=== PATIENT | female | born 1940 | race Caucasian/White ===

== ENCOUNTER 2016-08-09 14:59 | Emergency (ER) | payer BC, MEDICARE ==
[~2016-08-09 14:59] MED LIST: ASPIRIN 81 MG TABLET, CHEWABLE ONE; CLOPIDOGREL BISULFATE 300 MG TABLET ONE; ENOXAPARIN SODIUM INJ 30 MG/0.3 ML DISP.SYRIN ONE; NITROGLYCERIN 0.4 MG/TAB 25 TAB/BOTTLE ONE; TENECTEPLASE INJ 50 MG KIT IV ONE
--- NOTE | 2016-08-09 15:40 | ER Document Report ---
ED Cardiac - General Chief Complaint: Chest Pain > 30 Stated Complaint: CHEST PAIN Notes: The patient is a 75-year-old female, past medical history hypertension, breast cancer with metastases to the bones, diabetes, hypercholesterolemia, presents with 4 hours of left-sided chest pressure that started at rest. She has never had this before. She denies any radiation of pain, shortness of breath, fevers , leg swelling, nausea, vomiting, headache, recent surgery, brain surgery, dark or bloody stools or hematuria. TRAVEL OUTSIDE OF THE [place] IN LAST 30 DAYS: No - Related Data Allergies/Adverse Reactions: Sulfa (Sulfonamide Antibiotics) Allergy (Severe, Verified 05/10/14 16:29) Face swells ciprofloxacin [From Cipro] Allergy (Mild, Verified 09/25/15 20:08) Urticaria ciprofloxacin HCl [From Cipro] Allergy (Mild, Verified 09/25/15 20:08) Urticaria Home Medications: Current Home Medications Krill/Brackney-3/Dha/Epa/Lipids [Krill Oil 300 mg Softgel] 300 cap PO DAILY [History] Letrozole 2.5 tab PO DAILY 08/09/16 [History] Magnesium Oxide [Mag-Ox 400 mg Tablet] 400 tab PO BID 08/09/16 [History] Metoprolol Succinate/Hctz [Metoprolol ER-Hctz 25-12.5 mg] 12.5 tab PO BID [History] Multivits-Min/Iron/FA/Lutein [Centrum Silver Women Tablet] 1 each PO DAILY 08/09 [History] Omeprazole 40 cap PO DAILY 08/09/16 [History] Oxycodone HCl [Oxycodone HCl 10 MG Tablet] 10 tab PO Q6 PRN 08/09/16 [History] Palbociclib [Ibrance] 125 mg PO DAILY 08/09/16 [History] Potassium Chloride 20 meq PO TID 08/09/16 [History] Sitagliptin Phosphate [Januvia 25 mg Tablet] 25 mg PO DAILY 08/09/16 [History] Past Medical History - General Information source: Patient - Social History Smoking Status: Never Smoker Family History: Reviewed & Not Pertinent - Past Medical History Cardiac Medical History: Reports: Hx Hypercholesterolemia, Hx Hypertension, Hx Heart Murmur Denies: Hx Atrial Fibrillation, Hx Congestive Heart Failure, Hx Coronary Artery Disease, Hx Heart Attack, Hx Peripheral Vascular Disease Pulmonary Medical History: Denies: Hx Asthma, Hx Bronchitis, Hx COPD, Hx Pneumonia Neurological Medical History: Denies: Hx Cerebrovascular Accident, Hx Seizures Endocrine Medical History: Reports: Hx Diabetes Mellitus Type 2, Hx Hypothyroidism. Denies: Hx Graves' Disease, Hx Hyperthyroidism Renal/ Medical History: Reports: Hx Kidney Stones. Denies: Hx End Stage Renal Disease, Hx Ovarian Cysts, Hx Peritoneal Dialysis, Hx Pelvic Inflammatory Disease Malignancy Medical History: Reports: Hx Breast Cancer - Bilateral. Denies: Hx Cervical Cancer, Hx Leukemia, Hx Ovarian Cancer GI Medical History: Reports: Hx Crohn's Disease. Denies: Hx Gastroesophageal Reflux Disease, Hx Hiatal Hernia, Hx Irritable Bowel, Hx Liver Failure, Hx Ulcer Musculoskeltal Medical History: Reports Hx Arthritis, Denies Hx Fibromyalgia, Reports Hx Gout, Denies Hx Multiple Sclerosis, Denies Hx Muscular Dystrophy Psychiatric Medical History: Denies: Hx Bipolar Disorder, Hx Dementia, Hx Depression, Hx Post Traumatic Stress Disorder, Hx Schizophrenia Traumatic Medical History: Denies: Hx Fractures Infectious Medical History: Denies: Hx HIV Past Surgical History: Reports: Hx Appendectomy, Hx Mastectomy, Hx Neurologic Surgery. Denies: Hx Bowel Surgery, Hx Section, Hx Cholecystectomy, Hx Colostomy, Hx Coronary Artery Bypass Graft, Hx Gastric Bypass Surgery, Hx Herniorrhaphy, Hx Hysterectomy, Hx Pacemaker, Hx Tonsillectomy, Hx Tubal Ligation - Immunizations Hx Diphtheria, Pertussis, Tetanus Vaccination: No Hx Pneumococcal Vaccination: 04/27/14 Review of Systems - Review of Systems Notes: REVIEW OF SYSTEMS: CONSTITUTIONAL: -fevers, -chills EENT: -eye pain, -difficulty swallowing, -nasal congestion CARDIOVASCULAR: +chest pain, -syncope. RESPIRATORY: -cough, -SOB GASTROINTESTINAL: -abdominal pain, -nausea, -vomiting, -diarrhea GENITOURINARY: -dysuria, -hematuria MUSCULOSKELETAL: -back pain, -neck pain SKIN: -rash or skin lesions. HEMATOLOGIC: -easy bruising or bleeding. LYMPHATIC: -swollen, enlarged glands. NEUROLOGICAL: -altered mental status or loss of consciousness, -headache, - neurologic symptoms PSYCHIATRIC: -anxiety, -depression. ALL OTHER SYSTEMS REVIEWED AND NEGATIVE. Physical Exam - Vital signs Vitals: Resp Pulse Ox 16 97 08/09/16 15:29 08/09/16 15:29 108/67, HR 82, RR 15, Pulse Ox 97%, Temp 98.2 - Notes Notes: PHYSICAL EXAMINATION: GENERAL: Well-appearing, well-nourished and in no acute distress. HEAD: Atraumatic, normocephalic. EYES: Pupils equal round and reactive to light, extraocular movements intact, sclera anicteric, conjunctiva are normal. ENT: nares patent, oropharynx clear without exudates. Moist mucous membranes. NECK: Normal range of motion, supple without lymphadenopathy LUNGS: Breath sounds clear to auscultation bilaterally and equal. No wheezes rales or rhonchi. HEART: Regular rate and rhythm without murmurs ABDOMEN: Soft, nontender, normoactive bowel sounds. No guarding, no rebound. No masses appreciated. EXTREMITIES: Normal range of motion, no pitting or edema. No cyanosis. NEUROLOGICAL: Cranial nerves grossly intact. Normal speech, normal gait. Normal sensory, motor, and reflex exams. PSYCH: Normal mood, normal affect. SKIN: Warm, Dry, normal turgor, no rashes or lesions noted. Course - Re-evaluation Re-evalutation: Patient's EKG concerning for STEMI with [address] elevation in V3 and 3 mm elevation in V2 with old LBBB. Spoke to Dr. Irwin (waste disposal attendant on-call to read EKGs at [place]) and recommends making patient a STEMI alert. Went through contraindications of tPA and she does not have any contraindications. Chest x- ray does not show an enlarged mediastinum. PT/PTT machine is not working at this time. Nitroglycerin helped relieve her chest pressure. Spoke to Dr. Bagley at [facility] and he has accepted patient. He does not think that patient has all criteria met for STEMI, using [place] criteria. Recommends to hold TPA at this time, but has accepted patient at 15:50. TPA already given in order to meet time metrics. Patient remains chest pain-free. First troponin 0.64. Awaiting bed assignment at [facility]. - Vital Signs Vital signs: Temp Pulse Resp BP Pulse Ox 18 108/65 98 08/09/16 18:01 08/09/16 18:01 08/09/16 18:01 - Laboratory Result Diagrams: 08/09/16 15:26 08/09/16 15:26 Laboratory results interpreted by me: 08/09/16 08/09/16 15:26 15:26 RBC 2.85 L Hgb 11.1 L Hct 33.1 L MCV 116 H MCH 38.8 H RDW 16.0 H Sodium 133.8 L Chloride 95 L BUN 27 H Est GFR ( Amer) 55 L Est GFR (Non-Af Amer) 46 L Glucose 193 H Calcium 8.2 L - Diagnostic Test Radiology reviewed: Image reviewed, Reports reviewed Radiology results interpreted by me: CXR: NAD - EKG Interpretation by Me Rhythm: NSR [place]/QRS: LBBB When compared to previous EKG there are: Changes noted Additional EKG results interpreted by me: 5 mm DAVID in V3, 3 mm DAVID in V2, LBBB; ST elevations more prominent compared to EKG Discharge - Discharge Clinical Impression: NSTEMI (non-ST elevated myocardial infarction) Chest pain Qualifiers: Chest pain type: other chest pain Qualified Code(s): R07.89 - Other chest pain Condition: Stable Disposition: [facility] Admitting Provider: Dr. Bagley
[2016-08-09] MEDS ORDERED: ENOXAPARIN SODIUM INJ 30 MG/0.3 ML DISP.SYRIN IV ONE (15:46)
[2016-08-09] MEDS: ENOXAPARIN SODIUM INJ 100 MG/1 ML DISP.SYRIN SUBCUT SCH (15:54)
[2016-08-09] MEDS ORDERED: NORMAL SALINE 1000 ML 1,000 ML IV PRN (16:03)
[2016-08-09] MEDS ORDERED: TENECTEPLASE INJ 50 MG KIT IV ONE (16:03)
[2016-08-09] MEDS ORDERED: NITROGLYCERIN 0.4 MG/TAB 25 TAB/BOTTLE SL PRN (16:03)
[2016-08-09] MEDS ORDERED: CLOPIDOGREL BISULFATE 300 MG TABLET PO ONE (16:03)
[2016-08-09] MEDS ORDERED: ASPIRIN 81 MG TABLET, CHEWABLE PO ONE (16:03)
[2016-08-09 16:27] LABS: HEMATOCRIT 33.1 % (36.0-47.0); HEMOGLOBIN 11.1 g/dL (12.0-15.5); HGB HCT DIFFERENCE 0.2; MEAN CORPUSCULAR HEMOGLOBIN 38.8 pg (27.0-33.4); MEAN CORPUSCULAR HGB CONC 33.4 g/dL (32.0-36.0); RED BLOOD COUNT 2.85 10^6/uL (3.72-5.28); WHITE BLOOD COUNT 5.7 10^3/uL (4.0-10.5)
[2016-08-09 16:37] LABS: ANION GAP 14 (5-19); BLOOD UREA NITROGEN 27 mg/dL (7-20); CALCIUM 8.2 mg/dL (8.4-10.2); CARBON DIOXIDE 25 mmol/L (22-30); CHLORIDE 95 mmol/L (98-107); CREATINE KINASE 79 U/L (30-135); CREATININE RESULT 1.16 mg/dL (0.52-1.25); GLUCOSE 193 mg/dL (75-110); POTASSIUM 4.3 mmol/L (3.6-5.0); SODIUM 133.8 mmol/L (137-145)
[2016-08-09 16:44] LABS: MEAN CORPUSCULAR VOLUME 116 fl (80-97)
--- NOTE | 2016-08-09 16:47 | EKG REPORT ---
SEVERITY:- ABNORMAL ECG - SINUS RHYTHM LEFT BUNDLE BRANCH BLOCK : Confirmed by: Perri Mcgrath MD 09-Aug-2016 16:47:25
--- NOTE | 2016-08-09 16:47 | EKG REPORT ---
SEVERITY:- ABNORMAL ECG - SINUS RHYTHM LEFT ATRIAL ABNORMALITY LVH WITH IVCD, LAD AND SECONDARY REPOL ABNRM PROBABLE INFERIOR INFARCT, AGE INDETERMINATE : Confirmed by: Perri Mcgrath MD 09-Aug-2016 16:47:39
[2016-08-09 16:49] LABS: CREATINE KINASE MB 3.52 ng/mL (<4.55)
[2016-08-09 16:52] LABS: TROPONIN I 0.625 ng/mL
[2016-08-09 19:40] LABS: PROTHROMBIN TIME 15.3 SEC (11.4-15.4)
--- NOTE | 2016-08-09 23:44 | ER Document Report ---
Doctor's Note Notes: 08/09/16 23:43 Patient resting comfortably, no complaints at present time, no chest pain or shortness of breath, stable vital signs, repeat troponin has gone up significantly, patient is pending transfer to [facility] where her catalogue illustrator is and where she has been treated in the past, she will remain in the emergency room until a bed becomes available or her status changes
[2016-08-10] MEDS: ENOXAPARIN SODIUM INJ 100 MG/1 ML DISP.SYRIN SUBCUT SCH (00:05)
--- NOTE | 2016-08-10 01:54 | ER Document Report ---
Doctor's Note Notes: 08/10/16 01:53 pt is stable at this time, awaiting transfer 08/10/16 03:30 pt reevlauted, still pain free, troponin had elevated again, repeat ekg by Dr Perdomo notes similar ekg changes [id number] were not considered to be a stemi by cardiology. Pt should be transported in the next few minutes
[2016-08-10 03:34] VITALS: BP 97/60
--- NOTE | 2016-08-10 09:24 | EKG REPORT ---
SEVERITY:- ABNORMAL ECG - SINUS RHYTHM LEFT BUNDLE BRANCH BLOCK : Confirmed by: Perri Mcgrath MD 10-Aug-2016 09:23:47
[2016-08-12 14:30] LABS: PATH REVIEW PATHOLOGIST REVIEWED
== END 2016-08-10 03:07 | disposition short-term general hospital (02) ==
LOC: ER 14:59
DX: I21.4 Non-ST elevation (NSTEMI) myocardial infarction (principal); R07.89 Other chest pain; I10 Essential (primary) hypertension; E11.9 Type 2 diabetes mellitus without complications; E78.00 Pure hypercholesterolemia, unspecified; Z79.899 Other long term (current) drug therapy
CPT/HCPCS: 93005 ×2; 36591; 99291; 96372; 96361; 96374; 96375; 36415; 82553; 82550; 85027; 85610; 85730; 80048; 84484; 71010; 93010 ×2; J3101; J3490; J1650 ×3; J7030

== ENCOUNTER → 2016-09-01 | Outpatient (CLI) | payer BC, MEDICARE | LOC: RAD 19:57 | PROVIDERS: ATTEND Internal Medicine | DX: C50.411 Malignant neoplasm of upper-outer quadrant of right female breast (principal); C79.51 Secondary malignant neoplasm of bone | CPT/HCPCS: 78815; A9552 ==

== ENCOUNTER 2016-10-03 14:02 | Emergency (ER) | payer BC ==
--- NOTE | 2016-10-03 14:25 | ER Document Report ---
ED Medical Screen (RME) - General Stated Complaint: BLOOD PRESSURE PROBLEM Notes: Patient p/w syncopal episode states diarrhea without BRBPR or dark stool, all last evening, syncope this AM. admits to head injury with LOC prior to fall lasting <1 min Denies chest pain, SOB, headache, dizzyness PMH: ME with stents x2, heart failure, DM, HTN, HLD, breast cancer stage IV with met to her left hip -CVA, TIA, seizures, COPD, CKD I have greeted and performed a rapid initial assessment of this patient. A comprehensive ED assessment and evaluation of the patient, analysis of test results and completion of the medical decision making process will be conducted by additional ED providers. TRAVEL OUTSIDE OF THE [place] IN LAST 30 DAYS: No - Related Data Allergies/Adverse Reactions: Sulfa (Sulfonamide Antibiotics) Allergy (Severe, Verified 10/03/16 14:21) Face swells ciprofloxacin [From Cipro] Allergy (Mild, Verified 10/03/16 14:21) Urticaria ciprofloxacin HCl [From Cipro] Allergy (Mild, Verified 10/03/16 14:21) Urticaria Past Medical History - Past Medical History Cardiac Medical History: Reports: Hx Hypercholesterolemia, Hx Hypertension, Hx Heart Murmur Denies: Hx Atrial Fibrillation, Hx Congestive Heart Failure, Hx Coronary Artery Disease, Hx Heart Attack, Hx Peripheral Vascular Disease Pulmonary Medical History: Denies: Hx Asthma, Hx Bronchitis, Hx COPD, Hx Pneumonia Neurological Medical History: Denies: Hx Cerebrovascular Accident, Hx Seizures Endocrine Medical History: Reports: Hx Diabetes Mellitus Type 2, Hx Hypothyroidism. Denies: Hx Graves' Disease, Hx Hyperthyroidism Renal/ Medical History: Reports: Hx Kidney Stones. Denies: Hx End Stage Renal Disease, Hx Ovarian Cysts, Hx Peritoneal Dialysis, Hx Pelvic Inflammatory Disease Malignancy Medical History: Reports: Hx Breast Cancer - Bilateral. Denies: Hx Cervical Cancer, Hx Leukemia, Hx Ovarian Cancer GI Medical History: Reports: Hx Crohn's Disease. Denies: Hx Gastroesophageal Reflux Disease, Hx Hiatal Hernia, Hx Irritable Bowel, Hx Liver Failure, Hx Ulcer Musculoskeltal Medical History: Reports Hx Arthritis, Denies Hx Fibromyalgia, Reports Hx Gout, Denies Hx Multiple Sclerosis, Denies Hx Muscular Dystrophy Psychiatric Medical History: Denies: Hx Bipolar Disorder, Hx Dementia, Hx Depression, Hx Post Traumatic Stress Disorder, Hx Schizophrenia Traumatic Medical History: Denies: Hx Fractures Infectious Medical History: Denies: Hx HIV Past Surgical History: Reports: Hx Appendectomy, Hx Mastectomy, Hx Neurologic Surgery. Denies: Hx Bowel Surgery, Hx Section, Hx Cholecystectomy, Hx Colostomy, Hx Coronary Artery Bypass Graft, Hx Gastric Bypass Surgery, Hx Herniorrhaphy, Hx Hysterectomy, Hx Pacemaker, Hx Tonsillectomy, Hx Tubal Ligation - Immunizations Hx Diphtheria, Pertussis, Tetanus Vaccination: No Physical Exam - Vital signs Vitals: Temp Pulse Resp BP Pulse Ox 97.6 F 71 15 115/43 L 96 10/03/16 14:18 10/03/16 14:18 10/03/16 14:18 10/03/16 14:18 10/03/16 14:18 Course - Vital Signs Vital signs: Temp Pulse Resp BP Pulse Ox 97.6 F 71 15 115/43 L 96 10/03/16 14:18 10/03/16 14:18 10/03/16 14:18 10/03/16 14:18 10/03/16 14:18
--- NOTE | 2016-10-03 15:09 | ER Document Report ---
ED General - General Mode of Arrival: Medic Information source: Patient TRAVEL OUTSIDE OF THE [place] IN LAST 30 DAYS: No - HPI Onset: Other - see narrative Recently seen / treated by doctor: Yes <LUCIAN SPENCE - Last Filed: 10/03/16 18:41> <PRETTYEDIN - Last Filed: 10/09/16 22:47> - General Chief Complaint: Blood Pressure Problem Stated Complaint: BLOOD PRESSURE PROBLEM Notes: Patient is a 75-year-old female with past medical history significant for stage IV breast cancer with metastasis to the left hip that presents to the emergency department today with complaints of a syncopal episode that occurred prior to arrival in the bathroom at home. Family members at bedside state the patient was in the bathroom for "quite some time" so they asked if she was okay, patient said yes. Shortly after the patient was attempting to stand up when she passed out. Patient states she did not hit her head during the fall. Patient is on Plavix. Patient states she had no symptoms prior to the fall. ( LUCIAN SPENCE) - Related Data Allergies/Adverse Reactions: Sulfa (Sulfonamide Antibiotics) Allergy (Severe, Verified 10/03/16 14:21) Face swells ciprofloxacin [From Cipro] Allergy (Mild, Verified 10/03/16 14:21) Urticaria ciprofloxacin HCl [From Cipro] Allergy (Mild, Verified 10/03/16 14:21) Urticaria Past Medical History - General Information source: Patient, [facility] Records - Social History Smoking Status: Never Smoker Cigarette use (# per day): No Chew tobacco use (# tins/day): No Frequency of alcohol use: None Drug Abuse: None Lives with: Family Family History: Reviewed & Not Pertinent Patient has suicidal ideation: No Patient has homicidal ideation: No - Past Medical History Cardiac Medical History: Reports: Hx Hypercholesterolemia, Hx Hypertension, Hx Heart Murmur Endocrine Medical History: Reports: Hx Diabetes Mellitus Type 2, Hx Hypothyroidism Renal/ Medical History: Reports: Hx Kidney Stones Malignancy Medical History: Reports: Hx Breast Cancer - Bilateral, Stage IV GI Medical History: Reports: Hx Crohn's Disease Musculoskeltal Medical History: Reports Hx Arthritis, Reports Hx Gout Past Surgical History: Reports: Hx Appendectomy, Hx Mastectomy, Hx Neurologic Surgery - Immunizations Hx Diphtheria, Pertussis, Tetanus Vaccination: No Hx Pneumococcal Vaccination: 04/27/14 <LUCIAN SPENCE - Last Filed: 10/03/16 18:41> Review of Systems - Review of Systems Constitutional: No symptoms reported EENT: No symptoms reported Cardiovascular: See HPI, Syncope Respiratory: No symptoms reported Gastrointestinal: See HPI, Diarrhea Genitourinary: No symptoms reported Female Genitourinary: No symptoms reported Musculoskeletal: See HPI, Back pain Skin: No symptoms reported Hematologic/Lymphatic: No symptoms reported Neurological/Psychological: No symptoms reported -: Yes All other systems reviewed and negative <LUCIAN SPENCE - Last Filed: 10/03/16 18:41> Physical Exam - General General appearance: Alert In distress: None - HEENT Head: Normocephalic, Atraumatic Eyes: Normal Conjunctiva: Normal Extraocular movements intact: Yes - Respiratory Respiratory status: No respiratory distress Chest status: Nontender Breath sounds: Normal Chest palpation: Normal - Cardiovascular Rhythm: Regular Heart sounds: Normal auscultation Murmur: No - Abdominal Inspection: Normal Distension: No distension Bowel sounds: Normal Tenderness: Nontender - Extremities General upper extremity: Normal inspection, Normal ROM. No: Edema General lower extremity: Other - see skin - Neurological Neuro grossly intact: Yes Cognition: Normal Orientation: AAOx4 Speech: Normal - Psychological Associated symptoms: Normal affect, Normal mood <LUCIAN SPENCE - Last Filed: 10/03/16 18:41> <EDIN OLSEN - Last Filed: 10/09/16 22:47> - Vital signs Vitals: Temp Pulse Resp BP Pulse Ox 97.6 F 71 15 115/43 L 96 10/03/16 14:18 10/03/16 14:18 10/03/16 14:18 10/03/16 14:18 10/03/16 14:18 - Skin Notes: Erythematous anterior shins bilaterally, not cellulitic. Superficial lesions to bilateral lower extremities, not open or draining. (LUCIAN SPENCE) Course - Laboratory Result Diagrams: 10/03/16 16:05 10/03/16 16:05 <LUCIAN SPENCE - Last Filed: 10/03/16 18:41> - Laboratory Result Diagrams: 10/03/16 16:05 10/03/16 16:05 <EDIN OLSEN - Last Filed: 10/09/16 22:47> - Re-evaluation Re-evalutation: 10/03/16 21:28 10/04/16 00:39 I personally performed the services described in the documentation, reviewed and edited the documentation which was dictated to my scribe in my presence, and it accurately records my words and actions. Patient presents emergency Department with a vasovagal syncope and diarrhea. Patient has stage IV breast cancer along with multiple medical problems. She had diarrhea all night long couldn't get any rest went into the bathroom side of the toilet for prolonged period of time when she went to stand up off the toilet she passed out. She thinks she may have struck her head she was seen and evaluated had a CT the head CT a cervical spine which is negative on examination she is awake alert not hypotensive or tachycardic. Clinically dehydrated unable to give a diarrheal specimen for multiple hours as she said it subsided that's what she was trying to do when she was on the toilet. No chest pain shortness breath negative acute EKG changes labs and troponin. Observed given fluids for a period of time no dizziness no chest pain no shortness of breath stable wants to go home at this point oral hydration one to 2 day PCP follow-up and discuss reasons for ED return sooner no acute clinical concerns for OR PE or dissection. (EDIN OLSEN) - Vital Signs Vital signs: Temp Pulse Resp BP Pulse Ox 98.1 F 92 21 H 134/62 H 96 10/03/16 21:17 10/03/16 21:22 10/03/16 21:17 10/03/16 21:17 10/03/16 21:17 - Laboratory Laboratory results interpreted by me: 10/03/16 10/03/16 10/03/16 15:50 16:05 16:05 WBC 2.4 L RBC 2.67 L Hgb 10.3 L Hct 30.2 L MCV 113 H MCH 38.6 H RDW 19.0 H Plt Count 133 L Seg Neutrophils % 80.4 H Lymphocytes % 10.4 L Absolute Lymphocytes 0.3 L BUN 33 H Glucose 111 H NT-Pro-B Natriuret Pep Ur Leukocyte Esterase TRACE H 10/03/16 16:05 WBC RBC Hgb Hct MCV MCH RDW Plt Count Seg Neutrophils % Lymphocytes % Absolute Lymphocytes BUN Glucose NT-Pro-B Natriuret Pep 5100 H Ur Leukocyte Esterase Discharge <LUCIAN SPENCE - Last Filed: 10/03/16 18:41> <EDIN OLSEN - Last Filed: 10/09/16 22:47> - Discharge Clinical Impression: Vasovagal near syncope Diarrhea Qualifiers: Diarrhea type: unspecified type Qualified Code(s): R19.7 - Diarrhea, unspecified Condition: Stable Disposition: HOME, SELF-CARE Additional Instructions: Diarrhea Diarrhea means frequent, watery stools. There are many causes. Any problem that keeps the intestinal tract from absorbing water from the stool can lead to diarrhea. A sudden new diarrhea problem is usually caused by a virus, food sensitivity, toxic bacteria, or drugs. In this case, we expect the problem to go away soon. Testing is done only if you seem seriously ill from the diarrhea. If you have chronic diarrhea, or diarrhea that keeps coming back, we need to find out why. Chronic diarrhea can be due to inflammation of the bowels such as Crohn's disease or ulcerative colitis, food sensitivity such as intolerance to lactose or wheat protein, irritable bowel syndrome, and other problems. If your diarrhea is a significant problem but it's not clear why you have it, we' ll refer you to a specialist for further testing. During an episode of diarrhea, drink small amounts (two to six ounces) of clear liquids (soft drinks, sport drinks, herb teas, broth, etc). Take fluids frequently to prevent dehydration. It's usually not a problem to take mild anti- diarrhea medication such as Kaopectate or Pepto-Bismol. As the diarrhea eases, advance to small amounts of bland food (mashed potato, toast) for 24 hours. Call the physician if blood appears in your vomit or stool, if vomiting lasts longer than 24 hours, if the abdominal pain worsens or becomes localized to one area, if you develop high fever, or if you become lightheaded and weak. Dehydration Dehydration can result from vomiting or diarrhea, fever, or decreased intake of fluids. If severe, hospitalization and intravenous fluids may be required. Most cases are treated at home with fluids by mouth. For the next 24 hours, drink lots of clear fluids. In mild cases, this can be soda pop or sports drinks. For more severe dehydration, the doctor may recommend special fluids such as Pedialyte or Lytren. Try to get three liters ( 3 quarts) of fluid per day. If vomiting occurs, continue to drink the fluids frequently (every 15 to 20 minutes), but in small amounts (one or two ounces). Depending on the type of dehydration, the doctor may prescribe antinausea medicine or potassium replacements. Call the doctor or return for re-examination if you become progressively weak, vomit repeatedly, or have other new symptoms. Vasovagal Symptoms Your symptoms seem to be due to a fall in blood pressure, caused by the interaction of your nervous system with your circulatory system. This can result in abnormally slow pulse rate, faintness, abnormal sensations, low blood pressure, difficulty with vision, or fainting (syncope). Vasovagal symptoms may be brought on by emotional distress, pain, dehydration, bleeding, or medication effects. Often, no cause can be identified. Your exam has revealed no signs of a serious problem. Usually, no further tests are required. However, if further workup has been recommended it's important that you follow up as instructed. Should you feel lightheaded or "about to faint," you should sit or lie down as quickly as possible. The episode will usually pass. Recurring symptoms will require further evaluation to determine the cause. Call the physician if you develop severe prolonged dizziness, headache, chest pain, shortness of breath, or other new symptoms. Referrals: AVRIL HARRIS MD [Primary Care Provider] - Follow up tomorrow (follow up with primary care physician to 3 days return for increasing worsening or new symptoms ) Scribe Documentation - Scribe Written by Efrem:: Efrem Major, 10/03/2016 1840 acting as scribe for :: Pretty <LUCIAN SPENCE - Last Filed: 10/03/16 18:41>
[2016-10-03] MEDS ORDERED: NORMAL SALINE 1000 ML 1,000 ML IV ONE (15:35)
[2016-10-03 16:26] LABS: ABSOLUTE LYMPHOCYTES (AUTO) 0.3 10^3/uL (0.5-4.7); ABSOLUTE MONOCYTES (AUTO) 0.2 10^3/uL (0.1-1.4); ABSOLUTE NEUT (AUTO) 1.9 10^3/uL (1.7-8.2); EOSINOPHILS % (AUTO) 0.9 % (0-6); HEMATOCRIT 30.2 % (36.0-47.0); HEMOGLOBIN 10.3 g/dL (12.0-15.5); HGB HCT DIFFERENCE 0.7; LYMPHOCYTES % (AUTO) 10.4 % (13-45); MEAN CORPUSCULAR HEMOGLOBIN 38.6 pg (27.0-33.4); MEAN CORPUSCULAR HGB CONC 34.1 g/dL (32.0-36.0); MONOCYTES % (AUTO) 7.3 % (3-13); RED BLOOD COUNT 2.67 10^6/uL (3.72-5.28); SEGMENTED NEUTROPHILS % (AUTO) 80.4 % (42-78); WHITE BLOOD COUNT 2.4 10^3/uL (4.0-10.5)
[2016-10-03 16:51] LABS: ANISOCYTOSIS 2+; OVALOCYTES 1+; POIKILOCYTOSIS 1+; POLYCHROMASIA 1+; TEAR DROP CELLS SLIGHT
[2016-10-03 16:52] LABS: MEAN CORPUSCULAR VOLUME 113 fl (80-97); PLATELET CLUMPS PRESENT
[2016-10-03 16:53] LABS: BLOOD UREA NITROGEN 33 mg/dL (7-20); CALCIUM 9.7 mg/dL (8.4-10.2); CREATININE RESULT 0.84 mg/dL (0.52-1.25); GLUCOSE 111 mg/dL (75-110)
[2016-10-03 16:54] LABS: ALANINE AMINOTRANSFERASE 29 U/L (9-52); ALBUMIN 3.9 g/dL (3.5-5.0); ALKALINE PHOSPHATASE 113 U/L (38-126); ANION GAP 15 (5-19); ASPARTATE AMINO TRANSFERASE 25 U/L (14-36); CARBON DIOXIDE 23 mmol/L (22-30); CHLORIDE 101 mmol/L (98-107); CREATINE KINASE 30 U/L (30-135); LIPASE 37.6 U/L (23-300); POTASSIUM 4.6 mmol/L (3.6-5.0); SODIUM 138.5 mmol/L (137-145); TOTAL PROTEIN 7.2 g/dL (6.3-8.2)
[2016-10-03 17:05] LABS: CREATINE KINASE MB 0.94 ng/mL (<4.55); TROPONIN I 0.015 ng/mL
[2016-10-03 17:10] LABS: APPEARANCE,URINE CLEAR; BILIRUBIN,URINE NEGATIVE (NEGATIVE); GLUCOSE, URINE NEGATIVE (NEGATIVE); KETONES,URINE NEGATIVE (NEGATIVE); LEUKOCYTE ESTERASE,URINE TRACE (NEGATIVE); NITRITE,URINE NEGATIVE (NEGATIVE); PROTEIN,URINE NEGATIVE (NEGATIVE); URINE SPECIFIC GRAVITY 1.008; UROBILINOGEN,URINE NEGATIVE mg/dL (<2.0)
--- NOTE | 2016-10-03 20:04 | EKG REPORT ---
SEVERITY:- ABNORMAL ECG - SINUS RHYTHM PROBABLE LEFT ATRIAL ABNORMALITY LEFT BUNDLE BRANCH BLOCK : Confirmed by: Megan Irwin 03-Oct-2016 20:02:50
[2016-10-03 21:35] VITALS: BP 134/62
[2016-10-04 09:27] LABS: PATH REVIEW PATHOLOGIST REVIEWED
== END 2016-10-03 21:49 | disposition home or self-care (01) ==
LOC: ER 14:02
DX: R55 Syncope and collapse (principal); R19.7 Diarrhea, unspecified; E86.0 Dehydration; M54.9 Dorsalgia, unspecified; L98.9 Disorder of the skin and subcutaneous tissue, unspecified; L53.9 Erythematous condition, unspecified; I10 Essential (primary) hypertension; E11.9 Type 2 diabetes mellitus without complications; C50.912 Malignant neoplasm of unspecified site of left female breast; C50.911 Malignant neoplasm of unspecified site of right female breast; C79.89 Secondary malignant neoplasm of other specified sites; Z79.02 Long term (current) use of antithrombotics/antiplatelets; Z88.2 Allergy status to sulfonamides; Z88.1 Allergy status to other antibiotic agents
CPT/HCPCS: 36415; 70450; 71020; 72125; 80053; 81001; 82550; 82553; 83690; 83880; 84484; 85025; 93005; 93010; 96360; 96361; 99285

== ENCOUNTER 2016-10-31 12:54 | Inpatient (IN) | payer MEDICARE, BC ==
[2016-10-31] MEDS ORDERED: ASPIRIN 81 MG TABLET, CHEWABLE PO ONE (14:13)
--- NOTE | 2016-10-31 14:27 | ER Document Report ---
ED Cardiac - General Mode of Arrival: Ambulatory Information source: Patient TRAVEL OUTSIDE OF THE [place] IN LAST 30 DAYS: No - HPI Patient complains to provider of: Chest tightness - left, Shortness of breath Associated symptoms: Other - see notes above <ROVERTO ZAPATA - Last Filed: 10/31/16 17:57> <MAYRAFELI TOSHIA - Last Filed: 10/31/16 20:26> - General Chief Complaint: Chest Tightness Stated Complaint: CHEST TIGHTNESS Notes: 76 year old female with history of stents x2 ("couple of months ago"), hypertension, hyperlipidemia, and breast cancer (metastasized to hip) presents to the ED complaining of left chest tightness and shortness of breath that started this morning. Patient reports that the symptoms that she is having now are different than those that she was having when she received the stents. Patient has not taken nitroglycerin today. Patient denies any sort of bleeding. Patient was sent to the ED by her primary care provider, Dr. Zapata. (ROVERTO ZAPATA) - Related Data Allergies/Adverse Reactions: Sulfa (Sulfonamide Antibiotics) Allergy (Severe, Verified 10/31/16 13:04) Face swells ciprofloxacin [From Cipro] Allergy (Mild, Verified 10/31/16 13:04) Urticaria ciprofloxacin HCl [From Cipro] Allergy (Mild, Verified 10/31/16 13:04) Urticaria Home Medications: Current Home Medications Aspirin [Aspirin 81 mg Chewable Tablet] 81 mg PO DAILY 10/31/16 [History] Atorvastatin Calcium [Lipitor 20 mg Tablet] 20 mg PO QHS 10/31/16 [History] Clopidogrel Bisulfate [Plavix 75 mg Tablet] 75 mg PO DAILY 10/31/16 [History] Furosemide [Lasix] 80 mg PO QAM 10/31/16 [History] Letrozole [Femara 2.5 Mg Tablet] 2.5 mg PO DAILY 10/31/16 [History] Levothyroxine Sodium [Synthroid 0.15 mg Tablet] 0.15 mg PO DAILY 10/31/16 [ History] Magnesium Oxide [Mag-Ox 400 mg Tablet] 400 mg PO BID 10/31/16 [History] Multivits-Min/Iron/FA/Lutein [Centrum Silver Women Tablet] 1 tab PO DAILY [History] Nitroglycerin [Nitrostat 0.4 mg (1/150 Gr) Tabs 25/Bottle] 1 tab SL Q5MP PRN 01/11 [History] Palbociclib [Ibrance] 125 mg PO DAILY 10/31/16 [History] Pantoprazole Sodium [Protonix] 40 mg PO QPM 10/31/16 [History] Potassium Chloride [Klor-Con 10 Meq Tablet.sa] 10 meq PO BID 10/31/16 [History] Sitagliptin Phosphate [Januvia 25 mg Tablet] 25 mg PO DAILY 10/31/16 [History] Spironolactone [Aldactone 25 mg Tablet] 25 mg PO Q2DAYS 10/31/16 [History] Past Medical History - General Information source: Patient - Social History Smoking Status: Unknown if Ever Smoked Family History: Reviewed & Not Pertinent Patient has suicidal ideation: No Patient has homicidal ideation: No - Past Medical History Cardiac Medical History: Reports: Hx Hypercholesterolemia, Hx Hypertension, Hx Heart Murmur Endocrine Medical History: Reports: Hx Diabetes Mellitus Type 2, Hx Hypothyroidism Renal/ Medical History: Reports: Hx Kidney Stones Malignancy Medical History: Reports: Hx Breast Cancer - Bilateral, Stage IV GI Medical History: Reports: Hx Crohn's Disease Musculoskeltal Medical History: Reports Hx Arthritis, Reports Hx Gout Past Surgical History: Reports: Hx Appendectomy, Hx Coronary Stent - x2, Hx Mastectomy, Hx Neurologic Surgery - Immunizations Hx Diphtheria, Pertussis, Tetanus Vaccination: No Hx Pneumococcal Vaccination: 04/27/14 <ROVERTO ZAPATA - Last Filed: 10/31/16 17:57> Review of Systems - Review of Systems Constitutional: No symptoms reported EENT: No symptoms reported Cardiovascular: See HPI, Chest pain - "tightness" to left chest Respiratory: See HPI, Short of breath Gastrointestinal: No symptoms reported Genitourinary: No symptoms reported Female Genitourinary: No symptoms reported Musculoskeletal: No symptoms reported Skin: No symptoms reported Hematologic/Lymphatic: No symptoms reported Neurological/Psychological: No symptoms reported -: Yes All other systems reviewed and negative <ROVERTO ZAPATA - Last Filed: 10/31/16 17:57> Physical Exam - Vital signs Interpretation: Hypoxic, Tachypneic - General General appearance: Alert, Other - chronically ill appearing In distress: Mild - HEENT Head: Normocephalic, Atraumatic Eyes: Normal Extraocular movements intact: Yes Pupils: PERRL - Respiratory Respiratory status: Respiratory distress - mild respiratory distress; Hypoxic; On room air., Tachypnea Breath sounds: Normal - Cardiovascular Rhythm: Regular Heart sounds: Normal auscultation - Abdominal Inspection: Normal Distension: No distension Tenderness: Nontender - Back Back: Normal - Extremities General upper extremity: Normal inspection, Normal ROM General lower extremity: Normal inspection, Normal ROM - Neurological Neuro grossly intact: Yes Cognition: Normal Orientation: AAOx4 [place] Coma Scale Eye Opening: Spontaneous [place] Coma Scale Verbal: Oriented [place] Coma Scale Motor: Obeys Commands Irene Coma Scale Total: 15 Speech: Normal - Psychological Associated symptoms: Normal affect, Normal mood - Skin Skin Temperature: Warm Skin Moisture: Dry Skin Color: Normal <ROVERTO ZAPATA - Last Filed: 10/31/16 17:57> Course - Laboratory Result Diagrams: 10/31/16 15:05 10/31/16 15:05 - Consults Dr. Zapata Time consulted: 16:33 <ROVERTO ZAPATA - Last Filed: 10/31/16 17:57> - Laboratory Result Diagrams: 10/31/16 15:05 10/31/16 15:05 <FELI NUNEZ - Last Filed: 10/31/16 20:26> - Re-evaluation Re-evalutation: 10/31/16 20:25 Patient feels better at this time. Has been discussed with Dr. Zapata who was put in admission orders for the patient. Troponin negative 2. No evidence for PE. Patient does have a elevated BNP and Dr. Irwin has been consulted. Stable at time of admission. Patient and family agree with this plan. (FELI NUNEZ) - Vital Signs Vital signs: Temp Pulse Resp BP Pulse Ox 98.0 F 88 15 109/47 L 100 10/31/16 13:09 10/31/16 13:09 10/31/16 18:01 10/31/16 18:01 10/31/16 18:01 - Laboratory Laboratory results interpreted by me: 10/31/16 10/31/16 10/31/16 15:05 15:05 15:05 RBC 2.36 L Hgb 9.3 L Hct 26.9 L MCV 114 H MCH 39.3 H RDW 18.7 H Plt Count 104 L Seg Neuts % (Manual) 88 H Lymphocytes % (Manual) 3 L Abs Lymphs (Manual) 0.3 L APTT 21.2 L Chloride 97 L BUN 34 H Est GFR ( Amer) 56 L Est GFR (Non-Af Amer) 46 L Glucose 124 H Direct Bilirubin 0.7 H - Consults Dr. Zapata Reason for consultation: 10/31/16 16:33 Patient was discussed with Dr. Zapata and states to repeat the troponin. (ROVERTO ZAPATA) Critical Care Note - Critical Care Note Total time excluding time spent on procedures (mins): 45 - evaluation and management of respiratory distress, chest pain, multiple re-evaluations, coordination of admission, consultation with specialist <FELI NUNEZ - Last Filed: 10/31/16 20:26> Discharge <ROVERTO ZAPATA - Last Filed: 10/31/16 17:57> - Discharge Admitting Provider: [facility] Admitted: [facility] <FELI NUNEZ - Last Filed: 10/31/16 20:26> - Discharge Clinical Impression: Hypoxemia Chest pain Qualifiers: Chest pain type: unspecified Qualified Code(s): R07.9 - Chest pain, unspecified Condition: Stable Disposition: ADMITTED INPATIENT Scribe Attestation: 10/31/16 20:26 I personally performed the services described in the documentation, reviewed and edited the documentation which was dictated to the scribe in my presence, and it accurately records my words and actions. (FELI NUNEZ) Scribe Documentation - Scribe Written by Efrem:: Efrem Holm, 10/31/2016 1544 acting as scribe for :: Mayra <ROVERTO ZAPATA - Last Filed: 10/31/16 17:57>
[2016-10-31] MEDS ORDERED: NITROGLYCERIN 2% OINTMENT 1 GM PACKET TP ONE (14:42)
[2016-10-31 15:28] LABS: VENOUS BLOOD BASE EXCESS 2.5 mmol/L; VENOUS BLOOD HCO3 27.5 mmol/L (20-32); VENOUS BLOOD PCO2 44.7 mmHg (35-63); VENOUS BLOOD PH 7.41 (7.30-7.42)
[2016-10-31 15:34] LABS: HEMATOCRIT 26.9 % (36.0-47.0); HEMOGLOBIN 9.3 g/dL (12.0-15.5); MEAN CORPUSCULAR HEMOGLOBIN 39.3 pg (27.0-33.4); MEAN CORPUSCULAR HGB CONC 34.6 g/dL (32.0-36.0); MEAN CORPUSCULAR VOLUME 114 fl (80-97); RED BLOOD COUNT 2.36 10^6/uL (3.72-5.28); RED CELL DISTRIBUTION WIDTH 18.7 % (11.5-14.0); WHITE BLOOD COUNT 5.6 10^3/uL (4.0-10.5)
[2016-10-31 15:37] LABS: PROTHROMBIN TIME 14.5 SEC (11.4-15.4)
[2016-10-31 15:38] LABS: PARTIAL THROMBOPLASTIN TIME 21.2 SEC (23.5-35.8)
--- NOTE | 2016-10-31 15:38 | EKG REPORT ---
SEVERITY:- ABNORMAL ECG - SINUS RHYTHM LEFT BUNDLE BRANCH BLOCK : Confirmed by: Perri Mcgrath MD 31-Oct-2016 15:36:46
[2016-10-31 15:46] LABS: ALANINE AMINOTRANSFERASE 26 U/L (9-52); ALBUMIN 3.9 g/dL (3.5-5.0); ALKALINE PHOSPHATASE 99 U/L (38-126); ANION GAP 14 (5-19); ASPARTATE AMINO TRANSFERASE 35 U/L (14-36); BILIRUBIN,DIRECT 0.7 mg/dL (0.0-0.4); BILIRUBIN,TOTAL 1.3 mg/dL (0.2-1.3); BLOOD UREA NITROGEN 34 mg/dL (7-20); CALCIUM 9.6 mg/dL (8.4-10.2); CARBON DIOXIDE 26 mmol/L (22-30); CHLORIDE 97 mmol/L (98-107); CREATINE KINASE 78 U/L (30-135); CREATININE RESULT 1.15 mg/dL (0.52-1.25); GLUCOSE 124 mg/dL (75-110); POTASSIUM 4.6 mmol/L (3.6-5.0); SODIUM 137.2 mmol/L (137-145); TOTAL PROTEIN 7.2 g/dL (6.3-8.2)
[2016-10-31 16:07] LABS: CREATINE KINASE MB 0.61 ng/mL (<4.55); TROPONIN I 0.018 ng/mL
[2016-10-31 16:11] LABS: BASOPHILS % (MANUAL) 1 % (0-2); EOSINOPHILS % (MANUAL) 1 % (0-6); LYMPHOCYTES % (MANUAL) 3 % (13-45); TOTAL CELLS COUNTED 100
[2016-10-31 16:14] LABS: ANISOCYTOSIS 2+; OVALOCYTES SLIGHT; PLATELET CLUMPS PRESENT; POIKILOCYTOSIS SLIGHT; POLYCHROMASIA 1+; TEAR DROP CELLS SLIGHT
[2016-10-31] MEDS ORDERED: NORMAL SALINE 1000 ML 250 ML IV ONE (16:42)
[2016-10-31] MEDS ORDERED: IPRATROPIUM/ALBUTEROL 0.5-2.5 MG/3 ML AMPUL NEB PRN (17:02)
[2016-10-31] MEDS ORDERED: ACETAMINOPHEN 325 MG TABLET PO PRN (17:02)
[2016-10-31] MEDS ORDERED: ONDANSETRON HCL INJ/PF 4 MG/2 ML SDV IV PRN (17:02)
[2016-10-31] MEDS ORDERED: DEXTROSE 50%-WATER 25 GM/50 ML DISP.SYRIN IV PRN ×2 (19:46)
[2016-10-31] MEDS ORDERED: GLUCAGON,HUMAN RECOMB 1 MG INJ IM PRN (19:46)
[2016-10-31] MEDS ORDERED: INSULIN LISPRO 100 UNIT/ML 3 ML VIAL SUBCUT PRN (19:46)
[2016-10-31] MEDS ORDERED: DEXTROSE 40% GEL 15 GM TUBE PO PRN ×2 (19:46)
--- NOTE | 2016-10-31 20:20 | PDOC H&P ---
History of Present Illness Admission Date/PCP: AVRIL HARRIS MD Patient complains of: chest pain History of Present Illness: PRINCESS DE LEON is a 76 year old female this is the 76-year-old female 76-year-old femalecame to my office with the complaining of a chest pain started this morning and patient was not feeling welland the patients have a significant history of the seas with that is simply a cardiac get them done in the stent placements and a ladat the [facility] and the patient also have a stage 4 for breast cancer and currently taking the chemotherapyand multiple other comorbidity and decided send to the emergency department for further evluate and the treatmentand initial work up was negative for any acute coronary syndrome. 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 order the angiogram was performed and negative for any embolism alsoat this point patient was admitedof the hospitals and cardiology was consult itcontinues to monitor her overnight and the patient and family agree about that Past Medical History Cardiac Medical History: Reports: Congestive Heart Failure, Coronary Artery Disease, Myocardial Infarction, Hyperlipidema, Hypertension, Heart Murmur Denies: Atrial Fibrillation, Peripheral Vascular Disease Pulmonary Medical History: Reports: Chronic Obstructive Pulmonary Disease (COPD) Denies: Asthma, Bronchitis, Pneumonia Neurological Medical History: Denies: Seizures Endocrine Medical History: Reports: Diabetes Mellitus Type 2, Hypothyroidism Denies: Hyperthyroidism Renal/ Medical History: Reports: Chronic Kidney Disease Denies: End Stage Renal Disease Malignancy Medical History: Reports: Breast Cancer - Bilateral, Stage IV Denies: Cervical Cancer, Leukemia, Ovarian Cancer GI Medical History: Denies: Gastroesophageal Reflux Disease, Hiatal Hernia Musculoskeltal Medical History: Reports: Arthritis, Gout Denies: Fibromyalgia Psychiatric Medical History: Reports: Depression Denies: Bipolar Disorder, Dementia, Post Traumatic Stress Disorder Hematology: Reports: Anemia - With Denies: Hemophilia, Sickle Cell Disease Infectious Medical History: Denies: HIV Past Surgical History Past Surgical History: Reports: Appendectomy, Cardiac Catheterization, Coronary Stent - x2, Mastectomy Denies: Amputation, Section, Cholecystectomy, Colostomy, Coronary Artery Bypass Graft, Gastric Bypass Surgery, Herniorrhaphy, Hysterectomy, Pacemaker, Tonsillectomy, Tubal Ligation Social History Smoking Status: Unknown if Ever Smoked Hx Recreational Drug Use: No Hx Prescription Drug Abuse: No Family History Family History: Reviewed & Not Pertinent Parental Family History Reviewed: Yes Children Family History Reviewed: Yes Sibling(s) Family History Reviewed.: Yes Medication/Allergy Home Medications: Aspirin [Aspirin 81 mg Chewable Tablet] 81 mg PO DAILY 10/31/16 Atorvastatin Calcium [Lipitor 20 mg Tablet] 20 mg PO QHS 10/31/16 Clopidogrel Bisulfate [Plavix 75 mg Tablet] 75 mg PO DAILY 10/31/16 Furosemide [Lasix] 80 mg PO QAM 10/31/16 Letrozole [Femara 2.5 Mg Tablet] 2.5 mg PO DAILY 10/31/16 Levothyroxine Sodium [Synthroid 0.15 mg Tablet] 0.15 mg PO DAILY 10/31/16 Magnesium Oxide [Mag-Ox 400 mg Tablet] 400 mg PO BID 10/31/16 Multivits-Min/Iron/FA/Lutein [Centrum Silver Women Tablet] 1 tab PO DAILY Nitroglycerin [Nitrostat 0.4 mg (1/150 Gr) Tabs 25/Bottle] 1 tab SL Q5MP PRN 01/11 Palbociclib [Ibrance] 125 mg PO DAILY 10/31/16 Pantoprazole Sodium [Protonix] 40 mg PO QPM 10/31/16 Potassium Chloride [Klor-Con 10 Meq Tablet.sa] 10 meq PO BID 10/31/16 Sitagliptin Phosphate [Januvia 25 mg Tablet] 25 mg PO DAILY 10/31/16 Spironolactone [Aldactone 25 mg Tablet] 25 mg PO Q2DAYS 10/31/16 Allergies/Adverse Reactions: Sulfa (Sulfonamide Antibiotics) Allergy (Severe, Verified 10/31/16 13:04) Face swells ciprofloxacin [From Cipro] Allergy (Mild, Verified 10/31/16 13:04) Urticaria ciprofloxacin HCl [From Cipro] Allergy (Mild, Verified 10/31/16 13:04) Urticaria Review of Systems Constitutional: PRESENT: weakness. ABSENT: chills, fever(s), headache(s), weight gain, weight loss Eyes: ABSENT: visual disturbances Ears: ABSENT: hearing changes Cardiovascular: PRESENT: chest pain. ABSENT: dyspnea on exertion, edema, orthropnea, palpitations Respiratory: ABSENT: cough, hemoptysis Gastrointestinal: ABSENT: abdominal pain, constipation, diarrhea, hematemesis, hematochezia, nausea, vomiting Genitourinary: ABSENT: dysuria, hematuria Musculoskeletal: ABSENT: joint swelling Integumentary: ABSENT: rash, wounds Neurological: ABSENT: abnormal gait, abnormal speech, confusion, dizziness, focal weakness, syncope Psychiatric: ABSENT: anxiety, depression, homidical ideation, suicidal ideation Endocrine: ABSENT: cold intolerance, heat intolerance, menstrual abnormalities, polydipsia, polyuria Hematologic/Lymphatic: ABSENT: easy bleeding, easy bruising, lymphadenopathy Physical Exam Vital Signs: Temp Pulse Resp BP Pulse Ox 98.0 F 88 16 114/55 L 100 10/31/16 13:09 10/31/16 13:09 10/31/16 13:09 10/31/16 13:09 10/31/16 14:13 Intake & Output 10/30/16 10/31/16 11/01/16 06:59 06:59 06:59 Weight 76.6 kg General appearance: PRESENT: no acute distress, well-developed, well-nourished Head exam: PRESENT: atraumatic, normocephalic Eye exam: PRESENT: conjunctiva pink, EOMI, PERRLA. ABSENT: scleral icterus Ear exam: PRESENT: normal external ear exam Mouth exam: PRESENT: moist, tongue midline Neck exam: PRESENT: full ROM. ABSENT: carotid bruit, JVD, lymphadenopathy, thyromegaly Respiratory exam: PRESENT: clear to auscultation chad Cardiovascular exam: PRESENT: RRR. ABSENT: diastolic murmur, rubs, systolic murmur Pulses: PRESENT: normal dorsalis pedis pul, +2 pedal pulses bilateral Vascular exam: PRESENT: normal capillary refill GI/Abdominal exam: PRESENT: normal bowel sounds, soft. ABSENT: distended, guarding, mass, organolmegaly, rebound, tenderness Rectal exam: PRESENT: deferred Neurological exam: PRESENT: alert, awake, oriented to person, oriented to place , oriented to time, oriented to situation, CN II-XII grossly intact. ABSENT: motor sensory deficit Psychiatric exam: PRESENT: appropriate affect, normal mood. ABSENT: homicidal ideation, suicidal ideation Skin exam: PRESENT: dry, intact, warm. ABSENT: cyanosis, rash Results Laboratory Results: 10/31/16 15:05 10/31/16 15:05 10/31/16 10/31/16 10/31/16 15:05 15:05 15:05 WBC 5.6 RBC 2.36 L Hgb 9.3 L Hct 26.9 L MCV 114 H MCH 39.3 H MCHC 34.6 RDW 18.7 H Plt Count 104 L Seg Neutrophils % Not Reportable Lymphocytes % Not Reportable Monocytes % Not Reportable Eosinophils % Not Reportable Basophils % Not Reportable Absolute Neutrophils Not Reportable Absolute Lymphocytes Not Reportable Absolute Monocytes Not Reportable Absolute Eosinophils Not Reportable Absolute Basophils Not Reportable VBG pH VBG pCO2 VBG HCO3 VBG Base Excess Sodium 137.2 Potassium 4.6 Chloride 97 L Carbon Dioxide 26 Anion Gap 14 BUN 34 H Creatinine 1.15 Est GFR ( Amer) 56 L Est GFR (Non-Af Amer) 46 L Glucose 124 H Lactic Acid 1.9 Calcium 9.6 Total Bilirubin 1.3 AST 35 ALT 26 Alkaline Phosphatase 99 Total Protein 7.2 Albumin 3.9 10/31/16 15:05 WBC RBC Hgb Hct MCV MCH MCHC RDW Plt Count Seg Neutrophils % Lymphocytes % Monocytes % Eosinophils % Basophils % Absolute Neutrophils Absolute Lymphocytes Absolute Monocytes Absolute Eosinophils Absolute Basophils VBG pH 7.41 VBG pCO2 44.7 VBG HCO3 27.5 VBG Base Excess 2.5 Sodium Potassium Chloride Carbon Dioxide Anion Gap BUN Creatinine Est GFR ( Amer) Est GFR (Non-Af Amer) Glucose Lactic Acid Calcium Total Bilirubin AST ALT Alkaline Phosphatase Total Protein Albumin 10/31/16 10/31/16 15:05 15:05 Creatine Kinase 78 CK-MB (CK-2) 0.61 Troponin I 0.018 Impressions: Chest X-Ray 10/31/16 14:13 IMPRESSION: No significant interval change. No acute findings. Other findings as noted above Assessment & Plan - Diagnosis (1) Chest pain Qualifiers: Chest pain type: unspecified Qualified Code(s): R07.9 - Chest pain, unspecified Is this a current diagnosis for this admission?: YesPlan: admit in im[facility] consult cardilogy (2) CAD (coronary artery disease) Qualifiers: Coronary Disease-Associated Artery/Lesion type: unspecified vessel or lesion type Is this a current diagnosis for this admission?: YesPlan: pt recnt cardic cath done in aug at [facility] and stent on lad (3) Congestive heart failure (CHF) Qualifiers: Congestive heart failure type: combined Is this a current diagnosis for this admission?: YesPlan: cont curr medication (4) Anemia Qualifiers: Anemia type: unspecified type Qualified Code(s): D64.9 - Anemia, unspecified Is this a current diagnosis for this admission?: YesPlan: f/u with hematolgist (5) Breast cancer Qualifiers: Breast location: unspecified site of breast Is this a current diagnosis for this admission?: YesPlan: stage 4 and curr on chemorx (6) Hypertension Qualifiers: Hypertension type: essential hypertension Qualified Code(s): I10 - Essential (primary) hypertension Is this a current diagnosis for this admission?: YesPlan: stable (7) Depression Qualifiers: Depression Type: unspecified Qualified Code(s): F32.9 - Major depressive disorder, single episode, unspecified Is this a current diagnosis for this admission?: YesPlan: cont curr med - Time Time Spent: 30 to 50 Minutes Medications reviewed and adjusted accordingly: Yes Anticipated discharge: Home Within: Other - Inpatient Certification Medical Necessity: Significant Comorbidiites Make Outpatient Treatment Too Risky , Need Close Monitoring Due to Risk of Patient Decompensation Post Hospital Care: D/C Outpatient Psychiatrist Documentation - Plan Summary Plan Summary: admit in [facility] consult cardilogy
[2016-10-31] MEDS ORDERED: FUROSEMIDE INJ/PF 40 MG/4 ML SDV IV ONE (21:00)
[2016-11-01 00:20] LABS: CREATINE KINASE MB 0.53 ng/mL (<4.55); TROPONIN I 0.02 ng/mL
[2016-11-01] MEDS: RANOLAZINE 500 MG TAB.SR.12H PO SCH ×2 (03:43→10:13)
[2016-11-01 05:55] LABS: HEMATOCRIT 25.2 % (36.0-47.0); HEMOGLOBIN 8.6 g/dL (12.0-15.5); HGB HCT DIFFERENCE 0.6; MEAN CORPUSCULAR HEMOGLOBIN 38.7 pg (27.0-33.4); MEAN CORPUSCULAR HGB CONC 34.2 g/dL (32.0-36.0); MEAN CORPUSCULAR VOLUME 113 fl (80-97); RED BLOOD COUNT 2.23 10^6/uL (3.72-5.28); RED CELL DISTRIBUTION WIDTH 18.8 % (11.5-14.0)
[2016-11-01] MEDS ORDERED: LANSOPRAZOLE 15 MG TAB.RAP.DR PO SCH (06:00)
[2016-11-01 06:02] LABS: ANION GAP 9 (5-19); BLOOD UREA NITROGEN 33 mg/dL (7-20); CALCIUM 9.3 mg/dL (8.4-10.2); CARBON DIOXIDE 29 mmol/L (22-30); CHLORIDE 99 mmol/L (98-107); CREATINE KINASE 50 U/L (30-135); CREATININE RESULT 1.12 mg/dL (0.52-1.25); GLUCOSE 106 mg/dL (75-110); MAGNESIUM 2.2 mg/dL (1.6-2.3); POTASSIUM 3.9 mmol/L (3.6-5.0); SODIUM 136.9 mmol/L (137-145)
[2016-11-01 06:11] LABS: CREATINE KINASE MB 0.48 ng/mL (<4.55); TROPONIN I 0.027 ng/mL
[2016-11-01 06:36] LABS: WHITE BLOOD COUNT 2.8 10^3/uL (4.0-10.5)
[2016-11-01 06:55] LABS: ANISOCYTOSIS 1+
[2016-11-01 06:56] LABS: OVALOCYTES SLIGHT; TEAR DROP CELLS SLIGHT
[2016-11-01] MEDS ORDERED: FUROSEMIDE 40 MG TABLET PO SCH (08:00)
[2016-11-01] MEDS ORDERED: ENOXAPARIN SODIUM INJ 40 MG/0.4 ML DISP.SYRIN SUBCUT SCH (08:00)
--- NOTE | 2016-11-01 09:57 | PDOC CONSULTATION ---
Consultation Consult Date: 10/31/16 Attending physician:: AVRIL HARRIS Consult reason:: Shortness of breath and chest pain History of Present Illness Admission Date/PCP: 10/31/16 17:02 AVRIL HARRIS MD Patient complains of: Shortness of breath and chest discomfort History of Present Illness: PRINCESS DE LEON is a 76 year old female admitted through Dr. Harris's office with complaints of chest pain started in the morning and patient was not feeling well and the patients have a significant history of coronary artery disease with stent placements in the left anterior descending artery at the [facility]. Patient also have a stage 4 for breast cancer and currently taking the chemotherapyand multiple other comorbidity. Patient was therefore sent to the emergency room for further evaluation and admission as needed. Her initial troponin I came back negative and by the time I saw her, patient was chest pain-free. Patient was also noted to be hypoxic in the office so also concerned about the pulmonary embolism. A CTA therefore was performed and negative for any embolism. I saw the patient in the emergency room in consultation. She was noted to be short of breath therefore given IV Lasix 40 mg. We discussed pursuing nuclear stress testing but patient is not very keen on having it. Patient has stage IV cancer of the breast therefore prognosis is of some concern. Patient's at bedside. He agrees with the plan. Past Medical History Cardiac Medical History: Reports: Congestive Heart Failure, Coronary Artery Disease, Myocardial Infarction, Hyperlipidema, Hypertension, Heart Murmur Denies: Atrial Fibrillation, Peripheral Vascular Disease Pulmonary Medical History: Reports: Chronic Obstructive Pulmonary Disease (COPD) Denies: Asthma, Bronchitis, Pneumonia Neurological Medical History: Denies: Seizures Endocrine Medical History: Reports: Diabetes Mellitus Type 2, Hypothyroidism Denies: Hyperthyroidism Renal/ Medical History: Reports: Chronic Kidney Disease Denies: End Stage Renal Disease Malignancy Medical History: Reports: Breast Cancer - Bilateral, Stage IV Denies: Cervical Cancer, Leukemia, Ovarian Cancer GI Medical History: Reports: Crohn's Disease Denies: Gastroesophageal Reflux Disease, Hiatal Hernia Musculoskeltal Medical History: Reports: Arthritis, Gout Denies: Fibromyalgia Psychiatric Medical History: Reports: Depression Denies: Bipolar Disorder, Dementia, Post Traumatic Stress Disorder Hematology: Reports: Anemia - With Denies: Hemophilia, Sickle Cell Disease Infectious Medical History: Denies: HIV Past Surgical History Past Surgical History: Reports: Appendectomy, Cardiac Catheterization, Coronary Stent - x2, Mastectomy Denies: Amputation, Section, Cholecystectomy, Colostomy, Coronary Artery Bypass Graft, Gastric Bypass Surgery, Herniorrhaphy, Hysterectomy, Pacemaker, Tonsillectomy, Tubal Ligation Social History Information Source: Patient Smoking Status: Unknown if Ever Smoked Hx Recreational Drug Use: No Hx Prescription Drug Abuse: No - Advance Directive Resuscitation Status: Full Code Surrogate healthcare decision maker:: Patient's is the surrogate decision maker Family History Family History: Reviewed & Not Pertinent Parental Family History Reviewed: Yes Children Family History Reviewed: Yes Sibling(s) Family History Reviewed.: Yes - Negative for premature coronary artery disease or sudden cardiac in the family amongst first degree relatives. Medication/Allergy Home Medications: Aspirin [Aspirin 81 mg Chewable Tablet] 81 mg PO DAILY 10/31/16 Atorvastatin Calcium [Lipitor 20 mg Tablet] 20 mg PO QHS 10/31/16 Clopidogrel Bisulfate [Plavix 75 mg Tablet] 75 mg PO DAILY 10/31/16 Furosemide [Lasix] 80 mg PO QAM 10/31/16 Letrozole [Femara 2.5 mg Tablet] 2.5 mg PO DAILY 10/31/16 Magnesium Oxide [Mag-Ox 400 mg Tablet] 400 mg PO BID 10/31/16 Multivits-Min/Iron/FA/Lutein [Centrum Silver Women Tablet] 1 tab PO DAILY Nitroglycerin [Nitrostat 0.4 mg (1/150 Gr) Tabs 25/Bottle] 1 tab SL Q5MP PRN 01/11 Oxycodone HCl 1 tab PO Q6 10/31/16 Palbociclib [Ibrance] 125 mg PO DAILY 10/31/16 Pantoprazole Sodium [Protonix] 40 mg PO QPM 10/31/16 Potassium Chloride [Klor-Con 10 Meq Tablet.sa] 10 meq PO BID 10/31/16 Sitagliptin Phosphate [Januvia 25 mg Tablet] 25 mg PO DAILY 10/31/16 Spironolactone [Aldactone 25 mg Tablet] 25 mg PO Q2DAYS 10/31/16 Allergies/Adverse Reactions: Sulfa (Sulfonamide Antibiotics) Allergy (Severe, Verified 10/31/16 13:04) Face swells ciprofloxacin [From Cipro] Allergy (Mild, Verified 10/31/16 13:04) Urticaria ciprofloxacin HCl [From Cipro] Allergy (Mild, Verified 10/31/16 13:04) Urticaria Review of Systems Review of Systems: Please see history of present illness and past medical history as wall. Constitutional: No fever or chills reported. Currently feels very fatigued and tired but she is getting chemotherapy. Head : No recent chronic headaches, recent head injury. Eyes: No recent eye pain, diplopia, redness, discharge, acute visual changes. Ears: No recent chronic ear pain, acute hearing loss, ear discharge. Oral cavity: No recent ulcerations, bleeding, oral cavity discomfort. Neck: No recent acute neck pain reported. Hematologic: No recent easy bruising or bleeding or hematologic malignancy reported. Lymphatic: No recent lymphatic malignancy, chronic lymphadenopathy reported yet Cardiovascular system review: See history of present illness. Respiratory system review: No recent chronic cough, hemoptysis, blood clots in the lungs reported. Mild Shortness of breath on exertion Gastrointestinal system review: Negative for any recent acute or chronic abdominal pain, hematemesis, melena, recent change in bowel habits. Genitourinary system review: No recent acute or chronic hematuria, flank pain, UTI etc. reported. Skin system review: Negative for any recent abnormal bruising, no rash, no pruritus reported. Neurologic: No prior history of strokes, mini strokes, seizure disorder. Psychologic: No history of major psychosis or major depression reported. Musculoskeletal: Minor aches and pains reported. No acute joint swelling reported. Endocrine: No recent polyuria, polydipsia, recent heat or cold intolerance. Physical Exam Vital Signs: Temp Pulse Resp BP Pulse Ox 98.0 F 88 15 109/47 L 100 10/31/16 13:09 10/31/16 13:09 10/31/16 18:01 10/31/16 18:01 10/31/16 18:01 Exam: GENERAL: well-nourished and in no acute distress. Alert and oriented x3 HEAD: Atraumatic, normocephalic. EYES: Pupils equal round and reactive to light, extraocular movements intact, sclera anicteric, conjunctiva are normal. ENT: TMs normal, nares patent, oropharynx clear without exudates. Moist mucous membranes. No oral ulcerations or bleeding gums noted NECK: supple without lymphadenopathy. Trachea is central. No cervical or axillary lymphadenopathy noted. Carotids are 2+, JVD WNL LUNGS: Respiration seems nonlabored, no significant accessory muscle action noted. Bibasal a fine crackles are noted. No significant dullness noted on percussion. CHEST: Palpation of the chest wall shows no significant chest wall tenderness. No other significant abnormalities noted. Port-A-Cath noted on the left side. Patient also has mastectomy. HEART: [place] [employer], No PSH, 1/6 CAROL aortic area, 1/6 lennon systolic murmur mitral area, no rubs, no gallops. ABDOMEN: Soft, no significant tenderness appreciated, normoactive bowel sounds. No guarding, no rebound. No rigidity noted . No masses appreciated. EXTREMITIES: Pedal pulses are 1-2+, no calf tenderness noted. No clubbing or cyanosis.trace to 1+ pedal edema noted NEUROLOGICAL: Focused neurological exam showed no significant neurologic deficit. Normal speech, no focal weakness appreciated. PSYCH: Normal mood, normal affect. Judgment and insight within normal limits. SKIN: No significant ecchymosis, rash, ulcerations or signs of pruritus noted. MUSCULOSKELETAL EXAM: No significant joint swelling noted. Results Laboratory Results: 10/31/16 10/31/16 17:55 17:55 Troponin I Cancelled NT-Pro-B Natriuret Pep 5660 H EKG Comments: Sinus rhythm, left bundle branch block pattern with secondary ST-T wave changes. Impressions: Chest X-Ray 10/31/16 14:13 IMPRESSION: No significant interval change. No acute findings. Other findings as noted above Chest/Abdomen CTA 10/31/16 17:44 IMPRESSION: Chronic appearing changes as noted above. There is some minimal increased density in the right upper lobe which I cannot exclude as an acute process superimposed on chronic underlying changes. No consolidations or pleural effusions are identified. No evidence for pulmonary embolic disease. Findings suspicious for bony metastatic disease as noted above. Other findings as noted above Assessment & Plan - Diagnosis (1) CAD (coronary artery disease) Qualifiers: Coronary Disease-Associated Artery/Lesion type: unspecified vessel or lesion type Is this a current diagnosis for this admission?: Yes (2) Chest pain Qualifiers: Chest pain type: unspecified Qualified Code(s): R07.9 - Chest pain, unspecified Is this a current diagnosis for this admission?: Yes (3) Congestive heart failure (CHF) Qualifiers: Congestive heart failure type: combined Is this a current diagnosis for this admission?: Yes (4) Hypertension Qualifiers: Hypertension type: essential hypertension Qualified Code(s): I10 - Essential (primary) hypertension Is this a current diagnosis for this admission?: Yes (5) Hypoxemia Is this a current diagnosis for this admission?: Yes - Notes Notes: CAD: Patient has history of stents. Continue statins, antiplatelet therapy, beta ann therapy, KURT inhibitor therapy. Added Ranexa. Chest pain: Most likely acute coronary syndrome. However could BE other causes such as anxiety panic disorder, gastroesophageal reflux, musculoskeletal pain. Agree with DE rule out protocol. If patient's troponin comes back positive consider transfer to tertiary care for heart catheterization. Discussed pursuing stress test but patient not keen on doing it. Congestive heart failure: Patient has symptoms indicative of it. BNP also elevated. Recommend diuretic therapy. A 2-D echo has been ordered. Hypertension: Reasonably well controlled. Blood pressure goal in this patient is 135/85 or less. This was discussed with the patient. Currently blood pressure under reasonable control. Better medication for this patient are KURT inhibitor/ARB/beta ann etc. discussed side effects of uncontrolled hypertension and also severe hypotension. Hypoxemia: Cause not clear, pulmonary embolism ruled out. We will be happy to qualify patient for oxygen therapy as an outpatient if needed. Will continue to follow patient. As usual I thank Dr. Harris very much for the kind referral. Copy to Dr. Harris. - Time Time Spent: 30 to 50 Minutes - CODE STATUS was discussed, patient remains full code. Surrogate decision-maker unchanged. Multiple medical problems were addressed.More than 50% of the time spent coordinating care, discussing management plans with involved caregivers. Management plans discussed with involved personnels. Medical decision making was of moderate to high complexity , patient's has multiple severe comorbidities.
[2016-11-01] MEDS ORDERED: SITAGLIPTIN PHOSPHATE 25 MG TABLET PO SCH (10:00)
[2016-11-01] MEDS ORDERED: PRENATAL VITAMIN W-O CA NO5/FE FUMARATE/FA CAPSULE PO SCH (10:00)
[2016-11-01] MEDS ORDERED: ASPIRIN 81 MG TABLET, CHEWABLE PO SCH (10:00)
[2016-11-01] MEDS ORDERED: POTASSIUM CHLORIDE 10 MEQ TABLET.SA PO SCH (10:00)
[2016-11-01] MEDS ORDERED: PALBOCICLIB 125 MG PO SCH (10:00)
[2016-11-01] MEDS ORDERED: MAGNESIUM OXIDE 400 MG TABLET PO SCH (10:00)
[2016-11-01] MEDS ORDERED: (PENDING PHARMACY ID) (Multivits-Min/Iron/Fa/Lutein [Centrum Silver Women Tablet] 1 TAB) PO SCH (10:00)
--- NOTE | 2016-11-01 10:05 | PDOC PROGRESS REPORT ---
Subjective Progress Note for:: 11/01/16 Subjective:: Patient seems to be doing better with gradual improvement. Pt is denying any chest arm or neck discomfort. Patient denying any PND, orthopnea. Patient denied any sustained palpitations, dizziness, syncope, near syncope. Patient denying any fever chills. Patient denying any other significant discomfort. Patient is maintaining sinus rhythm. So far cardiac enzymes have been negative. Patient feels better. Review of systems: Rest review of systems negative. Medications: Medications have been reviewed. Physical Exam Vital Signs: Temp Pulse Resp BP Pulse Ox 98.0 F 83 18 114/54 L 97 11/01/16 07:55 11/01/16 07:55 11/01/16 07:55 11/01/16 07:55 11/01/16 07:55 Intake & Output 10/31/16 11/01/16 11/02/16 06:59 06:59 06:59 Intake Total 50 Output Total 0 Balance 50 Weight 79.8 kg Exam: GENERAL: well-nourished and in no acute distress. Alert and oriented x3 HEAD: Atraumatic, normocephalic. EYES: Pupils equal round and reactive to light, extraocular movements intact, sclera anicteric, conjunctiva are normal. ENT: TMs normal, nares patent, oropharynx clear without exudates. Moist mucous membranes. No oral ulcerations or bleeding gums noted NECK: supple without lymphadenopathy. Trachea is central. No cervical or axillary lymphadenopathy noted. Carotids are 2+, JVD WNL LUNGS: Respiration seems nonlabored, no significant accessory muscle action noted. Breath sounds clear to auscultation bilaterally and equal noted. No wheezes rales or rhonchi noted. No significant dullness noted on percussion. CHEST: Palpation of the chest wall shows no significant chest wall tenderness. No other significant abnormalities noted. Port-A-Cath noted on the left side. Mastectomy noted HEART: [place] [employer], No PSH, 1/6 CAROL aortic area, 1/6 lennon systolic murmur mitral area, no rubs, no gallops. ABDOMEN: Soft, no significant tenderness appreciated, normoactive bowel sounds. No guarding, no rebound. No rigidity noted . No masses appreciated. EXTREMITIES: Pedal pulses are 1-2+, no calf tenderness noted. No clubbing or cyanosis.trace to 1+ pedal edema noted NEUROLOGICAL: Focused neurological exam showed no significant neurologic deficit. Normal speech, no focal weakness appreciated. PSYCH: Normal mood, normal affect. Judgment and insight within normal limits. SKIN: No significant ecchymosis, rash, ulcerations or signs of pruritus noted. MUSCULOSKELETAL EXAM: No significant joint swelling noted. Results Laboratory Results: 11/01/16 05:18 11/01/16 05:18 11/01/16 11/01/16 11/01/16 05:18 05:18 05:18 WBC 2.8 L D RBC 2.23 L Hgb 8.6 L Hct 25.2 L MCV 113 H MCH 38.7 H MCHC 34.2 RDW 18.8 H Plt Count 93 L Seg Neutrophils % Not Reportable Lymphocytes % Not Reportable Monocytes % Not Reportable Eosinophils % Not Reportable Basophils % Not Reportable Absolute Neutrophils Not Reportable Absolute Lymphocytes Not Reportable Absolute Monocytes Not Reportable Absolute Eosinophils Not Reportable Absolute Basophils Not Reportable Sodium 136.9 L Potassium 3.9 Chloride 99 Carbon Dioxide 29 Anion Gap 9 BUN 33 H Creatinine 1.12 Est GFR ( Amer) 58 L Est GFR (Non-Af Amer) 48 L Glucose 106 Calcium 9.3 Magnesium 2.2 TSH 0.02 L 10/31/16 10/31/16 10/31/16 17:55 17:55 23:33 Creatine Kinase 57 CK-MB (CK-2) Troponin I Cancelled NT-Pro-B Natriuret Pep 5660 H 10/31/16 11/01/16 11/01/16 23:33 05:18 05:18 Creatine Kinase 50 CK-MB (CK-2) 0.53 0.48 Troponin I 0.020 0.027 NT-Pro-B Natriuret Pep 8220 H Impressions: Chest X-Ray 10/31/16 14:13 IMPRESSION: No significant interval change. No acute findings. Other findings as noted above Chest/Abdomen CTA 10/31/16 17:44 IMPRESSION: Chronic appearing changes as noted above. There is some minimal increased density in the right upper lobe which I cannot exclude as an acute process superimposed on chronic underlying changes. No consolidations or pleural effusions are identified. No evidence for pulmonary embolic disease. Findings suspicious for bony metastatic disease as noted above. Other findings as noted above Assessment & Plan - Diagnosis (1) CAD (coronary artery disease) Qualifiers: Coronary Disease-Associated Artery/Lesion type: unspecified vessel or lesion type Is this a current diagnosis for this admission?: Yes (2) Chest pain Qualifiers: Chest pain type: unspecified Qualified Code(s): R07.9 - Chest pain, unspecified Is this a current diagnosis for this admission?: Yes (3) Congestive heart failure (CHF) Qualifiers: Congestive heart failure type: combined Is this a current diagnosis for this admission?: Yes (4) Hypertension Qualifiers: Hypertension type: essential hypertension Qualified Code(s): I10 - Essential (primary) hypertension Is this a current diagnosis for this admission?: Yes (5) Hypoxemia Is this a current diagnosis for this admission?: Yes - Notes Notes: CAD: Patient has history of stents. Continue statins, antiplatelet therapy, beta ann therapy, KURT inhibitor therapy. Added Ranexa yesterday which she seems to be tolerating well. Chest pain: Most likely acute coronary syndrome. However could BE other causes such as anxiety panic disorder, gastroesophageal reflux, musculoskeletal pain. [place] has been ruled out. 2-D echo is pending. Discussed pursuing stress test but patient not keen on doing it. Congestive heart failure: Patient has symptoms indicative of it. BNP also elevated. Recommend diuretic therapy. A 2-D echo has been ordered. 2-D echo is pending. Hypertension: Reasonably well controlled. Blood pressure goal in this patient is 135/85 or less. This was discussed with the patient. Currently blood pressure under reasonable control. Better medication for this patient are KURT inhibitor/ARB/beta ann etc. discussed side effects of uncontrolled hypertension and also severe hypotension. Hypoxemia: Cause not clear, pulmonary embolism ruled out. We will be happy to qualify patient for oxygen therapy as an outpatient if needed. Will continue to follow patient. Patient has a sleep study is scheduled later this month.. - Time Time with patient: Greater than 35 minutes - CODE STATUS was discussed, patient remains full code. Surrogate decision-maker unchanged patient's coordinating care, discussing management plans with involved caregivers. Management plans discussed with involved personnels. Medical decision making was of moderate to high complexity, patient's has multiple severe comorbidities. Medications reviewed and adjusted accordingly: Yes
[2016-11-01] MEDS ORDERED: OXYCODONE HCL IR 5 MG TABLET PO SCH (12:00)
[2016-11-01] MEDS ORDERED: (PENDING PHARMACY ID) (Oxycodone Hcl [Oxycodone Hcl] 1 TAB) PO SCH (12:00)
--- NOTE | 2016-11-01 13:55 | PDOC DISCHARGE SUMMARY ---
General - Admit/Disc Date/PCP Admission Date/Primary Care Provider: 10/31/16 17:02 AVRIL HARRIS MD Discharge Date: 11/01/16 - Discharge Diagnosis (1) Chest pain Is this a current diagnosis for this admission?: YesSummary: With the negative cardiac workup and negative CT angiogram for any acute pulmonary embolism most likely a cancer related pain (2) CAD (coronary artery disease) Is this a current diagnosis for this admission?: YesSummary: Patient is currently stable's discussed with the Dr. Irwin stable enough to discharge the patient's and follow as outpatients (3) Congestive heart failure (CHF) Is this a current diagnosis for this admission?: YesSummary: Continues to current medications (4) Anemia Is this a current diagnosis for this admission?: YesSummary: Follow-up with the upstream biomanufacturing technician (5) Breast cancer Is this a current diagnosis for this admission?: YesSummary: Currently on chemotherapy and follow-up with the oncologist (6) Hypertension Is this a current diagnosis for this admission?: YesSummary: Currently stable (7) Depression Is this a current diagnosis for this admission?: YesSummary: Stable - Additional Information Resuscitation Status: Full Code Discharge Activity: Activity As Tolerated, Balance Activity w/Rest, Weigh Daily Home Medications: Aspirin [Aspirin 81 mg Chewable Tablet] 81 mg PO DAILY 10/31/16 Atorvastatin Calcium [Lipitor 20 mg Tablet] 20 mg PO QHS 10/31/16 Clopidogrel Bisulfate [Plavix 75 mg Tablet] 75 mg PO DAILY 10/31/16 Furosemide [Lasix] 80 mg PO QAM 10/31/16 Letrozole [Femara 2.5 mg Tablet] 2.5 mg PO DAILY 10/31/16 Magnesium Oxide [Mag-Ox 400 mg Tablet] 400 mg PO BID 10/31/16 Multivits-Min/Iron/FA/Lutein [Centrum Silver Women Tablet] 1 tab PO DAILY Nitroglycerin [Nitrostat 0.4 mg (1/150 Gr) Tabs 25/Bottle] 1 tab SL Q5MP PRN 01/11 Oxycodone HCl 1 tab PO Q6 10/31/16 Palbociclib [Ibrance] 125 mg PO DAILY 10/31/16 Pantoprazole Sodium [Protonix] 40 mg PO QPM 10/31/16 Potassium Chloride [Klor-Con 10 Meq Tablet.sa] 10 meq PO BID 10/31/16 Sitagliptin Phosphate [Januvia 25 mg Tablet] 25 mg PO DAILY 10/31/16 Spironolactone [Aldactone 25 mg Tablet] 25 mg PO Q2DAYS 10/31/16 History of Present Illness History of Present Illness: PRINCESS DE LEON is a 76 year old female this is the 76-year-old female 76-year-old femalecame to my office with the complaining of a chest pain started this morning and patient was not feeling welland the patients have a significant history of the seas with that is simply a cardiac get them done in the stent placements and a ladat the [facility] and the patient also have a stage 4 for breast cancer and currently taking the chemotherapyand multiple other comorbidity and decided send to the emergency department for further evluate and the treatmentand initial work up was negative for any acute coronary syndrome. Patient was hypoxic in the office so also concerned about the pulmonary embolism with fabrication and layout craftsman order the angiogram was performed and negative for any embolism alsoat this point patient was admitedof the hospitals and cardiology was consult itcontinues to monitor her overnight and the patient and family agree about that Hospital Course Hospital Course: This is a 76-year-old female came to the emergency department with the complaining of chest pain and patient have a significant history of the coronary artery disease and breast cancer is an initial workup was all stable. Patient's CT angiogram was negative for any acute finding and patient's cardiac enzyme was also negative to. Patient seen by Dr. Irwin emergency room clinician and echocardiogram was done and everything was stable. Patient's ambulatory by herself in the hallway without any problems. Patient's denied any chest pain denied any shortness of the breathAnd patient is currently doing fair in patients wants to go home's. Discussed with the about the patient's current condition and all the test results and patient's discharge home with the stable condition and follow as outpatients Physical Exam Vital Signs: Temp Pulse Resp BP Pulse Ox 98.0 F 77 19 111/37 L 100 11/01/16 12:12 11/01/16 12:12 11/01/16 12:12 11/01/16 12:12 11/01/16 12:12 Intake & Output 0411/01/16 11/02/16 06:59 06:59 06:59 Intake Total 50 710 Output Total 0 1 Balance 50 709 Weight 79.8 kg General appearance: PRESENT: no acute distress, well-developed, well-nourished Head exam: PRESENT: atraumatic, normocephalic Eye exam: PRESENT: conjunctiva pink, EOMI, PERRLA. ABSENT: scleral icterus Ear exam: PRESENT: normal external ear exam Mouth exam: PRESENT: moist, tongue midline Neck exam: PRESENT: full ROM. ABSENT: carotid bruit, JVD, lymphadenopathy, thyromegaly Respiratory exam: PRESENT: clear to auscultation chad Cardiovascular exam: PRESENT: RRR. ABSENT: diastolic murmur, rubs, systolic murmur Pulses: PRESENT: normal dorsalis pedis pul, +2 pedal pulses bilateral Vascular exam: PRESENT: normal capillary refill GI/Abdominal exam: PRESENT: normal bowel sounds, soft. ABSENT: distended, guarding, mass, organolmegaly, rebound, tenderness Rectal exam: PRESENT: deferred Neurological exam: PRESENT: alert, awake, oriented to person, oriented to place , oriented to time, oriented to situation, CN II-XII grossly intact. ABSENT: motor sensory deficit Psychiatric exam: PRESENT: appropriate affect, normal mood. ABSENT: homicidal ideation, suicidal ideation Skin exam: PRESENT: dry, intact, warm. ABSENT: cyanosis, rash Results Laboratory Results: 11/01/16 05:18 11/01/16 05:18 11/01/16 11/01/16 11/01/16 05:18 05:18 05:18 WBC 2.8 L D RBC 2.23 L Hgb 8.6 L Hct 25.2 L MCV 113 H MCH 38.7 H MCHC 34.2 RDW 18.8 H Plt Count 93 L Seg Neutrophils % Not Reportable Lymphocytes % Not Reportable Monocytes % Not Reportable Eosinophils % Not Reportable Basophils % Not Reportable Absolute Neutrophils Not Reportable Absolute Lymphocytes Not Reportable Absolute Monocytes Not Reportable Absolute Eosinophils Not Reportable Absolute Basophils Not Reportable Sodium 136.9 L Potassium 3.9 Chloride 99 Carbon Dioxide 29 Anion Gap 9 BUN 33 H Creatinine 1.12 Est GFR ( Amer) 58 L Est GFR (Non-Af Amer) 48 L Glucose 106 Calcium 9.3 Magnesium 2.2 TSH 0.02 L 10/31/16 10/31/16 10/31/16 17:55 17:55 23:33 Creatine Kinase 57 CK-MB (CK-2) Troponin I Cancelled NT-Pro-B Natriuret Pep 5660 H 10/31/16 11/01/16 11/01/16 23:33 05:18 05:18 Creatine Kinase 50 CK-MB (CK-2) 0.53 0.48 Troponin I 0.020 0.027 NT-Pro-B Natriuret Pep 8220 H Impressions: Chest X-Ray 10/31/16 14:13 IMPRESSION: No significant interval change. No acute findings. Other findings as noted above Chest/Abdomen CTA 10/31/16 17:44 IMPRESSION: Chronic appearing changes as noted above. There is some minimal increased density in the right upper lobe which I cannot exclude as an acute process superimposed on chronic underlying changes. No consolidations or pleural effusions are identified. No evidence for pulmonary embolic disease. Findings suspicious for bony metastatic disease as noted above. Other findings as noted above Plan Time Spent: Greater than 30 Minutes - Patient at this point all workup is stable except patient's TSH was low and the patient's levothyroxine was currently hold following a one-week in office and we will reevaluate the patient 's. Otherwise patient's follow with the cardiology as outpatients. If the patient have any increasing any chest pain any shortness of the breath is to follow to the ER
[2016-11-01 14:01] VITALS: BP 121/54
[2016-11-01] MEDS ORDERED: LANSOPRAZOLE 30 MG TAB.RAP.DR PO SCH (18:00)
--- NOTE | 2016-11-01 20:33 | XCELERA REPORT ---
[address] [address] Transthoracic Echocardiogram Report Name: PRINCESS DE LEON Age: 76 yrs Gender: Female : 1940 Patient Status: Inpatient Patient Location: 3W\S\320\S\A Study Date: 11/01/2016 11:14 AM Height: 63 in Weight: 168 lb BSA: 1.8 m2 Procedure: A complete two-dimensional transthoracic echocardiogram was performed (2D, M-mode, spectral and color flow Doppler). The study was technically adequate with some images being suboptimal in quality. Reason For Study: CHF Ordering Physician: MEGAN PUTNAM Performed By: Merissa Shields Interpretation Summary LV EF is 35% Left ventricular systolic function is moderately reduced. There is normal left ventricular wall thickness. The left ventricle is borderline dilated. LV diastolic function could not be adequately assessed. There is moderate global hypokinesis of the left ventricle. The right ventricular systolic function is normal. The left atrium is mildly dilated. The right atrium is normal in size There is a moderate amount of mitral regurgitation There is no mitral valve stenosis. There is a trace amount of aortic regurgitation There is no aortic valve stenosis There is a trace or physiologic amount of tricuspid regurgitation Tricuspid regurgitation jet envelope not well defined to measure RV systolic pressure accurately. The aortic root is not well visualized but is probably normal size. The inferior vena cava appeared normal and decreased < 50% with respiration (RAP 10-15 mmHg) There is no pericardial effusion. MMode/2D Measurements \T\ Calculations RVDd: 2.0 cm LVIDd: 5.6 cm FS: 19.0 % EPSS: 2.8 cm IVSd: 0.72 cm LVIDs: 4.6 cm EDV(Teich): 155.7 ml LVPWd: 0.87 cm ESV(Teich): 95.5 ml EF(Teich): 38.6 % Ao root diam: 2.2 cm LVLd ap4: 8.5 cm SV(MOD-sp4): 42.0 ml Ao root area: 3.7 cm2EDV(MOD-sp4): 147.0 ml LA dimension: 4.4 cm LVLs ap4: 8.4 cm ESV(MOD-sp4): 105.0 ml EF(MOD-sp4): 28.6 % Doppler Measurements \T\ Calculations MV E max julia: MV P1/2t max julia: Ao V2 max: LV V1 max P.1 cm/sec 122.6 cm/sec 188.2 cm/sec 7.9 mmHg MV A max julia: MV P1/2t: 52.2 msec Ao max PG: LV V1 max: 94.1 cm/sec 14.2 mmHg 140.7 cm/sec MV E/A: 1.3 MVA(P1/2t): 4.2 cm2 MV dec slope: 687.8 cm/sec2 PA V2 max: TR max julia: 119.5 cm/sec 247.7 cm/sec PA max PG: TR max P.1 mmHg 5.7 mmHg Left Ventricle The left ventricle is borderline dilated. There is normal left ventricular wall thickness. Left ventricular systolic function is moderately reduced. LV EF is 35%. LV diastolic function could not be adequately assessed. There is moderate global hypokinesis of the left ventricle. Right Ventricle The right ventricle is grossly normal size. There is normal right ventricular wall thickness. The right ventricular systolic function is normal. Atria The right atrium is normal in size. The left atrium is mildly dilated. Interarterial septum not well visualized and not well dopplered. Cannot comment on ASD/PFO presence. Mitral Valve The mitral valve is grossly normal. There is no mitral valve stenosis. There is a moderate amount of mitral regurgitation. Aortic Valve The aortic valve is sclerotic, but shows no functional abnormality. There is no aortic valve stenosis. There is a trace amount of aortic regurgitation. Tricuspid Valve The tricuspid valve is not well visualized, but is grossly normal. There is no tricuspid stenosis. There is a trace or physiologic amount of tricuspid regurgitation. Tricuspid regurgitation jet envelope not well defined to measure RV systolic pressure accurately. Pulmonic Valve The pulmonic valve is not well visualized. Great Vessels The aortic root is not well visualized but is probably normal size. The inferior vena cava appeared normal and decreased < 50% with respiration (RAP 10-15 mmHg). Effusions There is no pericardial effusion. : MEGAN PUTNAM > Megan Putnam
[2016-11-01] MEDS ORDERED: METOPROLOL SUCCINATE 25 MG TAB.SR.24H PO SCH (22:00)
== END 2016-11-01 14:14 | disposition home or self-care (01) | DRG 313 ==
LOC: ER 12:54 → EH 17:02 → 3W 11-01 00:49
PROVIDERS: ADMIT Family Medicine; ATTEND Family Medicine
DX: R07.9 Chest pain, unspecified (principal); I13.0 Hypertensive heart and chronic kidney disease with heart failure and stage 1 through stage 4 chronic kidney disease, or unspecified chronic kidney disease; I50.40 Unspecified combined systolic (congestive) and diastolic (congestive) heart failure; E11.22 Type 2 diabetes mellitus with diabetic chronic kidney disease; N18.9 Chronic kidney disease, unspecified; I25.10 Atherosclerotic heart disease of native coronary artery without angina pectoris; D64.9 Anemia, unspecified; C50.912 Malignant neoplasm of unspecified site of left female breast; C50.911 Malignant neoplasm of unspecified site of right female breast; J44.9 Chronic obstructive pulmonary disease, unspecified; E03.9 Hypothyroidism, unspecified; F32.9 Major depressive disorder, single episode, unspecified; Z79.82 Long term (current) use of aspirin; Z79.899 Other long term (current) drug therapy; Z95.5 Presence of coronary angioplasty implant and graft; Z88.1 Allergy status to other antibiotic agents
CPT/HCPCS: 36415; 71010; 71275; 80048; 80053; 82550; 82553; 82803; 82962; 83605; 83735; 83880; 84443; 84484; 85025; 85610; 85730; 93005; 93010; 93306; 99291; J1940; J7030

== ENCOUNTER → 2016-12-06 | Outpatient (CLI) | payer BC, MEDICARE | LOC: RAD 10:14 | PROVIDERS: ATTEND Internal Medicine | DX: C50.411 Malignant neoplasm of upper-outer quadrant of right female breast (principal) | CPT/HCPCS: 78815; A9552 ==

== ENCOUNTER 2017-03-12 16:16 | Inpatient (IN) | payer MEDICARE, BC ==
[2017-03-12] MEDS ORDERED: ONDANSETRON HCL INJ/PF 4 MG/2 ML SDV IV PRN (16:27)
--- NOTE | 2017-03-12 16:53 | PDOC H&P ---
History of Present Illness Admission Date/PCP: 03/12/17 16:16 AFSHIN STEPHENSON MD Patient complains of: sob/chf History of Present Illness: PRINCESS DE LEON is a 76 year old female This is a 76-year-old female with a significant history of the combined congestive heart failure with EF is less than 40%'s with the history of the hypertension history of the stage IV breast cancer with currently under chemotherapyWith a history of the coronary artery disease and recently have a stent placement at the [facility] and currently see a Dr. Irwin as outpatient the local cardiologyWent to the Dr. Stephenson office for routine chemotherapy and he noticed that patient was little bit more short of breath and patient have a gain 11 pound and a more edema and defer to my office . 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 will admit and further evaluate Patients denied any chest painDenied any nausea no vomiting no abdominal pain Past Medical History Cardiac Medical History: Reports: Congestive Heart Failure, Coronary Artery Disease, Myocardial Infarction, Hyperlipidema, Hypertension, Heart Murmur Denies: Atrial Fibrillation, Peripheral Vascular Disease Pulmonary Medical History: Reports: Chronic Obstructive Pulmonary Disease (COPD) Denies: Asthma, Bronchitis, Pneumonia Neurological Medical History: Denies: Seizures Endocrine Medical History: Reports: Diabetes Mellitus Type 2, Hypothyroidism Denies: Hyperthyroidism Renal/ Medical History: Denies: End Stage Renal Disease Malignancy Medical History: Reports: Breast Cancer - Bilateral, Stage IV Denies: Cervical Cancer, Leukemia, Ovarian Cancer GI Medical History: Reports: Crohn's Disease Denies: Gastroesophageal Reflux Disease, Hiatal Hernia Musculoskeltal Medical History: Reports: Arthritis, Gout Denies: Fibromyalgia Psychiatric Medical History: Reports: Depression Denies: Bipolar Disorder, Dementia, Post Traumatic Stress Disorder Hematology: Reports: Anemia - With Denies: Hemophilia, Sickle Cell Disease Infectious Medical History: Denies: HIV Past Surgical History Past Surgical History: Reports: Appendectomy, Cardiac Catheterization, Coronary Stent - x2, Mastectomy Denies: Amputation, Section, Cholecystectomy, Colostomy, Coronary Artery Bypass Graft, Gastric Bypass Surgery, Herniorrhaphy, Hysterectomy, Pacemaker, Tonsillectomy, Tubal Ligation Social History Information Source: Patient Smoking Status: Never Smoker Frequency of Alcohol Use: None Hx Recreational Drug Use: No Hx Prescription Drug Abuse: No Family History Family History: Reviewed & Not Pertinent Parental Family History Reviewed: Yes Children Family History Reviewed: Yes Sibling(s) Family History Reviewed.: Yes Medication/Allergy Home Medications: Aspirin [Aspirin 81 mg Chewable Tablet] 81 mg PO DAILY 10/31/16 Atorvastatin Calcium [Lipitor 20 mg Tablet] 20 mg PO QHS 10/31/16 Clopidogrel Bisulfate [Plavix 75 mg Tablet] 75 mg PO DAILY 10/31/16 Furosemide [Lasix] 80 mg PO QAM 10/31/16 Letrozole [Femara 2.5 mg Tablet] 2.5 mg PO DAILY 10/31/16 Magnesium Oxide [Mag-Ox 400 mg Tablet] 400 mg PO BID 10/31/16 Multivits-Min/Iron/FA/Lutein [Centrum Silver Women Tablet] 1 tab PO DAILY Nitroglycerin [Nitrostat 0.4 mg (1/150 Gr) Tabs 25/Bottle] 1 tab SL Q5MP PRN 01/11 Oxycodone HCl 1 tab PO Q6 10/31/16 Palbociclib [Ibrance] 125 mg PO DAILY 10/31/16 Pantoprazole Sodium [Protonix] 40 mg PO QPM 10/31/16 Potassium Chloride [Klor-Con 10 Meq Tablet.sa] 10 meq PO BID 10/31/16 Sitagliptin Phosphate [Januvia 25 mg Tablet] 25 mg PO DAILY 10/31/16 Spironolactone [Aldactone 25 mg Tablet] 25 mg PO Q2DAYS 10/31/16 Allergies/Adverse Reactions: Sulfa (Sulfonamide Antibiotics) Allergy (Severe, Verified 10/31/16 13:04) Face swells ciprofloxacin [From Cipro] Allergy (Mild, Verified 10/31/16 13:04) Urticaria ciprofloxacin HCl [From Cipro] Allergy (Mild, Verified 10/31/16 13:04) Urticaria Review of Systems Constitutional: ABSENT: chills, fever(s), headache(s), weight gain, weight loss Eyes: ABSENT: visual disturbances Ears: ABSENT: hearing changes Cardiovascular: PRESENT: dyspnea on exertion, edema. ABSENT: chest pain, orthropnea, palpitations Respiratory: PRESENT: dyspnea. ABSENT: cough, hemoptysis Gastrointestinal: ABSENT: abdominal pain, constipation, diarrhea, hematemesis, hematochezia, nausea, vomiting Genitourinary: ABSENT: dysuria, hematuria Musculoskeletal: ABSENT: joint swelling Integumentary: ABSENT: rash, wounds Neurological: ABSENT: abnormal gait, abnormal speech, confusion, dizziness, focal weakness, syncope Psychiatric: ABSENT: anxiety, depression, homidical ideation, suicidal ideation Endocrine: ABSENT: cold intolerance, heat intolerance, menstrual abnormalities, polydipsia, polyuria Hematologic/Lymphatic: ABSENT: easy bleeding, easy bruising, lymphadenopathy Physical Exam General appearance: PRESENT: no acute distress, well-developed, well-nourished Head exam: PRESENT: atraumatic, normocephalic Eye exam: PRESENT: conjunctiva pink, EOMI, PERRLA. ABSENT: scleral icterus Ear exam: PRESENT: normal external ear exam Mouth exam: PRESENT: moist, tongue midline Neck exam: PRESENT: full ROM. ABSENT: carotid bruit, JVD, lymphadenopathy, thyromegaly Respiratory exam: PRESENT: clear to auscultation chad, decreased breath sounds Cardiovascular exam: PRESENT: RRR, +S1, +S2. ABSENT: diastolic murmur, rubs, systolic murmur Pulses: PRESENT: normal dorsalis pedis pul, +2 pedal pulses bilateral Vascular exam: PRESENT: normal capillary refill GI/Abdominal exam: PRESENT: normal bowel sounds, soft. ABSENT: distended, guarding, mass, organolmegaly, rebound, tenderness Rectal exam: PRESENT: deferred Extremities exam: PRESENT: pedal edema Musculoskeletal exam: PRESENT: ambulatory Neurological exam: PRESENT: alert, awake, oriented to person, oriented to place , oriented to time, oriented to situation, CN II-XII grossly intact. ABSENT: motor sensory deficit Psychiatric exam: PRESENT: appropriate affect, normal mood. ABSENT: homicidal ideation, suicidal ideation Skin exam: PRESENT: dry, intact, warm. ABSENT: cyanosis, rash Assessment & Plan - Diagnosis (1) Congestive heart failure (CHF) Qualifiers: Congestive heart failure type: combined Congestive heart failure chronicity : acute Qualified Code(s): I50.41 - Acute combined systolic (congestive) and diastolic (congestive) heart failure Is this a current diagnosis for this admission?: Yes Plan: Start the patient on a Lasix drip consult the cardiology Dr. 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 will get the ultrasound of the abdomen and we also consult the oncology to rule out possible any underlying malignancy (3) Anemia Qualifiers: Anemia type: unspecified type Is this a current diagnosis for this admission?: Yes Plan: Currently getting iron infusion follow with the single needle tufting machine operator (4) Breast cancer metastasized to axillary lymph node Qualifiers: Laterality: unspecified laterality Qualified Code(s): C50.919 - Malignant neoplasm of unspecified site of unspecified female breast; C77.3 - Secondary and unspecified malignant neoplasm of axilla and upper limb lymph nodes Is this a current diagnosis for this admission?: Yes Plan: Currently on a chemotherapy (5) CAD (coronary artery disease) Qualifiers: Coronary Disease-Associated Artery/Lesion type: unspecified vessel or lesion type Associated angina: without angina Is this a current diagnosis for this admission?: Yes Plan: Will get the echocardiogram and consult the cardiology (6) Hypertension Qualifiers: Hypertension type: essential hypertension Is this a current diagnosis for this admission?: Yes Plan: Stable (7) Type 2 diabetes mellitus Qualifiers: Diabetes mellitus complication status: with unspecified complications Is this a current diagnosis for this admission?: Yes Plan: Continues a sliding scale (8) Hypothyroidism Qualifiers: Hypothyroidism type: unspecified Qualified Code(s): E03.9 - Hypothyroidism , unspecified Is this a current diagnosis for this admission?: Yes Plan: We will check a TSH and free T4 - Time Time Spent: 30 to 50 Minutes Medications reviewed and adjusted accordingly: Yes Anticipated discharge: Home Within: Other - Inpatient Certification Based on my medical assessment, after consideration of the patient's comorbidities, presenting symptoms, or acuity I expect that the services needed warrant INPATIENT care.: Yes I certify that my determination is in accordance with my understanding of Medicare's requirements for reasonable and necessary INPATIENT services [42 CFR 412.3e].: Yes Medical Necessity: Need Close Monitoring Due to Risk of Patient Decompensation, Need For Continuous Telemetry Monitoring Post Hospital Care: D/C [employer] Director Documentation - Plan Summary Plan Summary: Very extensive discussions with the patient and her and directly admitted in the hospital and discuss about the all plan
[2017-03-12 17:50] LABS: PROTHROMBIN TIME 17.1 SEC (11.4-15.4)
[2017-03-12] MEDS ORDERED: DEXTROSE 40% GEL 15 GM TUBE PO PRN (19:03)
[2017-03-12] MEDS ORDERED: GLUCAGON,HUMAN RECOMB 1 MG INJ IM PRN (19:03)
[2017-03-12] MEDS ORDERED: DEXTROSE 50%-WATER SYRINGE 12.5 GM/25 ML DOSE IV PRN (19:03)
[2017-03-12] MEDS ORDERED: DEXTROSE 50%-WATER SYRINGE 25 GM/50 ML DOSE IV PRN (19:03)
[2017-03-12] MEDS ORDERED: DEXTROSE 40% GEL 15 GM TUBE X 2 PO PRN (19:03)
[2017-03-12] MEDS ORDERED: INSULIN LISPRO 100 UNIT/ML 3 ML VIAL SUBCUT PRN (19:03)
[2017-03-12] MEDS ORDERED: FUROSEMIDE INJ/PF 40 MG/4 ML SDV ONE (19:45)
[2017-03-12] MEDS ORDERED: FUROSEMIDE INJ/PF 40 MG/4 ML SDV IV ONE (20:00)
[2017-03-12] MEDS ORDERED: NITROGLYCERIN 0.4 MG/TAB 25 TAB/BOTTLE SL PRN (20:04)
[2017-03-12] MEDS ORDERED: OXYCODONE HCL IR 5 MG TABLET PO PRN (20:15)
--- NOTE | 2017-03-12 20:26 | PDOC CONSULTATION ---
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 Went to the Dr. Oscar office for routine chemotherapy and he noticed that patient was little bit more short of breath and patient have a gain 11 pound and a more edema and referred to Dr. Zapata. Dr. Zapata noted patient to be short of breath and patient oxygen level is 90% and the patient have a more edemadecided to admit in the hospital for further evaluations. 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 Denied any nausea no vomiting no abdominal pain Past Medical History Cardiac Medical History: Reports: Congestive Heart Failure, Coronary Artery Disease, Myocardial Infarction, Hyperlipidema, Hypertension, Heart Murmur Denies: Atrial Fibrillation, Peripheral Vascular Disease Pulmonary Medical History: Reports: Chronic Obstructive Pulmonary Disease (COPD) Denies: Asthma, Bronchitis, Pneumonia Neurological Medical History: Denies: Seizures Endocrine Medical History: Reports: Diabetes Mellitus Type 2, Hypothyroidism Denies: Hyperthyroidism Renal/ Medical History: Denies: End Stage Renal Disease Malignancy Medical History: Reports: Breast Cancer - Bilateral, Stage IV Denies: Cervical Cancer, Leukemia, Ovarian Cancer GI Medical History: Reports: Crohn's Disease Denies: Gastroesophageal Reflux Disease, Hiatal Hernia Musculoskeltal Medical History: Reports: Arthritis, Gout Denies: Fibromyalgia Psychiatric Medical History: Denies: Bipolar Disorder, Dementia, Depression, Post Traumatic Stress Disorder Hematology: Reports: Anemia - With Denies: Hemophilia, Sickle Cell Disease Infectious Medical History: Denies: HIV Past Surgical History Past Surgical History: Reports: Appendectomy, Cardiac Catheterization, Coronary Stent - x2, Mastectomy Denies: Amputation, Section, Cholecystectomy, Colostomy, Coronary Artery Bypass Graft, Gastric Bypass Surgery, Herniorrhaphy, Hysterectomy, Pacemaker, Tonsillectomy, Tubal Ligation Social History Information Source: Patient Smoking Status: Former Smoker Number of Years Smokin Last Time Smoked: 1960 Frequency of Alcohol Use: None Hx Recreational Drug Use: No Drugs: None Hx Prescription Drug Abuse: No - Advance Directive Resuscitation Status: Full Code Surrogate healthcare decision maker:: Patient's Family History Family History: Reviewed & Not Pertinent, Hypertension Parental Family History Reviewed: Yes Children Family History Reviewed: Yes Sibling(s) Family History Reviewed.: Yes Medication/Allergy Home Medications: Aspirin [Aspirin EC] 81 mg PO DAILY 03/12/17 Atorvastatin Calcium [Lipitor 20 mg Tablet] 20 mg PO DAILY 03/12/17 Clopidogrel Bisulfate [Plavix 75 mg Tablet] 75 mg PO DAILY 03/12/17 Furosemide [Lasix 40 mg Tablet] 80 mg PO DAILY 03/12/17 Magnesium Oxide [Mag-Ox 400 mg Tablet] 400 mg PO BID 03/12/17 Multivits-Min/Iron/FA/Lutein [Centrum Silver Women Tablet] 1 tab PO DAILY Mupirocin [Bactroban 2% Ointment 22 gm] 1 applic TOP TID 03/12/17 Nitroglycerin [Nitrostat 0.4 mg (1/150 Gr) Tabs 25/Bottle] 1 tab PO Q5MP PRN Oxycodone HCl [Oxycodone HCl 10 MG Tablet] 10 mg PO Q6HP PRN 03/12/17 Palbociclib [Ibrance] 125 mg PO DAILY 03/12/17 Pantoprazole Sodium [Protonix] 40 mg PO DAILY 03/12/17 Sitagliptin Phosphate [Januvia 25 mg Tablet] 25 mg PO DAILY 03/12/17 Spironolactone [Aldactone 25 mg Tablet] 25 mg PO DAILY 03/12/17 Allergies/Adverse Reactions: Sulfa (Sulfonamide Antibiotics) Allergy (Severe, Verified 10/31/16 13:04) Face swells ciprofloxacin [From Cipro] Allergy (Mild, Verified 10/31/16 13:04) Urticaria Penicillins Allergy (Mild, Verified 03/12/17 17:46) Urticaria Review of Systems Review of Systems: Please see history of present illness and past medical history as wall. Constitutional: No fever or chills reported. Head : No recent chronic headaches, recent head injury. Eyes: No recent eye pain, diplopia, redness, discharge, acute visual changes. Ears: No recent chronic ear pain, acute hearing loss, ear discharge. Oral cavity: No recent ulcerations, bleeding, oral cavity discomfort. Neck: No recent acute neck pain reported. Hematologic: No recent easy bruising or bleeding or hematologic malignancy reported. Lymphatic: No recent lymphatic malignancy, chronic lymphadenopathy reported yet Cardiovascular system review: See history of present illness. Increasing shortness of breath and edema. No sustained palpitations, syncope, near syncope. Respiratory system review: No recent chronic cough, hemoptysis, blood clots in the lungs reported. Mild Shortness of breath on exertion Gastrointestinal system review: Negative for any recent acute or chronic abdominal pain, hematemesis, melena, recent change in bowel habits. Genitourinary system review: No recent acute or chronic hematuria, flank pain, UTI etc. reported. Skin system review: Negative for any recent abnormal bruising, no rash, no pruritus reported. Neurologic: No prior history of strokes, mini strokes, seizure disorder. Psychologic: No history of major psychosis or major depression reported. Musculoskeletal: Minor aches and pains reported. No acute joint swelling reported. Endocrine: No recent polyuria, polydipsia, recent heat or cold intolerance. Physical Exam Vital Signs: Temp Pulse Resp BP Pulse Ox 98.5 F 90 20 111/53 L 100 03/12/17 20:02 03/12/17 20:02 03/12/17 20:02 03/12/17 20:02 03/12/17 20:02 Intake & Output 03/11/17 03/12/17 03/13/17 06:59 06:59 06:59 Intake Total 200 Balance 200 Weight 87.9 kg Exam: GENERAL: well-nourished and in no acute distress. Alert and oriented x3 HEAD: Atraumatic, normocephalic. EYES: Pupils equal round and reactive to light, extraocular movements intact, sclera anicteric, conjunctiva are normal. ENT: TMs normal, nares patent, oropharynx clear without exudates. Moist mucous membranes. No oral ulcerations or bleeding gums noted NECK: supple without lymphadenopathy. Trachea is central. No cervical or axillary lymphadenopathy noted. Carotids are 2+, JVD 12-14 cm LUNGS: Respiration seems nonlabored, no significant accessory muscle action noted. Bibasilar fine crackles noted. No wheezes rales or rhonchi noted. No significant dullness noted on percussion. CHEST: Palpation of the chest wall shows no significant chest wall tenderness. HEART: Andrews EDGE INKER UPPERS, No PSH, 1/6 CAROL aortic area, 1/6 lennon systolic murmur mitral area, no rubs, no gallops. ABDOMEN: Soft, no significant tenderness appreciated, normoactive bowel sounds. No guarding, no rebound. No rigidity noted . No masses appreciated. EXTREMITIES: Pedal pulses are 1-2+, no calf tenderness noted. No clubbing or cyanosis. 3 + pedal edema noted NEUROLOGICAL: Focused neurological exam showed no significant neurologic deficit. Normal speech, no focal weakness appreciated. PSYCH: Normal mood, normal affect. Judgment and insight within normal limits. SKIN: No significant ecchymosis, rash, ulcerations or signs of pruritus noted. MUSCULOSKELETAL EXAM: No significant joint swelling noted. Results Laboratory Results: 03/12/17 17:28 TSH 14.50 H 03/12/17 17:28 NT-Pro-B Natriuret Pep 16443 H Assessment & Plan - Diagnosis (1) Congestive heart failure (CHF) Qualifiers: Congestive heart failure type: combined Congestive heart failure chronicity : acute Qualified Code(s): I50.41 - Acute combined systolic (congestive) and diastolic (congestive) heart failure Is this a current diagnosis for this admission?: Yes (2) Mitral regurgitation Qualifiers: Cardiac valve disease etiology: nonrheumatic Qualified Code(s): I34.0 - Nonrheumatic mitral (valve) insufficiency Is this a current diagnosis for this admission?: Yes (3) Hypothyroidism Qualifiers: Hypothyroidism type: unspecified Qualified Code(s): E03.9 - Hypothyroidism , unspecified Is this a current diagnosis for this admission?: Yes (4) Type 2 diabetes mellitus Qualifiers: Diabetes mellitus complication status: with unspecified complications Is this a current diagnosis for this admission?: Yes (5) CAD (coronary artery disease) Qualifiers: Coronary Disease-Associated Artery/Lesion type: unspecified vessel or lesion type Associated angina: without angina Is this a current diagnosis for this admission?: Yes (6) Hypertension Qualifiers: Hypertension type: essential hypertension Qualified Code(s): I10 - Essential (primary) hypertension Is this a current diagnosis for this admission?: Yes (7) Abnormal LFTs Is this a current diagnosis for this admission?: Yes - Notes Notes: Congestive heart failure: Acute on chronic congestive heart failure. Start IV Lasix, continue spironolactone. Optimize therapy for underlying systolic and/ or diastolic dysfunction. Patient may benefit from oxygen supplementation and possibly a sleep study at a later date. Patient did receive recent chemotherapy. Will obtain a repeat 2D echo. Mitral regurgitation: Patient was noted to have moderate mitral regurgitation on last echocardiogram. Subsequently patient did receive chemotherapy. Will repeat a 2D echo. Hypothyroidism: This can aggravate CHF. Recommend replacement therapy. Coronary artery disease: Patient is status post stent in the past. Currently stable without any symptoms of angina. Diabetes: Recommend good control of blood sugar. However should avoid any hypoglycemia. Patient being expertly managed by primary care Tahir Hypertension: Reasonably well controlled. Blood pressure goal in this patient is 135/85 or less. This was discussed with the patient. Currently blood pressure under reasonable control. Better medication for this patient are KURT inhibitor/ARB/beta ann etc. discussed side effects of uncontrolled hypertension and also severe hypotension. Abnormal liver function test: To be followed by primary care nurse practitioner. - Time Time Spent: 50 to 70 Minutes - CODE STATUS was discussed, patient remains full code. Surrogate decision-maker patient's . Multiple medical problems were addressed. More than 50% of the time spent coordinating care, discussing management plans with involved caregivers. Management plans discussed with involved personnels. Medical decision making was of high complexity, patient' s has multiple comorbidities. Medications reviewed and adjusted accordingly: Yes
[2017-03-12] MEDS ORDERED: LEVOTHYROXINE SODIUM 0.025 MG TABLET PO ONE (21:00)
[2017-03-12] MEDS ORDERED: FUROSEMIDE INJ/PF 20 MG/2 ML SDV IV SCH (21:00)
[2017-03-12] MEDS ORDERED: ATORVASTATIN CALCIUM 20 MG TABLET PO ONE (21:30)
[2017-03-12] MEDS ORDERED: MAGNESIUM OXIDE 400 MG TABLET PO ONE (21:30)
[2017-03-12] MEDS ORDERED: SITAGLIPTIN PHOSPHATE 25 MG TABLET PO ONE (21:30)
[2017-03-12] MEDS ORDERED: LANSOPRAZOLE 30 MG TAB.RAP.DR PO ONE (21:30)
[2017-03-13] MEDS: FUROSEMIDE INJ/PF 40 MG/4 ML SDV IV SCH ×2 (06:16→19:22)
[2017-03-13 07:47] LABS: ALANINE AMINOTRANSFERASE 218 U/L (9-52); ALKALINE PHOSPHATASE 183 U/L (38-126); ASPARTATE AMINO TRANSFERASE 70 U/L (14-36); BILIRUBIN,DIRECT 1.5 mg/dL (0.0-0.4); BILIRUBIN,TOTAL 2.2 mg/dL (0.2-1.3); MAGNESIUM 1.8 mg/dL (1.6-2.3); TOTAL PROTEIN 5.7 g/dL (6.3-8.2)
[2017-03-13] MEDS ORDERED: LEVOTHYROXINE SODIUM 0.025 MG TABLET PO SCH ×2 (08:00→10:00)
--- NOTE | 2017-03-13 08:13 | EKG REPORT ---
SEVERITY:- ABNORMAL ECG - SINUS RHYTHM FIRST DEGREE AV BLOCK LEFT BUNDLE BRANCH BLOCK : Confirmed by: Cedric Marroquin MD 13-Mar-2017 08:13:06
--- NOTE | 2017-03-13 08:33 | PDOC CONSULTATION ---
Consultation Consult Date: 03/13/17 Attending physician:: AVRIL HARRIS Consult reason:: CHF exacerbation, hx of stage IV breast ca History of Present Illness Admission Date/PCP: 03/12/17 16:16 AFSHIN STEPHENSON MD Patient complains of: Inc swelling, edema, SOB History of Present Illness: 76 y/o F well known to our oncology clinic, presented yesterday for her treatment, she is currently on FASLODEX, XGEVA, IBRANCE as treatment for her ER + stage IV breast cancer will only bone mets. She has been doing well, last PET was 11/2016 indicated stable dx on currently therapy, next PET was planned for early mar. She had 10 lb wt gain, anasarca, mild jaundice, SOB w/ dec o2 sat in our office, sent her to Dr. Harris for consideration of direct admit. She has had aggressive lasix IV x 24 hours and looks better today. Her transaminases and bili both elev on admit. Past Medical History Cardiac Medical History: Reports: Congestive Heart Failure, Coronary Artery Disease, Myocardial Infarction, Hyperlipidema, Hypertension, Heart Murmur Denies: Atrial Fibrillation, Peripheral Vascular Disease Pulmonary Medical History: Reports: Chronic Obstructive Pulmonary Disease (COPD) Denies: Asthma, Bronchitis, Pneumonia Neurological Medical History: Denies: Seizures Endocrine Medical History: Reports: Diabetes Mellitus Type 2, Hypothyroidism Denies: Hyperthyroidism Renal/ Medical History: Denies: End Stage Renal Disease Malignancy Medical History: Reports: Breast Cancer - Bilateral, Stage IV Denies: Cervical Cancer, Leukemia, Ovarian Cancer GI Medical History: Reports: Crohn's Disease Denies: Gastroesophageal Reflux Disease, Hiatal Hernia Musculoskeltal Medical History: Reports: Arthritis, Gout Denies: Fibromyalgia Psychiatric Medical History: Denies: Bipolar Disorder, Dementia, Depression, Post Traumatic Stress Disorder Hematology: Reports: Anemia - With Denies: Hemophilia, Sickle Cell Disease Infectious Medical History: Denies: HIV Past Surgical History Past Surgical History: Reports: Appendectomy, Cardiac Catheterization, Coronary Stent - x2, Mastectomy Denies: Amputation, Section, Cholecystectomy, Colostomy, Coronary Artery Bypass Graft, Gastric Bypass Surgery, Herniorrhaphy, Hysterectomy, Pacemaker, Tonsillectomy, Tubal Ligation Social History Smoking Status: Former Smoker Number of Years Smokin Last Time Smoked: 1960 Frequency of Alcohol Use: None Hx Recreational Drug Use: No Drugs: None Hx Prescription Drug Abuse: No - Advance Directive Resuscitation Status: Full Code Family History Family History: Reviewed & Not Pertinent, Hypertension Parental Family History Reviewed: Yes Children Family History Reviewed: Yes Sibling(s) Family History Reviewed.: Yes Medication/Allergy Home Medications: Aspirin [Aspirin EC] 81 mg PO DAILY 03/12/17 Atorvastatin Calcium [Lipitor 20 mg Tablet] 20 mg PO DAILY 03/12/17 Clopidogrel Bisulfate [Plavix 75 mg Tablet] 75 mg PO DAILY 03/12/17 Furosemide [Lasix 40 mg Tablet] 80 mg PO DAILY 03/12/17 Magnesium Oxide [Mag-Ox 400 mg Tablet] 400 mg PO BID 03/12/17 Multivits-Min/Iron/FA/Lutein [Centrum Silver Women Tablet] 1 tab PO DAILY Mupirocin [Bactroban 2% Ointment 22 gm] 1 applic TOP TID 03/12/17 Nitroglycerin [Nitrostat 0.4 mg (1/150 Gr) Tabs 25/Bottle] 1 tab PO Q5MP PRN Oxycodone HCl [Oxycodone HCl 10 MG Tablet] 10 mg PO Q6HP PRN 03/12/17 Palbociclib [Ibrance] 125 mg PO DAILY 03/12/17 Pantoprazole Sodium [Protonix] 40 mg PO DAILY 03/12/17 Sitagliptin Phosphate [Januvia 25 mg Tablet] 25 mg PO DAILY 03/12/17 Spironolactone [Aldactone 25 mg Tablet] 25 mg PO DAILY 03/12/17 Allergies/Adverse Reactions: Sulfa (Sulfonamide Antibiotics) Allergy (Severe, Verified 10/31/16 13:04) Face swells ciprofloxacin [From Cipro] Allergy (Mild, Verified 10/31/16 13:04) Urticaria ciprofloxacin HCl [From Cipro] Allergy (Mild, Verified 10/31/16 13:04) Urticaria Penicillins Allergy (Mild, Verified 03/12/17 17:46) Urticaria Review of Systems Constitutional: ABSENT: chills, fever(s), headache(s), weight gain, weight loss Eyes: ABSENT: visual disturbances Ears: ABSENT: hearing changes Cardiovascular: ABSENT: chest pain, dyspnea on exertion, edema, orthropnea, palpitations Respiratory: ABSENT: cough, hemoptysis Gastrointestinal: ABSENT: abdominal pain, constipation, diarrhea, hematemesis, hematochezia, nausea, vomiting Genitourinary: ABSENT: dysuria, hematuria Musculoskeletal: ABSENT: joint swelling Integumentary: ABSENT: rash, wounds Neurological: ABSENT: abnormal gait, abnormal speech, confusion, dizziness, focal weakness, syncope Psychiatric: ABSENT: anxiety, depression, homidical ideation, suicidal ideation Endocrine: ABSENT: cold intolerance, heat intolerance, polydipsia, polyuria Hematologic/Lymphatic: ABSENT: easy bleeding, easy bruising Physical Exam Vital Signs: Temp Pulse Resp BP Pulse Ox 98.3 F 95 20 111/53 L 98 03/13/17 03:57 03/13/17 03:57 03/13/17 03:57 03/13/17 03:57 03/13/17 03:57 Intake & Output 03/12/17 03/13/17 03/14/17 06:59 06:59 06:59 Intake Total 602 Balance 602 Weight 87.1 kg General appearance: PRESENT: no acute distress, well-developed, well-nourished Head exam: PRESENT: atraumatic, normocephalic Eye exam: PRESENT: conjunctiva pink, EOMI, PERRLA. ABSENT: scleral icterus Ear exam: PRESENT: normal external ear exam Mouth exam: PRESENT: moist, tongue midline Neck exam: ABSENT: carotid bruit, JVD, lymphadenopathy, thyromegaly Respiratory exam: PRESENT: clear to auscultation chad. ABSENT: rales, rhonchi, wheezes Cardiovascular exam: PRESENT: RRR. ABSENT: diastolic murmur, rubs, systolic murmur Pulses: PRESENT: normal dorsalis pedis pul Vascular exam: PRESENT: normal capillary refill GI/Abdominal exam: PRESENT: normal bowel sounds, soft. ABSENT: distended, guarding, mass, organolmegaly, rebound, tenderness Rectal exam: PRESENT: deferred Extremities exam: PRESENT: full ROM. ABSENT: calf tenderness, clubbing, pedal edema Neurological exam: PRESENT: alert, awake, oriented to person, oriented to place , oriented to time, oriented to situation, CN II-XII grossly intact. ABSENT: motor sensory deficit Psychiatric exam: PRESENT: appropriate affect, normal mood. ABSENT: homicidal ideation, suicidal ideation Skin exam: PRESENT: dry, intact, warm. ABSENT: cyanosis, rash Results Laboratory Results: 03/13/17 06:53 03/12/17 03/13/17 03/13/17 17:28 06:53 06:53 WBC Cancelled RBC Cancelled Hgb Cancelled Hct Cancelled MCV Cancelled MCH Cancelled MCHC Cancelled RDW Cancelled Plt Count Cancelled Seg Neutrophils % Cancelled Lymphocytes % Cancelled Monocytes % Cancelled Eosinophils % Cancelled Basophils % Cancelled Absolute Neutrophils Cancelled Absolute Lymphocytes Cancelled Absolute Monocytes Cancelled Absolute Eosinophils Cancelled Absolute Basophils Cancelled Magnesium 1.8 Total Bilirubin 2.2 H AST 70 H ALT 218 H Alkaline Phosphatase 183 H Total Protein 5.7 L Albumin 3.0 L TSH 14.50 H 03/12/17 17:28 NT-Pro-B Natriuret Pep 20158 H Assessment & Plan - Diagnosis (1) Congestive heart failure (CHF) Qualifiers: Congestive heart failure type: combined Congestive heart failure chronicity : acute Qualified Code(s): I50.41 - Acute combined systolic (congestive) and diastolic (congestive) heart failure Is this a current diagnosis for this admission?: Yes Plan: being managed by medical and cardiology team. 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 (4) Hypoxemia Is this a current diagnosis for this admission?: Yes Plan: 2nd to CHF exacerbation, con't per team - Time Time Spent: Greater than 70 Minutes Critical Time spent with patient: 35 or more minutes
[2017-03-13] MEDS: PALBOCICLIB 125 MG PO SCH (08:37)
[2017-03-13] MEDS: MAGNESIUM OXIDE 400 MG TABLET PO SCH ×2 (08:38→19:25)
[2017-03-13] MEDS ORDERED: (PENDING PHARMACY ID) (Multivits-Min/Iron/Fa/Lutein [Centrum Silver Women Tablet] 1 TAB) PO SCH (10:00)
[2017-03-13] MEDS ORDERED: SPIRONOLACTONE 25 MG TABLET PO SCH (10:00)
[2017-03-13] MEDS ORDERED: PALBOCICLIB 125 MG PO SCH (10:00)
[2017-03-13] MEDS: ASPIRIN 81 MG TABLET, ENT COATED PO SCH (10:13)
[2017-03-13] MEDS: MULTIVIT-STRESS FORMULA/ZINC TABLET PO SCH (10:13)
[2017-03-13] MEDS: CLOPIDOGREL BISULFATE 75 MG TABLET PO SCH (10:14)
[2017-03-13] MEDS: DOCUSATE SODIUM 100 MG CAPSULE PO SCH (10:16)
[2017-03-13] MEDS: MUPIROCIN 2% OINTMENT 22 GM TOP SCH ×3 (10:16→17:09)
[2017-03-13 11:01] LABS: HEMATOCRIT 27.6 % (36.0-47.0); HGB HCT DIFFERENCE -0.6; MEAN CORPUSCULAR HEMOGLOBIN 41.8 pg (27.0-33.4); MEAN CORPUSCULAR HGB CONC 32.6 g/dL (32.0-36.0); MEAN CORPUSCULAR VOLUME 128 fl (80-97); RED BLOOD COUNT 2.15 10^6/uL (3.72-5.28); RED CELL DISTRIBUTION WIDTH 26.5 % (11.5-14.0); WHITE BLOOD COUNT 2.7 10^3/uL (4.0-10.5)
[2017-03-13 11:38] LABS: BAND NEUTROPHILS % (MANUAL) 2 % (3-5); BASOPHILS % (MANUAL) 0 % (0-2); EOSINOPHILS % (MANUAL) 0 % (0-6); LYMPHOCYTES % (MANUAL) 7 % (13-45); NUCLEATED RED BLOOD CELLS 2 /100 WBC (0); TOTAL CELLS COUNTED 100
[2017-03-13 11:39] LABS: POLYCHROMASIA 1+
[2017-03-13 11:40] LABS: ANISOCYTOSIS 3+
[2017-03-13 11:41] LABS: POIKILOCYTOSIS SLIGHT
--- NOTE | 2017-03-13 13:15 | PDOC PROGRESS REPORT ---
Subjective Progress Note for:: 03/13/17 Subjective:: Patient is currently doing fair denied any chest pain the breathing is much better. Patient still feeling weak Physical Exam Vital Signs: Temp Pulse Resp BP Pulse Ox 98.3 F 95 20 111/53 L 98 03/13/17 03:57 03/13/17 03:57 03/13/17 03:57 03/13/17 03:57 03/13/17 03:57 Intake & Output 03/12/17 03/13/17 03/14/17 06:59 06:59 06:59 Intake Total 602 Balance 602 Weight 87.1 kg General appearance: PRESENT: no acute distress, well-developed, well-nourished Head exam: PRESENT: atraumatic, normocephalic Eye exam: PRESENT: conjunctiva pink, EOMI, PERRLA. ABSENT: scleral icterus Ear exam: PRESENT: normal external ear exam Mouth exam: PRESENT: moist, tongue midline Neck exam: PRESENT: full ROM. ABSENT: carotid bruit, JVD, lymphadenopathy, thyromegaly Respiratory exam: PRESENT: clear to auscultation chad Cardiovascular exam: PRESENT: RRR. ABSENT: diastolic murmur, rubs, systolic murmur Pulses: PRESENT: normal dorsalis pedis pul, +2 pedal pulses bilateral Vascular exam: PRESENT: normal capillary refill GI/Abdominal exam: PRESENT: normal bowel sounds, soft. ABSENT: distended, guarding, mass, organolmegaly, rebound, tenderness Rectal exam: PRESENT: deferred Extremities exam: PRESENT: pedal edema Neurological exam: PRESENT: alert, awake, oriented to person, oriented to place , oriented to time, oriented to situation, CN II-XII grossly intact. ABSENT: motor sensory deficit Psychiatric exam: PRESENT: appropriate affect, normal mood. ABSENT: homicidal ideation, suicidal ideation Skin exam: PRESENT: dry, intact, warm. ABSENT: cyanosis, rash Results Laboratory Results: 03/13/17 10:20 03/12/17 03/13/17 03/13/17 17:28 06:53 06:53 WBC Cancelled RBC Cancelled Hgb Cancelled Hct Cancelled MCV Cancelled MCH Cancelled MCHC Cancelled RDW Cancelled Plt Count Cancelled Seg Neutrophils % Cancelled Lymphocytes % Cancelled Monocytes % Cancelled Eosinophils % Cancelled Basophils % Cancelled Absolute Neutrophils Cancelled Absolute Lymphocytes Cancelled Absolute Monocytes Cancelled Absolute Eosinophils Cancelled Absolute Basophils Cancelled Magnesium 1.8 Total Bilirubin 2.2 H AST 70 H ALT 218 H Alkaline Phosphatase 183 H Total Protein 5.7 L Albumin 3.0 L TSH 14.50 H 03/13/17 10:20 WBC 2.7 L RBC 2.15 L Hgb 9.0 L Hct 27.6 L MCV 128 H MCH 41.8 H MCHC 32.6 RDW 26.5 H Plt Count 78 L Seg Neutrophils % Not Reportable Lymphocytes % Not Reportable Monocytes % Not Reportable Eosinophils % Not Reportable Basophils % Not Reportable Absolute Neutrophils Not Reportable Absolute Lymphocytes Not Reportable Absolute Monocytes Not Reportable Absolute Eosinophils Not Reportable Absolute Basophils Not Reportable Magnesium Total Bilirubin AST ALT Alkaline Phosphatase Total Protein Albumin TSH 03/12/17 17:28 NT-Pro-B Natriuret Pep 83035 H 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 will get the ultrasound of the abdomen and we also consult the oncology to rule out possible any underlying malignancy (3) Anemia Qualifiers: Anemia type: unspecified type Is this a current diagnosis for this admission?: Yes Plan: Currently getting iron infusion follow with the patch driller (4) Breast cancer metastasized to axillary lymph node Qualifiers: Laterality: unspecified laterality Qualified Code(s): C50.919 - Malignant neoplasm of unspecified site of unspecified female breast; C77.3 - Secondary and unspecified malignant neoplasm of axilla and upper limb lymph nodes Is this a current diagnosis for this admission?: Yes Plan: Currently on a chemotherapy (5) CAD (coronary artery disease) Qualifiers: Coronary Disease-Associated Artery/Lesion type: unspecified vessel or lesion type Associated angina: without angina Is this a current diagnosis for this admission?: Yes Plan: Will get the echocardiogram and consult the cardiology (6) Hypertension Qualifiers: Hypertension type: essential hypertension Is this a current diagnosis for this admission?: Yes Plan: Stable (7) Type 2 diabetes mellitus Qualifiers: Diabetes mellitus complication status: with unspecified complications Is this a current diagnosis for this admission?: Yes Plan: Continues a sliding scale (8) Hypothyroidism Qualifiers: Hypothyroidism type: unspecified Qualified Code(s): E03.9 - Hypothyroidism , unspecified Is this a current diagnosis for this admission?: Yes Plan: We will check a TSH and free T4 - Time Time Spent with patient: 15-24 minutes Medications reviewed and adjusted accordingly: Yes Anticipated discharge: Home Within: Other - Inpatient Certification Medical Necessity: Need Close Monitoring Due to Risk of Patient Decompensation Post Hospital Care: D/C Parts Chaser Documentation - Plan Summary Plan Summary: Continues current medication
[2017-03-13 13:57] LABS: ANION GAP 11 (5-19); BLOOD UREA NITROGEN 37 mg/dL (7-20); CALCIUM 9.7 mg/dL (8.4-10.2); CARBON DIOXIDE 28 mmol/L (22-30); CHLORIDE 100 mmol/L (98-107); CREATININE RESULT 1.68 mg/dL (0.52-1.25); GLUCOSE 151 mg/dL (75-110); POTASSIUM 3.3 mmol/L (3.6-5.0)
[2017-03-13] MEDS ORDERED: ONDANSETRON HCL INJ/PF 4 MG/2 ML SDV IV PRN (15:00)
[2017-03-13] MEDS: SITAGLIPTIN PHOSPHATE 25 MG TABLET PO SCH (19:25)
[2017-03-13] MEDS: ATORVASTATIN CALCIUM 20 MG TABLET PO SCH (19:25)
[2017-03-13] MEDS: LANSOPRAZOLE 30 MG TAB.RAP.DR PO SCH (19:25)
[2017-03-13] MEDS ORDERED: POTASSIUM CHLORIDE 10 MEQ TABLET.SA PO ONE (20:00)
--- NOTE | 2017-03-13 21:28 | XCELERA REPORT ---
[address] [address] Transthoracic Echocardiogram Report Name: PRINCESS DE LEON Age: 76 yrs Gender: Female : 1940 Patient Status: Inpatient Patient Location: [address] [place] [address] Study Date: 03/13/2017 08:20 AM Height: 63 in Weight: 193 lb BSA: 1.9 m2 Procedure: A complete two-dimensional transthoracic echocardiogram was performed (2D, M-mode, spectral and color flow Doppler). The study was technically adequate with some images being suboptimal in quality. Reason For Study: Worsening CHF and mitral regurgitation Ordering Physician: MEGAN PUTNAM Performed By: Jany Merlos Interpretation Summary The Ejection Fraction estimate is 30-35% Left ventricular systolic function is severely reduced. LV diastolic function could not be adequately assessed due to significant valve regurgitation and/or stenosis. The left ventricle is mildly dilated. There is normal left ventricular wall thickness. There is severe global hypokinesis of the left ventricle. The right ventricular systolic function is mildly reduced. The right ventricle is mildly dilated. The left atrium is mildly dilated. The right atrium is mildly dilated. There is a moderate to severe amount of mitral regurgitation There is no mitral valve stenosis. There is a mild amount of aortic regurgitation There is no aortic valve stenosis There is a moderate amount of tricuspid regurgitation There is moderate pulmonary hypertension by echo Right ventricular systolic pressure is estimated to be elevated at 40- 50mmHg. The aortic root is not well visualized but is probably normal size. The inferior vena cava appeared normal and decreased > 50% with respiration (RAP 5-10 mmHg) There is no pericardial effusion. MMode/2D Measurements & Calculations RVDd: 4.0 cm LVIDd: 5.8 cm FS: 14.3 % Ao root diam: IVSd: 0.68 cm LVIDs: 5.0 cm EDV(Teich): 2.4 cm LVPWd: 0.66 cm 168.4 ml Ao root area: ESV(Teich): 118.1 ml 4.5 cm2 EF(Teich): 29.9 % LA dimension: 4.2 cm LVOT diam: LVLd ap4: 9.0 cm SV(MOD-sp4): 1.7 cm EDV(MOD-sp4): 31.0 ml LVOT area: 141.0 ml LVLs ap4: 8.8 cm 2.2 cm2 ESV(MOD-sp4): 110.0 ml EF(MOD-sp4): 22.0 % Doppler Measurements & Calculations MV E max julia: MV P1/2t max julia: Ao V2 max: LV V1 max P.8 cm/sec 128.8 cm/sec 138.1 cm/sec 4.2 mmHg MV P1/2t: 78.2 msec Ao max PG: LV V1 max: MVA(P1/2t): 2.8 cm2 7.6 mmHg 102.2 cm/sec MV dec slope: ANANDA(V,D): 1.6 cm2 482.2 cm/sec2 PA V2 max: TR max julia: 103.7 cm/sec 321.7 cm/sec PA max PG: TR max P.4 mmHg 4.3 mmHg Left Ventricle The left ventricle is mildly dilated. There is normal left ventricular wall thickness. Left ventricular systolic function is severely reduced. The Ejection Fraction estimate is 30-35%. LV diastolic function could not be adequately assessed due to significant valve regurgitation and/or stenosis. There is severe global hypokinesis of the left ventricle. Right Ventricle The right ventricle is mildly dilated. There is normal right ventricular wall thickness. The right ventricular systolic function is mildly reduced. Atria The right atrium is mildly dilated. The left atrium is mildly dilated. Interarterial septum not well visualized and not well dopplered. Cannot comment on ASD/PFO presence. Mitral Valve The mitral valve is grossly normal. There is no mitral valve stenosis. There is a moderate to severe amount of mitral regurgitation. Aortic Valve The aortic valve is grossly normal. There is no aortic valve stenosis. There is a mild amount of aortic regurgitation. Tricuspid Valve The tricuspid valve is not well visualized, but is grossly normal. There is no tricuspid stenosis. There is a moderate amount of tricuspid regurgitation. There is moderate pulmonary hypertension by echo. Right ventricular systolic pressure is estimated to be elevated at 40-50mmHg. Pulmonic Valve The pulmonic valve is not well visualized. Great Vessels The aortic root is not well visualized but is probably normal size. The inferior vena cava appeared normal and decreased > 50% with respiration (RAP 5-10 mmHg). Effusions There is no pericardial effusion. : MEGAN PUNTAM > Megan Putnam
[2017-03-14] MEDS: LEVOTHYROXINE SODIUM 0.025 MG TABLET PO SCH (05:10)
[2017-03-14 06:24] LABS: HEMATOCRIT 24.4 % (36.0-47.0); HEMOGLOBIN 8.3 g/dL (12.0-15.5); HGB HCT DIFFERENCE 0.5; MEAN CORPUSCULAR HEMOGLOBIN 42.9 pg (27.0-33.4); MEAN CORPUSCULAR HGB CONC 33.9 g/dL (32.0-36.0); MEAN CORPUSCULAR VOLUME 126 fl (80-97); RED BLOOD COUNT 1.93 10^6/uL (3.72-5.28); RED CELL DISTRIBUTION WIDTH 24.9 % (11.5-14.0); WHITE BLOOD COUNT 2.4 10^3/uL (4.0-10.5)
[2017-03-14] MEDS: FUROSEMIDE INJ/PF 40 MG/4 ML SDV IV SCH (06:27)
[2017-03-14 06:44] LABS: ALANINE AMINOTRANSFERASE 170 U/L (9-52); ALBUMIN 2.8 g/dL (3.5-5.0); ALKALINE PHOSPHATASE 162 U/L (38-126); ANION GAP 7 (5-19); ASPARTATE AMINO TRANSFERASE 57 U/L (14-36); BILIRUBIN,DIRECT 1.3 mg/dL (0.0-0.4); BILIRUBIN,TOTAL 1.9 mg/dL (0.2-1.3); BLOOD UREA NITROGEN 34 mg/dL (7-20); CALCIUM 9.3 mg/dL (8.4-10.2); CARBON DIOXIDE 28 mmol/L (22-30); CHLORIDE 100 mmol/L (98-107); CREATININE RESULT 1.54 mg/dL (0.52-1.25); GLUCOSE 108 mg/dL (75-110); POTASSIUM 3.4 mmol/L (3.6-5.0); SODIUM 135.4 mmol/L (137-145); TOTAL PROTEIN 5.4 g/dL (6.3-8.2)
[2017-03-14 07:03] LABS: BASOPHILS % (MANUAL) 0 % (0-2); EOSINOPHILS % (MANUAL) 1 % (0-6); LYMPHOCYTES % (MANUAL) 13 % (13-45); NUCLEATED RED BLOOD CELLS 1 /100 WBC (0); TOTAL CELLS COUNTED 100
[2017-03-14 07:06] LABS: POLYCHROMASIA SLIGHT; TOXIC GRANULATION SLIGHT
[2017-03-14 07:07] LABS: ANISOCYTOSIS 3+; BURR CELLS SLIGHT; OVALOCYTES SLIGHT; POIKILOCYTOSIS SLIGHT; TEAR DROP CELLS SLIGHT
[2017-03-14] MEDS ORDERED: POTASSIUM CHLORIDE 10 MEQ TABLET.SA PO ONE ×2 (08:30→08:55)
--- NOTE | 2017-03-14 08:50 | PDOC PROGRESS REPORT ---
Subjective Progress Note for:: 03/14/17 Subjective:: Doing better, seems less edematous Physical Exam Vital Signs: Temp Pulse Resp BP Pulse Ox 97.9 F 95 16 92/54 L 96 03/14/17 07:40 03/14/17 07:40 03/14/17 07:40 03/14/17 07:40 03/14/17 07:40 Intake & Output 03/13/17 03/14/17 03/15/17 06:59 06:59 06:59 Intake Total 602 900 Balance 602 900 Weight 87.1 kg 84.7 kg Results Laboratory Results: 03/14/17 06:04 03/14/17 06:04 03/13/17 03/13/17 03/14/17 10:20 10:20 06:04 WBC 2.7 L 2.4 L RBC 2.15 L 1.93 L Hgb 9.0 L 8.3 L Hct 27.6 L 24.4 L MCV 128 H 126 H MCH 41.8 H 42.9 H MCHC 32.6 33.9 RDW 26.5 H 24.9 H Plt Count 78 L 71 L Seg Neutrophils % Not Reportable Not Reportable Lymphocytes % Not Reportable Not Reportable Monocytes % Not Reportable Not Reportable Eosinophils % Not Reportable Not Reportable Basophils % Not Reportable Not Reportable Absolute Neutrophils Not Reportable Not Reportable Absolute Lymphocytes Not Reportable Not Reportable Absolute Monocytes Not Reportable Not Reportable Absolute Eosinophils Not Reportable Not Reportable Absolute Basophils Not Reportable Not Reportable Sodium 139.0 Potassium 3.3 L Chloride 100 Carbon Dioxide 28 Anion Gap 11 BUN 37 H Creatinine 1.68 H Est GFR ( Amer) 36 L Est GFR (Non-Af Amer) 30 L Glucose 151 H Calcium 9.7 Total Bilirubin AST ALT Alkaline Phosphatase Total Protein Albumin 03/14/17 06:04 WBC RBC Hgb Hct MCV MCH MCHC RDW Plt Count Seg Neutrophils % Lymphocytes % Monocytes % Eosinophils % Basophils % Absolute Neutrophils Absolute Lymphocytes Absolute Monocytes Absolute Eosinophils Absolute Basophils Sodium 135.4 L Potassium 3.4 L Chloride 100 Carbon Dioxide 28 Anion Gap 7 BUN 34 H Creatinine 1.54 H Est GFR ( Amer) 40 L Est GFR (Non-Af Amer) 33 L Glucose 108 Calcium 9.3 Total Bilirubin 1.9 H AST 57 H ALT 170 H Alkaline Phosphatase 162 H Total Protein 5.4 L Albumin 2.8 L 03/12/17 17:28 NT-Pro-B Natriuret Pep 93722 H Assessment & Plan - Diagnosis (1) Congestive heart failure (CHF) Qualifiers: Congestive heart failure type: combined Congestive heart failure chronicity : acute Qualified Code(s): I50.41 - Acute combined systolic (congestive) and diastolic (congestive) heart failure Is this a current diagnosis for this admission?: Yes Plan: Improving (2) Breast cancer metastasized to bone Qualifiers: Laterality: right Qualified Code(s): C50.911 - Malignant neoplasm of unspecified site of right female breast; C79.51 - Secondary malignant neoplasm of bone Is this a current diagnosis for this admission?: Yes Plan: Overall better (3) Hypoxemia Is this a current diagnosis for this admission?: Yes Plan: Improved
[2017-03-14] MEDS: MAGNESIUM OXIDE 400 MG TABLET PO SCH ×2 (08:54→19:53)
[2017-03-14] MEDS: PALBOCICLIB 125 MG PO SCH (08:56)
[2017-03-14] MEDS: SPIRONOLACTONE 25 MG TABLET PO SCH (09:01)
[2017-03-14] MEDS: DOCUSATE SODIUM 100 MG CAPSULE PO SCH (10:30)
[2017-03-14] MEDS: MULTIVIT-STRESS FORMULA/ZINC TABLET PO SCH (10:31)
[2017-03-14] MEDS: MUPIROCIN 2% OINTMENT 22 GM TOP SCH ×3 (10:31→17:47)
[2017-03-14] MEDS: ASPIRIN 81 MG TABLET, ENT COATED PO SCH (10:31)
[2017-03-14] MEDS: CLOPIDOGREL BISULFATE 75 MG TABLET PO SCH (10:31)
--- NOTE | 2017-03-14 13:45 | PDOC PROGRESS REPORT ---
Subjective Progress Note for:: 03/13/17 Subjective:: Patient seems to be doing better with gradual improvement. Pt is denying any chest arm or neck discomfort. Patient denying any PND, orthopnea. Patient denied any sustained palpitations, dizziness, syncope, near syncope. Patient denying any fever chills. Patient denying any other significant discomfort. Patient is maintaining sinus rhythm. Edema is much improved. Review of systems: Rest review of systems negative. Medications: Medications have been reviewed. Physical Exam Vital Signs: Temp Pulse Resp BP Pulse Ox 97.9 F 87 20 125/109 H 100 03/13/17 15:42 03/13/17 20:12 03/13/17 15:42 03/13/17 15:42 03/13/17 15:42 Intake & Output 03/12/17 03/13/17 03/14/17 06:59 06:59 06:59 Intake Total 602 845 Balance 602 845 Weight 87.1 kg 87.1 kg Exam: GENERAL: well-nourished and in no acute distress. Alert and oriented x3 HEAD: Atraumatic, normocephalic. EYES: Pupils equal round and reactive to light, extraocular movements intact, sclera anicteric, conjunctiva are normal. ENT: TMs normal, nares patent, oropharynx clear without exudates. Moist mucous membranes. No oral ulcerations or bleeding gums noted NECK: supple without lymphadenopathy. Trachea is central. No cervical or axillary lymphadenopathy noted. Carotids are 2+, JVD 8-10 cm LUNGS: Respiration seems nonlabored, no significant accessory muscle action noted. Breath sounds clear to auscultation bilaterally and equal noted. No wheezes rales or rhonchi noted. No significant dullness noted on percussion. CHEST: Palpation of the chest wall shows no significant chest wall tenderness. HEART: Bells SAP BASIS ARCHITECT, No PSH, 1/6 CAROL aortic area, 1/6 lennon systolic murmur mitral area, no rubs, no gallops. ABDOMEN: Soft, no significant tenderness appreciated, normoactive bowel sounds. No guarding, no rebound. No rigidity noted . No masses appreciated. EXTREMITIES: Pedal pulses are 1-2+, no calf tenderness noted. No clubbing or cyanosis. 1-2+ pedal edema noted NEUROLOGICAL: Focused neurological exam showed no significant neurologic deficit. Normal speech, no focal weakness appreciated. PSYCH: Normal mood, normal affect. Judgment and insight within normal limits. SKIN: No significant ecchymosis, rash, ulcerations or signs of pruritus noted. MUSCULOSKELETAL EXAM: No significant joint swelling noted. Results Laboratory Results: 03/13/17 10:20 03/13/17 10:20 03/13/17 03/13/17 03/13/17 06:53 06:53 10:20 WBC Cancelled 2.7 L RBC Cancelled 2.15 L Hgb Cancelled 9.0 L Hct Cancelled 27.6 L MCV Cancelled 128 H MCH Cancelled 41.8 H MCHC Cancelled 32.6 RDW Cancelled 26.5 H Plt Count Cancelled 78 L Seg Neutrophils % Cancelled Not Reportable Lymphocytes % Cancelled Not Reportable Monocytes % Cancelled Not Reportable Eosinophils % Cancelled Not Reportable Basophils % Cancelled Not Reportable Absolute Neutrophils Cancelled Not Reportable Absolute Lymphocytes Cancelled Not Reportable Absolute Monocytes Cancelled Not Reportable Absolute Eosinophils Cancelled Not Reportable Absolute Basophils Cancelled Not Reportable Sodium Potassium Chloride Carbon Dioxide Anion Gap BUN Creatinine Est GFR ( Amer) Est GFR (Non-Af Amer) Glucose Calcium Magnesium 1.8 Total Bilirubin 2.2 H AST 70 H ALT 218 H Alkaline Phosphatase 183 H Total Protein 5.7 L Albumin 3.0 L 03/13/17 10:20 WBC RBC Hgb Hct MCV MCH MCHC RDW Plt Count Seg Neutrophils % Lymphocytes % Monocytes % Eosinophils % Basophils % Absolute Neutrophils Absolute Lymphocytes Absolute Monocytes Absolute Eosinophils Absolute Basophils Sodium 139.0 Potassium 3.3 L Chloride 100 Carbon Dioxide 28 Anion Gap 11 BUN 37 H Creatinine 1.68 H Est GFR ( Amer) 36 L Est GFR (Non-Af Amer) 30 L Glucose 151 H Calcium 9.7 Magnesium Total Bilirubin AST ALT Alkaline Phosphatase Total Protein Albumin 03/12/17 17:28 NT-Pro-B Natriuret Pep 86756 H Assessment & Plan - Diagnosis (1) Congestive heart failure (CHF) Qualifiers: Congestive heart failure type: combined Congestive heart failure chronicity : acute Qualified Code(s): I50.41 - Acute combined systolic (congestive) and diastolic (congestive) heart failure Is this a current diagnosis for this admission?: Yes (2) Mitral regurgitation Qualifiers: Cardiac valve disease etiology: nonrheumatic Qualified Code(s): I34.0 - Nonrheumatic mitral (valve) insufficiency Is this a current diagnosis for this admission?: Yes (3) Hypothyroidism Qualifiers: Hypothyroidism type: unspecified Qualified Code(s): E03.9 - Hypothyroidism , unspecified Is this a current diagnosis for this admission?: Yes (4) Type 2 diabetes mellitus Qualifiers: Diabetes mellitus complication status: with unspecified complications Is this a current diagnosis for this admission?: Yes (5) CAD (coronary artery disease) Qualifiers: Coronary Disease-Associated Artery/Lesion type: unspecified vessel or lesion type Associated angina: without angina Is this a current diagnosis for this admission?: Yes (6) Hypertension Qualifiers: Hypertension type: essential hypertension Qualified Code(s): I10 - Essential (primary) hypertension Is this a current diagnosis for this admission?: Yes (7) Abnormal LFTs Is this a current diagnosis for this admission?: Yes - Notes Notes: Congestive heart failure: Acute on chronic congestive heart failure. Currently improved. Optimize therapy for underlying systolic and/or diastolic dysfunction. Patient may benefit from oxygen supplementation and possibly a sleep study at a later date. Patient did receive recent chemotherapy. 2D echo results reviewed with the patient. Will consider entresto therapy. Mitral regurgitation: Patient was noted to have moderate mitral regurgitation on last echocardiogram. Subsequently patient did receive chemotherapy. 2D echo shows moderate to severe mitral regurgitation. Hypothyroidism: This can aggravate CHF. Recommend replacement therapy. Coronary artery disease: Patient is status post stent in the past. Currently stable without any symptoms of angina. Diabetes: Recommend good control of blood sugar. However should avoid any hypoglycemia. Patient being expertly managed by primary care Tahir Hypertension: Reasonably well controlled. Blood pressure goal in this patient is 135/85 or less. This was discussed with the patient. Currently blood pressure under reasonable control. Better medication for this patient are KURT inhibitor/ARB/beta ann etc. discussed side effects of uncontrolled hypertension and also severe hypotension. Abnormal liver function test: To be followed by skill training program coordinator. - Time Time with patient: Greater than 35 minutes - CODE STATUS was discussed, patient remains full code. Surrogate decision-maker unchanged. Multiple medical problems were addressed. More than 50% of the time spent coordinating care, discussing management plans with involved caregivers. Management plans discussed with involved personnels. Medical decision making was of moderate to high complexity, patient's has multiple comorbidities. Medications reviewed and adjusted accordingly: Yes
--- NOTE | 2017-03-14 14:17 | RADIOLOGY REPORT (SQ) ---
EXAM DESCRIPTION: CHEST PA/LAT COMPLETED DATE/TIME: 03/12/2017 4:53 pm REASON FOR STUDY: chf COMPARISON: 10/03/2016 EXAM PARAMETERS: NUMBER OF VIEWS: two views TECHNIQUE: Digital Frontal and Lateral radiographic views of the chest acquired. RADIATION DOSE: NA LIMITATIONS: none FINDINGS: LUNGS AND PLEURA: Chronic changes in the right lung. No acute opacities. No effusions. MEDIASTINUM AND HILAR STRUCTURES: No masses or contour abnormalities. HEART AND VASCULAR STRUCTURES: Heart enlarged. No overt failure. BONES: Chronic compression deformities. HARDWARE: Venous access catheter tip is unchanged. Tip in the central left subclavian vein. OTHER: No other significant finding. IMPRESSION: Cardiac enlargement without failure. Chronic parenchymal changes. Chronic bony changes . TECHNICAL DOCUMENTATION: JOB ID: [id number] [employer]- All Rights Reserved
--- NOTE | 2017-03-14 14:26 | PDOC PROGRESS REPORT ---
Subjective Progress Note for:: 03/14/17 Subjective:: Patient is currently doing fair much better denied any chest pain denied any shortness of the breath. Patient echocardiogram so some mitral valve disease and Dr. Irwin is going to talk to the patient's for further evaluate Physical Exam Vital Signs: Temp Pulse Resp BP Pulse Ox 97.9 F 95 16 92/54 L 96 03/14/17 07:40 03/14/17 07:40 03/14/17 07:40 03/14/17 07:40 03/14/17 07:40 Intake & Output 03/13/17 03/14/17 03/15/17 06:59 06:59 06:59 Intake Total 602 900 Balance 602 900 Weight 87.1 kg 84.7 kg General appearance: PRESENT: no acute distress, well-developed, well-nourished Head exam: PRESENT: atraumatic, normocephalic Eye exam: PRESENT: conjunctiva pink, EOMI, PERRLA. ABSENT: scleral icterus Ear exam: PRESENT: normal external ear exam Mouth exam: PRESENT: moist, tongue midline Neck exam: PRESENT: full ROM. ABSENT: carotid bruit, JVD, lymphadenopathy, thyromegaly Respiratory exam: PRESENT: clear to auscultation chad Cardiovascular exam: PRESENT: diastolic murmur, RRR. ABSENT: rubs, systolic murmur Pulses: PRESENT: normal dorsalis pedis pul, +2 pedal pulses bilateral Vascular exam: PRESENT: normal capillary refill GI/Abdominal exam: PRESENT: normal bowel sounds, soft. ABSENT: distended, guarding, mass, organolmegaly, rebound, tenderness Rectal exam: PRESENT: deferred Neurological exam: PRESENT: alert, awake, oriented to person, oriented to place , oriented to time, oriented to situation, CN II-XII grossly intact. ABSENT: motor sensory deficit Psychiatric exam: PRESENT: appropriate affect, normal mood. ABSENT: homicidal ideation, suicidal ideation Skin exam: PRESENT: dry, intact, warm. ABSENT: cyanosis, rash Results Laboratory Results: 03/14/17 06:04 03/14/17 06:04 03/14/17 03/14/17 06:04 06:04 WBC 2.4 L RBC 1.93 L Hgb 8.3 L Hct 24.4 L MCV 126 H MCH 42.9 H MCHC 33.9 RDW 24.9 H Plt Count 71 L Seg Neutrophils % Not Reportable Lymphocytes % Not Reportable Monocytes % Not Reportable Eosinophils % Not Reportable Basophils % Not Reportable Absolute Neutrophils Not Reportable Absolute Lymphocytes Not Reportable Absolute Monocytes Not Reportable Absolute Eosinophils Not Reportable Absolute Basophils Not Reportable Sodium 135.4 L Potassium 3.4 L Chloride 100 Carbon Dioxide 28 Anion Gap 7 BUN 34 H Creatinine 1.54 H Est GFR ( Amer) 40 L Est GFR (Non-Af Amer) 33 L Glucose 108 Calcium 9.3 Total Bilirubin 1.9 H AST 57 H ALT 170 H Alkaline Phosphatase 162 H Total Protein 5.4 L Albumin 2.8 L 03/12/17 17:28 NT-Pro-B Natriuret Pep [id number] H Impressions: Chest X-Ray 03/12/17 16:30 IMPRESSION: Cardiac enlargement without failure. Chronic parenchymal changes. Chronic bony changes. 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 will get the ultrasound of the abdomen and we also consult the oncology to rule out possible any underlying malignancy (3) Anemia Qualifiers: Anemia type: unspecified type Is this a current diagnosis for this admission?: Yes Plan: Currently getting iron infusion 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 (4) Breast cancer metastasized to axillary lymph node Qualifiers: Laterality: unspecified laterality Qualified Code(s): C50.919 - Malignant neoplasm of unspecified site of unspecified female breast; C77.3 - Secondary and unspecified malignant neoplasm of axilla and upper limb lymph nodes Is this a current diagnosis for this admission?: Yes Plan: Currently on a chemotherapy (5) CAD (coronary artery disease) Qualifiers: Coronary Disease-Associated Artery/Lesion type: unspecified vessel or lesion type Associated angina: without angina Is this a current diagnosis for this admission?: Yes Plan: Will get the echocardiogram and consult the cardiology (6) Hypertension Qualifiers: Hypertension type: essential hypertension Qualified Code(s): I10 - Essential (primary) hypertension Is this a current diagnosis for this admission?: Yes Plan: Stable (7) Type 2 diabetes mellitus Qualifiers: Diabetes mellitus complication status: with unspecified complications Is this a current diagnosis for this admission?: Yes Plan: Continues a sliding scale (8) Hypothyroidism Qualifiers: Hypothyroidism type: unspecified Qualified Code(s): E03.9 - Hypothyroidism , unspecified Is this a current diagnosis for this admission?: Yes Plan: We will check a TSH and free T4 - Time Time Spent with patient: 15-24 minutes Medications reviewed and adjusted accordingly: Yes Anticipated discharge: Home Within: Other - Inpatient Certification Medical Necessity: Need Close Monitoring Due to Risk of Patient Decompensation 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
--- NOTE | 2017-03-14 15:49 | RADIOLOGY REPORT (SQ) ---
EXAM DESCRIPTION: U/S ABDOMEN COMPLETE W/O DOP COMPLETED DATE/TIME: 03/13/2017 4:53 am REASON FOR STUDY: abnormal lft COMPARISON: PET-CT 12/06/2016 Abdominal ultrasound 09/26/2015 CT chest 10/31/2016 TECHNIQUE: Dynamic and static grayscale images acquired of the abdomen and recorded on PACS. Additio nal selected color Doppler and spectral images recorded. LIMITATIONS: Midline bowel gas. Patient body habitus FINDINGS: PANCREAS: Not well seen LIVER: No gross liver masses. Echogenic liver from diffuse hepatocellular disease. LIVER VASCULATURE: Normal directional flow of the main portal vein and hepatic veins. GALLBLADDER: Sludge in the gallbladder. No shadowing stones. No definite gallbladder wall thickenin g or pericholecystic fluid. ULTRASOUND-DETECTED CARROLL'S SIGN: Negative. INTRAHEPATIC DUCTS AND COMMON DUCT: CBD and intrahepatic ducts normal caliber. No filling defects. C ommon duct at the daniel hepatis 5 mm in diameter. Distal most common duct not well seen. INFERIOR VENA CAVA: Not well seen AORTA: Not well seen. No gross aneurysm RIGHT KIDNEY: Normal size. Normal echogenicity. No solid or suspicious masses. No hydronephros is. No calcifications. LEFT KIDNEY: Normal size. Normal echogenicity. No solid or suspicious masses. No hydronephrosi s. No calcifications. SPLEEN: Normal size. No solid masses. Calcified splenic granulomas are present PERITONEAL AND PLEURAL SPACES: No ascites or effusions. OTHER: No other significant finding. IMPRESSION: No evidence of biliary ductal dilatation, gallstones, or liver metastatic lesions by ult kelle. TECHNICAL DOCUMENTATION: JOB ID: [id number] Labs- All Rights Reserved
[2017-03-14] MEDS: ATORVASTATIN CALCIUM 20 MG TABLET PO SCH (19:53)
[2017-03-14] MEDS: LANSOPRAZOLE 30 MG TAB.RAP.DR PO SCH (19:53)
--- NOTE | 2017-03-14 19:55 | PDOC PROGRESS REPORT ---
Subjective Progress Note for:: 03/14/17 Subjective:: Patient seems to be doing better with gradual improvement. Pt is denying any chest arm or neck discomfort. Patient denying any PND, orthopnea. Patient denied any sustained palpitations, dizziness, syncope, near syncope. Patient denying any fever chills. Patient denying any other significant discomfort. Patient is maintaining sinus rhythm. Edema is much improved. Patient is able to ambulate to the bathroom without much difficulty. Review of systems: Rest review of systems negative. Medications: Medications have been reviewed. Physical Exam Vital Signs: Temp Pulse Resp BP Pulse Ox 97.8 F 99 20 107/52 L 100 03/14/17 15:50 03/14/17 15:50 03/14/17 15:50 03/14/17 15:50 03/14/17 15:50 Intake & Output 03/13/17 03/14/17 03/15/17 06:59 06:59 06:59 Intake Total 602 900 595 Balance 602 900 595 Weight 87.1 kg 84.7 kg Exam: GENERAL: well-nourished and in no acute distress. Alert and oriented x3 HEAD: Atraumatic, normocephalic. EYES: Pupils equal round and reactive to light, extraocular movements intact, sclera anicteric, conjunctiva are normal. ENT: TMs normal, nares patent, oropharynx clear without exudates. Moist mucous membranes. No oral ulcerations or bleeding gums noted NECK: supple without lymphadenopathy. Trachea is central. No cervical or axillary lymphadenopathy noted. Carotids are 2+, JVD 8 cms LUNGS: Respiration seems nonlabored, no significant accessory muscle action noted. Breath sounds clear to auscultation bilaterally and equal noted. No wheezes rales or rhonchi noted. No significant dullness noted on percussion. CHEST: Palpation of the chest wall shows no significant chest wall tenderness. HEART: [place] PRIMARY CARE NURSE PRACTITIONER, No PSH, 2/6 CAROL aortic area, 2/6 lennon systolic murmur mitral area, no rubs, no gallops. ABDOMEN: Soft, no significant tenderness appreciated, normoactive bowel sounds. No guarding, no rebound. No rigidity noted . No masses appreciated. EXTREMITIES: Pedal pulses are 1-2+, no calf tenderness noted. No clubbing or cyanosis.1+ pedal edema noted NEUROLOGICAL: Focused neurological exam showed no significant neurologic deficit. Normal speech, no focal weakness appreciated. PSYCH: Normal mood, normal affect. Judgment and insight within normal limits. SKIN: No significant ecchymosis, rash, ulcerations or signs of pruritus noted. MUSCULOSKELETAL EXAM: No significant joint swelling noted. Results Laboratory Results: 03/14/17 06:04 03/14/17 06:04 03/14/17 03/14/17 06:04 06:04 WBC 2.4 L RBC 1.93 L Hgb 8.3 L Hct 24.4 L MCV 126 H MCH 42.9 H MCHC 33.9 RDW 24.9 H Plt Count 71 L Seg Neutrophils % Not Reportable Lymphocytes % Not Reportable Monocytes % Not Reportable Eosinophils % Not Reportable Basophils % Not Reportable Absolute Neutrophils Not Reportable Absolute Lymphocytes Not Reportable Absolute Monocytes Not Reportable Absolute Eosinophils Not Reportable Absolute Basophils Not Reportable Sodium 135.4 L Potassium 3.4 L Chloride 100 Carbon Dioxide 28 Anion Gap 7 BUN 34 H Creatinine 1.54 H Est GFR ( Amer) 40 L Est GFR (Non-Af Amer) 33 L Glucose 108 Calcium 9.3 Total Bilirubin 1.9 H AST 57 H ALT 170 H Alkaline Phosphatase 162 H Total Protein 5.4 L Albumin 2.8 L 03/12/17 17:28 NT-Pro-B Natriuret Pep [id number] H Impressions: Chest X-Ray 03/12/17 16:30 IMPRESSION: Cardiac enlargement without failure. Chronic parenchymal changes. Chronic bony changes. Abdomen Ultrasound 03/13/17 00:00 IMPRESSION: No evidence of biliary ductal dilatation, gallstones, or liver metastatic lesions by ultrasound. Assessment & Plan - Diagnosis (1) Congestive heart failure (CHF) Qualifiers: Congestive heart failure type: combined Congestive heart failure chronicity : acute Qualified Code(s): I50.41 - Acute combined systolic (congestive) and diastolic (congestive) heart failure Is this a current diagnosis for this admission?: Yes (2) Mitral regurgitation Qualifiers: Cardiac valve disease etiology: nonrheumatic Qualified Code(s): I34.0 - Nonrheumatic mitral (valve) insufficiency Is this a current diagnosis for this admission?: Yes (3) Hypothyroidism Qualifiers: Hypothyroidism type: unspecified Qualified Code(s): E03.9 - Hypothyroidism , unspecified Is this a current diagnosis for this admission?: Yes (4) Type 2 diabetes mellitus Qualifiers: Diabetes mellitus complication status: with unspecified complications Is this a current diagnosis for this admission?: Yes (5) CAD (coronary artery disease) Qualifiers: Coronary Disease-Associated Artery/Lesion type: unspecified vessel or lesion type Associated angina: without angina Is this a current diagnosis for this admission?: Yes (6) Hypertension Qualifiers: Hypertension type: essential hypertension Qualified Code(s): I10 - Essential (primary) hypertension Is this a current diagnosis for this admission?: Yes (7) Abnormal LFTs Is this a current diagnosis for this admission?: Yes - Notes Notes: Congestive heart failure: Acute on chronic congestive heart failure. Currently improved. Optimize therapy for underlying systolic and/or diastolic dysfunction. Patient may benefit from oxygen supplementation and possibly a sleep study at a later date. 2D echo results reviewed with the patient. Have started entresto therapy. Have switched patient to Demadex 10 mg p.o. daily. Mitral regurgitation: Patient was noted to have moderate mitral regurgitation on last echocardiogram. Subsequently patient did receive chemotherapy. 2D echo now shows moderate to severe mitral regurgitation. Patient could be a candidate for mitral clip therapy. Hypothyroidism: This can aggravate CHF. Recommend replacement therapy. Coronary artery disease: Patient is status post stent in the past. Currently stable without any symptoms of angina. Diabetes: Recommend good control of blood sugar. However should avoid any hypoglycemia. Patient being expertly managed by primary care Tahir Hypertension: Reasonably well controlled. Blood pressure goal in this patient is 135/85 or less. This was discussed with the patient. Currently blood pressure under reasonable control. Better medication for this patient are KURT inhibitor/ARB/beta ann etc. discussed side effects of uncontrolled hypertension and also severe hypotension. Abnormal liver function test: To be followed by respiratory coordinator. - Time Time with patient: Greater than 35 minutes - CODE STATUS was discussed, patient remains full code. Surrogate decision-maker unchanged. Multiple medical problems were addressed. More than 50% of the time spent coordinating care, discussing management plans with involved caregivers. Management plans discussed with involved personnels. Medical decision making was of moderate to high complexity, patient's has multiple comorbidities. Medications reviewed and adjusted accordingly: Yes
[2017-03-14] MEDS: SITAGLIPTIN PHOSPHATE 25 MG TABLET PO SCH (19:56)
[2017-03-14] MEDS: SACUBITRIL/VALSARTAN 49 MG/51 MG TABLET PO SCH (22:15)
[2017-03-15] MEDS: LEVOTHYROXINE SODIUM 0.025 MG TABLET PO SCH (05:38)
[2017-03-15 06:49] LABS: ABSOLUTE LYMPHOCYTES (AUTO) 0.2 10^3/uL (0.5-4.7); ABSOLUTE MONOCYTES (AUTO) 0.2 10^3/uL (0.1-1.4); ABSOLUTE NEUT (AUTO) 2.2 10^3/uL (1.7-8.2); BASOPHILS % (AUTO) 1.5 % (0-2); EOSINOPHILS % (AUTO) 1.1 % (0-6); HEMATOCRIT 26.2 % (36.0-47.0); HEMOGLOBIN 8.7 g/dL (12.0-15.5); HGB HCT DIFFERENCE -0.1; LYMPHOCYTES % (AUTO) 7.8 % (13-45); MEAN CORPUSCULAR HEMOGLOBIN 42.6 pg (27.0-33.4); MEAN CORPUSCULAR VOLUME 129 fl (80-97); MONOCYTES % (AUTO) 7.7 % (3-13); RED BLOOD COUNT 2.03 10^6/uL (3.72-5.28); RED CELL DISTRIBUTION WIDTH 24.7 % (11.5-14.0); SEGMENTED NEUTROPHILS % (AUTO) 81.9 % (42-78); WHITE BLOOD COUNT 2.7 10^3/uL (4.0-10.5)
[2017-03-15 07:06] LABS: ALANINE AMINOTRANSFERASE 146 U/L (9-52); ALKALINE PHOSPHATASE 165 U/L (38-126); ANION GAP 9 (5-19); ASPARTATE AMINO TRANSFERASE 54 U/L (14-36); BILIRUBIN,DIRECT 1.3 mg/dL (0.0-0.4); BLOOD UREA NITROGEN 32 mg/dL (7-20); CALCIUM 9.8 mg/dL (8.4-10.2); CARBON DIOXIDE 28 mmol/L (22-30); CHLORIDE 99 mmol/L (98-107); CREATININE RESULT 1.41 mg/dL (0.52-1.25); GLUCOSE 113 mg/dL (75-110); POTASSIUM 3.4 mmol/L (3.6-5.0); SODIUM 135.6 mmol/L (137-145); TOTAL PROTEIN 5.7 g/dL (6.3-8.2)
[2017-03-15 07:17] LABS: ANISOCYTOSIS 3+; OVALOCYTES SLIGHT; POLYCHROMASIA SLIGHT
[2017-03-15] MEDS: PALBOCICLIB 125 MG PO SCH (08:19)
[2017-03-15] MEDS: MAGNESIUM OXIDE 400 MG TABLET PO SCH ×2 (08:19→19:59)
[2017-03-15] MEDS ORDERED: POTASSIUM CHLORIDE 10 MEQ TABLET.SA PO ONE (09:45)
--- NOTE | 2017-03-15 10:21 | PDOC PROGRESS REPORT ---
Subjective Progress Note for:: 03/15/17 Subjective:: Patient is currently doing well denied any chest pain denied any shortness of the breathDiscussed with the cardiology and suggest the patient needed some mitral valve issue in need of further evaluate in the tertiary centers and patients will think about it and talk to her Physical Exam Vital Signs: Temp Pulse Resp BP Pulse Ox 97.8 F 85 18 90/45 L 97 03/15/17 07:51 03/15/17 07:51 03/15/17 07:51 03/15/17 07:51 03/15/17 07:51 Intake & Output 03/14/17 03/15/17 03/16/17 06:59 06:59 06:59 Intake Total 900 716 Balance 900 716 Weight 84.7 kg 85.1 kg General appearance: PRESENT: no acute distress, well-developed, well-nourished Head exam: PRESENT: atraumatic, normocephalic Eye exam: PRESENT: conjunctiva pink, EOMI, PERRLA. ABSENT: scleral icterus Ear exam: PRESENT: normal external ear exam Mouth exam: PRESENT: moist, tongue midline Neck exam: PRESENT: full ROM. ABSENT: carotid bruit, JVD, lymphadenopathy, thyromegaly Cardiovascular exam: PRESENT: RRR, +S1, +S2. ABSENT: rubs Pulses: PRESENT: normal dorsalis pedis pul, +2 pedal pulses bilateral Vascular exam: PRESENT: normal capillary refill GI/Abdominal exam: PRESENT: normal bowel sounds, soft. ABSENT: distended, guarding, mass, organolmegaly, rebound, tenderness Rectal exam: PRESENT: deferred Neurological exam: PRESENT: alert, awake, oriented to person, oriented to place , oriented to time, oriented to situation, CN II-XII grossly intact. ABSENT: motor sensory deficit Psychiatric exam: PRESENT: appropriate affect, normal mood. ABSENT: homicidal ideation, suicidal ideation Skin exam: PRESENT: dry, intact, warm. ABSENT: cyanosis, rash Results Laboratory Results: 03/15/17 06:32 03/15/17 06:32 03/15/17 03/15/17 06:32 06:32 WBC 2.7 L RBC 2.03 L Hgb 8.7 L Hct 26.2 L MCV 129 H MCH 42.6 H MCHC 33.0 RDW 24.7 H Plt Count 76 L Seg Neutrophils % 81.9 H Lymphocytes % 7.8 L Monocytes % 7.7 Eosinophils % 1.1 Basophils % 1.5 Absolute Neutrophils 2.2 Absolute Lymphocytes 0.2 L Absolute Monocytes 0.2 Absolute Eosinophils 0.0 Absolute Basophils 0.0 Sodium 135.6 L Potassium 3.4 L Chloride 99 Carbon Dioxide 28 Anion Gap 9 BUN 32 H Creatinine 1.41 H Est GFR ( Amer) 44 L Est GFR (Non-Af Amer) 36 L Glucose 113 H Calcium 9.8 Total Bilirubin 2.0 H AST 54 H ALT 146 H Alkaline Phosphatase 165 H Total Protein 5.7 L Albumin 3.0 L 03/12/17 17:28 NT-Pro-B Natriuret Pep [id number] H Impressions: Chest X-Ray 03/12/17 16:30 IMPRESSION: Cardiac enlargement without failure. Chronic parenchymal changes. Chronic bony changes. Abdomen Ultrasound 03/13/17 00:00 IMPRESSION: No evidence of biliary ductal dilatation, gallstones, or liver metastatic lesions by ultrasound. Assessment & Plan - Diagnosis (1) Congestive heart failure (CHF) Qualifiers: Congestive heart failure type: combined Congestive heart failure chronicity : acute Qualified Code(s): I50.41 - Acute combined systolic (congestive) and diastolic (congestive) heart failure Is this a current diagnosis for this admission?: Yes Plan: Currently on the p.o. 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 (4) Breast cancer metastasized to axillary lymph node Qualifiers: Laterality: unspecified laterality Qualified Code(s): C50.919 - Malignant neoplasm of unspecified site of unspecified female breast; C77.3 - Secondary and unspecified malignant neoplasm of axilla and upper limb lymph nodes Is this a current diagnosis for this admission?: Yes Plan: Currently on a chemotherapy (5) CAD (coronary artery disease) Qualifiers: Coronary Disease-Associated Artery/Lesion type: unspecified vessel or lesion type Associated angina: without angina Is this a current diagnosis for this admission?: Yes Plan: Will get the echocardiogram and consult the cardiology (6) Hypertension Qualifiers: Hypertension type: essential hypertension Qualified Code(s): I10 - Essential (primary) hypertension Is this a current diagnosis for this admission?: Yes Plan: Stable (7) Type 2 diabetes mellitus Qualifiers: Diabetes mellitus complication status: with unspecified complications Is this a current diagnosis for this admission?: Yes Plan: Continues a sliding scale (8) Hypothyroidism Qualifiers: Hypothyroidism type: unspecified Qualified Code(s): E03.9 - Hypothyroidism , unspecified Is this a current diagnosis for this admission?: Yes Plan: We will check a TSH and free T4 - Time Time Spent with patient: 15-24 minutes Medications reviewed and adjusted accordingly: Yes Anticipated discharge: Home Within: within 24 hours, Other - Inpatient Certification Medical Necessity: Need Close Monitoring Due to Risk of Patient Decompensation 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
[2017-03-15] MEDS: MULTIVIT-STRESS FORMULA/ZINC TABLET PO SCH (10:46)
[2017-03-15] MEDS: CLOPIDOGREL BISULFATE 75 MG TABLET PO SCH (10:46)
[2017-03-15] MEDS: MUPIROCIN 2% OINTMENT 22 GM TOP SCH ×3 (10:47→18:06)
[2017-03-15] MEDS: DOCUSATE SODIUM 100 MG CAPSULE PO SCH (10:47)
[2017-03-15] MEDS: ASPIRIN 81 MG TABLET, ENT COATED PO SCH (10:47)
[2017-03-15] MEDS: TORSEMIDE 20 MG TABLET PO SCH (12:20)
[2017-03-15] MEDS: SACUBITRIL/VALSARTAN 49 MG/51 MG TABLET PO SCH ×2 (12:20→21:32)
[2017-03-15] MEDS ORDERED: NORMAL SALINE 500 ML IV ONE (13:00)
--- NOTE | 2017-03-15 15:39 | PDOC PROGRESS REPORT ---
Subjective Progress Note for:: 03/15/17 Subjective:: Patient seems to be doing better with gradual improvement. Pt is denying any chest arm or neck discomfort. Patient denying any PND, orthopnea. Patient denied any sustained palpitations, dizziness, syncope, near syncope. Patient denying any fever chills. Patient denying any other significant discomfort. Patient was started on entresto yesterday. Which she seems to have tolerated satisfactorily. However her blood pressure has been noted to be somewhat low. Patient is maintaining sinus rhythm. Edema is much improved. Patient is able to ambulate to the bathroom without much difficulty. Review of systems: Rest review of systems negative. Medications: Medications have been reviewed. Physical Exam Vital Signs: Temp Pulse Resp BP Pulse Ox 97.5 F 81 18 80/40 L 100 03/15/17 11:55 03/15/17 14:00 03/15/17 11:55 03/15/17 12:00 03/15/17 11:55 Intake & Output 03/14/17 03/15/17 03/16/17 06:59 06:59 06:59 Intake Total 900 716 340 Balance 900 716 340 Weight 84.7 kg 85.1 kg Exam: GENERAL: well-nourished and in no acute distress. Alert and oriented x3 HEAD: Atraumatic, normocephalic. EYES: Pupils equal round and reactive to light, extraocular movements intact, sclera anicteric, conjunctiva are normal. ENT: TMs normal, nares patent, oropharynx clear without exudates. Moist mucous membranes. No oral ulcerations or bleeding gums noted NECK: supple without lymphadenopathy. Trachea is central. No cervical or axillary lymphadenopathy noted. Carotids are 2+, JVD WNL LUNGS: Respiration seems nonlabored, no significant accessory muscle action noted. Breath sounds clear to auscultation bilaterally and equal noted. No wheezes rales or rhonchi noted. No significant dullness noted on percussion. CHEST: Palpation of the chest wall shows no significant chest wall tenderness. Mastectomies noted. 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 ABDOMEN: Soft, no significant tenderness appreciated, normoactive bowel sounds. No guarding, no rebound. No rigidity noted . No masses appreciated. EXTREMITIES: Pedal pulses are 1-2+, no calf tenderness noted. No clubbing or cyanosis.trace to 1+ pedal edema noted NEUROLOGICAL: Focused neurological exam showed no significant neurologic deficit. Normal speech, no focal weakness appreciated. PSYCH: Normal mood, normal affect. Judgment and insight within normal limits. SKIN: No significant ecchymosis, rash, ulcerations or signs of pruritus noted. MUSCULOSKELETAL EXAM: No significant joint swelling noted. Results Laboratory Results: 03/15/17 06:32 03/15/17 06:32 03/15/17 03/15/17 06:32 06:32 WBC 2.7 L RBC 2.03 L Hgb 8.7 L Hct 26.2 L MCV 129 H MCH 42.6 H MCHC 33.0 RDW 24.7 H Plt Count 76 L Seg Neutrophils % 81.9 H Lymphocytes % 7.8 L Monocytes % 7.7 Eosinophils % 1.1 Basophils % 1.5 Absolute Neutrophils 2.2 Absolute Lymphocytes 0.2 L Absolute Monocytes 0.2 Absolute Eosinophils 0.0 Absolute Basophils 0.0 Sodium 135.6 L Potassium 3.4 L Chloride 99 Carbon Dioxide 28 Anion Gap 9 BUN 32 H Creatinine 1.41 H Est GFR ( Amer) 44 L Est GFR (Non-Af Amer) 36 L Glucose 113 H Calcium 9.8 Total Bilirubin 2.0 H AST 54 H ALT 146 H Alkaline Phosphatase 165 H Total Protein 5.7 L Albumin 3.0 L 03/12/17 17:28 NT-Pro-B Natriuret Pep [id number] H Impressions: Chest X-Ray 03/12/17 16:30 IMPRESSION: Cardiac enlargement without failure. Chronic parenchymal changes. Chronic bony changes. Abdomen Ultrasound 03/13/17 00:00 IMPRESSION: No evidence of biliary ductal dilatation, gallstones, or liver metastatic lesions by ultrasound. Assessment & Plan - Diagnosis (1) Congestive heart failure (CHF) Qualifiers: Congestive heart failure type: combined Congestive heart failure chronicity : acute Qualified Code(s): I50.41 - Acute combined systolic (congestive) and diastolic (congestive) heart failure Is this a current diagnosis for this admission?: Yes (2) Mitral regurgitation Qualifiers: Cardiac valve disease etiology: nonrheumatic Qualified Code(s): I34.0 - Nonrheumatic mitral (valve) insufficiency Is this a current diagnosis for this admission?: Yes (3) Hypothyroidism Qualifiers: Hypothyroidism type: unspecified Qualified Code(s): E03.9 - Hypothyroidism , unspecified Is this a current diagnosis for this admission?: Yes (4) Type 2 diabetes mellitus Qualifiers: Diabetes mellitus complication status: with unspecified complications Is this a current diagnosis for this admission?: Yes (5) CAD (coronary artery disease) Qualifiers: Coronary Disease-Associated Artery/Lesion type: unspecified vessel or lesion type Associated angina: without angina Is this a current diagnosis for this admission?: Yes (6) Hypertension Qualifiers: Hypertension type: essential hypertension Qualified Code(s): I10 - Essential (primary) hypertension Is this a current diagnosis for this admission?: Yes (7) Abnormal LFTs Is this a current diagnosis for this admission?: Yes - Notes Notes: Congestive heart failure: Acute on chronic congestive heart failure. Currently improved. Optimize therapy for underlying systolic and/or diastolic dysfunction. Patient may benefit from oxygen supplementation and possibly a sleep study at a later date. 2D echo results reviewed with the patient. Entresto and diuretics on hold today because of low blood pressure. Patient to receive IV fluid bolus small amounts. Mitral regurgitation: Patient was noted to have moderate mitral regurgitation on last echocardiogram. Subsequently patient did receive chemotherapy. 2D echo now shows moderate to severe mitral regurgitation. Patient could be a candidate for mitral clip therapy. This will be considered as an outpatient. Hypothyroidism: This can aggravate CHF. Recommend replacement therapy. Coronary artery disease: Patient is status post stent in the past. Currently stable without any symptoms of angina. Diabetes: Recommend good control of blood sugar. However should avoid any hypoglycemia. Patient being expertly managed by primary care Tahir Hypertension: Reasonably well controlled. Blood pressure goal in this patient is 135/85 or less. This was discussed with the patient. Currently blood pressure under reasonable control. Better medication for this patient are KURT inhibitor/ARB/beta ann etc. discussed side effects of uncontrolled hypertension and also severe hypotension. Abnormal liver function test: To be followed by filter pulp washer. - Time Time with patient: Greater than 35 minutes - CODE STATUS was discussed, patient remains full code. Surrogate decision-maker unchanged. Multiple medical problems were addressed. More than 50% of the time spent coordinating care, discussing management plans with involved caregivers. Management plans discussed with involved personnels. Medical decision making was of moderate to high complexity, patient's has multiple comorbidities. Medications reviewed and adjusted accordingly: Yes
[2017-03-15] MEDS: ATORVASTATIN CALCIUM 20 MG TABLET PO SCH (19:59)
[2017-03-15] MEDS: SITAGLIPTIN PHOSPHATE 25 MG TABLET PO SCH (19:59)
[2017-03-15] MEDS: LANSOPRAZOLE 30 MG TAB.RAP.DR PO SCH (20:00)
[2017-03-16] MEDS: LEVOTHYROXINE SODIUM 0.025 MG TABLET PO SCH (05:43)
--- NOTE | 2017-03-16 09:41 | PDOC PROGRESS REPORT ---
Subjective Progress Note for:: 03/16/17 Subjective:: Patient is currently doing well from episode of the patient's blood pressure was running low below 90 She is denied any chest pain denied any shortness of the breath And actually feels better Physical Exam Vital Signs: Temp Pulse Resp BP Pulse Ox 97.4 F 100 16 96/50 L 89 L 03/16/17 07:32 03/16/17 07:32 03/16/17 07:32 03/16/17 07:32 03/16/17 07:32 Intake & Output 03/15/17 03/16/17 03/17/17 06:59 06:59 06:59 Intake Total 716 1195 Balance 716 1195 Weight 85.1 kg 85.4 kg General appearance: PRESENT: no acute distress, well-developed, well-nourished Head exam: PRESENT: atraumatic, normocephalic Eye exam: PRESENT: conjunctiva pink, EOMI, PERRLA. ABSENT: scleral icterus Ear exam: PRESENT: normal external ear exam Mouth exam: PRESENT: moist, tongue midline Neck exam: PRESENT: full ROM. ABSENT: carotid bruit, JVD, lymphadenopathy, thyromegaly Respiratory exam: PRESENT: clear to auscultation chad Cardiovascular exam: PRESENT: RRR. ABSENT: diastolic murmur, rubs, systolic murmur Pulses: PRESENT: normal dorsalis pedis pul, +2 pedal pulses bilateral Vascular exam: PRESENT: normal capillary refill GI/Abdominal exam: PRESENT: normal bowel sounds, soft. ABSENT: distended, guarding, mass, organolmegaly, rebound, tenderness Rectal exam: PRESENT: deferred Neurological exam: PRESENT: alert, awake, oriented to person, oriented to place , oriented to time, oriented to situation, CN II-XII grossly intact. ABSENT: motor sensory deficit Psychiatric exam: PRESENT: appropriate affect, normal mood. ABSENT: homicidal ideation, suicidal ideation Skin exam: PRESENT: dry, intact, warm. ABSENT: cyanosis, rash Results Laboratory Results: 03/15/17 06:32 03/15/17 06:32 03/12/17 17:28 NT-Pro-B Natriuret Pep [id number] H Impressions: Chest X-Ray 03/12/17 16:30 IMPRESSION: Cardiac enlargement without failure. Chronic parenchymal changes. Chronic bony changes. Abdomen Ultrasound 03/13/17 00:00 IMPRESSION: No evidence of biliary ductal dilatation, gallstones, or liver metastatic lesions by ultrasound. Assessment & Plan - Diagnosis (1) Congestive heart failure (CHF) Qualifiers: Congestive heart failure type: combined Congestive heart failure chronicity : acute Qualified Code(s): I50.41 - Acute combined systolic (congestive) and diastolic (congestive) heart failure Is this a current diagnosis for this admission?: Yes Plan: Currently on the p.o. 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 will get the ultrasound of the abdomen and we also consult the oncology to rule out possible any underlying malignancy (3) Anemia Qualifiers: Anemia type: unspecified type Is this a current diagnosis for this admission?: Yes Plan: Currently getting iron infusion follow with the grill attendant (4) Breast cancer metastasized to axillary lymph node Qualifiers: Laterality: unspecified laterality Qualified Code(s): C50.919 - Malignant neoplasm of unspecified site of unspecified female breast; 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 - Secondary and unspecified malignant neoplasm of axilla and upper limb lymph nodes Is this a current diagnosis for this admission?: Yes Plan: Currently on a chemotherapy (5) CAD (coronary artery disease) Qualifiers: Coronary Disease-Associated Artery/Lesion type: unspecified vessel or lesion type Associated angina: without angina Is this a current diagnosis for this admission?: Yes Plan: Will get the echocardiogram and consult the cardiology (6) Hypertension Qualifiers: Hypertension type: essential hypertension Qualified Code(s): I10 - Essential (primary) hypertension Is this a current diagnosis for this admission?: Yes Plan: Stable (7) Type 2 diabetes mellitus Qualifiers: Diabetes mellitus complication status: with unspecified complications Is this a current diagnosis for this admission?: Yes Plan: Continues a sliding scale (8) Hypothyroidism Qualifiers: Hypothyroidism type: unspecified Qualified Code(s): E03.9 - Hypothyroidism , unspecified Is this a current diagnosis for this admission?: Yes Plan: We will check a TSH and free T4 - Time Time Spent with patient: 15-24 minutes Medications reviewed and adjusted accordingly: Yes Anticipated discharge: Home - Inpatient Certification Medical Necessity: Need Close Monitoring Due to Risk of Patient Decompensation Post Hospital Care: D/C Retail Account Representative Documentation - Plan Summary Plan Summary: Discussed with the patient and the were extensively will get the repeat chest x-ray reduce the dose of the blood pressure medications
--- NOTE | 2017-03-16 09:48 | RADIOLOGY REPORT (SQ) ---
EXAM DESCRIPTION: CHEST PA/LAT COMPLETED DATE/TIME: 03/16/2017 9:38 am REASON FOR STUDY: chf COMPARISON: 03/12/2017 NUMBER OF VIEWS: Two views. TECHNIQUE: Frontal and lateral radiographic views of the chest acquired. LIMITATIONS: None. FINDINGS: LUNGS AND PLEURA: Mild interstitial edema. No consolidation, masses or pneumothorax. Tra ce bilateral pleural effusions. MEDIASTINUM AND HILAR STRUCTURES: No masses or contour abnormality. HEART AND VASCULAR STRUCTURES: Cardiac enlargement. Vascular congestion. BONES: No acute findings. HARDWARE: Stable. OTHER: No other significant finding. IMPRESSION: MILD INTERSTITIAL EDEMA WITH TRACE BILATERAL PLEURAL EFFUSIONS. TECHNICAL DOCUMENTATION: JOB ID: [id number] [employer]- All Rights Reserved
[2017-03-16] MEDS ORDERED: SACUBITRIL/VALSARTAN 24 MG/26 MG TABLET PO SCH (10:00)
[2017-03-16] MEDS: SPIRONOLACTONE 25 MG TABLET PO SCH (10:14)
[2017-03-16] MEDS: CLOPIDOGREL BISULFATE 75 MG TABLET PO SCH (10:15)
[2017-03-16] MEDS: TORSEMIDE 20 MG TABLET PO SCH (10:15)
[2017-03-16] MEDS: DOCUSATE SODIUM 100 MG CAPSULE PO SCH (10:16)
[2017-03-16] MEDS: ASPIRIN 81 MG TABLET, ENT COATED PO SCH (10:16)
[2017-03-16] MEDS: MAGNESIUM OXIDE 400 MG TABLET PO SCH ×2 (10:16→19:41)
[2017-03-16] MEDS: MULTIVIT-STRESS FORMULA/ZINC TABLET PO SCH (10:17)
[2017-03-16] MEDS: PALBOCICLIB 125 MG PO SCH (10:17)
[2017-03-16] MEDS: MUPIROCIN 2% OINTMENT 22 GM TOP SCH ×3 (10:20→17:43)
[2017-03-16 10:41] LABS: ANION GAP 9 (5-19); BLOOD UREA NITROGEN 36 mg/dL (7-20); CALCIUM 9.9 mg/dL (8.4-10.2); CARBON DIOXIDE 25 mmol/L (22-30); CHLORIDE 102 mmol/L (98-107); CREATININE RESULT 1.37 mg/dL (0.52-1.25); GLUCOSE 113 mg/dL (75-110); POTASSIUM 4.3 mmol/L (3.6-5.0); SODIUM 135.5 mmol/L (137-145)
--- NOTE | 2017-03-16 13:24 | PDOC PROGRESS REPORT ---
Subjective Progress Note for:: 03/16/17 Subjective:: Patient seems to be doing better with gradual improvement. Pt is denying any chest arm or neck discomfort. Patient denying any PND, orthopnea. Patient denied any sustained palpitations, dizziness, syncope, near syncope. Patient denying any fever chills. Patient denying any other significant discomfort. Because of low blood pressure, entresto is on hold. Today to be restarted at a lower dose. Chest x-ray shows mild pulmonary venous congestion with trace bilateral pleural effusion. Patient is maintaining sinus rhythm. Edema is much improved. Patient is able to ambulate to the bathroom without much difficulty. Patient noted to be walking with the help of physical therapy in the hallway and doing reasonably well. Review of systems: Rest review of systems negative. Medications: Medications have been reviewed. Physical Exam Vital Signs: Temp Pulse Resp BP Pulse Ox 97.9 F 94 18 99/54 L 99 03/16/17 11:40 03/16/17 11:40 03/16/17 11:40 03/16/17 11:40 03/16/17 11:40 Intake & Output 03/15/17 03/16/17 03/17/17 06:59 06:59 06:59 Intake Total 716 1195 1150 Balance 716 1195 1150 Weight 85.1 kg 85.4 kg Exam: GENERAL: well-nourished and in no acute distress. Alert and oriented x3 HEAD: Atraumatic, normocephalic. EYES: Pupils equal round and reactive to light, extraocular movements intact, sclera anicteric, conjunctiva are normal. ENT: TMs normal, nares patent, oropharynx clear without exudates. Moist mucous membranes. No oral ulcerations or bleeding gums noted NECK: supple without lymphadenopathy. Trachea is central. No cervical or axillary lymphadenopathy noted. Carotids are 2+, JVD 8-10 cm LUNGS: Respiration seems nonlabored, no significant accessory muscle action noted. Breath sounds clear to auscultation bilaterally and equal noted. No wheezes rales or rhonchi noted. No significant dullness noted on percussion. CHEST: Palpation of the chest wall shows no significant chest wall tenderness. Patient has bilateral mastectomies. 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 ABDOMEN: Soft, no significant tenderness appreciated, normoactive bowel sounds. No guarding, no rebound. No rigidity noted . No masses appreciated. EXTREMITIES: Pedal pulses are 1-2+, no calf tenderness noted. No clubbing or cyanosis. 1+ pedal edema noted NEUROLOGICAL: Focused neurological exam showed no significant neurologic deficit. Normal speech, no focal weakness appreciated. PSYCH: Normal mood, normal affect. Judgment and insight within normal limits. SKIN: No significant ecchymosis, rash, ulcerations or signs of pruritus noted. MUSCULOSKELETAL EXAM: No significant joint swelling noted. Results Laboratory Results: 03/15/17 06:32 03/16/17 10:10 03/16/17 10:10 Sodium 135.5 L Potassium 4.3 Chloride 102 Carbon Dioxide 25 Anion Gap 9 BUN 36 H Creatinine 1.37 H Est GFR ( Amer) 46 L Est GFR (Non-Af Amer) 38 L Glucose 113 H Calcium 9.9 03/12/17 17:28 NT-Pro-B Natriuret Pep [id number] H EKG Comments: Telemetry strips shows sinus rhythm without any sustained tachycardia or bradycardia arrhythmias. Impressions: Abdomen Ultrasound 03/13/17 00:00 IMPRESSION: No evidence of biliary ductal dilatation, gallstones, or liver metastatic lesions by ultrasound. Chest X-Ray 03/16/17 00:00 IMPRESSION: MILD INTERSTITIAL EDEMA WITH TRACE BILATERAL PLEURAL EFFUSIONS. Assessment & Plan - Diagnosis (1) Congestive heart failure (CHF) Qualifiers: Congestive heart failure type: combined Congestive heart failure chronicity : acute Qualified Code(s): I50.41 - Acute combined systolic (congestive) and diastolic (congestive) heart failure Is this a current diagnosis for this admission?: Yes (2) Mitral regurgitation Qualifiers: Cardiac valve disease etiology: nonrheumatic Qualified Code(s): I34.0 - Nonrheumatic mitral (valve) insufficiency Is this a current diagnosis for this admission?: Yes (3) Hypothyroidism Qualifiers: Hypothyroidism type: unspecified Qualified Code(s): E03.9 - Hypothyroidism , unspecified Is this a current diagnosis for this admission?: Yes (4) Type 2 diabetes mellitus Qualifiers: Diabetes mellitus complication status: with unspecified complications Is this a current diagnosis for this admission?: Yes (5) CAD (coronary artery disease) Qualifiers: Coronary Disease-Associated Artery/Lesion type: unspecified vessel or lesion type Associated angina: without angina Is this a current diagnosis for this admission?: Yes (6) Hypertension Qualifiers: Hypertension type: essential hypertension Qualified Code(s): I10 - Essential (primary) hypertension Is this a current diagnosis for this admission?: Yes (7) Abnormal LFTs Is this a current diagnosis for this admission?: Yes - Notes Notes: Congestive heart failure: Acute on chronic congestive heart failure. Currently improved. Optimize therapy for underlying systolic and/or diastolic dysfunction , with contribution from valvular heart disease. Patient may benefit from oxygen supplementation and possibly a sleep study at a later date. 2D echo results reviewed with the patient. Entresto restarted at a lower dose. Mitral regurgitation: Patient was noted to have moderate mitral regurgitation on last echocardiogram. 2D echo now shows moderate to severe mitral regurgitation. Patient could be a candidate for mitral clip therapy. This will be considered as an outpatient. Patient clearly does not want open heart surgery. Hypothyroidism: This can aggravate CHF. Recommend replacement therapy. Recommend escalating dose as tolerated. Coronary artery disease: Patient is status post stent in the past. Currently stable without any symptoms of angina. Diabetes: Recommend good control of blood sugar. However should avoid any hypoglycemia. Patient being expertly managed by primary care Tahir Hypertension: Reasonably well controlled, is actually on the low side. Blood pressure goal in this patient is 135/85 or less. This was discussed with the patient. Currently blood pressure under reasonable control. Abnormal liver function test: To be followed by gear repairer. - Time Time with patient: 15-25 minutes - CODE STATUS was discussed, patient remains full code. Surrogate decision-maker patient's . Multiple medical problems were addressed. More than 50% of the time spent coordinating care, discussing management plans with involved caregivers. Management plans discussed with involved personnels. Medical decision making was of moderate to high complexity, patient's has multiple comorbidities.
[2017-03-16] MEDS: MIDODRINE HCL 5 MG TABLET PO SCH (17:43)
[2017-03-16] MEDS: LANSOPRAZOLE 30 MG TAB.RAP.DR PO SCH (19:41)
[2017-03-16] MEDS: SITAGLIPTIN PHOSPHATE 25 MG TABLET PO SCH (19:41)
[2017-03-16] MEDS: ATORVASTATIN CALCIUM 20 MG TABLET PO SCH (19:41)
[2017-03-17] MEDS ORDERED: ACETAMINOPHEN 325 MG TABLET PO PRN (05:00)
[2017-03-17] MEDS ORDERED: DIPHENHYDRAMINE HCL 25 MG CAPSULE PO PRN (05:00)
[2017-03-17] MEDS ORDERED: FUROSEMIDE INJ/PF 20 MG/2 ML SDV IV PRN (05:00)
[2017-03-17] MEDS: LEVOTHYROXINE SODIUM 0.025 MG TABLET PO SCH (05:19)
[2017-03-17 06:32] LABS: HEMATOCRIT 24.3 % (36.0-47.0); HEMOGLOBIN 8.3 g/dL (12.0-15.5); HGB HCT DIFFERENCE 0.6; MEAN CORPUSCULAR HEMOGLOBIN 42.8 pg (27.0-33.4); RED BLOOD COUNT 1.93 10^6/uL (3.72-5.28); RED CELL DISTRIBUTION WIDTH 24.4 % (11.5-14.0); WHITE BLOOD COUNT 3.1 10^3/uL (4.0-10.5)
[2017-03-17 06:37] LABS: ALANINE AMINOTRANSFERASE 94 U/L (9-52); ALBUMIN 2.7 g/dL (3.5-5.0); ALKALINE PHOSPHATASE 136 U/L (38-126); ANION GAP 7 (5-19); ASPARTATE AMINO TRANSFERASE 40 U/L (14-36); BILIRUBIN,DIRECT 1.2 mg/dL (0.0-0.4); BILIRUBIN,TOTAL 1.9 mg/dL (0.2-1.3); BLOOD UREA NITROGEN 34 mg/dL (7-20); CALCIUM 9.4 mg/dL (8.4-10.2); CARBON DIOXIDE 27 mmol/L (22-30); CHLORIDE 101 mmol/L (98-107); CREATININE RESULT 1.39 mg/dL (0.52-1.25); GLUCOSE 109 mg/dL (75-110); POTASSIUM 4.4 mmol/L (3.6-5.0); SODIUM 134.6 mmol/L (137-145); TOTAL PROTEIN 5.1 g/dL (6.3-8.2)
[2017-03-17 07:15] LABS: MEAN CORPUSCULAR VOLUME 126 fl (80-97)
[2017-03-17 07:20] LABS: BAND NEUTROPHILS % (MANUAL) 2 % (3-5); BASOPHILS % (MANUAL) 2 % (0-2); EOSINOPHILS % (MANUAL) 0 % (0-6); LYMPHOCYTES % (MANUAL) 5 % (13-45); TOTAL CELLS COUNTED 100
[2017-03-17 07:22] LABS: ANISOCYTOSIS 3+; OVALOCYTES 1+; POIKILOCYTOSIS 2+; TEAR DROP CELLS 1+
--- NOTE | 2017-03-17 07:59 | PDOC PROGRESS REPORT ---
Subjective Progress Note for:: 03/17/17 Subjective:: Per nursing, port hard to flush, so plan PORT STUDY today. Otherwise pt seems clinically stable, did get up w/ PT Physical Exam Vital Signs: Temp Pulse Resp BP Pulse Ox 98.5 F 91 16 91/39 L 91 L 03/17/17 04:39 03/17/17 04:39 03/17/17 04:39 03/17/17 04:39 03/17/17 04:39 Intake & Output 03/16/17 03/17/17 03/18/17 06:59 06:59 06:59 Intake Total 1195 2521 Output Total 1000 Balance 1195 1521 Weight 85.4 kg 84.9 kg General appearance: PRESENT: no acute distress, well-developed, well-nourished Head exam: PRESENT: atraumatic, normocephalic Eye exam: PRESENT: conjunctiva pink, EOMI, PERRLA. ABSENT: scleral icterus Ear exam: PRESENT: normal external ear exam Mouth exam: PRESENT: moist, tongue midline Neck exam: ABSENT: carotid bruit, JVD, lymphadenopathy, thyromegaly Respiratory exam: PRESENT: clear to auscultation chad. ABSENT: rales, rhonchi, wheezes Cardiovascular exam: PRESENT: RRR. ABSENT: diastolic murmur, rubs, systolic murmur Pulses: PRESENT: normal dorsalis pedis pul Vascular exam: PRESENT: normal capillary refill GI/Abdominal exam: PRESENT: normal bowel sounds, soft. ABSENT: distended, guarding, mass, organolmegaly, rebound, tenderness Rectal exam: PRESENT: deferred Extremities exam: PRESENT: full ROM. ABSENT: calf tenderness, clubbing, pedal edema Neurological exam: PRESENT: alert, awake, oriented to person, oriented to place , oriented to time, oriented to situation, CN II-XII grossly intact. ABSENT: motor sensory deficit Psychiatric exam: PRESENT: appropriate affect, normal mood. ABSENT: homicidal ideation, suicidal ideation Skin exam: PRESENT: dry, intact, warm. ABSENT: cyanosis, rash Results Laboratory Results: 03/17/17 05:55 03/17/17 05:55 03/16/17 03/17/17 03/17/17 10:10 05:55 05:55 WBC 3.1 L RBC 1.93 L Hgb 8.3 L Hct 24.3 L MCV 126 H MCH 42.8 H MCHC 34.0 RDW 24.4 H Plt Count 67 L Seg Neutrophils % Not Reportable Lymphocytes % Not Reportable Monocytes % Not Reportable Eosinophils % Not Reportable Basophils % Not Reportable Absolute Neutrophils Not Reportable Absolute Lymphocytes Not Reportable Absolute Monocytes Not Reportable Absolute Eosinophils Not Reportable Absolute Basophils Not Reportable Sodium 135.5 L 134.6 L Potassium 4.3 4.4 Chloride 102 101 Carbon Dioxide 25 27 Anion Gap 9 7 BUN 36 H 34 H Creatinine 1.37 H 1.39 H Est GFR ( Amer) 46 L 45 L Est GFR (Non-Af Amer) 38 L 37 L Glucose 113 H 109 Calcium 9.9 9.4 Total Bilirubin 1.9 H AST 40 H ALT 94 H Alkaline Phosphatase 136 H Total Protein 5.1 L Albumin 2.7 L 03/12/17 17:28 NT-Pro-B Natriuret Pep [id number] H Impressions: Abdomen Ultrasound 03/13/17 00:00 IMPRESSION: No evidence of biliary ductal dilatation, gallstones, or liver metastatic lesions by ultrasound. Chest X-Ray 03/16/17 00:00 IMPRESSION: MILD INTERSTITIAL EDEMA WITH TRACE BILATERAL PLEURAL EFFUSIONS. Assessment & Plan - Diagnosis (1) Congestive heart failure (CHF) Qualifiers: Congestive heart failure type: combined Congestive heart failure chronicity : acute Qualified Code(s): I50.41 - Acute combined systolic (congestive) and diastolic (congestive) heart failure Is this a current diagnosis for this admission?: Yes Plan: Seems to be improving, con't per med and cards team (2) Breast cancer metastasized to bone Qualifiers: Laterality: right Qualified Code(s): C50.911 - Malignant neoplasm of unspecified site of right female breast; C79.51 - Secondary malignant neoplasm of bone Is this a current diagnosis for this admission?: Yes Plan: Will restart rx as oupt. (3) Hypoxemia Is this a current diagnosis for this admission?: Yes Plan: Improved (4) Port catheter in place Is this a current diagnosis for this admission?: Yes Plan: Will do port study today - Time Time Spent with patient: 25-34 minutes Critical Time spent with patient: 25-34 minutes
[2017-03-17 10:35] LABS: PATH REVIEW PATHOLOGIST REVIEWED
[2017-03-17] MEDS: TORSEMIDE 20 MG TABLET PO SCH ×2 (10:48→17:38)
[2017-03-17] MEDS: MULTIVIT-STRESS FORMULA/ZINC TABLET PO SCH (10:49)
[2017-03-17] MEDS: CLOPIDOGREL BISULFATE 75 MG TABLET PO SCH (10:49)
[2017-03-17] MEDS: MIDODRINE HCL 5 MG TABLET PO SCH ×2 (10:50→17:37)
[2017-03-17] MEDS: PALBOCICLIB 125 MG PO SCH (10:50)
[2017-03-17] MEDS: DOCUSATE SODIUM 100 MG CAPSULE PO SCH (10:50)
[2017-03-17] MEDS: MUPIROCIN 2% OINTMENT 22 GM TOP SCH ×3 (10:50→17:38)
[2017-03-17] MEDS: MAGNESIUM OXIDE 400 MG TABLET PO SCH ×2 (10:50→21:43)
[2017-03-17] MEDS: ASPIRIN 81 MG TABLET, ENT COATED PO SCH (10:50)
--- NOTE | 2017-03-17 12:39 | PDOC PROGRESS REPORT ---
Subjective Progress Note for:: 03/17/17 Subjective:: Patient is currently doing fair patient's blood pressure was running low and the start the patient on the midron And we DC Blood pressure medications Patient also hemoglobin is low Patients denied any chest pain denied any dizziness no shortness of the breath Physical Exam Vital Signs: Temp Pulse Resp BP Pulse Ox 98.2 F 91 18 97/50 L 93 03/17/17 07:37 03/17/17 07:37 03/17/17 07:37 03/17/17 07:37 03/17/17 07:37 Intake & Output 03/16/17 03/17/17 03/18/17 06:59 06:59 06:59 Intake Total 1195 2521 Output Total 1000 Balance 1195 1521 Weight 85.4 kg 84.9 kg General appearance: PRESENT: no acute distress, well-developed, well-nourished Head exam: PRESENT: atraumatic, normocephalic Eye exam: PRESENT: conjunctiva pink, EOMI, PERRLA. ABSENT: scleral icterus Ear exam: PRESENT: normal external ear exam Mouth exam: PRESENT: moist, tongue midline Neck exam: PRESENT: full ROM. ABSENT: carotid bruit, JVD, lymphadenopathy, thyromegaly Respiratory exam: PRESENT: clear to auscultation chad Cardiovascular exam: PRESENT: RRR. ABSENT: diastolic murmur, rubs, systolic murmur Pulses: PRESENT: normal dorsalis pedis pul, +2 pedal pulses bilateral Vascular exam: PRESENT: normal capillary refill GI/Abdominal exam: PRESENT: normal bowel sounds, soft. ABSENT: distended, guarding, mass, organolmegaly, rebound, tenderness Rectal exam: PRESENT: deferred Neurological exam: PRESENT: alert, awake, oriented to person, oriented to place , oriented to time, oriented to situation, CN II-XII grossly intact. ABSENT: motor sensory deficit Psychiatric exam: PRESENT: appropriate affect, normal mood. ABSENT: homicidal ideation, suicidal ideation Skin exam: PRESENT: dry, intact, warm. ABSENT: cyanosis, rash Results Laboratory Results: 03/17/17 05:55 03/17/17 05:55 03/17/17 03/17/17 03/17/17 05:55 05:55 09:31 WBC 3.1 L RBC 1.93 L Hgb 8.3 L Hct 24.3 L MCV 126 H MCH 42.8 H MCHC 34.0 RDW 24.4 H Plt Count 67 L Seg Neutrophils % Not Reportable Lymphocytes % Not Reportable Monocytes % Not Reportable Eosinophils % Not Reportable Basophils % Not Reportable Absolute Neutrophils Not Reportable Absolute Lymphocytes Not Reportable Absolute Monocytes Not Reportable Absolute Eosinophils Not Reportable Absolute Basophils Not Reportable Sodium 134.6 L Potassium 4.4 Chloride 101 Carbon Dioxide 27 Anion Gap 7 BUN 34 H Creatinine 1.39 H Est GFR ( Amer) 45 L Est GFR (Non-Af Amer) 37 L Glucose 109 Calcium 9.4 Total Bilirubin 1.9 H AST 40 H ALT 94 H Alkaline Phosphatase 136 H Total Protein 5.1 L Albumin 2.7 L Blood Type A NEGATIVE Antibody Screen NEGATIVE 03/12/17 17:28 NT-Pro-B Natriuret Pep 55933 H Impressions: Abdomen Ultrasound 03/13/17 00:00 IMPRESSION: No evidence of biliary ductal dilatation, gallstones, or liver metastatic lesions by ultrasound. Chest X-Ray 03/16/17 00:00 IMPRESSION: MILD INTERSTITIAL EDEMA WITH TRACE BILATERAL PLEURAL EFFUSIONS. 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 will get the ultrasound of the abdomen and we also consult the oncology to rule out possible any underlying malignancy (3) Anemia Qualifiers: Anemia type: unspecified type Is this a current diagnosis for this admission?: Yes Plan: Transfused 1 unit of blood the setting of the coronary artery disease and the low blood pressures (4) Breast cancer metastasized to axillary lymph node Qualifiers: Laterality: unspecified laterality Qualified Code(s): C50.919 - Malignant neoplasm of unspecified site of unspecified female breast; C77.3 - Secondary and unspecified malignant neoplasm of axilla and upper limb lymph nodes Is this a current diagnosis for this admission?: Yes Plan: Currently on a chemotherapy (5) CAD (coronary artery disease) Qualifiers: Coronary Disease-Associated Artery/Lesion type: unspecified vessel or lesion type Associated angina: without angina Is this a current diagnosis for this admission?: Yes Plan: Will get the echocardiogram and consult the cardiology (6) Hypertension Qualifiers: Hypertension type: essential hypertension Qualified Code(s): I10 - Essential (primary) hypertension Is this a current diagnosis for this admission?: Yes (7) Type 2 diabetes mellitus Qualifiers: Diabetes mellitus complication status: with unspecified complications Is this a current diagnosis for this admission?: Yes Plan: Continues a sliding scale (8) Hypothyroidism Qualifiers: Hypothyroidism type: unspecified Qualified Code(s): E03.9 - Hypothyroidism , unspecified Is this a current diagnosis for this admission?: Yes - Time Time Spent with patient: 15-24 minutes Medications reviewed and adjusted accordingly: Yes Anticipated discharge: Home Within: Other - Inpatient Certification Medical Necessity: Need Close Monitoring Due to Risk of Patient Decompensation Post Hospital Care: D/C Steam[employer] Documentation - Plan Summary Plan Summary: Continues current medication
--- NOTE | 2017-03-17 15:56 | RADIOLOGY REPORT (SQ) ---
EXAM DESCRIPTION: INJECT VENOUS ACCESS DEVICE COMPLETED DATE/TIME: 03/17/2017 10:37 am REASON FOR STUDY: Port study to make sure port is working. COMPARISON: AP chest 03/16/2017, 03/12/2017 FLUOROSCOPY TIME: 19 seconds 6 digital radiographic images saved to PACS. TECHNIQUE: Intra-operative images acquired during surgical procedure to evaluate progress. NUMBER OF IMAGES: 6 digital radiographic series of images LIMITATIONS: None. FINDINGS: The lateral hub of a dual-lumen permanent central line was accessed under sterile conditio ns. Gentle hand injection of 10 mL of Isovue 300 demonstrates a fibrin sheath surrounding the cathet er, with slow flow of contrast away from the catheter tip. The catheter tip is at the junction of th e left jugular vein and subclavian vein. The catheter is doubled back on itself in the left supraclavicular region, with a Kink in the neck so ft tissues. The medial port of the catheter was not injected. IMPRESSION: Fibrin sheath along the permanent central line catheter, limiting the outflow from the c atheter tip. Kink in the catheter in the left supraclavicular region. The tip of the catheter is at the junction of the left jugular and left subclavian veins. COMMENT: Quality ID [id number]: Final reports for procedures using fluoroscopy that document radiation exp osure indices, or exposure time and number of fluorographic images (if radiation exposure indices are not available) Please consult full operative report of the attending physician for description of the procedure. TECHNICAL DOCUMENTATION: JOB ID: [id number] [employer]- All Rights Reserved
--- NOTE | 2017-03-17 17:32 | CONSULTATION REPORT E ---
Consultation Report NAME: PRINCESS DE LEON : 1940 AGE: 76Y DATE: 03/17/2017 335 A TO: RUDDY GALDAMEZ M.D. FROM: AFSHIN STEPHENSON M.D. Requesting Physician REASON FOR CONSULTATION: Malfunctioning of left subclavian port. SUMMARY OF CONSULTATION: Patient is a 76-year-old white female, well known to me, with history of inflammatory breast carcinoma, status post bilateral mastectomy, port placement, status post adjuvant radiation therapy, now receiving adjuvant salvage chemotherapy for advanced metastatic disease. She [facility] for weakness and congestive heart failure. Port catheter last used in the remote past. Catheter has been used for non-chemotherapeutic applications, including IV fluids, until recently. According to patient and , the port has had increasingly difficult degree of pressure for infusion and no evidence of aspiration. Patient underwent Port-A-Cath study today which showed negligible egress of contrast out of the distal tip of the catheter, with retrograde migration of contrast up along the catheter consistent with chronic fibrin sheath. Surgery is consulted. PAST MEDICAL AND SURGICAL HISTORY: Refer to history and physical document. REVIEW OF SYSTEMS: Refer to history and physical document. PHYSICAL EXAMINATION: Patient [facility] She is in no acute distress. She is very weak and pale. The neck and chest wall are examined. There is a left subclavian port currently accessed with a Gutiérrez needle. There is no evidence of cellulitis. Chest wall significant for bilateral mastectomies. There is scattered bruising. LABORATORY PROFILE: Shows a hemoglobin of 8.3, white blood cell count of 3100, platelets of 67,000. Patient is on Plavix. IMPRESSION: 1. Chronic Infusaport catheter with malfunction due to fibrin sheath. 2. Metastatic breast carcinoma. PLAN: 1. I explained to the patient and her the Port-A-Cath's useful life has been exhausted. There is no minimally invasive salvage plan for this [id number]. 2. I have suggested we remove the catheter and the patient and would like this performed in our office, which is certainly reasonable. 3. Upon patient's discharge from the hospital and setup, the procedure will be performed on an outpatient basis. DICTATING PHYSICIAN: RUDDY GALDAMEZ M.D. [id number] PHY#: [id number] ID: [id number] JOB#: [id number] ACCT: [id number] cc:RUDDY GALDAMEZ M.D. >
--- NOTE | 2017-03-17 20:46 | RADIOLOGY REPORT (SQ) ---
EXAM DESCRIPTION: CHEST PA/LAT COMPLETED DATE/TIME: 03/17/2017 8:29 pm REASON FOR STUDY: chf COMPARISON: 03/16/2017 NUMBER OF VIEWS: Two views. TECHNIQUE: Frontal and lateral radiographic views of the chest acquired. LIMITATIONS: None. FINDINGS: LUNGS AND PLEURA: No opacities, masses or pneumothorax. No pleural effusion. MEDIASTINUM AND HILAR STRUCTURES: No masses or contour abnormality. HEART AND VASCULAR STRUCTURES: Cardiac enlargement. Vascular congestion. BONES: No acute findings. HARDWARE: Axillary clips. Venous access catheter tip in the left subclavian vein. Stable. OTHER: No other significant finding. IMPRESSION: CARDIAC ENLARGEMENT. VASCULAR CONGESTION. Improved. TECHNICAL DOCUMENTATION: JOB ID: [id number] [employer]- All Rights Reserved
[2017-03-17] MEDS: ATORVASTATIN CALCIUM 20 MG TABLET PO SCH (21:53)
[2017-03-17] MEDS: LANSOPRAZOLE 30 MG TAB.RAP.DR PO SCH (21:54)
[2017-03-17] MEDS: SITAGLIPTIN PHOSPHATE 25 MG TABLET PO SCH (21:54)
[2017-03-18] MEDS: LEVOTHYROXINE SODIUM 0.025 MG TABLET PO SCH (05:35)
[2017-03-18 06:43] LABS: ANION GAP 9 (5-19); BLOOD UREA NITROGEN 40 mg/dL (7-20); CALCIUM 9.4 mg/dL (8.4-10.2); CARBON DIOXIDE 24 mmol/L (22-30); CHLORIDE 101 mmol/L (98-107); CREATININE RESULT 1.61 mg/dL (0.52-1.25); GLUCOSE 97 mg/dL (75-110); POTASSIUM 4.1 mmol/L (3.6-5.0)
[2017-03-18 06:48] LABS: HEMATOCRIT 27.4 % (36.0-47.0); HEMOGLOBIN 9.5 g/dL (12.0-15.5); HGB HCT DIFFERENCE 1.1; MEAN CORPUSCULAR HEMOGLOBIN 40.7 pg (27.0-33.4); MEAN CORPUSCULAR HGB CONC 34.6 g/dL (32.0-36.0); RED BLOOD COUNT 2.32 10^6/uL (3.72-5.28); RED CELL DISTRIBUTION WIDTH 30.2 % (11.5-14.0); WHITE BLOOD COUNT 3.6 10^3/uL (4.0-10.5)
[2017-03-18 07:08] LABS: BAND NEUTROPHILS % (MANUAL) 1 % (3-5); BASOPHILS % (MANUAL) 0 % (0-2); EOSINOPHILS % (MANUAL) 1 % (0-6); LYMPHOCYTES % (MANUAL) 10 % (13-45); POIKILOCYTOSIS 2+; ROULEAUX 1+; TOTAL CELLS COUNTED 100
[2017-03-18 07:09] LABS: OVALOCYTES 2+; POLYCHROMASIA 1+; SCHISTOCYTES 1+
[2017-03-18 07:11] LABS: MEAN CORPUSCULAR VOLUME 118 fl (80-97)
--- NOTE | 2017-03-18 08:04 | PDOC PROGRESS REPORT ---
Subjective Progress Note for:: 03/18/17 Subjective:: Port study done yesterday, pt has fibrin sheath blocking port, needs removal but would like that done as outpt Physical Exam Vital Signs: Temp Pulse Resp BP Pulse Ox 97.3 F 91 18 99/57 L 96 03/18/17 07:24 03/18/17 07:24 03/18/17 07:24 03/18/17 07:24 03/18/17 07:24 Intake & Output 03/17/17 03/18/17 03/19/17 06:59 06:59 06:59 Intake Total 2521 1977 Output Total 1000 750 Balance 1521 1227 Weight 84.9 kg 86.5 kg General appearance: PRESENT: no acute distress, well-developed, well-nourished Head exam: PRESENT: atraumatic, normocephalic Eye exam: PRESENT: conjunctiva pink, EOMI, PERRLA. ABSENT: scleral icterus Ear exam: PRESENT: normal external ear exam Mouth exam: PRESENT: moist, tongue midline Neck exam: ABSENT: carotid bruit, JVD, lymphadenopathy, thyromegaly Respiratory exam: PRESENT: clear to auscultation chad. ABSENT: rales, rhonchi, wheezes Cardiovascular exam: PRESENT: RRR. ABSENT: diastolic murmur, rubs, systolic murmur Pulses: PRESENT: normal dorsalis pedis pul Vascular exam: PRESENT: normal capillary refill GI/Abdominal exam: PRESENT: normal bowel sounds, soft. ABSENT: distended, guarding, mass, organolmegaly, rebound, tenderness Rectal exam: PRESENT: deferred Extremities exam: PRESENT: full ROM. ABSENT: calf tenderness, clubbing, pedal edema Neurological exam: PRESENT: alert, awake, oriented to person, oriented to place , oriented to time, oriented to situation, CN II-XII grossly intact. ABSENT: motor sensory deficit Psychiatric exam: PRESENT: appropriate affect, normal mood. ABSENT: homicidal ideation, suicidal ideation Skin exam: PRESENT: dry, intact, warm. ABSENT: cyanosis, rash Results Laboratory Results: 03/18/17 06:08 03/18/17 06:08 03/17/17 03/18/17 03/18/17 09:31 06:08 06:08 WBC 3.6 L RBC 2.32 L Hgb 9.5 L Hct 27.4 L MCV 118 H D MCH 40.7 H MCHC 34.6 RDW 30.2 H Plt Count 64 L Seg Neutrophils % Not Reportable Lymphocytes % Not Reportable Monocytes % Not Reportable Eosinophils % Not Reportable Basophils % Not Reportable Absolute Neutrophils Not Reportable Absolute Lymphocytes Not Reportable Absolute Monocytes Not Reportable Absolute Eosinophils Not Reportable Absolute Basophils Not Reportable Sodium 134.0 L Potassium 4.1 Chloride 101 Carbon Dioxide 24 Anion Gap 9 BUN 40 H Creatinine 1.61 H Est GFR ( Amer) 38 L Est GFR (Non-Af Amer) 31 L Glucose 97 Calcium 9.4 Blood Type A NEGATIVE Antibody Screen NEGATIVE 03/12/17 17:28 NT-Pro-B Natriuret Pep [id number] H Impressions: Abdomen Ultrasound 03/13/17 00:00 IMPRESSION: No evidence of biliary ductal dilatation, gallstones, or liver metastatic lesions by ultrasound. Chest X-Ray 03/17/17 00:00 IMPRESSION: CARDIAC ENLARGEMENT. VASCULAR CONGESTION. Improved. Venous Access Device Injection 03/17/17 00:00 IMPRESSION: Fibrin sheath along the permanent central line catheter, limiting the outflow from the catheter tip. Kink in the catheter in the left supraclavicular region. The tip of the catheter is at the junction of the left jugular and left subclavian veins. Assessment & Plan - Diagnosis (1) Congestive heart failure (CHF) Qualifiers: Congestive heart failure type: combined Congestive heart failure chronicity : acute Qualified Code(s): I50.41 - Acute combined systolic (congestive) and diastolic (congestive) heart failure Is this a current diagnosis for this admission?: Yes Plan: Cont per medical team (2) Breast cancer metastasized to bone Qualifiers: Laterality: right Qualified Code(s): C50.911 - Malignant neoplasm of unspecified site of right female breast; C79.51 - Secondary malignant neoplasm of bone Is this a current diagnosis for this admission?: Yes Plan: Will plan further rx at outpt (3) Hypoxemia Is this a current diagnosis for this admission?: Yes (4) Port catheter in place Is this a current diagnosis for this admission?: Yes Plan: Will need port removal as outpt. - Time Time Spent with patient: 25-34 minutes Critical Time spent with patient: 25-34 minutes
[2017-03-18] MEDS: MAGNESIUM OXIDE 400 MG TABLET PO SCH (08:18)
[2017-03-18] MEDS: PALBOCICLIB 125 MG PO SCH (08:18)
[2017-03-18 08:57] VITALS: BP 90/48
[2017-03-18] MEDS: SPIRONOLACTONE 25 MG TABLET PO SCH (09:55)
[2017-03-18] MEDS: MIDODRINE HCL 5 MG TABLET PO SCH (10:03)
[2017-03-18] MEDS: MULTIVIT-STRESS FORMULA/ZINC TABLET PO SCH (10:03)
[2017-03-18] MEDS: CLOPIDOGREL BISULFATE 75 MG TABLET PO SCH (10:03)
[2017-03-18] MEDS: DOCUSATE SODIUM 100 MG CAPSULE PO SCH (10:03)
[2017-03-18] MEDS: TORSEMIDE 20 MG TABLET PO SCH (10:03)
[2017-03-18] MEDS: ASPIRIN 81 MG TABLET, ENT COATED PO SCH (10:03)
[2017-03-18] MEDS: MUPIROCIN 2% OINTMENT 22 GM TOP SCH (10:04)
--- NOTE | 2017-03-18 13:38 | PDOC DISCHARGE SUMMARY ---
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 Repeat the LFT and all 1 week (3) Anemia Is this a current diagnosis for this admission?: Yes Summary: Follow with the oncology (4) Breast cancer metastasized to axillary lymph node Is this a current diagnosis for this admission?: Yes Summary: Stage IV breast cancer (5) CAD (coronary artery disease) Is this a current diagnosis for this admission?: Yes Summary: With the recently a coronary stenting in July currently on a dual therapy as per discussed with the cardiology and suggest the may be a consider stop the 1 medications if is more than 6 monthAnd the patient have a platelet count is low so is reasonable to stop the Plavix (6) Hypertension Is this a current diagnosis for this admission?: Yes Summary: Continues to current medicationsBut patients running always low blood pressures and the patient's blood pressures running 96/60 but patient is completely asymptomatic as per very extensive discussions with the Dr. Irwin and patients patient was put in the Midiron and he suggest the patient is asymptomatic still continues to try that and the enresto Which help the patient's heart conditions (7) Type 2 diabetes mellitus Is this a current diagnosis for this admission?: Yes Summary: Continues to current medications (8) Hypothyroidism Is this a current diagnosis for this admission?: Yes Summary: Will recheck the TSH and free t4 4 weeks (9) Thrombocytopenia Is this a current diagnosis for this admission?: Yes Summary: Currently due to the chemo currently follow with the oncology very extensive discussed with the cardiology and oncology may be a consider to stop the Plavix and continues to aspirin due to the high risk for the GI bleed while the patient 's stenting was done in July - Additional Information Resuscitation Status: Full Code Discharge Diet: Cardiac, Diabetic Discharge Activity: Activity As Tolerated, Balance Activity w/Rest, Weigh Daily Home Medications: Aspirin [Aspirin EC] 81 mg PO DAILY 03/12/17 Atorvastatin Calcium [Lipitor 20 mg Tablet] 20 mg PO DAILY 03/12/17 Clopidogrel Bisulfate [Plavix 75 mg Tablet] 75 mg PO DAILY 03/12/17 Magnesium Oxide [Mag-Ox 400 mg Tablet] 400 mg PO BID 03/12/17 Multivits-Min/Iron/FA/Lutein [Centrum Silver Women Tablet] 1 tab PO DAILY Mupirocin [Bactroban 2% Ointment 22 gm] 1 applic TOP TID 03/12/17 Nitroglycerin [Nitrostat 0.4 mg (1/150 Gr) Tabs 25/Bottle] 1 tab PO Q5MP PRN Oxycodone HCl [Oxycodone HCl 10 MG Tablet] 10 mg PO Q6HP PRN 03/12/17 Palbociclib [Ibrance] 125 mg PO DAILY 03/12/17 Pantoprazole Sodium [Protonix] 40 mg PO DAILY 03/12/17 Sitagliptin Phosphate [Januvia 25 mg Tablet] 25 mg PO DAILY 03/12/17 Midodrine HCl [Proamatine 5 mg Tablet] 5 mg PO BID #60 tablet 03/18/17 Sacubitril/Valsartan [Entresto 24 mg/26 mg Tablet] 1 tab PO Q12 #60 tablet 03/18 Spironolactone [Aldactone 25 mg Tablet] 25 mg PO Q2D@0800 #30 tablet 03/18/17 Torsemide [Demadex 20 mg Tablet] 10 mg PO DAILY #30 tablet 03/18/17 History of Present Illness History of Present Illness: PRINCESS DE LEON is a 76 year old female This is a 76-year-old female with a significant history of the combined congestive heart failure with EF is less than 40%'s with the history of the hypertension history of the stage IV breast cancer with currently under chemotherapyWith a history of the coronary artery disease and recently have a stent placement at the [facility] and currently see a Dr. Irwin as outpatient the local cardiologyWent to the Dr. Stephenson office for routine chemotherapy and he noticed that patient was little bit more short of breath and patient have a gain 11 pound and a more edema and defer to my office . 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 Irwin and have echocardiogram done with EF is less than 35%'s Patient have a biventricular congestive heart failure with a cardiac cirrhosis and ultrasound of the abdomen was done with no sign of any metastatic lesion Patients switch back to torsemide p.o. and patient was tried the in the enresto And Aldactone but patient's blood pressures are always running low but patient was completely asymptomatic Since need of physical therapy and denied any dizziness no short of breath no chest pain and patient was monitored for almost last 48 hours and doing well even with this low blood pressures Very extensive discussion with the patient and her regarding the patient 's current conditions with the multiple comorbidity including the cardiomyopathy and biventricular heart failure and cardiac cirrhosis and a stage IV breast cancersWith a not a very good prognosis for the long time Patients is going to seen by the cardiology Dr. Irwin and that he was talking about to refer the patient is awake made for further evaluations And already scheduled to see the oncology next week Discussed with the patient about the fall precautions and use the walker Discussed with the patient and her check the blood pressures daily at home Physical Exam Vital Signs: Temp Pulse Resp BP Pulse Ox 97.3 F 91 18 90/48 L 96 03/18/17 08:48 03/18/17 08:48 03/18/17 08:48 03/18/17 08:48 03/18/17 08:48 Intake & Output 03/17/17 03/18/17 03/19/17 06:59 06:59 06:59 Intake Total 2521 1977 Output Total 1000 750 Balance 1521 1227 Weight 84.9 kg 86.5 kg General appearance: PRESENT: no acute distress, well-developed, well-nourished Head exam: PRESENT: atraumatic, normocephalic Eye exam: PRESENT: conjunctiva pink, EOMI, PERRLA. ABSENT: scleral icterus Ear exam: PRESENT: normal external ear exam Mouth exam: PRESENT: moist, tongue midline Neck exam: PRESENT: full ROM. ABSENT: carotid bruit, JVD, lymphadenopathy, thyromegaly Respiratory exam: PRESENT: clear to auscultation chad Cardiovascular exam: PRESENT: RRR. ABSENT: diastolic murmur, rubs, systolic murmur Pulses: PRESENT: normal dorsalis pedis pul, +2 pedal pulses bilateral Vascular exam: PRESENT: normal capillary refill GI/Abdominal exam: PRESENT: normal bowel sounds, soft. ABSENT: distended, guarding, mass, organolmegaly, rebound, tenderness Rectal exam: PRESENT: deferred Neurological exam: PRESENT: alert, awake, oriented to person, oriented to place , oriented to time, oriented to situation, CN II-XII grossly intact. ABSENT: motor sensory deficit Psychiatric exam: PRESENT: appropriate affect, normal mood. ABSENT: homicidal ideation, suicidal ideation Skin exam: PRESENT: dry, intact, warm. ABSENT: cyanosis, rash Results Laboratory Results: 03/18/17 06:08 03/18/17 06:08 03/17/17 03/18/17 03/18/17 09:31 06:08 06:08 WBC 3.6 L RBC 2.32 L Hgb 9.5 L Hct 27.4 L MCV 118 H D MCH 40.7 H MCHC 34.6 RDW 30.2 H Plt Count 64 L Seg Neutrophils % Not Reportable Lymphocytes % Not Reportable Monocytes % Not Reportable Eosinophils % Not Reportable Basophils % Not Reportable Absolute Neutrophils Not Reportable Absolute Lymphocytes Not Reportable Absolute Monocytes Not Reportable Absolute Eosinophils Not Reportable Absolute Basophils Not Reportable Sodium 134.0 L Potassium 4.1 Chloride 101 Carbon Dioxide 24 Anion Gap 9 BUN 40 H Creatinine 1.61 H Est GFR ( Amer) 38 L Est GFR (Non-Af Amer) 31 L Glucose 97 Calcium 9.4 Blood Type A NEGATIVE Antibody Screen NEGATIVE 03/12/17 17:28 NT-Pro-B Natriuret Pep [id number] H Impressions: Abdomen Ultrasound 03/13/17 00:00 IMPRESSION: No evidence of biliary ductal dilatation, gallstones, or liver metastatic lesions by ultrasound. Chest X-Ray 03/17/17 00:00 IMPRESSION: CARDIAC ENLARGEMENT. VASCULAR CONGESTION. Improved. Venous Access Device Injection 03/17/17 00:00 IMPRESSION: Fibrin sheath along the permanent central line catheter, limiting the outflow from the catheter tip. Kink in the catheter in the left supraclavicular region. The tip of the catheter is at the junction of the left jugular and left subclavian veins. Plan Time Spent: Greater than 30 Minutes - Following office in 1 week and repeat the Chem-7 Follow with the cardiology in 1 week and follow with the oncology in 1 week
== END 2017-03-18 10:49 | disposition home or self-care (01) | DRG 292 ==
LOC: 3S 16:16
PROVIDERS: ADMIT Family Medicine; ATTEND Family Medicine
DX: I50.41 Acute combined systolic (congestive) and diastolic (congestive) heart failure (principal); C77.3 Secondary and unspecified malignant neoplasm of axilla and upper limb lymph nodes; C79.51 Secondary malignant neoplasm of bone; T82.514A Breakdown (mechanical) of infusion catheter, initial encounter; I42.9 Cardiomyopathy, unspecified; C50.911 Malignant neoplasm of unspecified site of right female breast; D64.9 Anemia, unspecified; I25.10 Atherosclerotic heart disease of native coronary artery without angina pectoris; I10 Essential (primary) hypertension; E03.9 Hypothyroidism, unspecified; D69.6 Thrombocytopenia, unspecified; E78.5 Hyperlipidemia, unspecified; J44.9 Chronic obstructive pulmonary disease, unspecified; E11.9 Type 2 diabetes mellitus without complications; I34.0 Nonrheumatic mitral (valve) insufficiency; M19.90 Unspecified osteoarthritis, unspecified site; M10.9 Gout, unspecified; Z79.899 Other long term (current) drug therapy; Z79.82 Long term (current) use of aspirin; Z79.02 Long term (current) use of antithrombotics/antiplatelets; Z87.19 Personal history of other diseases of the digestive system; Z95.5 Presence of coronary angioplasty implant and graft; Z87.891 Personal history of nicotine dependence; Z88.2 Allergy status to sulfonamides; Z88.0 Allergy status to penicillin; Z88.1 Allergy status to other antibiotic agents
CPT/HCPCS: 36415; 36430; 36598; 71020; 76700; 80048; 80076; 82962; 83735; 83880; 84443; 85025; 85610; 86850; 86900; 86901; 86920; 93005; 93010; 93306; G8978-GP; G8979-GP; J1940; J3490; J7050; P9016

== ENCOUNTER 2017-04-03 11:15 | Emergency (ER) | payer BC ==
--- NOTE | 2017-04-03 11:31 | ER Document Report ---
ED Fall - General Information source: Patient, Relative - spouse TRAVEL OUTSIDE OF THE [place] 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 Patients states patient was walking slowly with her walker when the episode happened. Patient hit her face on her walker during the fall causing a contusion and bruising to her right eye and forehead area. Patient is on aspirin daily. Patient has a history of CHF and had cath done in July and 2 stents were placed at that time. Patients blood pressure has been low and she was started on a medication to be given only when her pressure is below 90 systolic. Patient recently had a loom technician on due to having some weakness. She returned the monitor on Friday. Patient denies any difficulty with vision. PCP: Dr. Zapata Capsule Filler: Dr. Irwin (KASI PARSONS) - Related data Allergies/Adverse Reactions: Sulfa (Sulfonamide Antibiotics) Allergy (Severe, Verified 04/03/17 11:35) Face swells ciprofloxacin [From Cipro] Allergy (Mild, Verified 04/03/17 11:35) Urticaria Penicillins Allergy (Mild, Verified 04/03/17 11:35) Urticaria Past Medical History - General Information source: Patient, Relative - spouse - Social History Smoking Status: Unknown if Ever Smoked Family History: Reviewed & Not Pertinent, Hypertension - Past Medical History Cardiac Medical History: Reports: Hx Congestive Heart Failure, Hx Coronary Artery Disease, Hx Hypercholesterolemia, Hx Hypertension, Hx Heart Murmur Pulmonary Medical History: Reports: Hx COPD Endocrine Medical History: Reports: Hx Diabetes Mellitus Type 2, Hx Hypothyroidism Renal/ Medical History: Reports: Hx Kidney Stones Malignancy Medical History: Reports: Hx Bone Cancer, Hx Breast Cancer - Bilateral, Stage IV GI Medical History: Reports: Hx Crohn's Disease Musculoskeltal Medical History: Reports Hx Arthritis, Reports Hx Gout Traumatic Medical History: Denies: Hx Fractures Infectious Medical History: Denies: Hx HIV Past Surgical History: Reports: Hx Appendectomy, Hx Cardiac Catheterization, Hx Coronary Stent - x2, Hx Mastectomy, Hx Neurologic Surgery - Immunizations Hx Diphtheria, Pertussis, Tetanus Vaccination: No Hx Pneumococcal Vaccination: 04/27/14 <KASI PARSONS - Last Filed: 04/03/17 15:16> Review of Systems - Review of Systems Constitutional: No symptoms reported EENT: See HPI, Other - contusion to right forehead area and eye. denies: Blurred vision, Double vision Cardiovascular: See HPI, Syncope Respiratory: No symptoms reported Gastrointestinal: No symptoms reported Genitourinary: No symptoms reported Female Genitourinary: No symptoms reported Musculoskeletal: No symptoms reported Skin: See HPI, Other - bruising and abrasion to right eye Hematologic/Lymphatic: No symptoms reported Neurological/Psychological: No symptoms reported <KASI PARSONS - Last Filed: 04/03/17 15:16> Physical Exam - General General appearance: Alert - HEENT Eyes: Other - ecchymosis to right upper eye lid with hematoma over right parietal temporal area Extraocular movements intact: Yes Pupils: PERRL - at 3mm Tympanic membrane: Normal, Other - no blood bilaterally Neck: Normal - Respiratory Respiratory status: No respiratory distress Chest status: Other - contusion to left chest wall with minor abrasion and bruising Breath sounds: Normal - Cardiovascular Rhythm: Bradycardia Heart sounds: Normal auscultation Murmur: No - Abdominal Inspection: Normal Distension: No distension Tenderness: Nontender - Extremities General upper extremity: Normal inspection, Normal ROM General lower extremity: Other - plevis is stable, chronic edema with induration of skin to bilateral lower extremities - Neurological Neuro grossly intact: Yes - Psychological Associated symptoms: Normal affect, Normal mood - Skin Skin Temperature: Warm Skin Moisture: Dry Skin Color: Normal Skin irregularity: other - contusion to left chest wall with minor abrasion and bruising, ecchymosis to right upper eye lid with hematoma over right parietal temporal area <KASI PARSONS - Last Filed: 04/03/17 15:16> - Vital signs Vitals: Temp Pulse Resp BP Pulse Ox 98.0 F 41 L 18 113/47 L 100 04/03/17 11:33 04/03/17 11:33 04/03/17 11:33 04/03/17 11:33 04/03/17 11:33 Course - Laboratory Result Diagrams: 04/03/17 14:22 04/03/17 14:22 - Consults Dr. Zapata Time consulted: 15:01 [facility] Transfer line Time consulted: 15:16 <KASI PARSONS - Last Filed: 04/03/17 15:16> - Laboratory Result Diagrams: 04/03/17 14:22 04/03/17 14:22 <ROYAL CANELA - Last Filed: 04/03/17 16:15> - Re-evaluation Re-evalutation: 04/03/17 12:20 76-year-old female with a collapse and fall today. She has been feeling weak and dizzy at times lately with low blood pressure. She has a history of low blood pressure. Today, upon arrival, it is noted that she is in complete heart block with a rate of 41. This is a change from her prior EKG of March 13, 2017. At that time she had a sinus rhythm with a first-degree block at a rate of 88. CT scan of head face and cervical spine pending. Labs pending. We have the patient on a loom technician. We will seek cardiology input and likely admission for this patient in complete heart block. 04/03/17 14:[address] scans shows subacute subdural hematomas on either side. I discussed this with the radiologist myself. These do not appear to be acute. There are also lytic lesions in the cervical spine. There are no facial fractures or other acute changes. On reexamination at 1435, the patient had a heart rate of 38. She is alert and mentating. She remains on the monitor with pacer pads in place but is not being paced currently. The patient has a port in her left chest which we have accessed, but we have not been able to get blood drawn off easily. Labs are still pending. 04/03/17 15:32 I reviewed the patient's laboratory results. Her BUN and creatinine are notably elevated above prior values in October. Previously she was 33 and 1.12, now she is 53 and 2.2. I spoke with Dr. Zapata earlier. He has advised me to transfer the patient to [place] where the patient has a office system analyst who can further care for the third-degree heart block the patient is currently in. 04/03/17 15:[address] Beebe at [facility]. He reports that he can provide the cardiology care that the patient needs, including placement of a pacemaker tomorrow, but the patient should be admitted to internal medicine due to her complicated comorbidities. Callback from internal medicine pending. 04/03/17 16:[address] man at [facility]. They are excepting the patient for ongoing care under Dr. Mandujano. Transfer to PCU pending. (ROYAL CANELA) - Vital Signs Vital signs: Temp Pulse Resp BP Pulse Ox 98.3 F 37 L 13 102/46 L 100 04/03/17 14:56 04/03/17 14:56 04/03/17 14:56 04/03/17 14:56 04/03/17 14:56 - Laboratory Laboratory results interpreted by me: 04/03/17 04/03/17 14:22 14:22 WBC 2.8 L RBC 2.24 L Hgb 9.2 L Hct 28.2 L MCV 126 H D MCH 41.0 H RDW 28.0 H Plt Count 44 L Seg Neuts % (Manual) 84 H Lymphocytes % (Manual) 7 L Abs Lymphs (Manual) 0.2 L Sodium 132.6 L Potassium 5.4 H Carbon Dioxide 21 L BUN 54 H Creatinine 2.57 H Est GFR ( Amer) 22 L Est GFR (Non-Af Amer) 18 L Total Bilirubin 3.2 H Direct Bilirubin 2.2 H AST 187 H ALT 155 H Alkaline Phosphatase 138 H Total Protein 5.9 L Albumin 3.4 L - Consults Dr. Zapata Reason for consultation: 04/03/17 15:[address] Zapata. He advises transfer to [place]. Patients Capsule Filler is in [place]. (KASI PARSONS) [facility] Transfer line Reason for consultation: 04/03/17 15:16 Discussed patient. They will have Dr. Otto or his architectural representative call back. ( KASI PARSONS) Discharge <KASI PARSONS - Last Filed: 04/03/17 15:16> <ROYAL CANELA - Last Filed: 04/03/17 16:15> - Discharge Clinical Impression: Heart block AV third degree, Syncope and collapse, Facial contusion, Subdural hematoma, chronic, Breast cancer metastasized to bone Condition: Stable Disposition: [facility] Referrals: SANJAY ZAPATA MD [Primary Care Provider] - Follow up as needed Scribe Attestation: 04/03/17 16:15 I personally performed the services described in the documentation, reviewed and edited the documentation which was dictated to the scribe in my presence, and it accurately records my words and actions. (ROYAL CANELA) Scribe Documentation - Scribe Written by Pk:: pk Sinha, 04/03/2017, 1152 acting as scribe for :: Stalin <KASI PARSONS - Last Filed: 04/03/17 15:16>
--- NOTE | 2017-04-03 12:38 | RADIOLOGY REPORT (SQ) ---
EXAM DESCRIPTION: CT HEAD WITHOUT COMPLETED DATE/TIME: 04/03/2017 12:22 pm REASON FOR STUDY: fall, head injury - Right COMPARISON: 10/03/2016 TECHNIQUE: Axial images acquired through the brain without intravenous contrast. Images reviewed wi th bone, brain and subdural windows. Images stored on PACS. All CT scanners at this facility use dose modulation, iterative reconstruction, and/or weight based d osing when appropriate to reduce radiation dose to as low as reasonably achievable (ALARA). [facility]: Dose Right [facility]: CareDose [facility]: Dose Right [facility]: Teradose 4D [facility]: Smart [employer] RADIATION DOSE: Up-to-date CT equipment and radiation dose reduction techniques were employed. CTDIv ol: 64.6 mGy. DLP: 1421 mGy-cm. mGy. LIMITATIONS: None. FINDINGS: VENTRICLES: Normal size and contour. CEREBRUM: No masses. No hemorrhage. No midline shift. No evidence for acute infarction. Normal gra y/white matter differentiation. No areas of low density in the white matter. Bilateral subdural flui d collections, left greater than right. CEREBELLUM: No masses. No hemorrhage. No alteration of density. No evidence for acute infarction. EXTRAAXIAL SPACES: Bilateral subdural fluid collections are seen, left more than right. These side a ppear to be subacute. The density is slightly greater than CSF. ORBITS AND GLOBE: No intra- or extraconal masses. Normal contour of globe without masses. CALVARIUM: No fracture. PARANASAL SINUSES: No fluid or mucosal thickening. SOFT TISSUES: No mass or hematoma. OTHER: No other significant finding. IMPRESSION: Bilateral subacute subdural fluid collections, left greater than right. COMMENT: Quality ID # [id number]: Final reports with documentation of one or more dose reduction techniques (e.g., Automated exposure control, adjustment of the mA and/or kV according to patient size, use of iterative reconstruction technique) TECHNICAL DOCUMENTATION: JOB ID: [id number] [employer]- All Rights Reserved
--- NOTE | 2017-04-03 12:47 | RADIOLOGY REPORT (SQ) ---
EXAM DESCRIPTION: CT CERVICAL SPINE WITHOUT COMPLETED DATE/TIME: 04/03/2017 12:22 pm REASON FOR STUDY: fall - head and facial injury - eval for cervical COMPARISON: 10/03/2016 TECHNIQUE: Axial images acquired through the cervical spine without intravenous contrast. Images re viewed with lung, soft tissue and bone windows. Reconstructed coronal and sagittal MPR images review ed. Images stored on PACS. All CT scanners at this facility use dose modulation, iterative reconstruction, and/or weight based d osing when appropriate to reduce radiation dose to as low as reasonably achievable (ALARA). [facility]: Dose Right [facility]: CareDose [facility]: Dose Right [facility]: Teradose 4D [facility]: Smart [email or web address] RADIATION DOSE: Up-to-date CT equipment and radiation dose reduction techniques were employed. CTDIv ol: 18.9 mGy. DLP: 387 mGy-cm. mGy. LIMITATIONS: None. FINDINGS: ALIGNMENT: There is grade 1 anterolisthesis of C3 on C4. MINERALIZATION: Normal. VERTEBRAL BODIES: No fractures or dislocation. There are lytic lesions in the left occipital condyle , the left side of the body of C2, the body of C3, the body of C5. DISCS: There is narrowing of the C5-6 and C6-7 disc spaces. There is minimal narrowing at C4-5. Ant erior osteophytes are present from C5-C7 FACETS, LATERAL MASSES, POSTERIOR ELEMENTS: No fracture dislocation. Hypertrophic facet changes are present in the mid cervical spine. HARDWARE: None in the spine. VISUALIZED RIBS: Lytic lesion in the left 1st rib. LUNG APICES AND SOFT TISSUES: No significant or acute findings. OTHER: No other significant finding. IMPRESSION: 1. There are multiple lytic lesions suggesting metastatic disease to bone. 2. There is anterolisthesis of C3 on C4. 3. Degenerative disc disease, spondylosis, and facet arthropathy. TECHNICAL DOCUMENTATION: JOB ID: [id number] Quality ID # [id number]: Final reports with documentation of one or more dose reduction techniques (e.g., Au tomated exposure control, adjustment of the mA and/or kV according to patient size, use of iterative reconstruction technique) 2010 [employer] All Rights Reserved
--- NOTE | 2017-04-03 12:55 | RADIOLOGY REPORT (SQ) ---
EXAM DESCRIPTION: CT FACIAL AREA WITHOUT COMPLETED DATE/TIME: 04/03/2017 12:22 pm REASON FOR STUDY: fall, head injury - Right COMPARISON: None. TECHNIQUE: Noncontrasted images through the facial bones and orbits windowed for bone and soft tissu e. Additional coronal and sagittal reconstructed images reviewed. All images stored on PACS. All CT scanners at this facility use dose modulation, iterative reconstruction, and/or weight based d osing when appropriate to reduce radiation dose to as low as reasonably achievable (ALARA). [facility]: Dose Right [facility]: CareDose [facility]: Dose Right [facility]: Teradose 4D [facility]: [employer] RADIATION DOSE: Up-to-date CT equipment and radiation dose reduction techniques were employed. CTDIv ol: 30.4 mGy. DLP: 583 mGy-cm. mGy. LIMITATIONS: None. FINDINGS: FACIAL BONES: No fracture. Lytic lesions are seen. See report for the CT C-spine. ORBITS: No fracture. Intact globes. There is swelling of the right eyelid. PARANASAL SINUSES: Clear. No significant mucosal thickening, mass or fluid. No nasal polyps. Maxill jo ann sinus outlets are patent. SOFT TISSUES: No mass or edema. INFERIOR BRAIN: See report for CT of the head. OTHER: No other significant finding. IMPRESSION: Soft tissue swelling with no acute abnormality in the facial bones. Metastatic lesions are once again seen in the upper cervical spine and left occipital condyle. COMMENT: Findings were discussed with the ordering physician, including the presence of bilateral hatfield bdural fluid collections, at 1247 hours on this date. TECHNICAL DOCUMENTATION: JOB ID: [id number] Quality ID # [id number]: Final reports with documentation of one or more dose reduction techniques (e.g., Au tomated exposure control, adjustment of the mA and/or kV according to patient size, use of iterative reconstruction technique) 2010 [employer]- All Rights Reserved
--- NOTE | 2017-04-03 13:52 | EKG REPORT ---
SEVERITY:- ABNORMAL ECG - COMPLETE AV BLOCK WITH WIDE QRS COMPLEX : Confirmed by: Cedric Marroquin MD 03-Apr-2017 13:52:04
[2017-04-03 14:35] LABS: HEMATOCRIT 28.2 % (36.0-47.0)
[2017-04-03 14:53] LABS: ALANINE AMINOTRANSFERASE 155 U/L (9-52); ALBUMIN 3.4 g/dL (3.5-5.0); ALKALINE PHOSPHATASE 138 U/L (38-126); ANION GAP 13 (5-19); ASPARTATE AMINO TRANSFERASE 187 U/L (14-36); BILIRUBIN,DIRECT 2.2 mg/dL (0.0-0.4); BILIRUBIN,TOTAL 3.2 mg/dL (0.2-1.3); BLOOD UREA NITROGEN 54 mg/dL (7-20); CALCIUM 8.9 mg/dL (8.4-10.2); CARBON DIOXIDE 21 mmol/L (22-30); CHLORIDE 99 mmol/L (98-107); CREATINE KINASE 54 U/L (30-135); CREATININE RESULT 2.57 mg/dL (0.52-1.25); GLUCOSE 90 mg/dL (75-110); POTASSIUM 5.4 mmol/L (3.6-5.0); SODIUM 132.6 mmol/L (137-145); TOTAL PROTEIN 5.9 g/dL (6.3-8.2)
[2017-04-03 15:05] LABS: CREATINE KINASE MB 2.45 ng/mL (<4.55)
[2017-04-03 15:07] LABS: HEMOGLOBIN 9.2 g/dL (12.0-15.5); HGB HCT DIFFERENCE -0.6; MEAN CORPUSCULAR HGB CONC 32.5 g/dL (32.0-36.0); RED BLOOD COUNT 2.24 10^6/uL (3.72-5.28); WHITE BLOOD COUNT 2.8 10^3/uL (4.0-10.5)
[2017-04-03 15:09] LABS: MEAN CORPUSCULAR VOLUME 126 fl (80-97)
[2017-04-03 15:14] LABS: ANISOCYTOSIS 3+; BASOPHILS % (MANUAL) 1 % (0-2); EOSINOPHILS % (MANUAL) 0 % (0-6); LYMPHOCYTES % (MANUAL) 7 % (13-45); NUCLEATED RED BLOOD CELLS 2 /100 WBC (0); OVALOCYTES 2+; POIKILOCYTOSIS 2+; POLYCHROMASIA 1+; TEAR DROP CELLS SLIGHT; TOTAL CELLS COUNTED 100
[2017-04-03 15:15] LABS: HYPOCHROMASIA SLIGHT
[2017-04-03 15:21] LABS: TROPONIN I 0.049 ng/mL
[2017-04-03] MEDS ORDERED: NORMAL SALINE 1000 ML 500 ML IV ONE (19:31)
[2017-04-03 22:12] VITALS: BP 107/54
--- NOTE | 2017-04-03 22:13 | ER Document Report ---
Doctor's Note Notes: 04/03/17 22:11 Patient has remained stable throughout her stay. Transport is here to transfer her to [facility]. Heart rate has remained in the low 40s. Blood pressure has remained stable. Bed assignment at [facility] has been changed to an ICU bed, in the event that the patient needs a pacemaker. Patient appears to be stable medically for transfer. Sarah Quezada MD
== END 2017-04-03 22:29 | disposition short-term general hospital (02) ==
LOC: ER 11:15
DX: I44.2 Atrioventricular block, complete (principal); S00.83XA Contusion of other part of head, initial encounter; S09.90XA Unspecified injury of head, initial encounter; R55 Syncope and collapse; C50.919 Malignant neoplasm of unspecified site of unspecified female breast; C79.51 Secondary malignant neoplasm of bone; W19.XXXA Unspecified fall, initial encounter
CPT/HCPCS: 93005; 36591; 99285; 96360; 36415; 82553; 82962; 82550; 83735; 85025; 85610; 80053; 84484; 70450; 70486; 72125; 93010; J7030

== ENCOUNTER → 2017-04-29 | Outpatient (CLI) | payer BC, MEDICARE ==
--- NOTE | 2017-04-29 14:49 | RADIOLOGY REPORT (SQ) ---
EXAM DESCRIPTION: CT HEAD WITHOUT COMPLETED DATE/TIME: 04/29/2017 1:53 pm REASON FOR STUDY: NONTRAUMATIC SUBDURAL HEMORRHAGE, UNSPECIFIED I62.00 NONTRAUMATIC SUBDURAL HEMORR GREER, UNSPECIFIED COMPARISON: CT brain 04/03/2017, 10/03/2016 TECHNIQUE: Axial images acquired through the brain without intravenous contrast. Images reviewed wi th bone, brain and subdural windows. Images stored on PACS. All CT scanners at this facility use dose modulation, iterative reconstruction, and/or weight based d osing when appropriate to reduce radiation dose to as low as reasonably achievable (ALARA). [facility]: Dose Right [facility]: CareDose [facility]: Dose Right [facility]: Teradose 4D [facility]: [employer] RADIATION DOSE: Up-to-date CT equipment and radiation dose reduction techniques were employed. CTDIv ol: 49.0 mGy. DLP: 783 mGy-cm. mGy. LIMITATIONS: None. FINDINGS: Bilateral isodense subdural hemorrhages are present over the right frontal convexity and l eft frontoparietal convexity. These are similar compared to 04/03/2017 CT exam, on the right about 7 m m in thickness, on the left about 10 mm in thickness. No midline shift. No superimposed acute hemorrhage. Brain parenchyma, ventricles unremarkable. No CT evidence of acute large territory ischemic change. Calvarium, paranasal sinuses, mastoid air cells unremarkable. Orbits unremarkable. Report called to Dr. Zapata 1340 hours, 04/03/2017. IMPRESSION: Stable bilateral isodense subdural hemorrhages over the right frontal and left frontopar ietal regions. EVIDENCE OF ACUTE STROKE: NO. COMMENT: Quality ID # 436: Final reports with documentation of one or more dose reduction techniques (e.g., Automated exposure control, adjustment of the mA and/or kV according to patient size, use of iterative reconstruction technique) TECHNICAL DOCUMENTATION: JOB ID: [id number] [employer]- All Rights Reserved
--- NOTE | 2017-04-29 15:27 | RADIOLOGY REPORT (SQ) ---
EXAM DESCRIPTION: SHOULDER RIGHT 2 OR MORE VIEWS COMPLETED DATE/TIME: 04/29/2017 1:48 pm REASON FOR STUDY: ACUTE PAIN OF RIGHT SHOULDER I62.00 NONTRAUMATIC SUBDURAL HEMORRHAGE, UNSPECIFIED COMPARISON: None. NUMBER OF VIEWS: Three views. TECHNIQUE: Internal rotation, external rotation, and Y view images acquired of the right shoulder. LIMITATIONS: None. FINDINGS: MINERALIZATION: Osteoporotic BONES: No acute fracture or dislocation. No worrisome bone lesions. JOINTS: No glenohumeral malalignment. No widening of the acromioclavicular joint. VISUALIZED LUNGS AND RIBS: No right upper lobe infiltrate or right apical pneumothorax. Old healed p osterior right 5th 6th and 7th rib fractures with callus. SOFT TISSUES: No radiopaque foreign body. OTHER: Pacemaker over the right upper chest IMPRESSION: No acute fracture or malalignment TECHNICAL DOCUMENTATION: JOB ID: [id number] [employer]- All Rights Reserved
== END ==
LOC: RAD 13:15
PROVIDERS: ATTEND Family Medicine
DX: I62.00 Nontraumatic subdural hemorrhage, unspecified (principal); M25.511 Pain in right shoulder
CPT/HCPCS: 70450

== ENCOUNTER 2017-05-14 03:22 | Emergency (ER) | payer BC ==
--- NOTE | 2017-05-14 03:52 | ER Document Report ---
ED General - General TRAVEL OUTSIDE OF THE [place] IN LAST 30 DAYS: No - General Chief Complaint: Chest Pain Stated Complaint: RIP PAIN,CHEST PAIN Time Seen by Provider: 05/14/17 03:36 - HPI Notes: Pt w. a h/o DM, CAD (stent ), stage 4 breast CA, CHF (EF 35%), HTN who presents to the ED via EMS c/o since resolved rt lower rib pain that woke her up from sleep about 2 hours ago. The pain does not radiate and was constant for <1 hr. Pt states that she did have one episode of n/v prior to arrival. EMS gave her toradol, zofran, and aspirin. Pt states that she is feeling well with no concerns or complaints now. states that they did go out for dinner for the first time in a long time and she had prime rib and au jus. Pt denies having any recent illness otherwise. Pt never had any XAVIER, sob, palpitations. No other concerns or complaints at this time. Denies any calf/ leg pain. Pt urinating normally and having normal BM's. Denies any headache, fever, head injury, neck pain, changes in vision/speech/mentation/hearing, URI, sore throat, chest pain, palpitations, syncope, cough, shortness of breath, wheeze, dyspnea, abdominal pain, nausea/vomiting/diarrhea, urinary retention, dysuria, hematuria, loss of control of bowel or bladder, numbness/tingling, saddle anesthesia, muscle paralysis/weakness, or rash. (KELECHI HAYWOOD) - Related Data Allergies/Adverse Reactions: Sulfa (Sulfonamide Antibiotics) Allergy (Severe, Verified 04/03/17 11:35) Face swells ciprofloxacin [From Cipro] Allergy (Mild, Verified 04/03/17 11:35) Urticaria Penicillins Allergy (Mild, Verified 04/03/17 11:35) Urticaria Past Medical History - Social History Smoking Status: Unknown if Ever Smoked Family History: Reviewed & Not Pertinent, Hypertension - Past Medical History Cardiac Medical History: Reports: Hx Congestive Heart Failure, Hx Coronary Artery Disease, Hx Heart Attack, Hx Hypercholesterolemia, Hx Hypertension, Hx Heart Murmur Denies: Hx Atrial Fibrillation, Hx Peripheral Vascular Disease Pulmonary Medical History: Reports: Hx COPD Denies: Hx Asthma, Hx Bronchitis, Hx Pneumonia Neurological Medical History: Denies: Hx Cerebrovascular Accident, Hx Seizures Endocrine Medical History: Reports: Hx Diabetes Mellitus Type 2, Hx Hypothyroidism. Denies: Hx Graves' Disease, Hx Hyperthyroidism Renal/ Medical History: Reports: Hx Kidney Stones. Denies: Hx End Stage Renal Disease, Hx Ovarian Cysts, Hx Peritoneal Dialysis, Hx Pelvic Inflammatory Disease Malignancy Medical History: Reports: Hx Bone Cancer, Hx Breast Cancer - Bilateral, Stage IV. Denies: Hx Cervical Cancer, Hx Leukemia, Hx Ovarian Cancer GI Medical History: Reports: Hx Crohn's Disease. Denies: Hx Gastroesophageal Reflux Disease, Hx Hiatal Hernia, Hx Irritable Bowel, Hx Liver Failure, Hx Pancreatitis, Hx Ulcer Musculoskeltal Medical History: Reports Hx Arthritis, Denies Hx Fibromyalgia, Reports Hx Gout, Denies Hx Multiple Sclerosis, Denies Hx Muscular Dystrophy Psychiatric Medical History: Denies: Hx Bipolar Disorder, Hx Dementia, Hx Depression, Hx Post Traumatic Stress Disorder, Hx Schizophrenia Traumatic Medical History: Denies: Hx Fractures Infectious Medical History: Denies: Hx HIV Past Surgical History: Reports: Hx Appendectomy, Hx Cardiac Catheterization, Hx Coronary Stent - x2, Hx Mastectomy, Hx Neurologic Surgery. Denies: Hx Bowel Surgery, Hx Section, Hx Cholecystectomy, Hx Colostomy, Hx Coronary Artery Bypass Graft, Hx Gastric Bypass Surgery, Hx Herniorrhaphy, Hx Hysterectomy, Hx Pacemaker, Hx Tonsillectomy, Hx Tubal Ligation - Immunizations Hx Diphtheria, Pertussis, Tetanus Vaccination: No Hx Pneumococcal Vaccination: 04/27/14 Review of Systems - Review of Systems Notes: REVIEW OF SYSTEMS: CONSTITUTIONAL : Denies fever, chills, or sweats. Denies recent illness. EENT: Denies eye, ear, throat, or mouth pain or symptoms. Denies nasal or sinus congestion or discharge. Denies throat, tongue, or mouth swelling or difficulty swallowing. CARDIOVASCULAR: see hpi. Denies current chest pain. Denies palpitations or racing or irregular heart beat. Denies ankle edema. RESPIRATORY: Denies cough, cold, or chest congestion. Denies shortness of breath, difficulty breathing, or wheezing. GASTROINTESTINAL: Denies abdominal pain or distention. Denies nausea, vomiting , or diarrhea. Denies blood in vomitus, stools, or per rectum. Denies black, tarry stools. Denies constipation. GENITOURINARY: Denies difficulty urinating, painful urination, burning, frequency, blood in urine, or discharge. MUSCULOSKELETAL: Denies back or neck pain or stiffness. Denies joint pain or swelling. SKIN: Denies rash, lesions or sores. NEUROLOGICAL: Denies confusion or altered mental status. Denies passing out or loss of consciousness. Denies dizziness or lightheadedness. Denies headache. Denies weakness or paralysis or loss of use of either side. Denies problems with gait or speech. Denies sensory loss, numbness, or tingling. Denies seizures. PSYCHIATRIC: Denies anxiety or stress. Denies depression, suicidal ideation, or homicidal ideation. ALL OTHER SYSTEMS REVIEWED AND NEGATIVE. Dictation was performed using [employer] voice recognition software (KELECHI HAYWOOD) Physical Exam - Vital signs Vitals: Resp Pulse Ox 24 H 94 05/14/17 03:39 05/14/17 03:39 Notes: PHYSICAL EXAMINATION: GENERAL: Well-appearing, well-nourished and in no acute distress. A&Ox4. Pt appears to be comfortable and answering questions w/o difficulty. HEAD: Atraumatic, normocephalic. EYES: Pupils equal round and reactive to light, extraocular movements intact, sclera anicteric, conjunctiva are normal. ENT: Nares patent and without discharge. oropharynx clear without exudates. No tonsilar hypertrophy or erythema. Moist mucous membranes. No sinus tenderness. NECK: Normal range of motion, supple without lymphadenopathy Chest: no flail chest. No obvious step-offs. Non-tender to palp of chest or ribs. No accessory muscle use. LUNGS: Breath sounds clear to auscultation bilaterally and equal. No wheezes rales or rhonchi. HEART: Regular rate and rhythm without murmurs, rubs, gallops. ABDOMEN: Soft, nontender, nondistended abdomen. No guarding, no rebound. No masses appreciated. Normal bowel sounds present. No CVA tenderness bilaterally. Musculoskeletal: FROM to passive/active. Strength 5+/5. Isabella neg b/l. Extremities: + trace pitting edema LE's b/l. Peripheral pulses 2+. Capillary refill less than 3 seconds. NEUROLOGICAL: Cranial nerves grossly intact. Normal speech, normal gait. Normal sensory, motor exams PSYCH: Normal mood, normal affect. SKIN: Warm, Dry, normal turgor, no rashes or lesions noted. (KELECHI HAYWOOD) Course - Laboratory Result Diagrams: 05/14/17 04:30 05/14/17 04:30 - Re-evaluation Re-evalutation: 05/14/17 04:39 Patient was initially seen by the PA. Patient 76-year-old female who had a episode of pain underneath her right rib after eating. Pain is since resolved and she feels well without any complaints. She does have history of coronary disease as well as a history of stage IV breast cancer. She does have a port in the chest however the port was kinked and it is not able to be drawn from. They were unable to get blood on her peripherally and therefore tried a femoral stick. I was able to obtain blood from femoral stick over a clotted immediately and syringe and was not usable. We then had a crown assembly machine set up mechanic draw the blood. They have drawn the blood now and is sent for further evaluation. Vital signs are stable she otherwise looks well. She has no further complaints at this time. She is asymptomatic. If her laboratory evaluation is unremarkable and shows no evidence of significant leukocytosis or evidence of liver enzyme elevation I feel that she will be safe to be discharged home. I think coronary disease is unlikely because of her brief pain underneath the right rib. She may have had some spasm of her gallbladder or irritation from gallbladder. If she has no leukocytosis no elevated liver enzymes she remains pain-free I do not think she would need ultrasound at this time. However, if she develops recurrent pain or has any concerning lab abnormality then we will go forward with an ultrasound. Dictation of this chart was performed using voice recognition software; therefore, there may be some unintended grammatical errors. 05/14/17 04:41 (MANNY BETH) 05/14/17 05:[address] Beth, Pt cleared for discharge with close monitoring of symptoms. Pt to return with any worsening/concerning symptoms as reviewed in discharge. Pt/spouse in agreement. Reviewed with Dr. Oscar pt visit and lab results. They are scheduled for a recheck with him on Friday (2 days). (KELECHI HAYWOOD) - Vital Signs Vital signs: Temp Pulse Resp BP Pulse Ox 97.7 F 96 11 L 101/74 96 05/14/17 04:00 05/14/17 04:00 05/14/17 05:00 05/14/17 04:00 05/14/17 05:00 - Laboratory Laboratory results interpreted by me: 05/14/17 05/14/17 05/14/17 04:30 04:30 04:30 RBC 2.09 L Hgb 7.9 L Hct 23.4 L MCV 112 H MCH 38.0 H RDW 25.5 H Plt Count 119 L Seg Neuts % (Manual) 80 H Lymphocytes % (Manual) 10 L PT 15.5 H Glucose 118 H Direct Bilirubin 0.8 H AST 41 H Alkaline Phosphatase 206 H Creatine Kinase 21 L Total Protein 5.1 L Albumin 2.6 L Discharge - Discharge Clinical Impression: RUQ pain Anemia Qualifiers: Anemia type: unspecified type Qualified Code(s): D64.9 - Anemia, unspecified Condition: Stable Disposition: HOME, SELF-CARE Instructions: Low-Fat Diet ([facility]) Additional Instructions: Maintain adequate fluid and food intake [place] diet (B.R.A.T.) Bananas, rice, apples, toast, etc avoid fatty/greasy foods tylenol if needed Monitor for any worsening symptoms Make sure you are staying hydrated enough to urinate and have normal BM's Recheck with your PCM in 2-3 days Keep consult with Dr. Oscar on Friday. I did call him and reviewed your lab work and visit with us today. Return to the ED with any worsening symptoms and/or development of fever, headache, chest pain, palpitations, syncope, shortness of breath, trouble breathing, abdominal pain, n/v/d, blood in stool/urine, weakness, or other worsening symptoms that are concerning to you. Referrals: AVRIL HARRIS MD [Primary Care Provider] - 05/16/17 AFSHIN OSCAR MD [ACTIVE STAFF] - 05/16/17
--- NOTE | 2017-05-14 04:25 | RADIOLOGY REPORT (SQ) ---
EXAM DESCRIPTION: CHEST SINGLE VIEW COMPLETED DATE/TIME: 05/14/2017 4:07 am REASON FOR STUDY: chest pain COMPARISON: Chest x-ray 03/17/2017. PET/CT 12/06/2016. CT chest 10/31/2016. EXAM PARAMETERS: NUMBER OF VIEWS: One view. TECHNIQUE: Single frontal radiographic view of the chest acquired. RADIATION DOSE: NA LIMITATIONS: None. FINDINGS: LUNGS AND PLEURA: Small right pleural effusion with mild right basilar atelectasis. The l eft lung is clear. MEDIASTINUM AND HILAR STRUCTURES: No masses. Contour normal. HEART AND VASCULAR STRUCTURES: Heart normal in size. Normal vasculature. BONES: There are healed left-sided rib fractures. HARDWARE: There is a right-sided pacemaker. Left IJ Port-A-Cath with the tip overlying the region of the left subclavian vein. Surgical clips at the bilateral axillary regions. IMPRESSION: Small right pleural effusion and mild right basilar atelectasis. TECHNICAL DOCUMENTATION: JOB ID: [id number]
[2017-05-14 04:55] LABS: ALANINE AMINOTRANSFERASE 41 U/L (9-52); ALBUMIN 2.6 g/dL (3.5-5.0); ALKALINE PHOSPHATASE 206 U/L (38-126); ANION GAP 8 (5-19); ASPARTATE AMINO TRANSFERASE 41 U/L (14-36); BILIRUBIN,DIRECT 0.8 mg/dL (0.0-0.4); BILIRUBIN,TOTAL 1.1 mg/dL (0.2-1.3); BLOOD UREA NITROGEN 18 mg/dL (7-20); CALCIUM 9.4 mg/dL (8.4-10.2); CARBON DIOXIDE 24 mmol/L (22-30); CHLORIDE 106 mmol/L (98-107); CREATINE KINASE 21 U/L (30-135); CREATININE RESULT 0.69 mg/dL (0.52-1.25); GLUCOSE 118 mg/dL (75-110); POTASSIUM 4.6 mmol/L (3.6-5.0); SODIUM 138.2 mmol/L (137-145); TOTAL PROTEIN 5.1 g/dL (6.3-8.2)
[2017-05-14 05:00] LABS: HEMATOCRIT 23.4 % (36.0-47.0); HGB HCT DIFFERENCE 0.3; MEAN CORPUSCULAR HGB CONC 33.8 g/dL (32.0-36.0); RED BLOOD COUNT 2.09 10^6/uL (3.72-5.28); RED CELL DISTRIBUTION WIDTH 25.5 % (11.5-14.0); WHITE BLOOD COUNT 9.1 10^3/uL (4.0-10.5)
[2017-05-14 05:06] LABS: CREATINE KINASE MB 2.48 ng/mL (<4.55); TROPONIN I 0.027 ng/mL
[2017-05-14 05:07] LABS: PROTHROMBIN TIME 15.5 SEC (11.4-15.4)
[2017-05-14 05:08] LABS: PARTIAL THROMBOPLASTIN TIME 33.3 SEC (23.5-35.8)
[2017-05-14 05:20] LABS: BAND NEUTROPHILS % (MANUAL) 4 % (3-5); BASOPHILS % (MANUAL) 0 % (0-2); EOSINOPHILS % (MANUAL) 0 % (0-6); LYMPHOCYTES % (MANUAL) 10 % (13-45); NUCLEATED RED BLOOD CELLS 3 /100 WBC (0); TOTAL CELLS COUNTED 100
[2017-05-14 05:25] LABS: ANISOCYTOSIS 3+; OVALOCYTES SLIGHT; POIKILOCYTOSIS SLIGHT; POLYCHROMASIA 1+; TEAR DROP CELLS SLIGHT; TOXIC GRANULATION 1+
[2017-05-14 05:29] LABS: HEMOGLOBIN 7.9 g/dL (12.0-15.5)
[2017-05-14 05:31] LABS: MEAN CORPUSCULAR VOLUME 112 fl (80-97)
[2017-05-14 05:35] LABS: ADD ON TESTING BLD IN LAB ACKNOWLEDGE
[2017-05-14 05:42] LABS: LIPASE 185.4 U/L (23-300)
[2017-05-14 06:44] VITALS: BP 128/74
--- NOTE | 2017-05-14 17:36 | EKG REPORT ---
SEVERITY:- ABNORMAL ECG - ATRIAL-SENSED VENTRICULAR-PACED COMPLEXES PROBABLE LEFT ATRIAL ABNORMALITY INCOMPLETE RIGHT BUNDLE BRANCH BLOCK LOW VOLTAGE IN FRONTAL LEADS LEFT VENTRICULAR HYPERTROPHY : Confirmed by: Perri Mcgrath MD 14-May-2017 17:35:31
[2017-05-14 17:55] LABS: PATH REVIEW PATHOLOGIST REVIEWED
== END 2017-05-14 06:44 | disposition home or self-care (01) ==
LOC: ER 03:22
DX: R10.11 Right upper quadrant pain (principal); D64.9 Anemia, unspecified; R07.9 Chest pain, unspecified; E11.9 Type 2 diabetes mellitus without complications; I25.10 Atherosclerotic heart disease of native coronary artery without angina pectoris; Z85.3 Personal history of malignant neoplasm of breast; I50.9 Heart failure, unspecified
CPT/HCPCS: 36415; 71010; 80053; 82550; 82553; 83690; 84484; 85025; 85610; 85730; 93005; 93010; 99285

== ENCOUNTER → 2017-05-20 | Outpatient (CLI) | payer BC ==
--- NOTE | 2017-05-20 17:31 | RADIOLOGY REPORT (SQ) ---
EXAM DESCRIPTION: CHEST PA/LAT COMPLETED DATE/TIME: 05/20/2017 4:28 pm REASON FOR STUDY: CHRONIC SYSTOLIC(CONGESTIVE) HEART FAILURE (I50.22) COUGH (R05) COMPARISON: CT chest 10/31/2016 Two-view chest 03/12/2017, 03/16/2017, 03/17/2017, 05/14/2017 EXAM PARAMETERS: NUMBER OF VIEWS: two views TECHNIQUE: Digital Frontal and Lateral radiographic views of the chest acquired. RADIATION DOSE: NA LIMITATIONS: none FINDINGS: LUNGS AND PLEURA: No opacities, masses or pneumothorax. No pleural effusion. MEDIASTINUM AND HILAR STRUCTURES: No masses or contour abnormalities. HEART AND VASCULAR STRUCTURES: Stable moderate cardiomegaly BONES: Old healed left lateral and right posterior rib fractures HARDWARE: Surgical clips both axilla, bilateral mastectomies. Right-sided pacemaker/defibrillator. Left jugular central line with the tip in the left brachiocephalic vein. OTHER: No other significant finding. IMPRESSION: No acute infiltrates TECHNICAL DOCUMENTATION: JOB ID: [id number] [employer]- All Rights Reserved
== END ==
LOC: RAD 16:02
PROVIDERS: ATTEND Family Medicine
DX: I50.22 Chronic systolic (congestive) heart failure (principal); R05 Cough
CPT/HCPCS: 71020

== ENCOUNTER → 2017-05-25 | Outpatient (CLI) | payer BC ==
--- NOTE | 2017-05-26 10:28 | RADIOLOGY REPORT (SQ) ---
EXAM DESCRIPTION: PET CT SKULL/THIGH COMPLETED DATE/TIME: 05/25/2017 8:09 pm REASON FOR STUDY: BREAST/BONE CANCER C50.411 MALIG NEOPLM OF UPPER-OUTER QUADRANT OF RIGHT FEMALE C 79.51 SECONDARY MALIGNANT NEOPLASM OF BONE COMPARISON: 12/06/2016 RADIONUCLIDE AND DOSE: 11.8 mCi F18 FDG The route of agent administration: Intravenous FASTING BLOOD SUGAR: 88 Mg/dl CONTRAST TYPE AND DOSE: No CT contrast given. TECHNIQUE: Blood glucose level was verified. Above dose of FDG was injected intravenously. 2-D seg mented attenuation correction images were obtained from the base of the skull to the midthighs. Nonc ontrast CT images were obtained for attenuation correction and fusion with emission images. CT image s were performed without oral or intravenous contrast and are not sensitive for parenchymal lesions. A series of overlapping emission PET images were obtained. Images reviewed and manipulated at [facility] work station by the radiologist. Images stored on PACS. LIMITATIONS: None. FINDINGS: HEAD AND NECK: No areas of abnormal metabolic activity in the soft tissues of the head and neck. CHEST: No areas of abnormal metabolic activity in the chest. ABDOMEN AND PELVIS: No areas of abnormal metabolic activity in the abdomen or pelvis. Expected physi ologic activity is present in the genitourinary system and bowel. PROXIMAL LOWER EXTREMITIES: No areas of abnormal metabolic activity in the soft tissues of the lower extremities. BONES: Increased metabolic activity associated with multiple lytic lesions. No noticeable progressio n. ADDITIONAL CT FINDINGS: Bilateral pleural effusions, right greater than left, with volume on the righ t estimated just under 1 L. left-sided port tip in the brachycephalic vein. Pacemaker leads. OTHER: No other significant findings. IMPRESSION: Stable bone metastasis. New pleural effusions which are not hypermetabolic. TECHNICAL DOCUMENTATION: JOB ID: [id number] [employer]- All Rights Reserved
== END ==
LOC: RAD 15:50
PROVIDERS: ATTEND Internal Medicine
DX: C50.411 Malignant neoplasm of upper-outer quadrant of right female breast (principal); C79.51 Secondary malignant neoplasm of bone
CPT/HCPCS: 78815; A9552

== ENCOUNTER → 2017-06-11 | Outpatient (CLI) | payer BC ==
[2017-06-11 16:29] LABS: ANION GAP 8 (5-19); BLOOD UREA NITROGEN 20 mg/dL (7-20); CALCIUM 10.1 mg/dL (8.4-10.2); CARBON DIOXIDE 29 mmol/L (22-30); CHLORIDE 102 mmol/L (98-107); CREATININE RESULT 0.96 mg/dL (0.52-1.25); GLUCOSE 107 mg/dL (75-110); POTASSIUM 3.1 mmol/L (3.6-5.0); SODIUM 138.5 mmol/L (137-145)
[2017-06-13 14:22] LABS: ABSOLUTE LYMPHOCYTES (AUTO) 0.3 10^3/uL (0.5-4.7); ABSOLUTE MONOCYTES (AUTO) 0.1 10^3/uL (0.1-1.4); ABSOLUTE NEUT (AUTO) 0.7 10^3/uL (1.7-8.2); BASOPHILS % (AUTO) 0.7 % (0-2); EOSINOPHILS % (AUTO) 0.6 % (0-6); HEMATOCRIT 19.8 % (36.0-47.0); HGB HCT DIFFERENCE 0.3; MEAN CORPUSCULAR HEMOGLOBIN 35.2 pg (27.0-33.4); MEAN CORPUSCULAR HGB CONC 33.6 g/dL (32.0-36.0); MONOCYTES % (AUTO) 9.6 % (3-13); RED BLOOD COUNT 1.89 10^6/uL (3.72-5.28); RED CELL DISTRIBUTION WIDTH 26.6 % (11.5-14.0); SEGMENTED NEUTROPHILS % (AUTO) 62.1 % (42-78)
[2017-06-13 15:00] LABS: WHITE BLOOD COUNT 1.1 10^3/uL (4.0-10.5)
[2017-06-13 15:01] LABS: HEMOGLOBIN 6.7 g/dL (12.0-15.5); MEAN CORPUSCULAR VOLUME 105 fl (80-97)
[2017-06-13 15:03] LABS: TEAR DROP CELLS SLIGHT
[2017-06-13 15:04] LABS: ANISOCYTOSIS 3+; OVALOCYTES 1+; POIKILOCYTOSIS 2+; POLYCHROMASIA 1+; TOXIC GRANULATION SLIGHT
[2017-06-16 19:06] LABS: PATH REVIEW PATHOLOGIST REVIEWED
== END ==
LOC: OD 15:21
PROVIDERS: ATTEND Family Medicine
DX: E03.9 Hypothyroidism, unspecified (principal)
CPT/HCPCS: 36415; 80048; 85025

== ENCOUNTER 2017-06-13 17:19 | Emergency (ER) | payer BC ==
--- NOTE | 2017-06-13 19:31 | ER Document Report ---
ED General - General Chief Complaint: General Weakness Stated Complaint: WEAKNESS Time Seen by Provider: 06/13/17 18:40 Mode of Arrival: Stretcher Information source: Patient TRAVEL OUTSIDE OF THE [place] IN LAST 30 DAYS: No - HPI Patient complains to provider of: Abnormal labs Onset/Duration: Sudden Quality of pain: No pain Associated symptoms: Weakness Exacerbated by: Denies Relieved by: Denies Recently seen / treated by doctor: Yes Notes: Patient is a 76-year-old female who was sent to the emergency room by her oncologist for multiple lab abnormalities requiring blood and platelet transfusion, apparently patient saw her primary care provider, Dr. Zapata earlier in the week and had outpatient labs which showed anemia, today outpatient labs showed pancytopenia, she is a stage IV breast cancer patient who receives IM chemo injections every 21 days, she denies any fever no pain, no nausea or vomiting, no cough, cold or congestion, patient actually has no complaints at time of exam - Related Data Allergies/Adverse Reactions: Sulfa (Sulfonamide Antibiotics) Allergy (Severe, Verified 05/22/17 12:57) Face swells ciprofloxacin [From Cipro] Allergy (Mild, Verified 05/22/17 12:57) Urticaria Penicillins Allergy (Mild, Verified 05/22/17 12:57) Urticaria Past Medical History - General Information source: Patient, Relative - Social History Smoking Status: Never Smoker Chew tobacco use (# tins/day): No Frequency of alcohol use: None Drug Abuse: None Family History: Reviewed & Not Pertinent, Hypertension Patient has suicidal ideation: No Patient has homicidal ideation: No - Past Medical History Cardiac Medical History: Reports: Hx Congestive Heart Failure, Hx Coronary Artery Disease, Hx Heart Attack, Hx Hypercholesterolemia, Hx Hypertension, Hx Heart Murmur Denies: Hx Atrial Fibrillation, Hx Peripheral Vascular Disease Pulmonary Medical History: Reports: Hx COPD Denies: Hx Asthma, Hx Bronchitis, Hx Pneumonia Neurological Medical History: Denies: Hx Cerebrovascular Accident, Hx Seizures Endocrine Medical History: Reports: Hx Diabetes Mellitus Type 2, Hx Hypothyroidism. Denies: Hx Graves' Disease, Hx Hyperthyroidism Renal/ Medical History: Reports: Hx Kidney Stones. Denies: Hx End Stage Renal Disease, Hx Ovarian Cysts, Hx Peritoneal Dialysis, Hx Pelvic Inflammatory Disease Malignancy Medical History: Reports: Hx Bone Cancer, Hx Breast Cancer - Bilateral, Stage IV. Denies: Hx Cervical Cancer, Hx Leukemia, Hx Ovarian Cancer GI Medical History: Reports: Hx Crohn's Disease, Hx Gastroesophageal Reflux Disease. Denies: Hx Hiatal Hernia, Hx Irritable Bowel, Hx Liver Failure, Hx Pancreatitis, Hx Ulcer Musculoskeltal Medical History: Reports Hx Arthritis, Denies Hx Fibromyalgia, Reports Hx Gout, Denies Hx Multiple Sclerosis, Denies Hx Muscular Dystrophy Psychiatric Medical History: Denies: Hx Bipolar Disorder, Hx Dementia, Hx Depression, Hx Post Traumatic Stress Disorder, Hx Schizophrenia Traumatic Medical History: Denies: Hx Fractures Infectious Medical History: Denies: Hx HIV Past Surgical History: Reports: Hx Appendectomy, Hx Cardiac Catheterization, Hx Coronary Stent - x2, Hx Gynecologic Surgery - kidney stone removal, Hx Mastectomy - radical bilateral with lymph node removal, Hx Neurologic Surgery. Denies: Hx Bowel Surgery, Hx Section, Hx Cholecystectomy, Hx Colostomy , Hx Coronary Artery Bypass Graft, Hx Gastric Bypass Surgery, Hx Herniorrhaphy, Hx Hysterectomy, Hx Pacemaker, Hx Tonsillectomy, Hx Tubal Ligation - Immunizations Hx Diphtheria, Pertussis, Tetanus Vaccination: No Hx Pneumococcal Vaccination: 04/27/14 Review of Systems - Review of Systems Constitutional: No symptoms reported EENT: No symptoms reported Cardiovascular: No symptoms reported Respiratory: No symptoms reported Gastrointestinal: No symptoms reported Genitourinary: No symptoms reported Female Genitourinary: No symptoms reported Musculoskeletal: No symptoms reported Skin: No symptoms reported Hematologic/Lymphatic: See HPI Neurological/Psychological: No symptoms reported -: Yes All other systems reviewed and negative Physical Exam - Vital signs Vitals: Temp Pulse Resp BP Pulse Ox 98.6 F 108 H 18 107/51 L 96 06/13/17 17:36 06/13/17 17:36 06/13/17 17:36 06/13/17 17:36 06/13/17 17:36 Interpretation: Tachycardic - General General appearance: Alert In distress: None Notes: Chronically ill-appearing - HEENT Head: Normocephalic, Atraumatic Eyes: Normal Conjunctiva: Normal Extraocular movements intact: Yes Eyelashes: Normal Pupils: PERRL Mucous membranes: Dry Pharynx: Normal Neck: Normal - Respiratory Respiratory status: No respiratory distress, Other - Port is palpable in the left anterior chest wall, pacemaker is palpable in the right anterior chest wall Chest status: Nontender Breath sounds: Normal Chest palpation: Normal - Cardiovascular Rhythm: Regular, Tachycardia Heart sounds: Normal auscultation Murmur: No - Abdominal Inspection: Normal Distension: No distension Bowel sounds: Normal Tenderness: Nontender Organomegaly: No organomegaly - Back Back: Normal, Nontender - Extremities General upper extremity: Normal inspection, Nontender, Normal color, Normal ROM , Normal temperature General lower extremity: Normal inspection, Nontender, Normal color, Normal ROM , Normal temperature, Normal weight bearing. No: Isabella's sign - Neurological Neuro grossly intact: Yes Cognition: Normal Orientation: AAOx4 [place] Coma Scale Eye Opening: Spontaneous [place] Coma Scale Verbal: Oriented [place] Coma Scale Motor: Obeys Commands Irene Coma Scale Total: 15 Speech: Normal Motor strength normal: LUE, RUE, LLE, RLE Sensory: Normal - Psychological Associated symptoms: Flat affect - Skin Skin Temperature: Warm Skin Moisture: Dry Skin Color: Pale Course - Re-evaluation Re-evalutation: 06/13/17 20:03 Patient was discussed with Dr. Cage, who refuses to admit the patient to the hospital, states that there is an outpatient bed that she can go to for a transfusion and then be discharged Patient was discussed with on-call hydraulic repairer, Dr. Whitaker, who did discuss patient with Dr. Oscar earlier, requests that patient receive pretreatment with Benadryl and Tylenol, and then received Lasix in between units of blood, and reports that as long as things go well with the transfusion she does not see a reason why patient cannot be discharged afterwards - Vital Signs Vital signs: Temp Pulse Resp BP Pulse Ox 98.1 F 105 H 22 H 94/43 L 95 06/13/17 22:41 06/13/17 22:41 06/13/17 22:41 06/13/17 22:41 06/13/17 22:41 - Laboratory Result Diagrams: 06/13/17 19:45 Laboratory results interpreted by me: 06/13/17 06/13/17 06/13/17 19:45 19:45 19:45 Sodium 135.5 L BUN 25 H Est GFR (Non-Af Amer) 57 L Glucose 126 H Calcium 10.4 H Direct Bilirubin 0.7 H AST 44 H Alkaline Phosphatase 135 H Total Protein 5.2 L Albumin 2.6 L TSH 9.66 H Free T4 0.52 L Free T3 pg/mL 2.69 L Crossmatch See Detail Procedures - Additional Procedures IV insertion Time performed: 21:14 Additional Procedures: IV insertion - 20-gauge IV catheter placed in left antecubital space using ultrasound guidance Discharge - Discharge Clinical Impression: Pancytopenia Condition: Stable Disposition: HOME, SELF-CARE Instructions: Anemia ([facility]), Thrombocytopenia ([facility]) Additional Instructions: Follow up with your primary care provider and oncologist in one to 2 days. Return to the emergency room immediately if symptoms worsen or any additional concerns. Referrals: AVRIL ZAPATA MD [Primary Care Provider] - Follow up as needed
[2017-06-13] MEDS ORDERED: FUROSEMIDE INJ/PF 40 MG/4 ML SDV IV ONE (19:58)
[2017-06-13] MEDS ORDERED: ACETAMINOPHEN 325 MG TABLET PO ONE (19:58)
[2017-06-13] MEDS ORDERED: DIPHENHYDRAMINE HCL 50 MG/ML VIAL IV ONE (19:58)
[2017-06-13 20:28] LABS: ALANINE AMINOTRANSFERASE 27 U/L (9-52); ALBUMIN 2.6 g/dL (3.5-5.0); ALKALINE PHOSPHATASE 135 U/L (38-126); ANION GAP 8 (5-19); ASPARTATE AMINO TRANSFERASE 44 U/L (14-36); BILIRUBIN,DIRECT 0.7 mg/dL (0.0-0.4); BILIRUBIN,TOTAL 1.1 mg/dL (0.2-1.3); BLOOD UREA NITROGEN 25 mg/dL (7-20); CALCIUM 10.4 mg/dL (8.4-10.2); CARBON DIOXIDE 26 mmol/L (22-30); CHLORIDE 102 mmol/L (98-107); CREATININE RESULT 0.96 mg/dL (0.52-1.25); GLUCOSE 126 mg/dL (75-110); POTASSIUM 3.9 mmol/L (3.6-5.0); SODIUM 135.5 mmol/L (137-145); TOTAL PROTEIN 5.2 g/dL (6.3-8.2)
[2017-06-13 20:45] LABS: FREE T3 2.69 pg/mL (2.77-5.27)
[2017-06-13 20:58] LABS: THYROID STIMULATING HORMONE 9.66 uIU/mL (0.47-4.68)
[2017-06-13] MEDS ORDERED: NORMAL SALINE 1000 ML 1,000 ML IV PRN (21:01)
[2017-06-14] MEDS: NORMAL SALINE 250 ML IV PRN ×2 (02:05→04:21)
[2017-06-14] MEDS ORDERED: FUROSEMIDE INJ/PF 20 MG/2 ML SDV IV ONE (04:32)
--- NOTE | 2017-06-14 04:32 | ER Document Report ---
Doctor's Note Notes: 06/14/17 04:31 Patient is doing well. She is on her last unit of blood. Alert asked me whether or not she should give a full 40 mg of Lasix. I did reevaluate her. Lung bundy are completely clear she does not have significant edema in her lower extremities other than what appears to be some trace chronic edema. I will decrease Lasix dose to 20 mg. We will do this because she has had episodes where her blood pressure has been low 100s. After she is done with her infusion we will reassess her.
[2017-06-14 05:27] VITALS: BP 108/49
== END 2017-06-14 05:15 | disposition home or self-care (01) ==
LOC: ER 17:19
PROC: 05HY33Z Insertion of Infusion Device into Upper Vein, Percutaneous Approach (ICD-10-PCS; principal; 2017-06-13)
DX: D61.818 Other pancytopenia (principal); C50.919 Malignant neoplasm of unspecified site of unspecified female breast; R53.1 Weakness; Z79.899 Other long term (current) drug therapy
CPT/HCPCS: 36591; 99285; 96361; 96374; 96375; 86900; 86901; 36415; 84439; 36430; 86850; 84443; 80053; 84481; 86920; 36569; P9016; P9035; J1200; J1940; J7050

== ENCOUNTER 2017-06-25 18:16 | Inpatient (IN) | payer MEDICARE, BC ==
--- NOTE | 2017-06-25 19:50 | ER Document Report ---
ED General - General Chief Complaint: Altered Mental Status Stated Complaint: ALTERED MENTAL STATUS Time Seen by Provider: 06/25/17 19:21 Cannot obtain history due to: Altered mental status Notes: Patient is a 76-year-old female with a past medical history of stage IV breast cancer currently on chemotherapy, history of anemia of chronic disease, chronic thrombocytopenia, who presents with altered mental status. Patient is quite somnolent and unable to provide any meaningful history. at the bedside reports that for the past 24 hours patient has had increasing confusion, lack of energy, and has no longer been walking even using her walker for the past 1 week. He notes that she appears persistently weak and lethargic. She has not had a fever. He has not noted any additional symptoms. She has had some oral intake today although he notes much less than her normal. He contacted her oncologist and was instructed to come to the emergency department. TRAVEL OUTSIDE OF THE [place] IN LAST 30 DAYS: No - Related Data Allergies/Adverse Reactions: Sulfa (Sulfonamide Antibiotics) Allergy (Severe, Verified 06/13/17 23:22) Face swells ciprofloxacin [From Cipro] Allergy (Mild, Verified 06/13/17 23:22) Urticaria Penicillins Allergy (Mild, Verified 06/13/17 23:22) Urticaria Past Medical History - General Information source: Relative - Social History Smoking Status: Former Smoker Chew tobacco use (# tins/day): No Frequency of alcohol use: None Drug Abuse: None Lives with: Spouse/Significant other Family History: Reviewed & Not Pertinent, Hypertension Patient has suicidal ideation: No Patient has homicidal ideation: No - Past Medical History Cardiac Medical History: Reports: Hx Congestive Heart Failure, Hx Coronary Artery Disease, Hx Heart Attack, Hx Hypercholesterolemia, Hx Hypertension, Hx Heart Murmur Denies: Hx Atrial Fibrillation, Hx Peripheral Vascular Disease Pulmonary Medical History: Reports: Hx COPD Denies: Hx Asthma, Hx Bronchitis, Hx Pneumonia Neurological Medical History: Denies: Hx Cerebrovascular Accident, Hx Seizures Endocrine Medical History: Reports: Hx Diabetes Mellitus Type 2, Hx Hypothyroidism. Denies: Hx Graves' Disease, Hx Hyperthyroidism Renal/ Medical History: Reports: Hx Kidney Stones. Denies: Hx End Stage Renal Disease, Hx Ovarian Cysts, Hx Peritoneal Dialysis, Hx Pelvic Inflammatory Disease Malignancy Medical History: Reports: Hx Bone Cancer, Hx Breast Cancer - Bilateral, Stage IV. Denies: Hx Cervical Cancer, Hx Leukemia, Hx Ovarian Cancer GI Medical History: Reports: Hx Crohn's Disease, Hx Gastroesophageal Reflux Disease. Denies: Hx Hiatal Hernia, Hx Irritable Bowel, Hx Liver Failure, Hx Pancreatitis, Hx Ulcer Musculoskeltal Medical History: Reports Hx Arthritis, Denies Hx Fibromyalgia, Reports Hx Gout, Denies Hx Multiple Sclerosis, Denies Hx Muscular Dystrophy Psychiatric Medical History: Denies: Hx Bipolar Disorder, Hx Dementia, Hx Depression, Hx Post Traumatic Stress Disorder, Hx Schizophrenia Traumatic Medical History: Denies: Hx Fractures Infectious Medical History: Denies: Hx HIV Past Surgical History: Reports: Hx Appendectomy, Hx Cardiac Catheterization, Hx Coronary Stent - x2, Hx Gynecologic Surgery - kidney stone removal, Hx Mastectomy - radical bilateral with lymph node removal, Hx Neurologic Surgery. Denies: Hx Bowel Surgery, Hx Section, Hx Cholecystectomy, Hx Colostomy , Hx Coronary Artery Bypass Graft, Hx Gastric Bypass Surgery, Hx Herniorrhaphy, Hx Hysterectomy, Hx Pacemaker, Hx Tonsillectomy, Hx Tubal Ligation - Immunizations Hx Diphtheria, Pertussis, Tetanus Vaccination: No Hx Pneumococcal Vaccination: 04/27/14 Review of Systems - Review of Systems -: Yes ROS unobtainable due to patient's medical condition Physical Exam - Vital signs Vitals: Temp Pulse Resp BP Pulse Ox 97.9 F 92 20 114/50 L 97 06/25/17 18:19 06/25/17 18:19 06/25/17 18:19 06/25/17 18:19 06/25/17 18:19 Interpretation: Hypoxic Notes: PHYSICAL EXAMINATION: GENERAL: Ill in appearance. Pale, lying with her head against the back of the bed with her mouth open. HEAD: Atraumatic, normocephalic. EYES: Pupils equal round and reactive to light, extraocular movements intact, sclera anicteric, conjunctiva are normal. ENT: nares patent, oropharynx clear without exudates. Very dry mucous membranes. NECK: supple without lymphadenopathy LUNGS: Breat slightly diminished at the right base. No distress or retractions. HEART: Regular rate and rhythm without murmurs ABDOMEN: Soft, nontender, normoactive bowel sounds. No guarding, no rebound. No masses appreciated. EXTREMITIES: Trace edema in the bilateral lower extremities that is equal and symmetric. No cyanosis. NEUROLOGICAL: No focal neurological deficits. Moves all extremities spontaneously. PSYCH: Lethargic, will at best wake up and state her name but does not otherwise sleep. SKIN: Warm, Dry, poor skin turgor, no rashes or lesions noted. Course - Re-evaluation Re-evalutation: 06/25/17 19:47 Patient presents very ill in appearance, lethargic, struggles to even wake up to tell me her name although she is protecting her airway. She is a known stage IV metastatic breast cancer patient is currently receiving chemotherapy. She does appear very pale and has a history of anemia that has required recurrent blood transfusions in the past most recently approximately 1 week ago. Patient also appears clinically dehydrated on examination. She does not have any focal neurologic deficits, does move all extremities spontaneously. She presents with vitals that are overall within normal limits with exception of mild hypoxemia ranging between 90 and 91% which could be secondary to hypoventilation in the setting of her altered mental status versus a possible occult pneumonia. Patient also does have history of chronic subdural hematomas and there is some concern that she could have expansion of those subdurals. Alternative diagnostic considerations include dehydration as the etiology of her altered mental status or a possible occult urinary tract infection. Will obtain broad laboratories, chest x-ray, CT of the head, obtain IV access and reassess. The patient is considered critically ill at this time given her degree of altered mental status, borderline hypoxia, and need for frequent reassessments. 06/25/17 21:21 Patient remains with mild hypoxemia although improved with supplemental oxygen. Patient appears overall clinically unchanged. Chest x-ray does show a new right lower lobe pneumonia. Urinalysis also shows findings consistent with an acute urinary tract infection. CT the head does not show any change in her chronic subdurals. Will continue to reassess frequently. 06/25/17 22:40 Patient remains unchanged clinically. I discussed the case with Dr. Zapata who agrees to admit the patient. Patient is hypokalemic and I will have begun potassium and magnesium infusion. We are working on establishing a second point of IV access. I have also discussed this case with the oncologist on- call Dr. Whitaker who is in agreement with avoiding platelet transfusion and blood transfusion at this time. I have updated the patient's on the findings of today's assessment. - Vital Signs Vital signs: Temp Pulse Resp BP Pulse Ox 97.9 F 92 10 L 114/54 L 100 06/25/17 18:19 06/25/17 18:19 06/26/17 00:30 06/26/17 00:06 06/26/17 00:30 - Laboratory Result Diagrams: 06/25/17 21:20 06/25/17 21:20 Laboratory results interpreted by me: 06/25/17 06/25/17 06/25/17 20:35 21:20 21:20 WBC 1.2 L* RBC 2.08 L Hgb 7.4 L Hct 21.1 L MCV 101 H D MCH 35.6 H RDW 27.0 H Plt Count 19 L* Abs Neuts (Manual) 0.7 L Abs Lymphs (Manual) 0.4 L Potassium 2.9 L* BUN 23 H Est GFR (Non-Af Amer) 55 L Calcium 15.6 H* Total Bilirubin 1.5 H Direct Bilirubin 0.9 H AST 48 H Alkaline Phosphatase 172 H Total Protein 5.4 L Albumin 2.7 L Urine Blood SMALL H Ur Leukocyte Esterase LARGE H - Diagnostic Test Radiology reviewed: Image reviewed, Reports reviewed Radiology results interpreted by me: 06/26/17 01:49 Chest x-ray: Right lower lobe pneumonia Critical Care Note - Critical Care Note Total time excluding time spent on procedures (mins): 37 Comments: Critical care time spent obtaining history from patient or surrogate, discussions with consultants, development of treatment plan with patient or surrogate, evaluation of patient's response to treatment, examination of patient , ordering and performing treatments and interventions, ordering and review of laboratory studies, re-evaluation of patient's condition, ordering and review of radiographic studies and review of old charts Discharge - Discharge Clinical Impression: Hypoxia, Pyelonephritis, Anemia of chronic disease, Thrombocytopenia Neutropenia Qualifiers: Neutropenia type: secondary to cancer chemotherapy Qualified Code(s): D70.1 - Agranulocytosis secondary to cancer chemotherapy Right lower lobe pneumonia Qualifiers: Pneumonia type: due to unspecified organism Qualified Code(s): J18.1 - Lobar pneumonia, unspecified organism Altered mental status Qualifiers: Altered mental status type: somnolence Qualified Code(s): R40.0 - Somnolence Condition: Fair Disposition: ADMITTED INPATIENT Admitting Provider: [facility] Admitted: [facility]
[2017-06-25] MEDS ORDERED: NORMAL SALINE 1000 ML 500 ML IV ONE (20:43)
--- NOTE | 2017-06-25 21:03 | RADIOLOGY REPORT (SQ) ---
EXAM DESCRIPTION: CHEST SINGLE VIEW COMPLETED DATE/TIME: 06/25/2017 8:47 pm REASON FOR STUDY: cough, ams COMPARISON: 05/20/2017 EXAM PARAMETERS: NUMBER OF VIEWS: One view. TECHNIQUE: Single frontal radiographic view of the chest acquired. RADIATION DOSE: NA LIMITATIONS: None. FINDINGS: LUNGS AND PLEURA: New large Right basilar consolidation -effusion. No pneumothorax. The left lung appears clear. MEDIASTINUM AND HILAR STRUCTURES: Stable. HEART AND VASCULAR STRUCTURES: Stable. BONES: No acute findings. HARDWARE: Left chest port. Cardiac pacer. OTHER: No other significant finding. IMPRESSION: New large Right basilar consolidation -effusion. TECHNICAL DOCUMENTATION: JOB ID: [id number] [place]-72 2010 [employer]- All Rights Reserved
[2017-06-25 21:06] LABS: APPEARANCE,URINE CLOUDY; BILIRUBIN,URINE NEGATIVE (NEGATIVE); GLUCOSE, URINE NEGATIVE (NEGATIVE); KETONES,URINE NEGATIVE (NEGATIVE); LEUKOCYTE ESTERASE,URINE LARGE (NEGATIVE); NITRITE,URINE NEGATIVE (NEGATIVE); PROTEIN,URINE NEGATIVE (NEGATIVE); URINE SPECIFIC GRAVITY 1.005; UROBILINOGEN,URINE NEGATIVE mg/dL (<2.0)
--- NOTE | 2017-06-25 21:08 | RADIOLOGY REPORT (SQ) ---
EXAM DESCRIPTION: CT HEAD WITHOUT COMPLETED DATE/TIME: 06/25/2017 8:47 pm REASON FOR STUDY: ams, hx chronic subdurals COMPARISON: 04/29/2017 TECHNIQUE: Axial images acquired through the brain without intravenous contrast. Images reviewed wi th bone, brain and subdural windows. Images stored on PACS. All CT scanners at this facility use dose modulation, iterative reconstruction, and/or weight based d osing when appropriate to reduce radiation dose to as low as reasonably achievable (ALARA). [facility]: Dose Right [facility]: CareDose [facility]: Dose Right [facility]: Teradose 4D [facility]: [employer] RADIATION DOSE: mGy. LIMITATIONS: None. FINDINGS: VENTRICLES: Normal size and contour. CEREBRUM: Stable bilateral chronic subdural hematomas. No midline shift. No evidence for acute hemo rrhage. Stable white matter appearance. CEREBELLUM: No masses. No hemorrhage. No alteration of density. No evidence for acute infarction. EXTRAAXIAL SPACES: Stable bilateral chronic subdural hematomas. ORBITS AND GLOBE: No intra- or extraconal masses. Normal contour of globe without masses. CALVARIUM: No fracture. Increased mottled appearance of the bones. PARANASAL SINUSES: No fluid or mucosal thickening. SOFT TISSUES: No mass or hematoma. OTHER: No other significant finding. IMPRESSION: Stable bilateral chronic subdural hematomas. No midline shift. No evidence for acute h emorrhage. Increased mottled appearance of the bones. EVIDENCE OF ACUTE STROKE: NO. COMMENT: Quality ID # [id number]: Final reports with documentation of one or more dose reduction techniques (e.g., Automated exposure control, adjustment of the mA and/or kV according to patient size, use of iterative reconstruction technique) TECHNICAL DOCUMENTATION: JOB ID: [id number] [place]-72 2010 [employer]- All Rights Reserved
[2017-06-25] MEDS ORDERED: AZITHROMYCIN INJ 500 MG VIAL IV ONE (21:21)
[2017-06-25] MEDS ORDERED: CEFEPIME 2 GM/D5W RTU 2 GM/50 ML RTUPB IV ONE ×2 (21:21→23:00)
[2017-06-25 21:39] LABS: HEMATOCRIT 21.1 % (36.0-47.0); HGB HCT DIFFERENCE 1.1; MEAN CORPUSCULAR HEMOGLOBIN 35.6 pg (27.0-33.4); MEAN CORPUSCULAR HGB CONC 35.2 g/dL (32.0-36.0); RED BLOOD COUNT 2.08 10^6/uL (3.72-5.28)
[2017-06-25 21:49] LABS: MEAN CORPUSCULAR VOLUME 101 fl (80-97)
[2017-06-25 21:52] LABS: ALANINE AMINOTRANSFERASE 31 U/L (9-52); ALBUMIN 2.7 g/dL (3.5-5.0); ALKALINE PHOSPHATASE 172 U/L (38-126); ANION GAP 7 (5-19); ASPARTATE AMINO TRANSFERASE 48 U/L (14-36); BILIRUBIN,DIRECT 0.9 mg/dL (0.0-0.4); BILIRUBIN,TOTAL 1.5 mg/dL (0.2-1.3); BLOOD UREA NITROGEN 23 mg/dL (7-20); CARBON DIOXIDE 30 mmol/L (22-30); CHLORIDE 101 mmol/L (98-107); CREATININE RESULT 0.99 mg/dL (0.52-1.25); GLUCOSE 96 mg/dL (75-110); SODIUM 137.8 mmol/L (137-145); TOTAL PROTEIN 5.4 g/dL (6.3-8.2)
[2017-06-25 22:02] LABS: BASOPHILS % (MANUAL) 2 % (0-2); EOSINOPHILS % (MANUAL) 0 % (0-6); LYMPHOCYTES % (MANUAL) 30 % (13-45); NUCLEATED RED BLOOD CELLS 8 /100 WBC (0); TOTAL CELLS COUNTED 50
[2017-06-25 22:08] LABS: ANISOCYTOSIS 3+; OVALOCYTES SLIGHT; POIKILOCYTOSIS 1+; POLYCHROMASIA SLIGHT; SCHISTOCYTES SLIGHT; TEAR DROP CELLS SLIGHT; TOXIC GRANULATION 1+
[2017-06-25 22:11] LABS: CALCIUM 15.6 mg/dL (8.4-10.2)
[2017-06-25 22:12] LABS: POTASSIUM 2.9 mmol/L (3.6-5.0)
[2017-06-25 22:13] LABS: HEMOGLOBIN 7.4 g/dL (12.0-15.5)
[2017-06-25 22:16] LABS: WHITE BLOOD COUNT 1.2 10^3/uL (4.0-10.5)
[2017-06-25] MEDS ORDERED: LEVALBUTEROL HCL NEB 0.63 MG/3 ML AMPUL NEB PRN (22:33)
[2017-06-25] MEDS ORDERED: ACETAMINOPHEN 325 MG TABLET PO PRN (22:33)
[2017-06-25] MEDS ORDERED: GLUCAGON,HUMAN RECOMB 1 MG INJ IM PRN (22:41)
[2017-06-25] MEDS ORDERED: DEXTROSE 40% GEL 15 GM TUBE PO PRN ×2 (22:41)
[2017-06-25] MEDS ORDERED: INSULIN LISPRO 100 UNIT/ML 3 ML VIAL SUBCUT PRN (22:41)
[2017-06-25] MEDS ORDERED: DEXTROSE 50%-WATER 25 GM/50 ML DISP.SYRIN IV PRN ×2 (22:41)
[2017-06-25] MEDS: MAGNESIUM SULFATE/D5W 1 GM/100 ML RTUPB IV SCH (23:34)
[2017-06-25] MEDS: POTASSI CL 20 MEQ/50 ML RIDER 20 MEQ/50 ML RTUPB IV SCH (23:34)
[2017-06-26] MEDS: MAGNESIUM SULFATE/D5W 1 GM/100 ML RTUPB IV SCH (00:38)
[2017-06-26] MEDS: POTASSI CL 20 MEQ/50 ML RIDER 20 MEQ/50 ML RTUPB IV SCH (00:38)
--- NOTE | 2017-06-26 02:26 | RADIOLOGY REPORT (SQ) ---
EXAM DESCRIPTION: CT LTD RENAL STONE PROTOCOL ON COMPLETED DATE/TIME: 06/26/2017 1:59 am REASON FOR STUDY: eval renal obstruction . Diffuse abdominal pain. History of inflammatory breast cancer with bone metastases. COMPARISON: PET/ CT 05/25/2017. CTA chest 10/31/2016. TECHNIQUE: CT scan of the abdomen and pelvis performed without intravenous or oral contrast. Images reviewed with lung, soft tissue, and bone windows. Reconstructed coronal and sagittal MPR images revi ewed. All images stored on PACS. All CT scanners at this facility use dose modulation, iterative reconstruction, and/or weight based d osing when appropriate to reduce radiation dose to as low as reasonably achievable (ALARA). [facility]: Dose Right [facility]: CareDose [facility]: Dose Right [facility]: Teradose 4D [facility]: [employer] RADIATION DOSE: mGy. LIMITATIONS: None. FINDINGS: LOWER CHEST: Large right-sided pleural effusion with atelectasis at the right middle and l ower lobes. Moderate left-sided pleural effusion with atelectasis at the left lower lobe. There is cardiomegaly. Partially visualized pacemaker wires. NON-CONTRASTED LIVER, SPLEEN, ADRENALS: Evaluation limited by lack of IV contrast. No identified sign ificant masses. PANCREAS: No peripancreatic inflammatory changes. GALLBLADDER: Hyperdensity noted within the gallbladder. RIGHT KIDNEY AND URETER: Assessment for masses limited by lack of IV contrast. There is a nonobstru cting 3 mm calculus at the inferior pole of the right kidney There is severe hydronephrosis. No ur eteral calculus is identified. LEFT KIDNEY AND URETER: Assessment for masses limited by lack of IV contrast. There is severe hydro nephrosis. No obstructing ureteral calculus is identified. AORTA AND RETROPERITONEUM: Atherosclerotic calcifications within the abdominal aorta and its branches . No abdominal aortic aneurysm. No retroperitoneal hemorrhage. BOWEL AND PERITONEAL CAVITY: No dilated bowel loops. There is colonic diverticulosis with no CT evid ence for acute diverticulitis. Small amount of ascites. APPENDIX: Surgically absent. PELVIS, BLADDER, AND ABDOMINAL WALL:The urinary bladder is partially distended. The uterus is presen t. 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 Trace free pelvic f luid. Small fat containing umbilical hernia. There are small fat containing umbilical hernias. BONES: Multiple osseous sclerotic lesions, consistent with known metastasis. Pathologic fractures wi th compression deformities at T10 and L2 vertebral bodies. Multilevel degenerative disc disease with in the spine. IMPRESSION: 1. Severe bilateral hydronephrosis. No obstructing ureteral calculi are identified. 2. Nonobstructing right nephrolithiasis. 3. Small ascites. 4. Hyperdense material within the gallbladder, suggestive of cholelithiasis. 5. Colonic diverticulosis. 6. Large right-sided pleural effusion with atelectasis at the right middle and right lower lobes. 7. Moderate left-sided pleural effusion with atelectasis at the left lower lobe. 8. Cardiomegaly. 9. 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 COMMENT: Quality ID # [id number]: Final reports with documentation of one or more dose reduction techniques (e.g., Automated exposure control, adjustment of the mA and/or kV according to patient size, use of iterative reconstruction technique) TECHNICAL DOCUMENTATION: JOB ID: [id number] [place]-[id number] 2010 [employer]- All Rights Reserved
[2017-06-26 05:41] LABS: HEMATOCRIT 20.7 % (36.0-47.0); HGB HCT DIFFERENCE 0.6; MEAN CORPUSCULAR HGB CONC 34.3 g/dL (32.0-36.0); MEAN CORPUSCULAR VOLUME 99 fl (80-97); RED BLOOD COUNT 2.09 10^6/uL (3.72-5.28)
[2017-06-26 05:46] LABS: ALANINE AMINOTRANSFERASE 31 U/L (9-52); ALBUMIN 2.4 g/dL (3.5-5.0); ALKALINE PHOSPHATASE 152 U/L (38-126); ANION GAP 7 (5-19); ASPARTATE AMINO TRANSFERASE 44 U/L (14-36); BILIRUBIN,DIRECT 0.7 mg/dL (0.0-0.4); BILIRUBIN,TOTAL 1.2 mg/dL (0.2-1.3); BLOOD UREA NITROGEN 24 mg/dL (7-20); CARBON DIOXIDE 29 mmol/L (22-30); CHLORIDE 104 mmol/L (98-107); GLUCOSE 101 mg/dL (75-110); SODIUM 139.6 mmol/L (137-145); TOTAL PROTEIN 4.8 g/dL (6.3-8.2)
[2017-06-26 06:03] LABS: POTASSIUM 2.9 mmol/L (3.6-5.0)
[2017-06-26 06:45] LABS: BAND NEUTROPHILS % (MANUAL) 1 % (3-5); BASOPHILS % (MANUAL) 2 % (0-2); EOSINOPHILS % (MANUAL) 3 % (0-6); LYMPHOCYTES % (MANUAL) 32 % (13-45); NUCLEATED RED BLOOD CELLS 5 /100 WBC (0); TOTAL CELLS COUNTED 100
[2017-06-26 06:47] LABS: ANISOCYTOSIS 3+; OVALOCYTES 1+; POIKILOCYTOSIS 2+; POLYCHROMASIA SLIGHT; TOXIC GRANULATION SLIGHT
[2017-06-26 06:48] LABS: SCHISTOCYTES SLIGHT; TEAR DROP CELLS 2+
[2017-06-26 06:59] LABS: WHITE BLOOD COUNT 1.3 10^3/uL (4.0-10.5)
[2017-06-26] MEDS ORDERED: OXYCODONE HCL IR 5 MG TABLET PO PRN (07:20)
[2017-06-26] MEDS ORDERED: POTASSIUM CHLORIDE 10 MEQ TABLET.SA PO ONE (07:30)
[2017-06-26] MEDS ORDERED: FUROSEMIDE INJ/PF 20 MG/2 ML SDV IV ONE (07:45)
[2017-06-26] MEDS ORDERED: LANSOPRAZOLE 30 MG TAB.RAP.DR PO ONE (07:45)
[2017-06-26] MEDS: POTASSIUM CHLORIDE 20 MEQ/50 ML RTU IV SCH ×2 (08:12→13:01)
[2017-06-26] MEDS ORDERED: LEVOTHYROXINE SODIUM 0.025 MG TABLET PO ONE (08:45)
[2017-06-26] MEDS ORDERED: DIPHENHYDRAMINE HCL 25 MG CAPSULE PO PRN (09:00)
[2017-06-26] MEDS ORDERED: ACETAMINOPHEN 325 MG TABLET PO PRN (09:01)
[2017-06-26] MEDS ORDERED: ZOLEDRONIC ACID/MANNITOL/WATER 4 MG/100 ML INFUS..BTL IV PRN (09:06)
--- NOTE | 2017-06-26 09:24 | PDOC CONSULTATION ---
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 Past Medical History Cardiac Medical History: Reports: Congestive Heart Failure, Coronary Artery Disease, Myocardial Infarction, Hyperlipidema, Hypertension, Heart Murmur Denies: Atrial Fibrillation, Peripheral Vascular Disease Pulmonary Medical History: Reports: Chronic Obstructive Pulmonary Disease (COPD) Denies: Asthma, Bronchitis, Pneumonia Neurological Medical History: Denies: Seizures Endocrine Medical History: Reports: Diabetes Mellitus Type 2, Hypothyroidism Denies: Hyperthyroidism Renal/ Medical History: Denies: End Stage Renal Disease Malignancy Medical History: Reports: Bone Cancer, Breast Cancer - Bilateral, Stage IV Denies: Cervical Cancer, Leukemia, Ovarian Cancer GI Medical History: Reports: Crohn's Disease, Gastroesophageal Reflux Disease Denies: Hiatal Hernia Musculoskeltal Medical History: Reports: Arthritis, Gout Denies: Fibromyalgia Psychiatric Medical History: Denies: Bipolar Disorder, Dementia, Depression, Post Traumatic Stress Disorder Hematology: Reports: Anemia - With Denies: Hemophilia, Sickle Cell Disease Infectious Medical History: Denies: HIV Past Surgical History Past Surgical History: Reports: Appendectomy, Cardiac Catheterization, Coronary Stent - x2, Mastectomy - radical bilateral with lymph node removal Denies: Amputation, Section, Cholecystectomy, Colostomy, Coronary Artery Bypass Graft, Gastric Bypass Surgery, Herniorrhaphy, Hysterectomy, Pacemaker, Tonsillectomy, Tubal Ligation Social History Lives with: Spouse/Significant other Smoking Status: Former Smoker Last Time Smoked: 1963 Frequency of Alcohol Use: None Hx Recreational Drug Use: No Drugs: None Hx Prescription Drug Abuse: No - Advance Directive Resuscitation Status: Full Code Family History Family History: Reviewed & Not Pertinent, Hypertension Parental Family History Reviewed: Yes Children Family History Reviewed: Yes Sibling(s) Family History Reviewed.: Yes Medication/Allergy Home Medications: Aspirin [Aspirin EC] 81 mg PO DAILY 06/26/17 Atorvastatin Calcium 20 mg PO DAILY 06/26/17 Levothyroxine Sodium [Synthroid 0.025 mg Tablet] 0.025 mg PO [id number] 06/26/17 Magnesium Oxide [Mag-Ox 400 mg Tablet] 400 mg PO DAILY 06/26/17 Multivitamin [Daily Multiple Vitamin] 1 each PO DAILY 06/26/17 Oxycodone HCl 10 mg PO Q6 PRN 06/26/17 Palbociclib [Ibrance] 125 mg PO DAILY 06/26/17 Pantoprazole Sodium 40 mg PO QHS 06/26/17 Potassium Chloride 10 meq PO DAILY 06/26/17 Torsemide [Demadex 20 mg Tablet] 10 mg PO DAILY 06/26/17 Allergies/Adverse Reactions: Sulfa (Sulfonamide Antibiotics) Allergy (Severe, Verified 06/13/17 23:22) Face swells ciprofloxacin [From Cipro] Allergy (Mild, Verified 06/13/17 23:22) Urticaria Penicillins Allergy (Mild, Verified 06/13/17 23:22) Urticaria Review of Systems ROS unobtainable: Due to mental status Physical Exam Vital Signs: Temp Pulse Resp BP Pulse Ox 97.4 F 69 19 114/43 L 100 06/26/17 07:29 06/26/17 07:29 06/26/17 07:29 06/26/17 07:29 06/26/17 07:29 Intake & Output 06/25/17 06/26/17 06/27/17 06:59 06:59 06:59 Intake Total 10 Output Total 0 Balance 10 Weight 82.7 kg General appearance: PRESENT: no acute distress, well-developed, well-nourished Head exam: PRESENT: atraumatic, normocephalic Eye exam: PRESENT: conjunctiva pink, EOMI, PERRLA. ABSENT: scleral icterus Ear exam: PRESENT: normal external ear exam Mouth exam: PRESENT: moist, tongue midline Neck exam: ABSENT: carotid bruit, JVD, lymphadenopathy, thyromegaly Respiratory exam: PRESENT: clear to auscultation chad. ABSENT: rales, rhonchi, wheezes Cardiovascular exam: PRESENT: RRR. ABSENT: diastolic murmur, rubs, systolic murmur Pulses: PRESENT: normal dorsalis pedis pul Vascular exam: PRESENT: normal capillary refill GI/Abdominal exam: PRESENT: normal bowel sounds, soft. ABSENT: distended, guarding, mass, organolmegaly, rebound, tenderness Rectal exam: PRESENT: deferred Extremities exam: PRESENT: full ROM. ABSENT: calf tenderness, clubbing, pedal edema Neurological exam: PRESENT: alert, awake, oriented to person, oriented to place , oriented to time, oriented to situation, CN II-XII grossly intact. ABSENT: motor sensory deficit Psychiatric exam: PRESENT: appropriate affect, normal mood. ABSENT: homicidal ideation, suicidal ideation Skin exam: PRESENT: dry, intact, warm. ABSENT: cyanosis, rash Results Laboratory Results: 06/26/17 04:18 06/26/17 04:18 06/26/17 06/26/17 04:18 04:18 WBC 1.3 L* RBC 2.09 L Hgb 7.1 L Hct 20.7 L MCV 99 H MCH 34.0 H MCHC 34.3 RDW 26.0 H Plt Count 19 L* Seg Neutrophils % Not Reportable Lymphocytes % Not Reportable Monocytes % Not Reportable Eosinophils % Not Reportable Basophils % Not Reportable Absolute Neutrophils Not Reportable Absolute Lymphocytes Not Reportable Absolute Monocytes Not Reportable Absolute Eosinophils Not Reportable Absolute Basophils Not Reportable Sodium 139.6 Potassium 2.9 L* Chloride 104 Carbon Dioxide 29 Anion Gap 7 BUN 24 H Creatinine 1.00 Est GFR ( Amer) > 60 Est GFR (Non-Af Amer) 54 L Glucose 101 Calcium 15.0 H* Total Bilirubin 1.2 AST 44 H ALT 31 Alkaline Phosphatase 152 H Total Protein 4.8 L Albumin 2.4 L Impressions: Chest X-Ray 06/25/17 19:23 IMPRESSION: New large Right basilar consolidation -effusion. Head CT 06/25/17 19:47 IMPRESSION: Stable bilateral chronic subdural hematomas. No midline shift. No evidence for acute hemorrhage. Increased mottled appearance of the bones. EVIDENCE OF ACUTE STROKE: NO. Limited or Localized CT 06/26/17 00:00 IMPRESSION: 1. Severe bilateral hydronephrosis. No obstructing ureteral calculi are identified. 2. Nonobstructing right nephrolithiasis. 3. Small ascites. 4. Hyperdense material within the gallbladder, suggestive of cholelithiasis. 5. Colonic diverticulosis. 6. Large right-sided pleural effusion with atelectasis at the right middle and right lower lobes. 7. Moderate left-sided pleural effusion with atelectasis at the left lower lobe. 8. Cardiomegaly. 9. 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 Status: Image reviewed by me Assessment & Plan - Diagnosis (1) Pancytopenia due to chemotherapy Is this a current diagnosis for this admission?: Yes Plan: Pancytopenia in some part secondary to chemotherapy in some part secondary to cardiac cirrhosis, we will discontinue her IBRANCE, she will no longer be a candidate for that, we will plan to transfuse 2 units packed red blood cells as well as 2 units of platelets, but ultimately the prognosis is very poor. We will have further discussions with . (2) Breast cancer metastasized to axillary lymph node Qualifiers: Laterality: right Qualified Code(s): C50.911 - Malignant neoplasm of unspecified site of right female breast; C77.3 - Secondary and unspecified malignant neoplasm of axilla and upper limb lymph nodes; C77.3 - Secondary and unspecified malignant neoplasm of axilla and upper limb lymph nodes; C77.3 - Secondary and unspecified malignant neoplasm of axilla and upper limb lymph nodes; C77.3 - Secondary and unspecified malignant neoplasm of axilla and upper limb lymph nodes Is this a current diagnosis for this admission?: Yes Plan: Breast cancer with bone metastasis, holding all therapy, will need to have long conversation with , probably will do that this afternoon or in office if wants to come to office, ultimately I believe hospice would be the best course of action (3) Hypercalcemia Is this a current diagnosis for this admission?: Yes Plan: Likely secondary to bone metastasis, will give Zometa today - Time Time Spent: Greater than 70 Minutes - Inpatient Certification Based on my medical assessment, after consideration of the patient's comorbidities, presenting symptoms, or acuity I expect that the services needed warrant INPATIENT care.: Yes I certify that my determination is in accordance with my understanding of Medicare's requirements for reasonable and necessary INPATIENT services [42 CFR 412.3e].: Yes Medical Necessity: Failure to Improve With Outpatient Therapy, Need For Continuous Telemetry Monitoring, Need for IV Antibiotics, Risk of Complication if Not Cared For in Hospital
[2017-06-26] MEDS ORDERED: LEVOFLOXACIN 500 MG/D5W RTU 100 ML IV SCH (10:00)
[2017-06-26] MEDS ORDERED: CEFEPIME 2 GM/D5W RTU 2 GM/50 ML RTUPB IV SCH (10:00)
[2017-06-26] MEDS ORDERED: GUAIFENESIN 600 MG TABLET.SA PO SCH (10:00)
[2017-06-26 10:16] LABS: PROTHROMBIN TIME 16.2 SEC (11.4-15.4)
[2017-06-26] MEDS: MAGNESIUM OXIDE 400 MG TABLET PO SCH (12:07)
[2017-06-26] MEDS: CEFEPIME 2 GM/D5W RTU 2 GM/50 ML RTUPB IV SCH ×2 (12:22→22:45)
--- NOTE | 2017-06-26 12:44 | RADIOLOGY REPORT (SQ) ---
EXAM DESCRIPTION: PICC INSERTION; FLUORO/CV PLACEMENT; U/S GUIDE FOR VASCULAR ACCESS COMPLETED DATE/TIME: 06/26/2017 11:52 am REASON FOR STUDY: unable to obtain adequate IV access; IV ACCESS COMPARISON: AP chest 06/25/2017 FLUOROSCOPY TIME: 1 minutes 43 seconds 1 ultrasound and 1 digital chest radiograph saved to PACS. TECHNIQUE: Fluoroscopic and ultrasound guided PICC placement. LIMITATIONS: None. PROCEDURE: After written consent and assessment were obtained, the patient was brought into the fluo roscopy room and place supine on the table. Ultrasound was used on the patient's right arm for PICC access. The right arm was prepped and draped in a sterile fashion along with the ultrasound probe. Th e entry site was anesthetized with 2.5 mL of 1% lidocaine. A 21 gauge 7 cm needle was advanced throug h the skin and into the basilic vein under live ultrasound guidance. An ultrasound image was saved t o PACS confirming access site. A .018 guide wire was then inserted through the needle and into the v enous system. The needle was the removed and an 11 blade scalpel was used to make a 1cm skin incision . A 5 fr peel-away sheath was advanced over the wire and into the venous system. A measurement was t hen made using the existing wire and live fluoroscopic guidance. The wire was then removed and the tr immed. The PICC was advanced through the peel-away sheath and into the venous system. The peel-away s devin was removed and the catheter was adhered to the patients arm with a stat lock. The catheter was then aspirated and flushed and a sterile bandage was placed over the access site. A fluoroscopic sp ot image was saved to PACS confirming the catheter tip within the superior vena cava. IMPRESSION: SUCCESSFUL PLACEMENT OF A 5 FR DUAL LUMEN 35 CM PICC IN THE RIGHT BASILIC VEIN. COMMENT: Patient medication list reviewed: Yes- Quality ID# [id number]:Eligible professional attests to doc umenting in the medical record they obtained, updated, or reviewed the patient's current medications. . Quality ID 145: Final reports for procedures using fluoroscopy that document radiation exposure tyron marleen, or exposure time and number of fluorographic images (if radiation exposure indices are not avail able) Quality ID #76: The patient was prepped and draped using maximum sterile barrier technique including cap, mask, sterile gown, sterile gloves, a large sterile sheet, hand hygiene, and 2% Chlorhexidine fo r cutaneous antisepsis. When ultrasound is used, sterile ultrasound techniques are followed requiring sterile gel and sterile probes. TECHNICAL DOCUMENTATION: JOB ID: [id number] [employer]- All Rights Reserved
--- NOTE | 2017-06-26 13:17 | PDOC H&P ---
History of Present Illness Admission Date/PCP: 06/25/17 23:29 AVRIL HARRIS MD Patient complains of: Altered mental status History of Present Illness: There is a [id number] the stage for breast cancers with the metastatic diseaseAnd history of the congestive heart failure both systolic and diastolic with coronary artery disease and history of the chronic subdural hematoma and a history of the pancytopeniaCame to the emergency department by the because of the patient's not feeling well more lethargic and the patient was hypoxic In the ER patient CT of the head was stable with the chronic subdural hematoma patient's x-ray suggests the right-sided pneumoniaPatient have a bilateral pleural effusions Patient's also have a CT abdomen and pelvis was done with suggest the severe hydronephrosis without obstructing any kidney stones Patient's when I saw it up to the oxygens little bit more alert awake but still very tired and ill looking Patient's denied any chest pain denied any shortness of the breath Patient's hemoglobin is 7.4 and patient's platelet count is 19 Patient's potassium is also low and patient's calcium level is 15 Very extensive discussion with the patient and oncology regarding the patient's current conditions with him not a very good prognosis and understand very well and discuss about the CODE STATUS and patient's is going to think about itAnd talk to other family member Past Medical History Cardiac Medical History: Reports: Congestive Heart Failure, Coronary Artery Disease, Myocardial Infarction, Hyperlipidema, Hypertension, Heart Murmur Denies: Atrial Fibrillation, Peripheral Vascular Disease Pulmonary Medical History: Reports: Chronic Obstructive Pulmonary Disease (COPD) Denies: Asthma, Bronchitis, Pneumonia Neurological Medical History: Denies: Seizures Endocrine Medical History: Reports: Diabetes Mellitus Type 2, Hypothyroidism Denies: Hyperthyroidism Renal/ Medical History: Denies: End Stage Renal Disease Malignancy Medical History: Reports: Bone Cancer, Breast Cancer - Bilateral, Stage IV Denies: Cervical Cancer, Leukemia, Ovarian Cancer GI Medical History: Reports: Crohn's Disease, Gastroesophageal Reflux Disease Denies: Hiatal Hernia Musculoskeltal Medical History: Reports: Arthritis, Gout Denies: Fibromyalgia Psychiatric Medical History: Denies: Bipolar Disorder, Dementia, Depression, Post Traumatic Stress Disorder Hematology: Reports: Anemia - With Denies: Hemophilia, Sickle Cell Disease Infectious Medical History: Denies: HIV Past Surgical History Past Surgical History: Reports: Appendectomy, Cardiac Catheterization, Coronary Stent - x2, Mastectomy - radical bilateral with lymph node removal Denies: Amputation, Section, Cholecystectomy, Colostomy, Coronary Artery Bypass Graft, Gastric Bypass Surgery, Herniorrhaphy, Hysterectomy, Pacemaker, Tonsillectomy, Tubal Ligation Social History Lives with: Spouse/Significant other Smoking Status: Former Smoker Last Time Smoked: 1962 Frequency of Alcohol Use: None Hx Recreational Drug Use: No Drugs: None Hx Prescription Drug Abuse: No - Advance Directive Resuscitation Status: Full Code Family History Family History: Reviewed & Not Pertinent, Hypertension Parental Family History Reviewed: Yes Children Family History Reviewed: Yes Sibling(s) Family History Reviewed.: Yes Medication/Allergy Home Medications: Aspirin [Aspirin EC] 81 mg PO DAILY 06/26/17 Atorvastatin Calcium 20 mg PO QHS 06/26/17 Levothyroxine Sodium [Synthroid 0.025 mg Tablet] 0.025 mg PO [id number] 06/26/17 Magnesium Oxide [Mag-Ox 400 mg Tablet] 400 mg PO DAILY 06/26/17 Multivitamin/Iron/Folic Acid [Centrum Women Tablet] 1 tab PO DAILY 06/26/17 Oxycodone HCl 10 mg PO Q6HP PRN 06/26/17 Pantoprazole Sodium 40 mg PO QHS 06/26/17 Potassium Chloride 10 meq PO DAILY 06/26/17 Torsemide [Demadex 20 mg Tablet] 10 mg PO DAILY 06/26/17 Allergies/Adverse Reactions: Sulfa (Sulfonamide Antibiotics) Allergy (Severe, Verified 06/13/17 23:22) Face swells ciprofloxacin [From Cipro] Allergy (Mild, Verified 06/13/17 23:22) Urticaria Penicillins Allergy (Mild, Verified 06/13/17 23:22) Urticaria Review of Systems Constitutional: PRESENT: fatigue. ABSENT: chills, fever(s), headache(s), weight gain, weight loss Eyes: ABSENT: visual disturbances Ears: ABSENT: hearing changes Cardiovascular: PRESENT: dyspnea on exertion. ABSENT: chest pain, edema, orthropnea, palpitations Respiratory: PRESENT: cough. ABSENT: hemoptysis Gastrointestinal: ABSENT: abdominal pain, constipation, diarrhea, hematemesis, hematochezia, nausea, vomiting Genitourinary: ABSENT: dysuria, hematuria Musculoskeletal: ABSENT: joint swelling Integumentary: ABSENT: rash, wounds Neurological: ABSENT: abnormal gait, abnormal speech, confusion, dizziness, focal weakness, syncope Psychiatric: ABSENT: anxiety, depression, homidical ideation, suicidal ideation Endocrine: ABSENT: cold intolerance, heat intolerance, menstrual abnormalities, polydipsia, polyuria Hematologic/Lymphatic: ABSENT: easy bleeding, easy bruising, lymphadenopathy Physical Exam Vital Signs: Temp Pulse Resp BP Pulse Ox 97.4 F 69 19 114/43 L 100 06/26/17 07:29 06/26/17 07:29 06/26/17 07:29 06/26/17 07:29 06/26/17 07:29 Intake & Output 06/25/17 06/26/17 06/27/17 06:59 06:59 06:59 Intake Total 10 Output Total 0 Balance 10 Weight 82.7 kg General appearance: PRESENT: no acute distress Head exam: PRESENT: atraumatic, normocephalic Eye exam: PRESENT: conjunctiva pink, EOMI, PERRLA. ABSENT: scleral icterus Ear exam: PRESENT: normal external ear exam Mouth exam: PRESENT: dry mucosa, moist, tongue midline Neck exam: PRESENT: full ROM. ABSENT: carotid bruit, JVD, lymphadenopathy, thyromegaly Respiratory exam: PRESENT: decreased breath sounds Cardiovascular exam: PRESENT: RRR. ABSENT: diastolic murmur, rubs, systolic murmur Pulses: PRESENT: normal dorsalis pedis pul, +2 pedal pulses bilateral Vascular exam: PRESENT: normal capillary refill GI/Abdominal exam: PRESENT: normal bowel sounds, soft. ABSENT: distended, guarding, mass, organolmegaly, rebound, tenderness Rectal exam: PRESENT: deferred Extremities exam: PRESENT: pedal edema Neurological exam: PRESENT: alert, awake, oriented to person Psychiatric exam: PRESENT: appropriate affect, depressed, normal mood. ABSENT: homicidal ideation, suicidal ideation Skin exam: PRESENT: dry, intact, warm. ABSENT: cyanosis, rash Results Laboratory Results: 06/26/17 04:18 06/26/17 04:18 06/26/17 06/26/17 06/26/17 04:18 04:18 09:40 WBC 1.3 L* RBC 2.09 L Hgb 7.1 L Hct 20.7 L MCV 99 H MCH 34.0 H MCHC 34.3 RDW 26.0 H Plt Count 19 L* Seg Neutrophils % Not Reportable Lymphocytes % Not Reportable Monocytes % Not Reportable Eosinophils % Not Reportable Basophils % Not Reportable Absolute Neutrophils Not Reportable Absolute Lymphocytes Not Reportable Absolute Monocytes Not Reportable Absolute Eosinophils Not Reportable Absolute Basophils Not Reportable Sodium 139.6 Potassium 2.9 L* Chloride 104 Carbon Dioxide 29 Anion Gap 7 BUN 24 H Creatinine 1.00 Est GFR ( Amer) > 60 Est GFR (Non-Af Amer) 54 L Glucose 101 Calcium 15.0 H* Total Bilirubin 1.2 AST 44 H ALT 31 Alkaline Phosphatase 152 H Total Protein 4.8 L Albumin 2.4 L Blood Type A NEGATIVE Antibody Screen NEGATIVE Impressions: Chest X-Ray 06/25/17 19:23 IMPRESSION: New large Right basilar consolidation -effusion. Head CT 06/25/17 19:47 IMPRESSION: Stable bilateral chronic subdural hematomas. No midline shift. No evidence for acute hemorrhage. Increased mottled appearance of the bones. EVIDENCE OF ACUTE STROKE: NO. Guidance Fluoroscopy 06/26/17 00:00 IMPRESSION: SUCCESSFUL PLACEMENT OF A 5 FR DUAL LUMEN 35 CM PICC IN THE RIGHT BASILIC VEIN. Interventional Vascular Procedure 06/26/17 00:00 IMPRESSION: SUCCESSFUL PLACEMENT OF A 5 FR DUAL LUMEN 35 CM PICC IN THE RIGHT BASILIC VEIN. Limited or Localized CT 06/26/17 00:00 IMPRESSION: 1. Severe bilateral hydronephrosis. No obstructing ureteral calculi are identified. 2. Nonobstructing right nephrolithiasis. 3. Small ascites. 4. Hyperdense material within the gallbladder, suggestive of cholelithiasis. 5. Colonic diverticulosis. 6. Large right-sided pleural effusion with atelectasis at the right middle and right lower lobes. 7. Moderate left-sided pleural effusion with atelectasis at the left lower lobe. 8. Cardiomegaly. 9. 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 PICC Line Insertion 06/26/17 09:12 IMPRESSION: SUCCESSFUL PLACEMENT OF A 5 FR DUAL LUMEN 35 CM PICC IN THE RIGHT BASILIC VEIN. Assessment & Plan - Diagnosis (1) Altered mental status Qualifiers: Altered mental status type: somnolence Qualified Code(s): R40.0 - Somnolence Is this a current diagnosis for this admission?: Yes Plan: Most likely due to the possible underlying sepsis versus ongoing chronic conditions with a stage IV breast cancer with the pancytopenia and with the medications (2) Anemia of chronic disease Is this a current diagnosis for this admission?: Yes Plan: Most likely related to the ongoing chemotherapy (3) Hypercalcemia Is this a current diagnosis for this admission?: Yes Plan: Possible most likely a from the breast cancer with bone metastases (4) Hypoxia Is this a current diagnosis for this admission?: Yes Plan: Due to the bilateral pleural effusions most likely due to the underlying systolic and diastolic congestive heart failure with possible underlying pneumonia (5) Pancytopenia due to chemotherapy Is this a current diagnosis for this admission?: Yes Plan: From the stage for breast cancer some currently on chemotherapy (6) Right lower lobe pneumonia Qualifiers: Pneumonia type: due to unspecified organism Qualified Code(s): J18.1 - Lobar pneumonia, unspecified organism Is this a current diagnosis for this admission?: Yes Plan: Start the patient on IV cefepime (7) Abnormal LFTs Is this a current diagnosis for this admission?: Yes Plan: Due to the cirrhosis of the liver from the ongoing congestive heart failure (8) Breast cancer metastasized to axillary lymph node Qualifiers: Laterality: right Qualified Code(s): C50.911 - Malignant neoplasm of unspecified site of right female breast; C77.3 - Secondary and unspecified malignant neoplasm of axilla and upper limb lymph nodes; C77.3 - Secondary and unspecified malignant neoplasm of axilla and upper limb lymph nodes; C77.3 - Secondary and unspecified malignant neoplasm of axilla and upper limb lymph nodes; C77.3 - Secondary and unspecified malignant neoplasm of axilla and upper limb lymph nodes Is this a current diagnosis for this admission?: Yes Plan: Stage IV get his consult with the bone metastases (9) CAD (coronary artery disease) Qualifiers: Coronary Disease-Associated Artery/Lesion type: unspecified vessel or lesion type Associated angina: without angina Is this a current diagnosis for this admission?: Yes (10) Congestive heart failure (CHF) Qualifiers: Congestive heart failure type: combined Congestive heart failure chronicity : acute Qualified Code(s): I50.41 - Acute combined systolic (congestive) and diastolic (congestive) heart failure Is this a current diagnosis for this admission?: Yes Plan: Start the patient on the 40 mg IV Lasix q. 8 (11) Depression Qualifiers: Depression Type: unspecified Qualified Code(s): F32.9 - Major depressive disorder, single episode, unspecified Is this a current diagnosis for this admission?: Yes (12) Hypothyroidism Qualifiers: Hypothyroidism type: unspecified Qualified Code(s): E03.9 - Hypothyroidism , unspecified Is this a current diagnosis for this admission?: Yes (13) Type 2 diabetes mellitus Qualifiers: Diabetes mellitus complication status: with unspecified complications Is this a current diagnosis for this admission?: Yes Plan: Continues to patient's sliding scale (14) Hypokalemia Is this a current diagnosis for this admission?: Yes Plan: Replace the potassiums - Time Time Spent: 50 to 70 Minutes Medications reviewed and adjusted accordingly: Yes Anticipated discharge: Home Within: Other - Inpatient Certification Medical Necessity: Need Close Monitoring Due to Risk of Patient Decompensation, Need for IV Antibiotics 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
[2017-06-26] MEDS ORDERED: FUROSEMIDE INJ/PF 20 MG/2 ML SDV IV SCH ×2 (14:00)
[2017-06-26] MEDS ORDERED: LEVALBUTEROL HCL NEB 0.63 MG/3 ML AMPUL NEB PRN (14:00)
[2017-06-26] MEDS: FUROSEMIDE INJ/PF 40 MG/4 ML SDV IV SCH ×2 (14:19→22:44)
[2017-06-26] MEDS ORDERED: NORMAL SALINE 10 ML SDV (AFTER EACH USE) IV PRN (17:35)
[2017-06-26 21:16] LABS: HEMATOCRIT 25.5 % (36.0-47.0); HGB HCT DIFFERENCE 1.5; MEAN CORPUSCULAR HEMOGLOBIN 32.8 pg (27.0-33.4); MEAN CORPUSCULAR HGB CONC 35.2 g/dL (32.0-36.0); RED BLOOD COUNT 2.73 10^6/uL (3.72-5.28); RED CELL DISTRIBUTION WIDTH 20.9 % (11.5-14.0)
[2017-06-26 21:43] LABS: ANION GAP 6 (5-19); BLOOD UREA NITROGEN 25 mg/dL (7-20); CARBON DIOXIDE 32 mmol/L (22-30); CHLORIDE 102 mmol/L (98-107); CREATININE RESULT 1.03 mg/dL (0.52-1.25); POTASSIUM 3.5 mmol/L (3.6-5.0); SODIUM 139.7 mmol/L (137-145)
[2017-06-26 21:56] LABS: CALCIUM 15.3 mg/dL (8.4-10.2)
[2017-06-26 21:57] LABS: GLUCOSE 110 mg/dL (75-110)
[2017-06-26 22:09] LABS: BASOPHILS % (MANUAL) 0 % (0-2); EOSINOPHILS % (MANUAL) 0 % (0-6); LYMPHOCYTES % (MANUAL) 30 % (13-45); NUCLEATED RED BLOOD CELLS 6 /100 WBC (0); TOTAL CELLS COUNTED 50
[2017-06-26 22:10] LABS: TOXIC GRANULATION 1+
[2017-06-26 22:11] LABS: ANISOCYTOSIS 2+; BURR CELLS SLIGHT; OVALOCYTES SLIGHT; POIKILOCYTOSIS SLIGHT; POLYCHROMASIA SLIGHT; TEAR DROP CELLS SLIGHT
[2017-06-26 22:16] LABS: WHITE BLOOD COUNT 1.4 10^3/uL (4.0-10.5)
[2017-06-26 22:17] LABS: MEAN CORPUSCULAR VOLUME 93 fl (80-97)
[2017-06-26] MEDS: GUAIFENESIN 600 MG TABLET.SA PO SCH (22:44)
[2017-06-26] MEDS: NORMAL SALINE 10 ML SDV (SCHEDULED) IV SCH (23:56)
[2017-06-27 05:39] LABS: HEMATOCRIT 25.8 % (36.0-47.0); HEMOGLOBIN 9.3 g/dL (12.0-15.5); HGB HCT DIFFERENCE 2.1; MEAN CORPUSCULAR HEMOGLOBIN 33.6 pg (27.0-33.4); MEAN CORPUSCULAR VOLUME 93 fl (80-97); RED BLOOD COUNT 2.76 10^6/uL (3.72-5.28)
[2017-06-27 05:58] LABS: ALANINE AMINOTRANSFERASE 33 U/L (9-52); ALBUMIN 2.7 g/dL (3.5-5.0); ALKALINE PHOSPHATASE 166 U/L (38-126); ANION GAP 6 (5-19); ASPARTATE AMINO TRANSFERASE 43 U/L (14-36); BILIRUBIN,DIRECT 1.1 mg/dL (0.0-0.4); BILIRUBIN,TOTAL 1.7 mg/dL (0.2-1.3); BLOOD UREA NITROGEN 25 mg/dL (7-20); CARBON DIOXIDE 32 mmol/L (22-30); CHLORIDE 104 mmol/L (98-107); CREATININE RESULT 1.06 mg/dL (0.52-1.25); GLUCOSE 97 mg/dL (75-110); SODIUM 142.2 mmol/L (137-145); TOTAL PROTEIN 5.5 g/dL (6.3-8.2)
[2017-06-27 06:01] LABS: BAND NEUTROPHILS % (MANUAL) 10 % (3-5); BASOPHILS % (MANUAL) 0 % (0-2); EOSINOPHILS % (MANUAL) 0 % (0-6); LYMPHOCYTES % (MANUAL) 30 % (13-45); NUCLEATED RED BLOOD CELLS 6 /100 WBC (0); TOTAL CELLS COUNTED 50
[2017-06-27] MEDS: FUROSEMIDE INJ/PF 40 MG/4 ML SDV IV SCH (06:05)
[2017-06-27] MEDS: LEVOTHYROXINE SODIUM 0.025 MG TABLET PO SCH (06:05)
[2017-06-27] MEDS: LANSOPRAZOLE 30 MG TAB.RAP.DR PO SCH (06:06)
[2017-06-27 06:09] LABS: POLYCHROMASIA SLIGHT; TOXIC GRANULATION SLIGHT
[2017-06-27 06:10] LABS: ANISOCYTOSIS 2+; OVALOCYTES SLIGHT; POIKILOCYTOSIS SLIGHT; SCHISTOCYTES SLIGHT; TEAR DROP CELLS SLIGHT
[2017-06-27 06:15] LABS: WHITE BLOOD COUNT 1.3 10^3/uL (4.0-10.5)
[2017-06-27 06:18] LABS: CALCIUM 15.6 mg/dL (8.4-10.2)
[2017-06-27] MEDS: POTASSIUM CHLORIDE 20 MEQ/50 ML RTU IV SCH ×2 (07:02→09:54)
--- NOTE | 2017-06-27 08:27 | PDOC PROGRESS REPORT ---
Subjective Progress Note for:: 06/27/17 Subjective:: Patient is still currently doing same still on and off confused Patient's alert awake when he talk but then go back to the sleep No other events happened Reason For Visit: PNEUMONIA Altered mental status Physical Exam Vital Signs: Temp Pulse Resp BP Pulse Ox 97.3 F 72 18 103/46 L 98 06/27/17 07:40 06/27/17 07:40 06/27/17 07:40 06/27/17 07:40 06/27/17 07:40 Intake & Output 06/26/17 06/27/17 06/28/17 06:59 06:59 06:59 Intake Total 10 3092 Output Total 0 4100 Balance 10 -1008 Weight 82.7 kg 87.2 kg General appearance: PRESENT: no acute distress Eye exam: PRESENT: PERRLA Mouth exam: PRESENT: neck supple Respiratory exam: PRESENT: decreased breath sounds Cardiovascular exam: PRESENT: +S1, +S2 GI/Abdominal exam: PRESENT: normal bowel sounds, soft Extremities exam: PRESENT: pedal edema Neurological exam: PRESENT: alert, altered, awake Skin exam: PRESENT: dry Results Laboratory Results: 06/27/17 04:30 06/27/17 04:30 06/26/17 06/26/17 06/26/17 09:40 21:00 21:00 WBC 1.4 L* RBC 2.73 L Hgb 9.0 L Hct 25.5 L MCV 93 D MCH 32.8 MCHC 35.2 RDW 20.9 H Plt Count 95 L D Seg Neutrophils % Not Reportable Lymphocytes % Not Reportable Monocytes % Not Reportable Eosinophils % Not Reportable Basophils % Not Reportable Absolute Neutrophils Not Reportable Absolute Lymphocytes Not Reportable Absolute Monocytes Not Reportable Absolute Eosinophils Not Reportable Absolute Basophils Not Reportable Sodium 139.7 Potassium 3.5 L Chloride 102 Carbon Dioxide 32 H Anion Gap 6 BUN 25 H Creatinine 1.03 Est GFR ( Amer) > 60 Est GFR (Non-Af Amer) 52 L Glucose 110 Calcium 15.3 H* Total Bilirubin AST ALT Alkaline Phosphatase Total Protein Albumin Blood Type A NEGATIVE Antibody Screen NEGATIVE 06/27/17 06/27/17 04:30 04:30 WBC 1.3 L* RBC 2.76 L Hgb 9.3 L Hct 25.8 L MCV 93 MCH 33.6 H MCHC 36.0 RDW 21.0 H Plt Count 89 L Seg Neutrophils % Not Reportable Lymphocytes % Not Reportable Monocytes % Not Reportable Eosinophils % Not Reportable Basophils % Not Reportable Absolute Neutrophils Not Reportable Absolute Lymphocytes Not Reportable Absolute Monocytes Not Reportable Absolute Eosinophils Not Reportable Absolute Basophils Not Reportable Sodium 142.2 Potassium 3.0 L* Chloride 104 Carbon Dioxide 32 H Anion Gap 6 BUN 25 H Creatinine 1.06 Est GFR ( Amer) > 60 Est GFR (Non-Af Amer) 51 L Glucose 97 Calcium 15.6 H* Total Bilirubin 1.7 H AST 43 H ALT 33 Alkaline Phosphatase 166 H Total Protein 5.5 L Albumin 2.7 L Blood Type Antibody Screen Impressions: Chest X-Ray 06/25/17 19:23 IMPRESSION: New large Right basilar consolidation -effusion. Head CT 06/25/17 19:47 IMPRESSION: Stable bilateral chronic subdural hematomas. No midline shift. No evidence for acute hemorrhage. Increased mottled appearance of the bones. EVIDENCE OF ACUTE STROKE: NO. Guidance Fluoroscopy 06/26/17 00:00 IMPRESSION: SUCCESSFUL PLACEMENT OF A 5 FR DUAL LUMEN 35 CM PICC IN THE RIGHT BASILIC VEIN. Interventional Vascular Procedure 06/26/17 00:00 IMPRESSION: SUCCESSFUL PLACEMENT OF A 5 FR DUAL LUMEN 35 CM PICC IN THE RIGHT BASILIC VEIN. Limited or Localized CT 06/26/17 00:00 IMPRESSION: 1. Severe bilateral hydronephrosis. No obstructing ureteral calculi are identified. 2. Nonobstructing right nephrolithiasis. 3. Small ascites. 4. Hyperdense material within the gallbladder, suggestive of cholelithiasis. 5. Colonic diverticulosis. 6. Large right-sided pleural effusion with atelectasis at the right middle and right lower lobes. 7. Moderate left-sided pleural effusion with atelectasis at the left lower lobe. 8. Cardiomegaly. 9. 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 PICC Line Insertion 06/26/17 09:12 IMPRESSION: SUCCESSFUL PLACEMENT OF A 5 FR DUAL LUMEN 35 CM PICC IN THE RIGHT BASILIC VEIN. Assessment & Plan - Diagnosis (1) Altered mental status Qualifiers: Altered mental status type: somnolence Qualified Code(s): R40.0 - Somnolence Is this a current diagnosis for this admission?: Yes Plan: Due to the multifactorial including the hypercalcemia including the infection and sepsis including stage IV breast cancers with some chronic subdural hematoma (2) Anemia of chronic disease Is this a current diagnosis for this admission?: Yes Plan: Most likely related to the ongoing chemotherapy (3) Hypercalcemia Is this a current diagnosis for this admission?: Yes Plan: We will try to give him the Zometa dose (4) Hypoxia Is this a current diagnosis for this admission?: Yes Plan: Due to the bilateral pleural effusions possible malignant pleural effusionsUnable to get the thoracocentesis until the platelet counts go certain range (5) Pancytopenia due to chemotherapy Is this a current diagnosis for this admission?: Yes Plan: From the stage for breast cancer some currently on chemotherapy (6) Right lower lobe pneumonia Qualifiers: Pneumonia type: due to unspecified organism Qualified Code(s): J18.1 - Lobar pneumonia, unspecified organism Is this a current diagnosis for this admission?: Yes Plan: Start the patient on IV cefepime (7) Abnormal LFTs Is this a current diagnosis for this admission?: Yes Plan: Due to the cirrhosis of the liver from the ongoing congestive heart failure (8) Breast cancer metastasized to axillary lymph node Qualifiers: Laterality: right Qualified Code(s): C50.911 - Malignant neoplasm of unspecified site of right female breast; C77.3 - Secondary and unspecified malignant neoplasm of axilla and upper limb lymph nodes; C77.3 - Secondary and unspecified malignant neoplasm of axilla and upper limb lymph nodes; C77.3 - Secondary and unspecified malignant neoplasm of axilla and upper limb lymph nodes; C77.3 - Secondary and unspecified malignant neoplasm of axilla and upper limb lymph nodes Is this a current diagnosis for this admission?: Yes Plan: Stage IV get his consult with the bone metastases (9) CAD (coronary artery disease) Qualifiers: Coronary Disease-Associated Artery/Lesion type: unspecified vessel or lesion type Associated angina: without angina Is this a current diagnosis for this admission?: Yes (10) Congestive heart failure (CHF) Qualifiers: Congestive heart failure type: combined Congestive heart failure chronicity : acute Qualified Code(s): I50.41 - Acute combined systolic (congestive) and diastolic (congestive) heart failure Is this a current diagnosis for this admission?: Yes Plan: Continues IV Lasix and follow with the cardiology (11) Depression Qualifiers: Depression Type: unspecified Qualified Code(s): F32.9 - Major depressive disorder, single episode, unspecified Is this a current diagnosis for this admission?: Yes (12) Hypothyroidism Qualifiers: Hypothyroidism type: unspecified Qualified Code(s): E03.9 - Hypothyroidism , unspecified Is this a current diagnosis for this admission?: Yes (13) Type 2 diabetes mellitus Qualifiers: Diabetes mellitus complication status: with unspecified complications Is this a current diagnosis for this admission?: Yes Plan: Continues to patient's sliding scale (14) Hypokalemia Is this a current diagnosis for this admission?: Yes Plan: Replace the potassiums - Time Time Spent with patient: 15-24 minutes Medications reviewed and adjusted accordingly: Yes Anticipated discharge: Other Within: Other - Inpatient Certification Medical Necessity: Need Close Monitoring Due to Risk of Patient Decompensation, Need for IV Antibiotics 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
[2017-06-27] MEDS ORDERED: POTASSIUM CHLORIDE 20 MEQ/15 ML UDCUP PO ONE ×2 (09:00→16:50)
[2017-06-27 09:40] LABS: BAND NEUTROPHILS % (MANUAL) 6 % (3-5)
--- NOTE | 2017-06-27 09:40 | RADIOLOGY REPORT (SQ) ---
EXAM DESCRIPTION: CHEST SINGLE VIEW COMPLETED DATE/TIME: 06/27/2017 9:23 am REASON FOR STUDY: pleural effusion COMPARISON: 06/25/2017. EXAM PARAMETERS: NUMBER OF VIEWS: One view. TECHNIQUE: Single frontal radiographic view of the chest acquired. RADIATION DOSE: NA LIMITATIONS: None. FINDINGS: LUNGS AND PLEURA: Right pleural effusion with parenchymal opacity in the right lung unchan ged. Left lung relatively clear. Mild interstitial prominence. MEDIASTINUM AND HILAR STRUCTURES: No masses. Contour normal. HEART AND VASCULAR STRUCTURES: Heart normal in size. Normal vasculature. BONES: No acute findings. Old rib fracture. Degenerative change in the shoulders. HARDWARE: Vascular access port, pacemaker, and PICC line. Surgical clips. OTHER: No other significant finding. IMPRESSION: OVERALL NO SIGNIFICANT CHANGE IN APPEARANCE OF THE CHEST, OTHER THAN INTERVAL PLACEMENT OF A PICC LINE. TECHNICAL DOCUMENTATION: JOB ID: [id number] [employer]- All Rights Reserved
[2017-06-27] MEDS: GUAIFENESIN 600 MG TABLET.SA PO SCH (09:51)
[2017-06-27] MEDS: POTASSIUM CHLORIDE 10 MEQ TABLET.SA PO SCH ×2 (09:51→17:55)
[2017-06-27] MEDS: MAGNESIUM OXIDE 400 MG TABLET PO SCH (09:52)
[2017-06-27] MEDS: CEFEPIME 2 GM/D5W RTU 2 GM/50 ML RTUPB IV SCH (09:52)
[2017-06-27] MEDS: NORMAL SALINE 10 ML SDV (SCHEDULED) IV SCH (09:53)
[2017-06-27] MEDS ORDERED: POTASSIUM CHLORIDE 10 MEQ TABLET.SA PO SCH ×2 (10:00)
[2017-06-27] MEDS ORDERED: FUROSEMIDE INJ/PF 40 MG/4 ML SDV IV SCH (10:00)
--- NOTE | 2017-06-27 11:32 | PDOC PROGRESS REPORT ---
Subjective Progress Note for:: 06/27/17 Subjective:: Pt better this am, more alert. Had long discussion w/ , spent >45 min in discussion, recommended hospice and DNR but at present not ready. Will think about over weekend Reason For Visit: PNEUMONIA Physical Exam Vital Signs: Temp Pulse Resp BP Pulse Ox 97.3 F 72 16 103/46 L 98 06/27/17 07:40 06/27/17 10:27 06/27/17 10:27 06/27/17 07:40 06/27/17 10:27 Intake & Output 06/26/17 06/27/17 06/28/17 06:59 06:59 06:59 Intake Total 10 3092 Output Total 0 4100 Balance 10 -1008 Weight 82.7 kg 87.2 kg General appearance: PRESENT: no acute distress, well-developed, well-nourished Head exam: PRESENT: atraumatic, normocephalic Eye exam: PRESENT: conjunctiva pink, EOMI, PERRLA. ABSENT: scleral icterus Ear exam: PRESENT: normal external ear exam Mouth exam: PRESENT: moist, tongue midline Neck exam: ABSENT: carotid bruit, JVD, lymphadenopathy, thyromegaly Respiratory exam: PRESENT: clear to auscultation chad. ABSENT: rales, rhonchi, wheezes Cardiovascular exam: PRESENT: RRR. ABSENT: diastolic murmur, rubs, systolic murmur Pulses: PRESENT: normal dorsalis pedis pul Vascular exam: PRESENT: normal capillary refill GI/Abdominal exam: PRESENT: normal bowel sounds, soft. ABSENT: distended, guarding, mass, organolmegaly, rebound, tenderness Rectal exam: PRESENT: deferred Extremities exam: PRESENT: full ROM. ABSENT: calf tenderness, clubbing, pedal edema Neurological exam: PRESENT: alert, awake, oriented to person, oriented to place , oriented to time, oriented to situation, CN II-XII grossly intact. ABSENT: motor sensory deficit Psychiatric exam: PRESENT: appropriate affect, normal mood. ABSENT: homicidal ideation, suicidal ideation Skin exam: PRESENT: dry, intact, warm. ABSENT: cyanosis, rash Results Laboratory Results: 06/27/17 04:30 06/27/17 04:30 06/26/17 06/26/17 06/26/17 09:40 21:00 21:00 WBC 1.4 L* RBC 2.73 L Hgb 9.0 L Hct 25.5 L MCV 93 D MCH 32.8 MCHC 35.2 RDW 20.9 H Plt Count 95 L D Seg Neutrophils % Not Reportable Lymphocytes % Not Reportable Monocytes % Not Reportable Eosinophils % Not Reportable Basophils % Not Reportable Absolute Neutrophils Not Reportable Absolute Lymphocytes Not Reportable Absolute Monocytes Not Reportable Absolute Eosinophils Not Reportable Absolute Basophils Not Reportable Sodium 139.7 Potassium 3.5 L Chloride 102 Carbon Dioxide 32 H Anion Gap 6 BUN 25 H Creatinine 1.03 Est GFR ( Amer) > 60 Est GFR (Non-Af Amer) 52 L Glucose 110 Calcium 15.3 H* Total Bilirubin AST ALT Alkaline Phosphatase Total Protein Albumin Blood Type A NEGATIVE Antibody Screen NEGATIVE 06/27/17 06/27/17 04:30 04:30 WBC 1.3 L* RBC 2.76 L Hgb 9.3 L Hct 25.8 L MCV 93 MCH 33.6 H MCHC 36.0 RDW 21.0 H Plt Count 89 L Seg Neutrophils % Not Reportable Lymphocytes % Not Reportable Monocytes % Not Reportable Eosinophils % Not Reportable Basophils % Not Reportable Absolute Neutrophils Not Reportable Absolute Lymphocytes Not Reportable Absolute Monocytes Not Reportable Absolute Eosinophils Not Reportable Absolute Basophils Not Reportable Sodium 142.2 Potassium 3.0 L* Chloride 104 Carbon Dioxide 32 H Anion Gap 6 BUN 25 H Creatinine 1.06 Est GFR ( Amer) > 60 Est GFR (Non-Af Amer) 51 L Glucose 97 Calcium 15.6 H* Total Bilirubin 1.7 H AST 43 H ALT 33 Alkaline Phosphatase 166 H Total Protein 5.5 L Albumin 2.7 L Blood Type Antibody Screen Impressions: Head CT 06/25/17 19:47 IMPRESSION: Stable bilateral chronic subdural hematomas. No midline shift. No evidence for acute hemorrhage. Increased mottled appearance of the bones. EVIDENCE OF ACUTE STROKE: NO. Guidance Fluoroscopy 06/26/17 00:00 IMPRESSION: SUCCESSFUL PLACEMENT OF A 5 FR DUAL LUMEN 35 CM PICC IN THE RIGHT BASILIC VEIN. Interventional Vascular Procedure 06/26/17 00:00 IMPRESSION: SUCCESSFUL PLACEMENT OF A 5 FR DUAL LUMEN 35 CM PICC IN THE RIGHT BASILIC VEIN. Limited or Localized CT 06/26/17 00:00 IMPRESSION: 1. Severe bilateral hydronephrosis. No obstructing ureteral calculi are identified. 2. Nonobstructing right nephrolithiasis. 3. Small ascites. 4. Hyperdense material within the gallbladder, suggestive of cholelithiasis. 5. Colonic diverticulosis. 6. Large right-sided pleural effusion with atelectasis at the right middle and right lower lobes. 7. Moderate left-sided pleural effusion with atelectasis at the left lower lobe. 8. Cardiomegaly. 9. 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 PICC Line Insertion 06/26/17 09:12 IMPRESSION: SUCCESSFUL PLACEMENT OF A 5 FR DUAL LUMEN 35 CM PICC IN THE RIGHT BASILIC VEIN. Chest X-Ray 06/27/17 00:00 IMPRESSION: OVERALL NO SIGNIFICANT CHANGE IN APPEARANCE OF THE CHEST, OTHER THAN INTERVAL PLACEMENT OF A PICC LINE. Assessment & Plan - Diagnosis (1) Pancytopenia due to chemotherapy Is this a current diagnosis for this admission?: Yes Plan: Hb/plt stable, hold on further transfusion this weekend (2) Breast cancer metastasized to axillary lymph node Qualifiers: Laterality: right Qualified Code(s): C50.911 - Malignant neoplasm of unspecified site of right female breast; C77.3 - Secondary and unspecified malignant neoplasm of axilla and upper limb lymph nodes; C77.3 - Secondary and unspecified malignant neoplasm of axilla and upper limb lymph nodes; C77.3 - Secondary and unspecified malignant neoplasm of axilla and upper limb lymph nodes; C77.3 - Secondary and unspecified malignant neoplasm of axilla and upper limb lymph nodes Is this a current diagnosis for this admission?: Yes Plan: IBRANCE d/c'd, will likely not initiate further rx as outpt (3) Hypercalcemia Is this a current diagnosis for this admission?: Yes Plan: Zometa given. No further intervention for now - Time Time Spent with patient: 35 or more minutes
--- NOTE | 2017-06-27 12:32 | XCELERA REPORT ---
[address] [address] Transthoracic Echocardiogram Report Name: PRINCESS DE LEON Age: 76 yrs Gender: Female : 1940 Patient Status: Inpatient Patient Location: [address] [place], [place] [address] Study Date: 06/27/2017 10:11 AM Height: 63 in Weight: 182 lb BSA: 1.9 m2 Procedure: A two-dimensional transthoracic echocardiogram with color flow and Doppler was performed. The study was technically difficult with many images being suboptimal in quality. Reason For Study: Cardiomyopathy History: Cardiomyopathy. Ordering Physician: PERRI BALLESTEROS Performed By: Yadi Chambers Interpretation Summary The left ventricle is moderately dilated. There is normal left ventricular wall thickness. LV EF is 35% to 40% Left ventricular systolic function is moderately reduced. Doppler measurements suggest impaired left ventricular relaxation, which is associated with grade I/IV or mild diastolic dysfunction There is moderate global hypokinesis of the left ventricle. Apical wall motion abnormality may reflect pacemaker activation There is no thrombus. The right ventricle is normal in size and function. The left atrium is mildly dilated. There is no evidence of mitral valve prolapse. There is no vegetation seen on the mitral valve. There is no mitral valve stenosis. There is a mild amount of mitral regurgitation There is no aortic valvular vegetation. There is Aortic Sclerosis without stenosis. There is no LVOT obstruction. No aortic regurgitation is present. There is no tricuspid stenosis. There is a mild amount of tricuspid regurgitation There is mild pulmonary hypertension by echo RVSP is 35 mm of Hg ,with RA mean of 10. There is no pulmonic valvular stenosis. There is a trace amount of pulmonic regurgitation The aortic root is normal size. There is no pericardial effusion. MMode/2D Measurements & Calculations RVDd: 3.1 cm LVIDd: 5.8 cm FS: 18.5 % EPSS: 1.4 cm IVSd: 0.84 cm LVIDs: 4.7 cm EDV(Teich): MV Diam: 2.3 cm LVPWd: 0.80 cm 166.4 ml ESV(Teich): 103.5 ml EF(Teich): 37.8 % Ao root diam: LVOT diam: LVLd ap4: 9.4 cm SV(MOD-sp4): 50.0 ml 2.8 cm 1.8 cm EDV(MOD-sp4): Ao root area: LVOT area: 136.0 ml 6.1 cm2 2.6 cm2 LVLs ap4: 8.7 cm LA dimension: ESV(MOD-sp4): 4.4 cm 86.0 ml EF(MOD-sp4): 36.8 % LA A2Cs: 26.7 cm2 LA A4Cs: LA length: 6.0 cm LA Vol Index (BP): 26.3 cm2 53.9 ml/m2 LA Volume: 100.1 ml Doppler Measurements & Calculations MV E max julia: MV area (1 diam): MV P1/2t max julia: Ao V2 max: 87.4 cm/sec 87.9 cm/sec 168.5 cm/sec MV A max julia: 4.3 cm2 MV P1/2t: 46.7 msec Ao max P.7 cm/sec MV Flow area 11.4 mmHg MV E/A: 0.85 (1diam): 4.3 cm2 MVA(P1/2t): 4.7 cm2 MV dec slope: ANANDA(V,D): 1.8 cm2 551.6 cm/sec2 LV V1 max PG: MR max julia: PA V2 max: TR max julia: 5.6 mmHg 481.1 cm/sec 110.1 cm/sec 251.9 cm/sec LV V1 max: MR max PG: PA max P.8 mmHg TR max P.6 cm/sec 92.6 mmHg 25.4 mmHg LV dP/dt: 1010 mmHg/s Left Ventricle The left ventricle is moderately dilated. There is normal left ventricular wall thickness. LV EF is 35% to 40%. Left ventricular systolic function is moderately reduced. Doppler measurements suggest impaired left ventricular relaxation, which is associated with grade I/IV or mild diastolic dysfunction. There is moderate global hypokinesis of the left ventricle. Apical wall motion abnormality may reflect pacemaker activation. There is no thrombus. Right Ventricle The right ventricle is normal in size and function. Atria The right atrium is normal. The left atrium is mildly dilated. Mitral Valve There is no evidence of mitral valve prolapse. There is no vegetation seen on the mitral valve. There is no mitral valve stenosis. There is a mild amount of mitral regurgitation. Aortic Valve There is no aortic valvular vegetation. There is Aortic Sclerosis without stenosis. There is no LVOT obstruction. No aortic regurgitation is present. Tricuspid Valve There is no tricuspid stenosis. There is a mild amount of tricuspid regurgitation. There is mild pulmonary hypertension by echo. RVSP is 35 mm of Hg ,with RA mean of 10. Pulmonic Valve There is no pulmonic valvular stenosis. There is a trace amount of pulmonic regurgitation. Great Vessels The aortic root is normal size. Effusions There is no pericardial effusion. : PERRI BALLESTEROS > Perri Ballesteros
--- NOTE | 2017-06-27 13:48 | CONSULTATION REPORT E ---
Consultation Report NAME: PRINCESS DE LEON : 1940 AGE: 76Y DATE: 06/26/2017 ROOM: 303 A TO: TERESITA BALLESTEROS M.D. FROM: AVRIL HARRIS M.D. Requesting Physician REASON FOR CONSULTATION: Congestive heart failure. HISTORY: The patient is a 76-year-old female with a history of stage IV with metastases to the lymph node and a history of coronary artery disease, history of stents, history of cardiomyopathy, history of congestive heart failure in the past, both systolic and diastolic. She also has chronic subdural hematoma, which is stated to be spontaneous. The patient was receiving chemotherapy when she developed pancytopenia. The patient's noted that since the past few days, the patient is more lethargic, and the patient was not making sense when she spoke. CT of the head in the emergency room showed chronic subdural hematoma without any extension. Chest x-ray suggested right-sided pneumonia/consolidation with a right pleural effusion and also by CT is a moderate left pleural effusion. As per , there is no shortness of breath noticed. There were no palpitations or episodes of syncope. There was no chest pain or discomfort. There was no pedal edema. Today the patient is awake, alert, and oriented x3. She is able to lie down flat without any symptoms of chest pain or discomfort or shortness of breath. There is no cough or sputum production. There is no fever. There is no leg edema. PAST MEDICAL HISTORY: Positive for history of cardiomyopathy with LV ejection fraction severely reduced. This was in early March, was 25% as per . The patient received a biventricular pacemaker for cardiac resynchronization therapy. An echo after that has not been done. The pacemaker implant was April 07, 2017. She has a past history of myocardial infarction and has had a stent in the proximal LAD and the distal LAD. The patient has a history of hypertension, hyperlipidemia, diabetes mellitus type 2, and hypothyroidism. She has a history of COPD. There is no history of chronic kidney disease. As mentioned earlier, the patient has chronic subdural hematoma which has not increased. The patient has bilateral breast cancer, stage IV, with metastases to the right hip and also to the lymph nodes. There is no history of TIA or CVA. There is no history of dementia or depression. The patient has chronic anemia and pancytopenia. The patient's platelets were 19,000 when she came to the emergency room with a hemoglobin of 7.4, and calcium was elevated at 15. PAST SURGICAL HISTORY: Positive for appendectomy, cardiac catheterization, biventricular pacemaker placed for cardiac resynchronization therapy, history of stents, 2 in the LAD; this was some time ago. She also had bilateral radical mastectomy with lymph nodes removed. The patient also had a Port-A-Cath which does not work anymore. SOCIAL HISTORY: The patient is a former smoker. She has not smoked since 1962. There is notice of ETOH abuse. I note that the patient is a full code as per her surrogate healthcare decision maker. FAMILY HISTORY: Positive for hypertension but no coronary artery disease. ALLERGIES: The patient is allergic to SULFA, CIPROFLOXACIN, and PENICILLIN. MEDICATIONS: Tylenol 650 mg p.o. at bedtime p.r.n. and 650 mg p.o. before platelet transfusion. Azithromycin 500 mg IV bag x1. Cefepime 2 grams IV piggyback x1 and 2 grams IV piggyback q 12 hours. She is on hypoglycemic precautions with glucose 40% gel 15 mg and 30 mg p.o. respectively. Also, she is on hypoglycemic precautions with dextrose 50%, 12.5 grams and 25 grams IV p.r.n. She also would get Benadryl 25 mg p.o. before transfusion. (She got 2 platelet transfusions.) She is on Lasix 40 mg IV q. 8 hours. She is on glucagon 1 mg IM p.r.n. hypoglycemia. She is on heparin 30 units IV after each transfusion. She is on Accu-Chek's a.c. t.i.d. and bedtime with sliding-scale insulin coverage. She is on Mucinex 600 mg p.o. q. 12 hours. She is on Prevacid 30 mg p.o. q. 6:00 a.m. Xopenex 0.63 mg nebulizer treatment q. 4 hours p.r.n. She is on levothyroxine 0.025 mg (25 mcg) p.o. q. 6:00 a.m. Magnesium oxide 400 mg p.o. daily. Oxycodone hydrochloride 10 mg p.o. q. 6 hours p.r.n. She is on potassium chloride 40 mEq p.o. x1 and 20 mEq p.o. daily. She is on Zometa 4 mg per 100 mL, 4 mg IV piggyback at 300 mL per IV infusion. REVIEW OF SYSTEMS: CONSTITUTIONAL: Complaints of generalized fatigue and weakness. Denies any fevers, chills, or rigors. HEAD: No history of headaches. She has chronic subdural hematoma. No dizziness. EYES: No history of amblyopia or diplopia. No history of amaurosis fugax. EARS: No history of hearing loss. No history of tinnitus. No history of recurrent ear infections. NOSE: There is no deviated nasal septum. There are no nasal polyps. There is no inflammation of the nasal mucous membranes. MOUTH: Mucous membranes of the mouth have no altered taste sensation. There is no bleeding from the gums. THROAT: There is no history of odynophagia or dysphagia. No history of recurrent sore throats. PHYSICAL EXAMINATION: SKIN: There is no petechiae or ecchymosis. There are no rashes or lesions. NECK: There are no painful neck lymph nodes. There is no goiter. There is no neck pain. Trachea central. LUNGS: Show absent breath sounds in the left lung base and also absent breath sounds in the right base up to a little above midway on the right lung. The rest of the lungs show diminished air entry and prolonged inspiration. There is no chest-wall tenderness. S1/S2 heard. There is no S3 gallop. There is no S4 gallop. There is a systolic murmur in the left sternal border and the apex. There is no rub. ABDOMEN: Soft, nontender. There is no hepatosplenomegaly. Bowel sounds are well heard. There are no tender areas or masses. EXTREMITIES: . There are no femoral bruits. Leg pulses are diminished. There is no pedal edema. There is no DVT or cellulitis. CENTRAL NERVOUS SYSTEM: The at present is conscious, awake, alert, oriented x3 with no focal deficit. PSYCHIATRIC: The patient's judgement and insight are intact. Her affect is normal. The patient is not confused anymore. She has no depression. There is no suicidal or homicidal ideation. VITAL SIGNS: On examination the patient is afebrile, temperature of 97.5 degrees Fahrenheit. Pulse is 73 beats per minute. Blood pressure is 105/55. Respirations 18/min. O2 sats 100% on 2 liters nasal cannula. HEAD: On examination, the head is atraumatic, normocephalic. EYES: Pupils equal, round, regular, reactive to light and accommodation. There is conjunctival pallor. There is no scleral icterus. EARS: Tympanic membranes are intact. External auditory canals are clear. NOSE: There is no deviated nasal septum. There is no inflammation of the nasal mucous membrane. MOUTH: Mucous membranes of the mouth are moist. Tongue is moist. There are no ulcers. There is no bleeding from the gums. THROAT: There is no redness of the oropharynx. There is no exudate. SKIN: There is no skin rash. There are no petechiae or ecchymosis. There is no skin lesions or skin rashes. NECK: Supple. There is no JVD. Carotids are equal. There is no bruit. There is no goiter. Trachea is central. LUNGS: Show absent breath sounds in the left lower lobe and also absent breath sounds in the right side, a little above midway on the right lung. There is diminished air entry and prolonged expiration. There is no chest-wall tenderness. HEART: S1/S2 is heard. There is no S3 gallop. There is no S4 gallop. There is a systolic murmur in the left sternal border and the apex. There is no rub. ABDOMEN: Soft, nontender. There is no hepatosplenomegaly. Bowel sounds are well heard. He there are no tender areas or masses. EXTREMITIES: Femorals are diminished. There are no femoral bruits. Leg pulses are diminished. There is no pedal edema. There is no cyanosis or clubbing. There is no DVT or cellulitis. 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 PSYCHIATRIC: The patient's judgement and insight are intact. Her affect is normal. HEMATOLOGIC: The patient has pancytopenia. VASCULAR: There is no calf or buttock claudication. There is no history of DVT. DIAGNOSTIC STUDIES: The patient's chest x-ray shows new, large, right basilar consolidation and effusion. Left lung was clear. The patient's limited localized CT shows large right-sided pleural effusion with atelectasis at the right middle and lower lobes; moderate left-sided pleural effusion with atelectasis of the lower lobe. There is cardiomegaly. There is a pacemaker seen, which is a biventricular pacemaker. There is hyperdensity noted within the gallbladder. There is bilateral severe hydronephrosis. No ureteral calculus is identified. IMPRESSION: Severe bilateral hydronephrosis. No obstructing ureteral calculi noted. There is nonobstructing right nephrolithiasis. There is small ascites. There is hyperdense material within the gallbladder suggestive of cholelithiasis. 5. Colonic diverticulosis. 6. There is large, right-sided pleural effusion with atelectasis in the right middle and right lower lobes with moderate left pleural effusion with atelectasis of the lower lobe. There is cardiomegaly. There is osseous metastases with compression fractures at T10 and L2 vertebral bodies. Note, that the patient has a PICC line insertion. The patient's EKG showed sinus rhythm with ventricular-paced rhythm. The patient's white count is 1300, hemoglobin is 7.1, platelet count is 19,000. The patient's sodium is 139.6, potassium is 2.9, chloride is 104, CO2 is 29. The patient's BUN was 24, creatinine is 1.0, GFR is reduced at 51 mL, which is kidney disease stage III. The patient's calcium is elevated at 15. The patient's total bilirubin is 1.2; the patient's direct bilirubin is 0.7. The patient's AST is elevated at 44, ALT is 31, alk phos is mildly elevated at 152. The patient's total protein is 4.8, albumin is 2.4. The patient's protime is 16.2, INR is 1.22. IMPRESSION: 1. Altered mental status, question etiology, most likely secondary to sepsis/pneumonia. At present, patient awake, alert, and oriented x2. 2. Anemia of chronic disease. 3. Hypercalcemia. 4. Hypoxia as mentioned in the chart, but I do not see where there is evidence of hypoxemia. 5. Most likely pneumonia with bilateral pleural effusions. 6. Possible acute on chronic systolic heart failure and diastolic heart failure, but there is no evidence to back it up, since clinically the patient does not appear to be in right heart failure or left heart failure. 7. Status post biventricular pacemaker for cardiac resynchronization therapy. 8. Abnormal LFTs, most likely secondary to the patient being on statin. Doubt if this is secondary to cardiac , as the patient has no leg edema, and the patient has no orthopnea or other signs of right heart failure. 9. Pancytopenia due to cumulative therapy. 10. Breast cancer metastasized to axillary lymph node and also to right hip. The patient's chemotherapy is being held for now. 11. Coronary artery disease, history of stent placement in the proximal and distal LAD in the past. No anginal symptoms. 12. Old myocardial infarction. 13. Congestive heart failure, acute on chronic. Need to check an echo, since the patient has not had an echo after the BiV CAN TESTER placement on April 07, 2017. Clinically the patient does not appear to be in right or left heart failure, which seems to be compensated. 14. Cardiomyopathy with severely reduced LV ejection fraction prior to CAN TESTER therapy. Need to recheck echo. 15. Hypothyroidism. Patient on replacement. Continue that. 16. Type 2 diabetes mellitus. Continue current therapy and continue patient's sliding scale. 17. Hypokalemia. Replace potassium. 18. Would recommended holding the patient's statin. 19. Continue current medications, including antibiotics, respiratory treatment, and IV Lasix. 20. Will check an echocardiogram to see what the patient's LV ejection fraction is, and if the patient is indeed in acute systolic heart failure. 21. make sure the etiology is to check to drain the pleural effusion for analysis, but this may be a problem, since the patient has a platelet count of 19,000. Also, since the patient in the past has had a spontaneous subdural hematoma, need to make sure that the patient does not have a spontaneous hemothorax, but will check with the radiologist the density of the fluid to see if indeed this was blood. Of note, the patient was seen at 2:00. Forty minutes were spent on this patient with more than 50% of the time spent on direct patient care. Medications have been reviewed. I discussed the case with attending physician Dr. Harris and with the oncologist. Note that this patient's medical decision making is highly complex. I have also discussed with Benny, and he said that when he put BiV pacemaker in March, there was no pleural effusion. According to the oncologist, the patient did have a month ago pleural effusion, and a PET scan did not show any lung uptake, and hence it is doubtful whether this is secondary to lung metastasis from breast cancer. I cannot entirely exclude pneumonia, since the patient has multiple problems and may not . Will follow with you. DICTATING PHYSICIAN: TERESITA BALLESTEROS M.D. [id number] PHY#: [id number] ID: [id number] JOB#: [id number] ACCT: [id number] cc:TERESITA BALLESTEROS M.D. >
[2017-06-27 13:58] LABS: BAND NEUTROPHILS % (MANUAL) 14 % (3-5)
[2017-06-27 14:02] LABS: PATH REVIEW PATHOLOGIST REVIEWED
[2017-06-27 14:11] LABS: HEMOGLOBIN 7.1 g/dL (12.0-15.5)
[2017-06-27 15:36] LABS: ANION GAP 12 (5-19); BLOOD UREA NITROGEN 25 mg/dL (7-20); CARBON DIOXIDE 26 mmol/L (22-30); CHLORIDE 103 mmol/L (98-107); CREATININE RESULT 0.96 mg/dL (0.52-1.25); GLUCOSE 144 mg/dL (75-110); POTASSIUM 3.3 mmol/L (3.6-5.0); SODIUM 140.7 mmol/L (137-145)
--- NOTE | 2017-06-27 21:58 | PROGRESS NOTE E ---
Progress Note NAME: PRINCESS DE LEON : 1940 AGE: 76Y DATE: 06/27/2017 ROOM: 303 SUBJECTIVE: The patient is intermittently confused, at present she is lucid and awake and alert, oriented x3. She is sitting up in a chair/recliner. She denies any chest pain or discomfort. There is no shortness of breath. There is no PND, orthopnea, or leg edema. There are no TIA or CVA symptoms. There are no arrhythmias on the monitor. The patient denies any shortness of breath. There is no cough or fever. There is no pleuritic chest pain. There is no hemoptysis. OBJECTIVE: VITAL SIGNS: On examination the patient is afebrile, her pulse is 88 beats per minute, blood pressure 138/69, respirations are 18 per minute, O2 saturations are 94% on 2L nasal cannula. HEENT: Head is atraumatic, normocephalic. Eyes: Pupils are equal, round and regular, reactive to light and accommodation. Extraocular movements are normal. There is conjunctival pallor present. There is no scleral icterus. ENT is negative. NECK: Supple. There is no JVD. There is no goiter. Carotids are equal. There is no bruit. Trachea is central. SKIN: There is no petechiae or ecchymosis. There are no skin lesions or rashes. LUNGS: Show absent breath sounds in the left lower lobe and also absent breath sounds on the right side, a little above midway on the right lung. There are bronchial breath sounds at the right middle lobe area. There is diminished air entry elsewhere and prolonged inspiration. In the areas of the absent breath sounds there is dullness on percussion. The rest of the lungs show hyperresonance on percussion. HEART: S1 and S2 is heard. There is no S3 gallop. There is no S4 gallop. There is a systolic murmur in the left sternal border and the apex. There is no rub. ABDOMEN: Soft, nontender. There is no hepatosplenomegaly. Bowel sounds are well heard. There are no tender areas or masses. EXTREMITIES: Femorals are diminished. There are no femoral bruits. Leg pulses are diminished. There is no pedal edema. There is no cyanosis or clubbing. There is no DVT or cellulitis. CENTRAL NERVOUS SYSTEM: The patient is conscious, awake, alert and oriented x3 with no focal deficits. PSYCHIATRIC: The patient's judgment and insight are intact. Her affect is normal. INTAKE/OUTPUT: The patient's 24 hour intake is 3092 mL, output is 4100 mL. DIAGNOSTIC STUDIES: The patient's echocardiogram shows that the left ventricle is moderately dilated. There is moderate diffuse hypokinesis in the left area conduction, moderately reduced to 35-40%. There is moderate global hypokinesis of the left ventricle. The left atrium is mildly dilated. There is no evidence of mitral valve prolapse. There is no mitral valve stenosis. There is mild amount of mitral regurgitation. There is no aortic valve stenosis but there is sclerosis of the aortic valve. There is aortic regurgitation. There is no tricuspid stenosis. There is mild amount of tricuspid regurgitation. There is mild pulmonary hypertension by echo with right ventricular systolic pressure of 35 mmHg with an RA mean of 10. There is no pericardial effusion. The chest x-ray shows no significant change in the appearance of the chest other than a dual placement of a PICC line. Note there is a right pleural effusion with parenchymal opacity in the right lung unchanged. Left lung relatively clear. Mild interstitial prominence. No definite evidence of congestive heart failure. The patient's white count is 1300, hemoglobin is 9.3, hematocrit is 25.8, platelet count is 89,000 which has come up from 19,000. The patient's sodium is 140.7, potassium is 3.3, chloride 103, CO2 is 26. The patient's BUN is 25, creatinine is 0.96, GFR is reduced at 57 mL which chronic kidney disease stage 3 and the patient's glucose is 144. The patient's calcium is 14, which is slightly lower than yesterday's 15.6. IMPRESSION AND RECOMMENDATIONS: 1. INTERMITTENT ALTERED MENTAL STATUS, QUESTION ETIOLOGY MOST LIKELY SECONDARY TO SEPSIS/PNEUMONIA AND HYPERCALCEMIA. At present awake, alert, and oriented x3. 2. ANEMIA OF CHRONIC DISEASE. 3. HYPERCALCEMIA. 4. MOST LIKELY PNEUMONIA WITH BILATERAL PLEURAL EFFUSIONS. 5. 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 NO EVIDENCE OF ACUTE HEART FAILURE AT PRESENT. 6. CARDIOMYOPATHY WITH MODERATELY REDUCED LV EJECTION FRACTION. 7. STATUS POST BIVENTRICULAR PACEMAKER CARDIAC RESYNCHRONIZATION THERAPY. 8. ABNORMAL LFTs MOST LIKELY SECONDARY TO THE PATIENT BEING ON STATIN. We will recheck the patient's LFTs again. 9. THROMBOCYTOPENIA DUE TO CHEMOTHERAPY. 10. BREAST CANCER, METASTASES. 11. CORONARY ARTERY DISEASE, HISTORY OF STENT PLACEMENT IN THE PROXIMAL AND DISTAL LAD IN THE PAST, NO ANGINAL SYMPTOMS. 12. AT PRESENT HER DENIES ANY OLD MYOCARDIAL INFARCTION. 13. HISTORY OF CONGESTIVE HEART FAILURE IN THE PAST, AT PRESENT SEEMS TO BE COMPENSATED. 14. CARDIOMYOPATHY WITH MODERATELY REDUCED LV EJECTION FRACTION, POST [employer] TUBE BENDER THERAPY. Note that the EF has gone up to 35-40% after [employer] TUBE BENDER compared to 25% prior to [employer] TUBE BENDER as per discussions, *------* [employer]UBE B[employer] echo with Dr. Konrad Zapata. 15. HYPOTHYROIDISM. The patient is on replacement, continue that. 16. TYPE 2 DIABETES MELLITUS. Continue current therapy and continue patient's sliding scale. 17. HYPOKALEMIA. Replace potassium. 18. Continue to hold the patient's statin, recheck the patient's LFT. 19. Continue current medications including antibiotics as scheduled treatment and IV Lasix. 20. Consider draining the patient's pleural effusion for analysis, the platelets have come up to 89,000 with the coverage of platelet transfusion this can be done. TIME SPENT: Note 35 minutes spent on this patient with more than 50% of the time spent on direct patient care. The patient's medications have been reviewed. Also would recommend to decrease the patient's Lasix. Note that the patient's medical decision making is highly complex in nature. I also discussed with Dr. Kaylin Zapata further treatment plans and coordinated and formulated plan of treatment. Discussed with the patient and the patient's . We will follow with you. DICTATING PHYSICIAN: TERESITA BALLESTEROS M.D. [id number] PHY#: [id number] ID: [id number] JOB#: [id number] ACCT: [id number] cc: >
[2017-06-28] MEDS: FUROSEMIDE INJ/PF 40 MG/4 ML SDV IV SCH ×3 (00:21→23:22)
[2017-06-28] MEDS: GUAIFENESIN 600 MG TABLET.SA PO SCH ×3 (00:21→23:22)
[2017-06-28] MEDS: CEFEPIME 2 GM/D5W RTU 2 GM/50 ML RTUPB IV SCH ×3 (00:21→23:23)
[2017-06-28] MEDS: NORMAL SALINE 10 ML SDV (SCHEDULED) IV SCH ×3 (00:21→23:22)
[2017-06-28] MEDS: OXYCODONE HCL IR 5 MG TABLET PO PRN ×2 (01:58→18:10)
[2017-06-28] MEDS: LEVOTHYROXINE SODIUM 0.025 MG TABLET PO SCH (06:27)
[2017-06-28] MEDS: LANSOPRAZOLE 30 MG TAB.RAP.DR PO SCH (06:27)
[2017-06-28 07:23] LABS: ALANINE AMINOTRANSFERASE 30 U/L (9-52); ALBUMIN 2.8 g/dL (3.5-5.0); ALKALINE PHOSPHATASE 191 U/L (38-126); ASPARTATE AMINO TRANSFERASE 75 U/L (14-36); BILIRUBIN,DIRECT 1.1 mg/dL (0.0-0.4); BILIRUBIN,TOTAL 1.6 mg/dL (0.2-1.3); BLOOD UREA NITROGEN 26 mg/dL (7-20); CHLORIDE 99 mmol/L (98-107); CREATININE RESULT 0.98 mg/dL (0.52-1.25); GLUCOSE 98 mg/dL (75-110); POTASSIUM 3.5 mmol/L (3.6-5.0); TOTAL PROTEIN 6.1 g/dL (6.3-8.2)
[2017-06-28 07:29] LABS: HEMATOCRIT 32.5 % (36.0-47.0); HEMOGLOBIN 11.3 g/dL (12.0-15.5); HGB HCT DIFFERENCE 1.4; MEAN CORPUSCULAR HEMOGLOBIN 32.5 pg (27.0-33.4); MEAN CORPUSCULAR HGB CONC 34.8 g/dL (32.0-36.0); MEAN CORPUSCULAR VOLUME 93 fl (80-97); RED BLOOD COUNT 3.48 10^6/uL (3.72-5.28); RED CELL DISTRIBUTION WIDTH 21.3 % (11.5-14.0)
[2017-06-28 07:37] LABS: BASOPHILS % (MANUAL) 0 % (0-2); EOSINOPHILS % (MANUAL) 0 % (0-6); LYMPHOCYTES % (MANUAL) 22 % (13-45); TOTAL CELLS COUNTED 50
[2017-06-28 07:38] LABS: BAND NEUTROPHILS % (MANUAL) 14 % (3-5)
[2017-06-28 07:39] LABS: NUCLEATED RED BLOOD CELLS 10 /100 WBC (0)
[2017-06-28 07:41] LABS: OVALOCYTES 1+; POIKILOCYTOSIS 1+
[2017-06-28 07:42] LABS: ANISOCYTOSIS 2+; POLYCHROMASIA SLIGHT
[2017-06-28 07:44] LABS: ANION GAP 7 (5-19)
[2017-06-28 07:46] LABS: WHITE BLOOD COUNT 1.5 10^3/uL (4.0-10.5)
[2017-06-28 08:02] LABS: CARBON DIOXIDE 35 mmol/L (22-30)
[2017-06-28 08:04] LABS: CALCIUM 13.6 mg/dL (8.4-10.2)
[2017-06-28] MEDS: MAGNESIUM OXIDE 400 MG TABLET PO SCH (09:31)
[2017-06-28] MEDS: POTASSIUM CHLORIDE 10 MEQ TABLET.SA PO SCH ×2 (09:31→18:12)
--- NOTE | 2017-06-28 09:54 | PDOC PROGRESS REPORT ---
Subjective Progress Note for:: 06/28/17 Subjective:: Patient makes eye contact and facial grimacing, but otherwise, is unresponsive. at bedside states that she does not seem to be in any pain. She is talking about things that are not there and is having more difficulty controlling her muscles. He spoke with someone about Hospice yesterday, but is unsure if he will request this. I encouraged him to discuss this with Dr. Oscar. He understands that the plan is for her to get stronger and then to go home. Reason For Visit: PNEUMONIA Physical Exam Vital Signs: Temp Pulse Resp BP Pulse Ox 97.9 F 111 H 18 113/61 98 06/28/17 07:46 06/28/17 07:46 06/28/17 07:46 06/28/17 07:46 06/28/17 07:46 Intake & Output 06/27/17 06/28/17 06/29/17 06:59 06:59 06:59 Intake Total 3092 1232 Output Total 4100 4850 Balance -1008 -3618 Weight 87.2 kg 86.5 kg General appearance: PRESENT: obese, other - female. Sitting up In bed. Neurological exam: PRESENT: awake, other - Able to make eye contact, but otherwiser, does not respond to me. Nurses state that she moans sometimes when she is rolled. Results Laboratory Results: 06/28/17 06:44 06/28/17 06:44 06/26/17 06/27/17 06/28/17 04:18 14:50 06:44 WBC 1.5 L* RBC 3.48 L Hgb 7.1 L 11.3 L Hct 32.5 L MCV 93 MCH 32.5 MCHC 34.8 RDW 21.3 H Plt Count 70 L Seg Neutrophils % Not Reportable Lymphocytes % Not Reportable Monocytes % Not Reportable Eosinophils % Not Reportable Basophils % Not Reportable Absolute Neutrophils Not Reportable Absolute Lymphocytes Not Reportable Absolute Monocytes Not Reportable Absolute Eosinophils Not Reportable Absolute Basophils Not Reportable Sodium 140.7 Potassium 3.3 L Chloride 103 Carbon Dioxide 26 Anion Gap 12 BUN 25 H Creatinine 0.96 Est GFR ( Amer) > 60 Est GFR (Non-Af Amer) 57 L Glucose 144 H Calcium 14.0 H* Total Bilirubin AST ALT Alkaline Phosphatase Total Protein Albumin 06/28/17 06:44 WBC RBC Hgb Hct MCV MCH MCHC RDW Plt Count Seg Neutrophils % Lymphocytes % Monocytes % Eosinophils % Basophils % Absolute Neutrophils Absolute Lymphocytes Absolute Monocytes Absolute Eosinophils Absolute Basophils Sodium 141.0 Potassium 3.5 L Chloride 99 Carbon Dioxide 35 H Anion Gap 7 BUN 26 H Creatinine 0.98 Est GFR ( Amer) > 60 Est GFR (Non-Af Amer) 55 L Glucose 98 Calcium 13.6 H* Total Bilirubin 1.6 H AST 75 H ALT 30 Alkaline Phosphatase 191 H Total Protein 6.1 L Albumin 2.8 L Impressions: Head CT 06/25/17 19:47 IMPRESSION: Stable bilateral chronic subdural hematomas. No midline shift. No evidence for acute hemorrhage. Increased mottled appearance of the bones. EVIDENCE OF ACUTE STROKE: NO. Guidance Fluoroscopy 06/26/17 00:00 IMPRESSION: SUCCESSFUL PLACEMENT OF A 5 FR DUAL LUMEN 35 CM PICC IN THE RIGHT BASILIC VEIN. Interventional Vascular Procedure 06/26/17 00:00 IMPRESSION: SUCCESSFUL PLACEMENT OF A 5 FR DUAL LUMEN 35 CM PICC IN THE RIGHT BASILIC VEIN. Limited or Localized CT 06/26/17 00:00 IMPRESSION: 1. Severe bilateral hydronephrosis. No obstructing ureteral calculi are identified. 2. Nonobstructing right nephrolithiasis. 3. Small ascites. 4. Hyperdense material within the gallbladder, suggestive of cholelithiasis. 5. Colonic diverticulosis. 6. Large right-sided pleural effusion with atelectasis at the right middle and right lower lobes. 7. Moderate left-sided pleural effusion with atelectasis at the left lower lobe. 8. Cardiomegaly. 9. 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 PICC Line Insertion 06/26/17 09:12 IMPRESSION: SUCCESSFUL PLACEMENT OF A 5 FR DUAL LUMEN 35 CM PICC IN THE RIGHT BASILIC VEIN. Chest X-Ray 06/27/17 00:00 IMPRESSION: OVERALL NO SIGNIFICANT CHANGE IN APPEARANCE OF THE CHEST, OTHER THAN INTERVAL PLACEMENT OF A PICC LINE. Assessment & Plan - Diagnosis (1) Pancytopenia due to chemotherapy Is this a current diagnosis for this admission?: Yes Plan: Appears to be slowly improving. No indication for transfusion at this time. No recent fevers. (2) Altered mental status Qualifiers: Altered mental status type: somnolence Qualified Code(s): R40.0 - Somnolence Is this a current diagnosis for this admission?: Yes Plan: Difficult to say if this will improve or not, may be due to cancer or to the chemotherapy. Will continue to monitor for now. (3) Breast cancer Qualifiers: Breast location: unspecified site of breast Plan: Further recommendations per Dr. Oscar. - Plan Summary Plan Summary: I will be available by phone over the weekend. Dr. Oscar returns on Friday. Please call if any concerns.
[2017-06-28] MEDS ORDERED: DOCUSATE SODIUM 100 MG CAPSULE PO PRN (14:37)
--- NOTE | 2017-06-28 14:45 | PDOC PROGRESS REPORT ---
Subjective Progress Note for:: 06/28/17 Subjective:: Patient was seen by the bedside she has metastatic disease, stage IV breast cancer with hypercalcemia, altered mental status very stuporous, patient remains a full code despite having terminal illness. I reviewed the note of the oncologist apparently he discussed with them hospice as an option but family is not there yet. Reason For Visit: PNEUMONIA Physical Exam Vital Signs: Temp Pulse Resp BP Pulse Ox 98.6 F 110 H 20 111/47 L 95 06/28/17 12:11 06/28/17 12:11 06/28/17 12:11 06/28/17 12:11 06/28/17 12:11 Intake & Output 06/27/17 06/28/17 06/29/17 06:59 06:59 06:59 Intake Total 3092 1232 0 Output Total 4100 4850 600 Balance -1008 -3618 -600 Weight 87.2 kg 86.5 kg General appearance: PRESENT: severe distress Eye exam: PRESENT: PERRLA Respiratory exam: PRESENT: clear to auscultation chad Cardiovascular exam: PRESENT: +S1, +S2 GI/Abdominal exam: PRESENT: soft Neurological exam: PRESENT: altered Results Laboratory Results: 06/28/17 06:44 06/28/17 06:44 06/27/17 06/28/17 06/28/17 14:50 06:44 06:44 WBC 1.5 L* RBC 3.48 L Hgb 11.3 L Hct 32.5 L MCV 93 MCH 32.5 MCHC 34.8 RDW 21.3 H Plt Count 70 L Seg Neutrophils % Not Reportable Lymphocytes % Not Reportable Monocytes % Not Reportable Eosinophils % Not Reportable Basophils % Not Reportable Absolute Neutrophils Not Reportable Absolute Lymphocytes Not Reportable Absolute Monocytes Not Reportable Absolute Eosinophils Not Reportable Absolute Basophils Not Reportable Sodium 140.7 141.0 Potassium 3.3 L 3.5 L Chloride 103 99 Carbon Dioxide 26 35 H Anion Gap 12 7 BUN 25 H 26 H Creatinine 0.96 0.98 Est GFR ( Amer) > 60 > 60 Est GFR (Non-Af Amer) 57 L 55 L Glucose 144 H 98 Calcium 14.0 H* 13.6 H* Total Bilirubin 1.6 H AST 75 H ALT 30 Alkaline Phosphatase 191 H Total Protein 6.1 L Albumin 2.8 L Impressions: Head CT 06/25/17 19:47 IMPRESSION: Stable bilateral chronic subdural hematomas. No midline shift. No evidence for acute hemorrhage. Increased mottled appearance of the bones. EVIDENCE OF ACUTE STROKE: NO. Guidance Fluoroscopy 06/26/17 00:00 IMPRESSION: SUCCESSFUL PLACEMENT OF A 5 FR DUAL LUMEN 35 CM PICC IN THE RIGHT BASILIC VEIN. Interventional Vascular Procedure 06/26/17 00:00 IMPRESSION: SUCCESSFUL PLACEMENT OF A 5 FR DUAL LUMEN 35 CM PICC IN THE RIGHT BASILIC VEIN. Limited or Localized CT 06/26/17 00:00 IMPRESSION: 1. Severe bilateral hydronephrosis. No obstructing ureteral calculi are identified. 2. Nonobstructing right nephrolithiasis. 3. Small ascites. 4. Hyperdense material within the gallbladder, suggestive of cholelithiasis. 5. Colonic diverticulosis. 6. Large right-sided pleural effusion with atelectasis at the right middle and right lower lobes. 7. Moderate left-sided pleural effusion with atelectasis at the left lower lobe. 8. Cardiomegaly. 9. 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 PICC Line Insertion 06/26/17 09:12 IMPRESSION: SUCCESSFUL PLACEMENT OF A 5 FR DUAL LUMEN 35 CM PICC IN THE RIGHT BASILIC VEIN. Chest X-Ray 06/27/17 00:00 IMPRESSION: OVERALL NO SIGNIFICANT CHANGE IN APPEARANCE OF THE CHEST, OTHER THAN INTERVAL PLACEMENT OF A PICC LINE. Assessment & Plan - Diagnosis (1) Hypercalcemia of malignancy Is this a current diagnosis for this admission?: Yes (2) Malignant neoplasm of breast Qualifiers: Breast location: unspecified site of breast Estrogen receptor status: unspecified Patient sex: female Laterality: unspecified laterality Qualified Code(s): C50.919 - Malignant neoplasm of unspecified site of unspecified female breast Is this a current diagnosis for this admission?: Yes - Plan Summary Plan Summary: She will continue present treatment,prognosis is very poor
--- NOTE | 2017-06-28 23:13 | PROGRESS NOTE E ---
Progress Note NAME: PRINCESS DE LEON : 1940 AGE: 76Y DATE: 06/28/2017 ROOM: 303 SUBJECTIVE: The patient is confused. She is awake but does not answer questions appropriately. She does not know where she is and does not know person or time. She denies any shortness of breath but appears to be short of breath. There is no arrhythmia seen on the monitor. She does have orthopnea but no leg edema. The patient denies any cough or fever. There is no pleuritic chest pain. There is no hemoptysis. OBJECTIVE: VITAL SIGNS: On examination, the patient feels a little better, afebrile with a temperature of 98.6 degrees Fahrenheit, pulse is 110 beats per minute, sinus tachycardia, blood pressure is 111/47, respirations are 20 per minute, O2 saturations are 95% on nasal cannula 1.50 liters. GENERAL: On examination, the patient is chronically ill. HEENT: Head is atraumatic, normocephalic. Eyes: Pupils are equal, round, regular, reactive to light and accommodation. Extraocular movements are normal. There is no conjunctival pallor present. There is no scleral icterus. ENT is negative. SKIN: There is no petechiae or ecchymosis. There are no skin rashes or lesions. NECK: Supple. There is no JVD. There is no goiter. Carotids are equal. There is no bruit. Trachea is central. There is no lymphadenopathy. LUNGS: Show absent breath sounds in the left lower lobe and also absent breath sounds on the right side a little above midway on the right lung. In the mid lung zone, there are bronchial breath sounds present. There is dullness in the areas where there are absent breath sounds. The rest of the lungs show diminished air entry and prolonged expiration. The rest of the lungs show hyperresonance on percussion. HEART: S1, S2 is heard. There is no S3 gallop. There is no S4 gallop. There is a systolic murmur left sternal border on the apex. There is no rub. ABDOMEN: Soft, nontender. There is no hepatosplenomegaly. Bowel sounds are well heard. There are no tender areas or masses. EXTREMITIES: Femorals are diminished. There are no femoral bruits. Leg pulses are diminished. There is no pedal edema. There is no cyanosis or clubbing. There is no DVT or cellulitis. CENTRAL NERVOUS SYSTEM: The patient is conscious, awake, alert, oriented x3 with no focal deficits. PSYCHIATRIC: The patient's judgment and insight are intact. Her affect is normal. INTAKE/OUTPUT: The patient's 24-hour intake is 1232 mL, output is 4850 mL. DIAGNOSTIC STUDIES: The patient's white count is 1500, hemoglobin has come up to 11.3, hematocrit is 32.5, and platelet count is 70,000, which has come down from 89,000 yesterday. The patient's sodium is 141, potassium is low at 3.5, chloride is 102, CO2 is 32. The patient's BUN is 25, creatinine is 1.03, GFR is reduced at 52 mL, which is chronic kidney disease stage 3A. Glucose is 109. Calcium is again down to 15.3. The patient's total bilirubin is 1.6, direct bilirubin is 1.1, AST is elevated at 75, ALT is 30. The patient's alkaline phosphatase is 191, and total protein is 6.1. Albumin is 2.8. IMPRESSION AND PLAN: 1. ALTERED MENTAL STATUS, QUESTION ETIOLOGY. MOST LIKELY SECONDARY TO SEPSIS/PNEUMONIA AND HYPERCALCEMIA. At present, the patient is awake but confused and disoriented x3. 2. ANEMIA OF CHRONIC DISEASE. His hemoglobin has improved to 7.3. 3. HYPERCALCEMIA. 4. MOST LIKELY PNEUMONIA WITH BILATERAL PLEURAL EFFUSIONS. 5. CHRONIC SYSTOLIC HEART FAILURE AND DIASTOLIC FAILURE, AT PRESENT COMPENSATED. NO EVIDENCE OF ACUTE HEART FAILURE AT PRESENT. 6. CARDIOMYOPATHY WITH MODERATELY REDUCED LEFT VENTRICULAR EJECTION FRACTION. 7. STATUS POST BIVENTRICULAR PACEMAKER FOR CARDIAC RESYNCHRONIZATION THERAPY. 8. ABNORMAL LIVER FUNCTION TESTS, MOST LIKELY SECONDARY TO PATIENT BEING ON STATIN. Will need to rule out newer medications. 9. THROMBOCYTOPENIA DUE TO CHEMOTHERAPY. 10. DECREASED WHITE BLOOD CELLS SECONDARY TO PATIENT'S RECENT CHEMOTHERAPY. 11. HYPOKALEMIA. Would recommend replacing the patient's potassium. 12. BREAST CANCER, METASTASES. 13. CORONARY ARTERY DISEASE, HISTORY OF STENT PLACEMENT IN DISTAL LEFT ANTERIOR DESCENDING IN THE PAST, NO ANGINA SYMPTOMS. 14. NO HISTORY OF OLD MYOCARDIAL INFARCTION. 15. HISTORY OF CONGESTIVE HEART FAILURE IN THE PAST, AT PRESENT SEEMS TO BE COMPENSATED. 16. CARDIOMYOPATHY, MODERATELY REDUCED LEFT VENTRICULAR EJECTION FRACTION POST [employer]IST. At present left ventricular ejection fraction is 35% to 40%. 17. HYPOTHYROIDISM. Will continue replacement. 18. TYPE 2 DIABETES MELLITUS. Continue current therapy and continue patient's sliding scale insulin coverage of blood sugars. 19. Continue to hold the patient's statin. 20. Continue current medications including antibiotics as scheduled, treatment, and note that intravenous Lasix has been decreased. In spite of that, the patient has a good urine output. 21. Consider draining the patient's pleural effusion for analysis. The plan is to wait until Friday to see if platelets come up and then this will be ordered, but I feel that we may have to do it earlier if the patient becomes short of breath. 22. *------* with a GFR of 52 mL per hour. Note that the patient has bilateral nonobstructive severe hydronephrosis. TIME SPENT: Note 30 minutes spent on this patient with more than 50% time spent on direct patient care. The patient's medications have been reviewed. Also, recommended to decrease the patient's Lasix. Note that the patient's medical decision making is highly complex in nature. Discussed with Dr. King covering Dr. Zapata. Also, the patient's medications have been reviewed. Discussed with the patient's . We will follow with you. DICTATING PHYSICIAN: TERESITA BALLESTEROS M.D. [id number] TOMAS#: [id number] ID: [id number] JOB#: [id number] ACCT: [id number] cc: >
[2017-06-29] MEDS: LEVOTHYROXINE SODIUM 0.025 MG TABLET PO SCH (06:37)
[2017-06-29] MEDS: LANSOPRAZOLE 30 MG TAB.RAP.DR PO SCH (06:37)
[2017-06-29] MEDS: OXYCODONE HCL IR 5 MG TABLET PO PRN ×2 (10:11→17:15)
[2017-06-29] MEDS: POTASSIUM CHLORIDE 10 MEQ TABLET.SA PO SCH (10:12)
[2017-06-29] MEDS: GUAIFENESIN 600 MG TABLET.SA PO SCH ×2 (10:12→21:27)
[2017-06-29] MEDS: MAGNESIUM OXIDE 400 MG TABLET PO SCH (10:12)
[2017-06-29] MEDS: FUROSEMIDE INJ/PF 40 MG/4 ML SDV IV SCH ×2 (10:14→21:23)
[2017-06-29] MEDS: CEFEPIME 2 GM/D5W RTU 2 GM/50 ML RTUPB IV SCH ×2 (10:16→21:23)
[2017-06-29] MEDS: NORMAL SALINE 10 ML SDV (SCHEDULED) IV SCH ×2 (10:16→21:33)
--- NOTE | 2017-06-29 13:29 | PDOC PROGRESS REPORT ---
Subjective Progress Note for:: 06/29/17 Subjective:: No new medical issue to address, condition remained the same, overall prognosis remains poor. Patient spouse not accepting recommendation of hospice that was offered family by the oncologist on Friday. Reason For Visit: PNEUMONIA Physical Exam Vital Signs: Temp Pulse Resp BP Pulse Ox 97.5 F 100 22 H 105/50 L 100 06/29/17 11:23 06/29/17 11:23 06/29/17 11:23 06/29/17 11:23 06/29/17 11:23 Intake & Output 06/28/17 06/29/17 06/30/17 06:59 06:59 06:59 Intake Total 1232 560 222 Output Total 4850 1700 50 Balance -3618 -1140 172 Weight 86.5 kg 87.3 kg Eye exam: ABSENT: scleral icterus Neck exam: PRESENT: full ROM Respiratory exam: PRESENT: clear to auscultation chad Cardiovascular exam: PRESENT: RRR, +S1, +S2 Vascular exam: PRESENT: normal capillary refill Rectal exam: PRESENT: deferred Neurological exam: PRESENT: alert Results Laboratory Results: 06/28/17 06:44 06/28/17 06:44 Impressions: Head CT 06/25/17 19:47 IMPRESSION: Stable bilateral chronic subdural hematomas. No midline shift. No evidence for acute hemorrhage. Increased mottled appearance of the bones. EVIDENCE OF ACUTE STROKE: NO. Guidance Fluoroscopy 06/26/17 00:00 IMPRESSION: SUCCESSFUL PLACEMENT OF A 5 FR DUAL LUMEN 35 CM PICC IN THE RIGHT BASILIC VEIN. Interventional Vascular Procedure 06/26/17 00:00 IMPRESSION: SUCCESSFUL PLACEMENT OF A 5 FR DUAL LUMEN 35 CM PICC IN THE RIGHT BASILIC VEIN. Limited or Localized CT 06/26/17 00:00 IMPRESSION: 1. Severe bilateral hydronephrosis. No obstructing ureteral calculi are identified. 2. Nonobstructing right nephrolithiasis. 3. Small ascites. 4. Hyperdense material within the gallbladder, suggestive of cholelithiasis. 5. Colonic diverticulosis. 6. Large right-sided pleural effusion with atelectasis at the right middle and right lower lobes. 7. Moderate left-sided pleural effusion with atelectasis at the left lower lobe. 8. Cardiomegaly. 9. 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 PICC Line Insertion 06/26/17 09:12 IMPRESSION: SUCCESSFUL PLACEMENT OF A 5 FR DUAL LUMEN 35 CM PICC IN THE RIGHT BASILIC VEIN. Chest X-Ray 06/27/17 00:00 IMPRESSION: OVERALL NO SIGNIFICANT CHANGE IN APPEARANCE OF THE CHEST, OTHER THAN INTERVAL PLACEMENT OF A PICC LINE. Assessment & Plan - Diagnosis (1) Hypercalcemia of malignancy Is this a current diagnosis for this admission?: Yes (2) Malignant neoplasm of breast Qualifiers: Breast location: unspecified site of breast Estrogen receptor status: unspecified Patient sex: female Laterality: unspecified laterality Qualified Code(s): C50.919 - Malignant neoplasm of unspecified site of unspecified female breast Is this a current diagnosis for this admission?: Yes
--- NOTE | 2017-06-29 15:23 | PROGRESS NOTE E ---
Progress Note NAME: PRINCESS DE LEON : 1940 AGE: 76Y DATE: 06/29/2017 ROOM: 303 SUBJECTIVE: The patient appears to be very lethargic and sleepy but when the family calls her, she wakes up and nods her head. It is not clear if she understands, but she also seems to be in some respiratory distress with shallow breathing. OBJECTIVE: GENERAL: On examination, the patient looks chronically ill and is very frail. VITAL SIGNS: She is afebrile with a temperature of 97.5 degrees Fahrenheit, pulse is 100 beats per minute, blood pressure 105/50, respirations are 22 per minute, 02 sat is 100% on 1 L nasal cannula. Note that there are no arrhythmias seen on the monitor. GENERAL: On examination, the patient appears to be chronically ill and frail. HEENT: Head is atraumatic, normocephalic. Eyes: Pupils are equal, round, regular, reactive to light. There is no conjunctival pallor present. There is no scleral icterus. ENT is negative. SKIN: There is no petechiae or ecchymosis. There are no skin rashes or skin lesions. NECK: Supple. There is no JVD. There is no goiter. Carotids are equal. There is no bruit. Trachea is central. There is no lymphadenopathy. LUNGS: Show absent breath sounds in the left lower lobe and also absent breath sounds on the right side a little above midway on the right lung. In the right mid lung zone, there are bronchial breath sounds present. There is dullness in the areas where there are absent breath sounds. The rest of the lungs show diminished air entry and prolonged expiration. The rest of the lungs show hyperresonance on percussion. HEART: S1, S2 is heard. There is no S3 gallop. There is no S4 gallop. There is a systolic murmur in the left sternal border and the apex. There is no rub. ABDOMEN: Soft, nontender. There is no hepatosplenomegaly. Bowel sounds are well heard. There are no tender areas or masses. EXTREMITIES: Femorals are diminished. There are no femoral bruits. Leg pulses are diminished. There is no pedal edema. There is no cyanosis or clubbing. CENTRAL NERVOUS SYSTEM: The patient is very lethargic and sleepy but moves all 4 extremities. PSYCHIATRIC: The patient does not appear to be agitated by cannot participate in a meaningful psychological evaluation. The patient's 24-hr intake is 560 mL, output is 1700 mL. DIAGNOSTIC STUDIES: The patient's glucose is 88. IMPRESSION AND PLAN: 1. ALTERED MENTAL STATUS. At present, patient is very lethargic, most likely cause is sepsis pneumonia and hypercalcemia. 2. ANEMIA OF CHRONIC DISEASE. Hemoglobin has improved to 11.3 yesterday. 3. HYPERCALCEMIA. 4. MOST LIKELY PNEUMONIA WITH BILATERAL PLEURAL EFFUSIONS. 5. 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 No evidence of acute heart failure at present. 6. CARDIOMYOPATHY WITH MODERATELY REDUCED LV EJECTION FRACTION. 7. STATUS POST BIVENTRICULAR PACEMAKER FOR CARDIAC RESYNCHRONIZATION THERAPY. 8. ABNORMAL LIVER FUNCTION TESTS, ? LIVER METS. 9. THROMBOCYTOPENIA DUE TO CHEMOTHERAPY. No obvious bleeding noted. 10. DECREASED WHITE BLOOD CELL COUNT SECONDARY TO PATIENT'S RECENT CHEMOTHERAPY. 11. HYPOKALEMIA. By yesterday's lab, potassium was 3.5 and this has been replenished. 12. BREAST CANCER WITH METASTASIS. 13. CORONARY ARTERY DISEASE, HISTORY OF STENT PLACEMENT IN DISTAL LEFT ANTERIOR DESCENDING ARTERY IN THE PAST. No angina symptoms. No history of old [place]. 14. HISTORY OF CONGESTIVE HEART FAILURE IN THE PAST, AT PRESENT SEEMS TO BE COMPENSATED. This seems to be complicated. 15. CARDIOMYOPATHY, MODERATELY REDUCED LV EJECTION FRACTION STATUS POST BIVENTRICULAR PACEMAKER. Her EF has come up to 35% to 40% from 25% prior to the cardiac resynchronization therapy. 16. HYPOTHYROIDISM. Continue replacement. 17. TYPE 2 DIABETES MELLITUS. Continue current therapy and continue patient's sliding scale insulin coverage. 18. Continue to hold the patient's statin. 19. Continue current medications including antibiotics scheduled. Note that intravenous Lasix has been decreased and *------*. 20. Consider draining the patient's pleural effusion for analysis. The plan is to wait until Friday to see if platelets come up and then this will be ordered. 21. Mildly reduced GFR of 52 mL/hr. Note that the patient has bilateral nonobstructive severe hydronephrosis. TIME SPENT: Note 30 minutes spent on this patient with more than 50% time spent on direct patient care. Although the patient is severely ill, the cardiac decision making is of moderate complexity. Discussed with the attending physician covering Dr. Zapata. Will follow with you. The patient's prognosis is very poor. Thanking you. DICTATING PHYSICIAN: TERESITA BALLESTEROS M.D. [id number] PHY#: [id number] ID: [id number] JOB#: [id number] ACCT: [id number] cc: >
[2017-06-29] MEDS ORDERED: FENTANYL 25 MCG/HR PATCH.TD72 TD SCH (16:00)
[2017-06-29] MEDS: POTASSIUM CHLORIDE 20 MEQ/15 ML UDCUP PO SCH (17:16)
[2017-06-30 05:20] LABS: HEMATOCRIT 25.7 % (36.0-47.0); HGB HCT DIFFERENCE 1.3; MEAN CORPUSCULAR HEMOGLOBIN 33.1 pg (27.0-33.4); MEAN CORPUSCULAR VOLUME 95 fl (80-97); RED BLOOD COUNT 2.72 10^6/uL (3.72-5.28); RED CELL DISTRIBUTION WIDTH 22.3 % (11.5-14.0)
[2017-06-30 05:36] LABS: ANION GAP 6 (5-19); BLOOD UREA NITROGEN 29 mg/dL (7-20); CALCIUM 11.3 mg/dL (8.4-10.2); CARBON DIOXIDE 34 mmol/L (22-30); CHLORIDE 102 mmol/L (98-107); GLUCOSE 93 mg/dL (75-110); POTASSIUM 3.2 mmol/L (3.6-5.0); SODIUM 141.6 mmol/L (137-145)
[2017-06-30 05:37] LABS: CREATININE RESULT 0.89 mg/dL (0.52-1.25)
[2017-06-30 05:48] LABS: WHITE BLOOD COUNT 1.9 10^3/uL (4.0-10.5)
[2017-06-30 05:52] LABS: BAND NEUTROPHILS % (MANUAL) 8 % (3-5); BASOPHILS % (MANUAL) 0 % (0-2); EOSINOPHILS % (MANUAL) 0 % (0-6); LYMPHOCYTES % (MANUAL) 6 % (13-45); TOTAL CELLS COUNTED 50
[2017-06-30 05:55] LABS: ANISOCYTOSIS 3+; OVALOCYTES SLIGHT; POIKILOCYTOSIS SLIGHT; POLYCHROMASIA SLIGHT; TEAR DROP CELLS SLIGHT; TOXIC GRANULATION 1+; TOXIC VACUOLATION PRESENT
[2017-06-30] MEDS: LANSOPRAZOLE 30 MG TAB.RAP.DR PO SCH (06:05)
[2017-06-30] MEDS: LEVOTHYROXINE SODIUM 0.025 MG TABLET PO SCH (06:05)
--- NOTE | 2017-06-30 07:59 | PDOC PROGRESS REPORT ---
Subjective Progress Note for:: 06/30/17 Subjective:: Pt more lethargic over weekend, eating less. Today again had long discussion w/ , he seems more amenable to consider hospice, will have community hospice liason, [facility], come and talk w/ pt at 10:30 am today. Spent 45 min in discussion. Reason For Visit: PNEUMONIA Physical Exam Vital Signs: Temp Pulse Resp BP Pulse Ox 98.1 F 94 20 97/35 L 99 06/30/17 04:37 06/30/17 04:37 06/30/17 04:37 06/30/17 04:37 06/30/17 04:37 Intake & Output 06/29/17 06/30/17 07/01/17 06:59 06:59 06:59 Intake Total 560 332 Output Total 1700 1550 Balance -1140 -1218 Weight 87.3 kg 88.9 kg General appearance: PRESENT: no acute distress, well-developed, well-nourished Head exam: PRESENT: atraumatic, normocephalic Eye exam: PRESENT: conjunctiva pink, EOMI, PERRLA. ABSENT: scleral icterus Ear exam: PRESENT: normal external ear exam Mouth exam: PRESENT: moist, tongue midline Neck exam: ABSENT: carotid bruit, JVD, lymphadenopathy, thyromegaly Respiratory exam: PRESENT: clear to auscultation chad. ABSENT: rales, rhonchi, wheezes Cardiovascular exam: PRESENT: RRR. ABSENT: diastolic murmur, rubs, systolic murmur Pulses: PRESENT: normal dorsalis pedis pul Vascular exam: PRESENT: normal capillary refill GI/Abdominal exam: PRESENT: normal bowel sounds, soft. ABSENT: distended, guarding, mass, organolmegaly, rebound, tenderness Rectal exam: PRESENT: deferred Extremities exam: PRESENT: full ROM. ABSENT: calf tenderness, clubbing, pedal edema Neurological exam: PRESENT: alert, awake, oriented to person, oriented to place , oriented to time, oriented to situation, CN II-XII grossly intact. ABSENT: motor sensory deficit Psychiatric exam: PRESENT: appropriate affect, normal mood. ABSENT: homicidal ideation, suicidal ideation Skin exam: PRESENT: dry, intact, warm. ABSENT: cyanosis, rash Results Laboratory Results: 06/30/17 04:10 06/30/17 04:10 06/30/17 06/30/17 04:10 04:10 WBC 1.9 L RBC 2.72 L Hgb 9.0 L D Hct 25.7 L MCV 95 MCH 33.1 MCHC 35.0 RDW 22.3 H Plt Count 50 L Seg Neutrophils % Not Reportable Lymphocytes % Not Reportable Monocytes % Not Reportable Eosinophils % Not Reportable Basophils % Not Reportable Absolute Neutrophils Not Reportable Absolute Lymphocytes Not Reportable Absolute Monocytes Not Reportable Absolute Eosinophils Not Reportable Absolute Basophils Not Reportable Sodium 141.6 Potassium 3.2 L Chloride 102 Carbon Dioxide 34 H Anion Gap 6 BUN 29 H Creatinine 0.89 Est GFR ( Amer) > 60 Est GFR (Non-Af Amer) > 60 Glucose 93 Calcium 11.3 H Impressions: Head CT 06/25/17 19:47 IMPRESSION: Stable bilateral chronic subdural hematomas. No midline shift. No evidence for acute hemorrhage. Increased mottled appearance of the bones. EVIDENCE OF ACUTE STROKE: NO. Guidance Fluoroscopy 06/26/17 00:00 IMPRESSION: SUCCESSFUL PLACEMENT OF A 5 FR DUAL LUMEN 35 CM PICC IN THE RIGHT BASILIC VEIN. Interventional Vascular Procedure 06/26/17 00:00 IMPRESSION: SUCCESSFUL PLACEMENT OF A 5 FR DUAL LUMEN 35 CM PICC IN THE RIGHT BASILIC VEIN. Limited or Localized CT 06/26/17 00:00 IMPRESSION: 1. Severe bilateral hydronephrosis. No obstructing ureteral calculi are identified. 2. Nonobstructing right nephrolithiasis. 3. Small ascites. 4. Hyperdense material within the gallbladder, suggestive of cholelithiasis. 5. Colonic diverticulosis. 6. Large right-sided pleural effusion with atelectasis at the right middle and right lower lobes. 7. Moderate left-sided pleural effusion with atelectasis at the left lower lobe. 8. Cardiomegaly. 9. 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 PICC Line Insertion 06/26/17 09:12 IMPRESSION: SUCCESSFUL PLACEMENT OF A 5 FR DUAL LUMEN 35 CM PICC IN THE RIGHT BASILIC VEIN. Chest X-Ray 06/27/17 00:00 IMPRESSION: OVERALL NO SIGNIFICANT CHANGE IN APPEARANCE OF THE CHEST, OTHER THAN INTERVAL PLACEMENT OF A PICC LINE. Assessment & Plan - Diagnosis (1) Pancytopenia due to chemotherapy Is this a current diagnosis for this admission?: Yes Plan: Hold on any blood products for now (2) Breast cancer metastasized to axillary lymph node Qualifiers: Laterality: right Qualified Code(s): C50.911 - Malignant neoplasm of unspecified site of right female breast; C77.3 - Secondary and unspecified malignant neoplasm of axilla and upper limb lymph nodes; C77.3 - Secondary and unspecified malignant neoplasm of axilla and upper limb lymph nodes; C77.3 - Secondary and unspecified malignant neoplasm of axilla and upper limb lymph nodes; C77.3 - Secondary and unspecified malignant neoplasm of axilla and upper limb lymph nodes Is this a current diagnosis for this admission?: Yes Plan: No further rx planned, PS has worsened too much, family considering DNR and hospice (3) Hypercalcemia Is this a current diagnosis for this admission?: Yes Plan: zometa given, pt on IVF - Time Time Spent with patient: 35 or more minutes
[2017-06-30] MEDS: POTASSI CL 20 MEQ/50 ML RIDER 20 MEQ/50 ML RTUPB IV SCH ×2 (09:13→10:52)
[2017-06-30] MEDS: FUROSEMIDE INJ/PF 40 MG/4 ML SDV IV SCH (10:32)
[2017-06-30] MEDS: POTASSIUM CHLORIDE 20 MEQ/15 ML UDCUP PO SCH (10:32)
[2017-06-30] MEDS: MAGNESIUM OXIDE 400 MG TABLET PO SCH (10:33)
[2017-06-30] MEDS: GUAIFENESIN 600 MG TABLET.SA PO SCH (10:33)
[2017-06-30] MEDS: CEFEPIME 2 GM/D5W RTU 2 GM/50 ML RTUPB IV SCH (10:43)
[2017-06-30] MEDS: NORMAL SALINE 10 ML SDV (SCHEDULED) IV SCH (10:55)
--- NOTE | 2017-06-30 12:31 | PDOC PROGRESS REPORT ---
Subjective Progress Note for:: 06/30/17 Subjective:: The patient is more lethargic. Dr. Oscar spoke to the patient's , and the agrees to place the patient in hospice. He spoke to the hospice school admissions representative. The patient will be going home on hospice. Hence patient not seen. Will not charge the patient. Will sign off thank you . Reason For Visit: PNEUMONIA Physical Exam Vital Signs: Temp Pulse Resp BP Pulse Ox 97.6 F 97 22 H 102/42 L 92 06/30/17 07:51 06/30/17 07:51 06/30/17 07:51 06/30/17 07:51 06/30/17 07:51 Intake & Output 06/29/17 06/30/17 07/01/17 06:59 06:59 06:59 Intake Total 560 332 Output Total 1700 1550 Balance -1140 -1218 Weight 87.3 kg 88.9 kg 88.9 kg Results Laboratory Results: 06/30/17 04:10 06/30/17 04:10 06/30/17 06/30/17 04:10 04:10 WBC 1.9 L RBC 2.72 L Hgb 9.0 L D Hct 25.7 L MCV 95 MCH 33.1 MCHC 35.0 RDW 22.3 H Plt Count 50 L Seg Neutrophils % Not Reportable Lymphocytes % Not Reportable Monocytes % Not Reportable Eosinophils % Not Reportable Basophils % Not Reportable Absolute Neutrophils Not Reportable Absolute Lymphocytes Not Reportable Absolute Monocytes Not Reportable Absolute Eosinophils Not Reportable Absolute Basophils Not Reportable Sodium 141.6 Potassium 3.2 L Chloride 102 Carbon Dioxide 34 H Anion Gap 6 BUN 29 H Creatinine 0.89 Est GFR ( Amer) > 60 Est GFR (Non-Af Amer) > 60 Glucose 93 Calcium 11.3 H Impressions: Head CT 06/25/17 19:47 IMPRESSION: Stable bilateral chronic subdural hematomas. No midline shift. No evidence for acute hemorrhage. Increased mottled appearance of the bones. EVIDENCE OF ACUTE STROKE: NO. Guidance Fluoroscopy 06/26/17 00:00 IMPRESSION: SUCCESSFUL PLACEMENT OF A 5 FR DUAL LUMEN 35 CM PICC IN THE RIGHT BASILIC VEIN. Interventional Vascular Procedure 06/26/17 00:00 IMPRESSION: SUCCESSFUL PLACEMENT OF A 5 FR DUAL LUMEN 35 CM PICC IN THE RIGHT BASILIC VEIN. Limited or Localized CT 06/26/17 00:00 IMPRESSION: 1. Severe bilateral hydronephrosis. No obstructing ureteral calculi are identified. 2. Nonobstructing right nephrolithiasis. 3. Small ascites. 4. Hyperdense material within the gallbladder, suggestive of cholelithiasis. 5. Colonic diverticulosis. 6. Large right-sided pleural effusion with atelectasis at the right middle and right lower lobes. 7. Moderate left-sided pleural effusion with atelectasis at the left lower lobe. 8. Cardiomegaly. 9. 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 PICC Line Insertion 06/26/17 09:12 IMPRESSION: SUCCESSFUL PLACEMENT OF A 5 FR DUAL LUMEN 35 CM PICC IN THE RIGHT BASILIC VEIN. Chest X-Ray 06/27/17 00:00 IMPRESSION: OVERALL NO SIGNIFICANT CHANGE IN APPEARANCE OF THE CHEST, OTHER THAN INTERVAL PLACEMENT OF A PICC LINE.
[2017-06-30 13:31] VITALS: BP 111/43
--- NOTE | 2017-06-30 13:52 | PDOC DISCHARGE SUMMARY ---
General - Admit/Disc Date/PCP Admission Date/Primary Care Provider: 06/25/17 23:29 AVRIL HARRIS MD Discharge Date: 06/30/17 - Discharge Diagnosis (1) Altered mental status Is this a current diagnosis for this admission?: Yes Summary: Due to the multifactorial including the pneumonia including the chronic subdural hematoma and including the stage IV breast cancer with metastatic disease and a chronic congestive heart failure (2) Anemia of chronic disease Is this a current diagnosis for this admission?: Yes Summary: Currently all same (3) Hypercalcemia Is this a current diagnosis for this admission?: Yes Summary: Most likely from the stage IV breast cancers (4) Hypoxia Is this a current diagnosis for this admission?: Yes Summary: Continues on oxygen (5) Pancytopenia due to chemotherapy Is this a current diagnosis for this admission?: Yes Summary: Currently all same (6) Right lower lobe pneumonia Is this a current diagnosis for this admission?: Yes Summary: Continues to current antibiotic (7) Abnormal LFTs Is this a current diagnosis for this admission?: Yes Summary: Hepatic contusions from the congestive heart failure and chronic conditions (8) Breast cancer metastasized to axillary lymph node Is this a current diagnosis for this admission?: Yes Summary: Pretty much patient unable to tolerate any medications consider hospice per the oncology (9) CAD (coronary artery disease) Is this a current diagnosis for this admission?: Yes (10) Congestive heart failure (CHF) Is this a current diagnosis for this admission?: Yes Summary: Continues to torsemide (11) Depression Is this a current diagnosis for this admission?: Yes (12) Hypothyroidism Is this a current diagnosis for this admission?: Yes (13) Type 2 diabetes mellitus Is this a current diagnosis for this admission?: Yes (14) Hypokalemia Is this a current diagnosis for this admission?: Yes - Additional Information Resuscitation Status: Full Code Discharge Diet: As Tolerated, Regular Home Medications: Levothyroxine Sodium [Synthroid 0.025 mg Tablet] 0.025 mg PO [id number] 06/26/17 Magnesium Oxide [Mag-Ox 400 mg Tablet] 400 mg PO DAILY 06/26/17 Multivitamin/Iron/Folic Acid [Centrum Women Tablet] 1 tab PO DAILY 06/26/17 Oxycodone HCl 10 mg PO Q6HP PRN 06/26/17 Pantoprazole Sodium 40 mg PO QHS 06/26/17 Potassium Chloride 10 meq PO DAILY 06/26/17 Torsemide [Demadex 20 mg Tablet] 10 mg PO DAILY 06/26/17 History of Present Illness History of Present Illness: There is a [id number] the stage for breast cancers with the metastatic diseaseAnd history of the congestive heart failure both systolic and diastolic with coronary artery disease and history of the chronic subdural hematoma and a history of the pancytopeniaCame to the emergency department by the because of the patient's not feeling well more lethargic and the patient was hypoxic In the ER patient CT of the head was stable with the chronic subdural hematoma patient's x-ray suggests the right-sided pneumoniaPatient have a bilateral pleural effusions Patient's also have a CT abdomen and pelvis was done with suggest the severe hydronephrosis without obstructing any kidney stones Patient's when I saw it up to the oxygens little bit more alert awake but still very tired and ill looking Patient's denied any chest pain denied any shortness of the breath Patient's hemoglobin is 7.4 and patient's platelet count is 19 Patient's potassium is also low and patient's calcium level is 15 Very extensive discussion with the patient and oncology regarding the patient's current conditions with him not a very good prognosis and understand very well and discuss about the CODE STATUS and patient's is going to think about itAnd talk to other family member Hospital Course Hospital Course: This is a 76-year-old female with significant medical problem as able came to the emergency department with altered mental status and with a significant history with the chronic subdural hematoma with a stage IV breast cancer with a significant thrombocytopenia and pancytopeniaAdmitting in the hospital for the pneumonia and hypercalcemia and as above conditions and also chronic congestive heart failure Patient seen by the cardiology and seen by oncology and patient's refer for the hospice care due to the end-stage disease and a discussed with the hospital were extensively and patient at this point discharge with the hospice careIn patients understand very well about the hospice care Physical Exam Vital Signs: Temp Pulse Resp BP Pulse Ox 97.6 F 97 22 H 102/42 L 92 06/30/17 07:51 06/30/17 07:51 06/30/17 07:51 06/30/17 07:51 06/30/17 07:51 Intake & Output 1206/30/17 07/01/17 06:59 06:59 06:59 Intake Total 560 332 Output Total 1700 1550 Balance -1140 -1218 Weight 87.3 kg 88.9 kg 88.9 kg General appearance: PRESENT: no acute distress Head exam: PRESENT: normocephalic Eye exam: PRESENT: PERRLA Respiratory exam: PRESENT: decreased breath sounds Cardiovascular exam: PRESENT: +S1, +S2 GI/Abdominal exam: PRESENT: normal bowel sounds, soft Rectal exam: PRESENT: deferred Extremities exam: PRESENT: pedal edema Neurological exam: PRESENT: altered Psychiatric exam: PRESENT: depressed Skin exam: PRESENT: dry Results Laboratory Results: 06/30/17 04:10 06/30/17 04:10 06/30/17 06/30/17 04:10 04:10 WBC 1.9 L RBC 2.72 L Hgb 9.0 L D Hct 25.7 L MCV 95 MCH 33.1 MCHC 35.0 RDW 22.3 H Plt Count 50 L Seg Neutrophils % Not Reportable Lymphocytes % Not Reportable Monocytes % Not Reportable Eosinophils % Not Reportable Basophils % Not Reportable Absolute Neutrophils Not Reportable Absolute Lymphocytes Not Reportable Absolute Monocytes Not Reportable Absolute Eosinophils Not Reportable Absolute Basophils Not Reportable Sodium 141.6 Potassium 3.2 L Chloride 102 Carbon Dioxide 34 H Anion Gap 6 BUN 29 H Creatinine 0.89 Est GFR ( Amer) > 60 Est GFR (Non-Af Amer) > 60 Glucose 93 Calcium 11.3 H Impressions: Head CT 06/25/17 19:47 IMPRESSION: Stable bilateral chronic subdural hematomas. No midline shift. No evidence for acute hemorrhage. Increased mottled appearance of the bones. EVIDENCE OF ACUTE STROKE: NO. Guidance Fluoroscopy 06/26/17 00:00 IMPRESSION: SUCCESSFUL PLACEMENT OF A 5 FR DUAL LUMEN 35 CM PICC IN THE RIGHT BASILIC VEIN. Interventional Vascular Procedure 06/26/17 00:00 IMPRESSION: SUCCESSFUL PLACEMENT OF A 5 FR DUAL LUMEN 35 CM PICC IN THE RIGHT BASILIC VEIN. Limited or Localized CT 06/26/17 00:00 IMPRESSION: 1. Severe bilateral hydronephrosis. No obstructing ureteral calculi are identified. 2. Nonobstructing right nephrolithiasis. 3. Small ascites. 4. Hyperdense material within the gallbladder, suggestive of cholelithiasis. 5. Colonic diverticulosis. 6. Large right-sided pleural effusion with atelectasis at the right middle and right lower lobes. 7. Moderate left-sided pleural effusion with atelectasis at the left lower lobe. 8. Cardiomegaly. 9. 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 PICC Line Insertion 06/26/17 09:12 IMPRESSION: SUCCESSFUL PLACEMENT OF A 5 FR DUAL LUMEN 35 CM PICC IN THE RIGHT BASILIC VEIN. Chest X-Ray 06/27/17 00:00 IMPRESSION: OVERALL NO SIGNIFICANT CHANGE IN APPEARANCE OF THE CHEST, OTHER THAN INTERVAL PLACEMENT OF A PICC LINE. Plan Time Spent: Greater than 30 Minutes - With the external discussed with the patient 's and oncology and other coordinate care and patient's discharge with the hospice careWith the prognosis is very poor and life expectancy is less than 6 month
== END 2017-06-30 14:03 | disposition hospice, home (50) | DRG 871 ==
LOC: ER 18:16 → EH 23:29 → 3N 06-26 02:57
PROVIDERS: ADMIT Family Medicine; ATTEND Family Medicine
PROC: 30233R1 Transfusion of Nonautologous Platelets into Peripheral Vein, Percutaneous Approach (ICD-10-PCS; principal; 2017-06-26)
PROC: 30233N1 Transfusion of Nonautologous Red Blood Cells into Peripheral Vein, Percutaneous Approach (ICD-10-PCS; 2017-06-26)
PROC: 3E0F73Z Introduction of Anti-inflammatory into Respiratory Tract, Via Natural or Artificial Opening (ICD-10-PCS; 2017-06-26)
PROC: 02HV33Z Insertion of Infusion Device into Superior Vena Cava, Percutaneous Approach (ICD-10-PCS; 2017-06-26)
PROC: B518ZZA Fluoroscopy of Superior Vena Cava, Guidance (ICD-10-PCS; 2017-06-26)
PROC: B548ZZA Ultrasonography of Superior Vena Cava, Guidance (ICD-10-PCS; 2017-06-26)
DX: A41.9 Sepsis, unspecified organism (principal); D61.810 Antineoplastic chemotherapy induced pancytopenia; J18.1 Lobar pneumonia, unspecified organism; I62.03 Nontraumatic chronic subdural hemorrhage; C77.3 Secondary and unspecified malignant neoplasm of axilla and upper limb lymph nodes; I50.42 Chronic combined systolic (congestive) and diastolic (congestive) heart failure; N13.30 Unspecified hydronephrosis; R18.8 Other ascites; J44.0 Chronic obstructive pulmonary disease with (acute) lower respiratory infection; K50.90 Crohn's disease, unspecified, without complications; I42.9 Cardiomyopathy, unspecified; D63.8 Anemia in other chronic diseases classified elsewhere; E83.52 Hypercalcemia; R09.02 Hypoxemia; T45.1X5A Adverse effect of antineoplastic and immunosuppressive drugs, initial encounter; I25.10 Atherosclerotic heart disease of native coronary artery without angina pectoris; F32.9 Major depressive disorder, single episode, unspecified; E03.9 Hypothyroidism, unspecified; E11.9 Type 2 diabetes mellitus without complications; E87.6 Hypokalemia; I11.0 Hypertensive heart disease with heart failure; K57.30 Diverticulosis of large intestine without perforation or abscess without bleeding; K21.9 Gastro-esophageal reflux disease without esophagitis; K76.1 Chronic passive congestion of liver; C50.911 Malignant neoplasm of unspecified site of right female breast; M10.9 Gout, unspecified; I35.8 Other nonrheumatic aortic valve disorders; I27.20 Pulmonary hypertension, unspecified; E66.9 Obesity, unspecified; I25.2 Old myocardial infarction; Z68.34 Body mass index [BMI] 34.0-34.9, adult; Z95.0 Presence of cardiac pacemaker; Z95.5 Presence of coronary angioplasty implant and graft; Z90.13 Acquired absence of bilateral breasts and nipples; Z87.891 Personal history of nicotine dependence; Z88.3 Allergy status to other anti-infective agents; Z88.0 Allergy status to penicillin; Z88.2 Allergy status to sulfonamides; Z85.830 Personal history of malignant neoplasm of bone; Z79.82 Long term (current) use of aspirin; Z79.899 Other long term (current) drug therapy; Z82.49 Family history of ischemic heart disease and other diseases of the circulatory system
CPT/HCPCS: 36415; 36430; 36569; 70450; 71010; 76380; 76937; 77001; 80048; 80053; 81001; 82962; 83605; 85025; 85610; 86850; 86900; 86901; 86920; 87040; 87086; 87088; 87186; 93306; 99285; J0456; J0692; J1642; J1940; J3475; J3480; J3489; J3490; P9016; P9035